=== PATIENT | female | born 1985 | race African-American/Black ===

== ENCOUNTER 2016-06-11 15:20 | Inpatient (IN) | payer MEDICARE, OTHER ==
[~2016-06-11] VITALS: Ht 160 cm; Wt 72.6 kg
[2016-06-11 15:28] VITALS: BP 204/97
[2016-06-11] MEDS ORDERED: Morphine Sulfate 4mg/ml Inj IVP ONE (15:45)
--- NOTE | 2016-06-11 15:45 | Emergency Room Report ---
History of Present Illness General Chief Complaint: Chest Pain Source: Patient, Medical Record, EMS Present Illness HPI She presents from dialysis clinic. This patient has a history of end-stage renal disease, DVT/PE. She states that she has ongoing chest and abdominal pain that has been ongoing all day. She normally receives all of her care at [facility]. Allergies: Coded Allergies: No Known Allergies (Unverified , 06/11/16) Patient History Past Medical History: see triage record, HTN, asthma, renal disease, dialysis Social History: Denies: alcohol use, drug use, smoking Last Menstrual Period: 05/22/16 Now: No Reviewed Nursing Documentation: PMH: Agreed, PSxH: Agreed Nursing Documentation-PMH Past Medical History: No History, Except For Hx Cardiac Problems: Yes - PE/ DVT, right atrial thrombus Hx Hypertension: Yes Hx Asthma: Yes Hx Diabetes: Yes - ESRD, TTHSat on dialysis Review of Systems All Other Systems: negative except mentioned in HPI Physical Exam Vital Signs Date Time Temp Pulse Resp B/P Pulse Ox O2 Delivery O2 Flow Rate FiO2 06/11/16 15:21 97.9 114 16 201/103 97 Room Air Sp02 EP Interpretation: reviewed, normal General Appearance: no apparent distress, alert, GCS 15, non-toxic Head: normocephalic, atraumatic Eyes: bilateral eye PERRL, bilateral eye normal inspection ENT: hearing grossly normal, normal pharynx, no angioedema, normal voice Neck: full range of motion, supple/symm/no masses Respiratory: chest non-tender, lungs clear, normal breath sounds, speaking full sentences Cardiovascular #1: regular rate, rhythm, no edema Gastrointestinal: normal bowel sounds, non tender, soft, non-distended, no guarding, no rebound Rectal: deferred Musculoskeletal: back normal, normal range of motion, non-tender Neurologic: alert, oriented x3, responsive, motor strength/tone normal, sensory intact, speech normal Psychiatric: judgement/insight normal, memory normal, mood/affect normal, no suicidal/homicidal ideation Skin: normal color, no rash, warm/dry, well hydrated Medical Decision Making Diagnostic Impression: Primary Impression: Chest pain Additional Impressions: Elevated troponin End stage renal disease ER Course I was able to contact the patient's primary care physician Dr. Silver. He knows this patient very well and recently admitted her to [facility] for the same presentation as today. She has had ongoing chest and abdominal pain. She underwent upper endoscopy and was found to have a pretty severe esophagitis. She also has a history of ileus and has cyclical vomiting. She is on a regimen for her her esophagitis. She also has a history of coronary artery disease and is planned undergo coronary artery bypass surgery electively. She did undergo laboratory workup to include a CBC, CMP, cardiac enzymes, chest x-ray and EKG. These labs showed an elevated troponin. This could be ischemia. There were no EKG changes. This patient is admitted for further evaluation and treatment. See EMR EKG Diagnostic Results Rate: tachycardiac ST Segments: no acute changes Other Impression S. tachycardia Rhythm Strip Diag. Results EP Interpretation: yes Rate: 110's Rhythm: no PVC's, no ectopy Other Impression S.tachycardia Chest X-Ray Diagnostic Results EP Interpretation: Yes Findings: no consolidation, no effusion, no pneumothorax, no acute cardiopulmonary disease Number of Views: 1 Last Vital Signs Date Time Temp Pulse Resp B/P Pulse Ox O2 Delivery O2 Flow Rate FiO2 06/11/16 15:21 97.9 114 16 201/103 97 Room Air Disposition: ADMITTED INPATIENT Condition: Serious Scripts Amlodipine Besylate (Norvasc) 10 Mg Tablet 10 MG ORAL DAILY for 90 Days, #90 TAB Prov: WENDY OLMSTEAD 06/13/16 VEGA CESAR D.O. Jun 11, 2016 15:44
[2016-06-11] MEDS ORDERED: CALCIUM ACETAT667 M1 PO (16:24)
[2016-06-11] MEDS ORDERED: PANTOPRAZOLE SO40 MG ORAL (16:24)
[2016-06-11] MEDS ORDERED: METOPROLOL TART25 MG ORAL (16:24)
[2016-06-11] MEDS ORDERED: ASPIR 8181 MG ORAL (16:24)
[2016-06-11] MEDS ORDERED: ZANTAC150 MG ORAL (16:24)
[2016-06-11] MEDS ORDERED: AMRIX15 MG ORAL (16:24)
[2016-06-11] MEDS ORDERED: PERCOCET 10-321 EAC1 PO (16:24)
[2016-06-11] MEDS ORDERED: METOCLOPRA10 MG/10 M ORAL (16:24)
[2016-06-11] MEDS ORDERED: HYDRALAZINE HCL50 MG ORAL (16:24)
[2016-06-11] MEDS ORDERED: GLIPIZIDE5 MG ORAL (16:24)
[2016-06-11] MEDS ORDERED: SENNA8.8 MG/5 M PO (16:25)
[2016-06-11] MEDS ORDERED: LABETALOL H5 MG/1 M1 PO (16:25)
[2016-06-11] MEDS ORDERED: COUMADIN4 MG ORAL (16:25)
[2016-06-11] MEDS ORDERED: SENSIPAR30 MG ORAL (16:25)
--- NOTE | 2016-06-11 16:36 | Diagnostic Imaging Report ---
Indication: Chest Pain Comparison: None A single view chest radiograph was obtained. Findings: There is a left permacath which appears to be in good position. Hazy groundglass perihilar opacities are present. Pneumonia is not excluded. Pulmonary vascularity is probably within normal limits. Heart size is normal accounting for the very low lung volumes. Bones are unremarkable. Impression: Possible Pneumonia especially on the left. Please correlate clinically. Permacath in good position
[2016-06-11 17:15] LABS: BASOPHILS % (AUTO) 2.3 % (0.0-2.0); EOSINOPHILS % (AUTO) 0.6 % (0.0-3.0); LYMPHOCYTES % (AUTO) 9.2 % (20.0-45.0); MEAN CORPUSCULAR HEMOGLOBIN 32.8 PG (27.0-31.0); MEAN CORPUSCULAR HGB CONC 32.6 G/DL (32.0-36.0); MEAN CORPUSCULAR VOLUME 101 FL (80-99); MEAN PLATELET VOLUME 6.9 FL (6.5-10.1); MONOCYTES % (AUTO) 4.1 % (1.0-10.0); NEUTROPHILS % (AUTO) 83.7 % (45.0-75.0); PLATELET COUNT 285 K/UL (150-450); RED BLOOD COUNT 3.78 M/UL (4.20-5.40); RED CELL DISTRIBUTION WIDTH 14.4 % (11.6-14.8); WHITE BLOOD COUNT 12.1 K/UL (4.8-10.8)
[2016-06-11 17:20] VITALS: BP 190/91
[2016-06-11 17:26] LABS: CALCIUM 9.9 mg/dL (8.6-10.2); CREATININE 5.3 mg/dL (0.5-0.9); GLOMERULAR FILTRATION RATE 11.4 mL/min (>60); POTASSIUM 3.4 mEQ/L (3.4-4.9); TOTAL PROTEIN 8.5 g/dL (6.6-8.7)
[2016-06-11] MEDS ORDERED: Famotidine 20 MG/ 2ML VIAL IVP ONE (17:30)
[2016-06-11] MEDS ORDERED: Lidocaine 2% Visc 15ml soln ORAL ONE (17:30)
[2016-06-11 17:32] LABS: PROTHROMBIN TIME 9.7 SEC (9.30-11.50)
[2016-06-11 17:36] LABS: CKMB 4.5 ng/mL (< 3.8)
[2016-06-11] MEDS ORDERED: Morphine Sulfate 10mg/ml Inj IM ONE (18:00)
[2016-06-11 18:01] LABS: TROPONIN I 0.35 ng/mL (<=0.30)
[2016-06-11 18:22] VITALS: BP 149/80
[2016-06-11 19:45] VITALS: BP 127/75
[2016-06-11] MEDS ORDERED: Miralax 17gm pkt ORAL PRN (21:30)
[2016-06-11] MEDS ORDERED: HYDROmorphone 1mg/ml Carpuject IVPB PRN (21:30)
[2016-06-11] MEDS ORDERED: HYDROmorphone 2 MG in NS 50 ML IVPB PRN (21:45)
[2016-06-11] MEDS ORDERED: HYDROmorphone 1mg/NS 50ml IVPB 50 ML IVPB PRN (21:45)
[2016-06-11] MEDS: Metoclopramide 10mg/2ml Inj IVP PRN (22:09)
[2016-06-11] MEDS: Metoprolol 50mg tab ORAL SCH (22:50)
[2016-06-12 00:27] LABS: TROPONIN I 0.42 ng/mL (<=0.30)
[2016-06-12 00:28] VITALS: BP 154/87
[2016-06-12] MEDS: Metoclopramide 10mg/2ml Inj IVP PRN ×2 (03:55→10:11)
[2016-06-12 04:09] VITALS: BP 133/76
[2016-06-12] MEDS: NovoLOG Insulin Flexpen SUBQ SCH ×4 (06:24→21:00)
[2016-06-12] MEDS: Calcium Acetate 667mg Tab ORAL SCH ×3 (06:30→17:05)
[2016-06-12] MEDS: GlipiZIDE 10mg tab ORAL SCH (06:30)
[2016-06-12 08:12] VITALS: BP 146/97
[2016-06-12] MEDS: Metoprolol 50mg tab ORAL SCH ×2 (08:37→21:56)
[2016-06-12] MEDS: Aspirin EC 81mg tab ORAL SCH (08:37)
[2016-06-12] MEDS: Sensipar 30mg Tab ORAL SCH (08:37)
[2016-06-12 10:03] LABS: HEMOGLOBIN A1C 5.2 % (< 6.0)
[2016-06-12 10:07] LABS: TROPONIN I 0.35 ng/mL (<=0.30)
[2016-06-12 10:30] LABS: CHOLESTEROL/HDL RATIO 2.5 (3.3-4.4); PHOSPHORUS 2.6 mg/dL (2.5-4.8)
[2016-06-12 10:38] LABS: MAGNESIUM 2.1 mg/dL (1.7-2.5)
[2016-06-12 12:01] VITALS: BP 162/96
--- NOTE | 2016-06-12 15:21 | Cardiology Progress Note ---
Assessment/Plan Assessment/Plan atypical chest pain minor trop abn of ? sig in light of renal insuf ([facility] cad s/p pci rca needs pci of lad and cx esrd on hd dm diabetic gastroparesis hs of gastritis ekg is not sig abn trop abn likely related to renal insuf will have pt walk in [facility] tomorrow will d/w dr paredes to have cath pci on lad cx on d/w dr reyna and will d/w iron setter regaridng labs needed by [facility] Objective Last 24 Hour Vital Signs Date Time Temp Pulse Resp B/P Pulse Ox O2 Delivery O2 Flow Rate FiO2 06/12/16 14:55 Nasal Cannula 2.0 06/12/16 12:01 98.1 92 20 162/96 94 Nasal Cannula 2.0 06/12/16 12:00 87 06/12/16 11:40 Room Air 06/12/16 08:37 109 146/97 06/12/16 08:37 109 146/97 06/12/16 08:12 98.1 109 20 146/97 93 Nasal Cannula 2.0 06/12/16 08:00 104 06/12/16 04:09 98.4 92 19 133/76 95 Nasal Cannula 2.0 06/12/16 04:00 100 06/12/16 00:28 97.7 93 18 154/87 95 Nasal Cannula 2.0 06/12/16 00:00 90 06/11/16 22:50 101 176/103 06/11/16 22:41 97.9 06/11/16 21:09 97.9 96 23 127/75 98 Room Air 2.0 06/11/16 19:45 96 23 127/75 98 Room Air 06/11/16 18:46 97.9 06/11/16 18:22 97.9 103 22 149/80 100 Nasal Cannula 2.0 06/11/16 17:33 97.9 06/11/16 17:20 97.9 104 24 190/91 99 Nasal Cannula 2.0 06/11/16 15:28 102 23 Room Air 06/11/16 15:28 97.9 102 23 204/97 99 Room Air 06/11/16 15:21 97.9 114 16 201/103 97 Room Air Intake and Output 06/11/16 06/12/16 19:00 07:00 # Voids 1 Laboratory Tests Test 06/11/16 16:48 06/11/16 23:00 06/12/16 09:00 White Blood Count 12.1 K/UL (4.8-10.8) H Red Blood Count 3.78 M/UL (4.20-5.40) L Hemoglobin 12.4 G/DL (12.0-16.0) Hematocrit 38.0 % (37.0-47.0) Mean Corpuscular Volume 101 FL (80-99) H Mean Corpuscular Hemoglobin 32.8 PG (27.0-31.0) H Mean Corpuscular Hemoglobin Concent 32.6 G/DL (32.0-36.0) Red Cell Distribution Width 14.4 % (11.6-14.8) Platelet Count 285 K/UL (150-450) Mean Platelet Volume 6.9 FL (6.5-10.1) Neutrophils (%) (Auto) 83.7 % (45.0-75.0) H Lymphocytes (%) (Auto) 9.2 % (20.0-45.0) L Monocytes (%) (Auto) 4.1 % (1.0-10.0) Eosinophils (%) (Auto) 0.6 % (0.0-3.0) Basophils (%) (Auto) 2.3 % (0.0-2.0) H Prothrombin Time 9.7 SEC (9.30-11.50) Prothromb Time International Ratio 1.0 (0.9-1.1) Activated Partial Thromboplast Time 57 SEC (23-33) H Sodium Level 140 mEQ/L (135-145) Potassium Level 3.4 mEQ/L (3.4-4.9) Chloride Level 95 mEQ/L (98-107) L Carbon Dioxide Level 25 mEQ/L (20-30) Anion Gap 20 (5-15) H Blood Urea Nitrogen 26 mg/dL (7-23) H Creatinine 5.3 mg/dL (0.5-0.9) H Estimat Glomerular Filtration Rate 11.4 mL/min (>60) Glucose Level 108 mg/dL (74-106) H Calcium Level 9.9 mg/dL (8.6-10.2) Total Bilirubin 0.5 mg/dL (0.0-1.2) Aspartate Amino Transf (AST/SGOT) 50 U/L (5-40) H Alanine Aminotransferase (ALT/SGPT) 42 U/L (3-33) H Alkaline Phosphatase 173 U/L (35-104) H Total Creatine Kinase 86 U/L (26-140) Creatine Kinase MB 4.5 ng/mL (< 3.8) H Creatine Kinase MB Relative Index 5.2 Troponin I 0.35 ng/mL (<=0.30) *H 0.42 ng/mL (<=0.30) *H 0.35 ng/mL (<=0.30) *H Total Protein 8.5 g/dL (6.6-8.7) Albumin 4.3 g/dL (3.5-5.2) Globulin 4.2 g/dL Albumin/Globulin Ratio 1.0 (1.0-2.7) Hemoglobin A1c 5.2 % (< 6.0) Calcium (Send out) Pending Phosphorus Level 2.6 mg/dL (2.5-4.8) Magnesium Level 2.1 mg/dL (1.7-2.5) Iron Level 19 ug/dL (37-145) L Total Iron Binding Capacity 145 ug/dL (250-400) L Percent Iron Saturation 13 % (15-50) L Unsaturated Iron Binding 126 ug/dL (112-346) Triglycerides Level 136 mg/dL (< 150) Cholesterol Level 211 mg/dL (< 200) H LDL Cholesterol 100 mg/dL (60-99) H HDL Cholesterol 84 mg/dL (> 60) H Cholesterol/HDL Ratio 2.5 (3.3-4.4) L Parathyroid Hormone (Intact) Pending CONOR ROSS Jun 12, 2016 15:21
[2016-06-12 16:00] VITALS: BP 138/76
--- NOTE | 2016-06-12 17:42 | Cardiology Report ---
APPROVED REPORT EKG Measurement Heart [id number] Sinus tachycardia Nonspecific T wave abnormality Abnormal ECG
--- NOTE | 2016-06-12 18:46 | History & Physical ---
History and Physical History & Physicial Dictated for Int Med-Dr Silver no. [id number]. NINI JACKSON Jun 12, 2016 18:46
[2016-06-12 20:00] VITALS: BP 133/75
--- NOTE | 2016-06-12 20:28 | History and Physical Report ---
DATE OF ADMISSION: 06/11/2016 CHIEF COMPLAINT: Chest pain. HISTORY OF PRESENT ILLNESS: This is a 30-year-old female with history of end-stage renal disease as a result of diabetic nephropathy. She has been on dialysis every Saturday, , Saturday. She went to her dialysis yesterday and after she was started on it, she started having severe chest pain. She describes it as sharp pain, 10/10 intensity, which lasted until the patient was brought into the emergency room, was given some medications. The patient was admitted for further workup. PAST MEDICAL HISTORY: History of diabetes, as mentioned. The patient has history of DVT and pulmonary embolism. She has also significant coronary artery disease. Recently she had a coronary angioplasty at [facility]. She has also gastroparesis and reflux esophagitis. The patient has history of asthma and hypertension as well. ALLERGIES: No known drug allergies. SOCIAL HISTORY: No history of smoking or alcohol abuse. The patient lives with her sister. REVIEW OF SYSTEMS: Noncontributory. PHYSICAL EXAMINATION: GENERAL: The patient is a 30-year-old female, in no acute distress. She does not have pain at this point. VITAL SIGNS: Blood pressure is 162/96, pulse 94, temperature 98.1 degrees, and respiratory rate is 20. HEENT: [place] conjunctivae. Anicteric sclerae. NECK: Supple. LUNGS: Clear to auscultation. HEART: S1 and S2 without murmurs or rubs. ABDOMEN: Soft and nontender. EXTREMITIES: No cyanosis or edema. LABORATORY AND DIAGNOSTIC DATA: CBC shows a WBC of 12.1, hematocrit is 38, hemoglobin 12.4, and platelet is 285,000. The chemistry panel shows a sodium 140, potassium 3.4, chloride 95, CO2 of 25, BUN is 26, creatinine 5.3, and glucose of 108. Calcium is 9.9. AST 50 and ALT 42. Troponin the first one was 0.35, second one was 0.42 and third one 0.35. Lipid panel showed a LDL of 100, triglycerides of 136, and iron saturation is 13%. ASSESSMENT: This is a 30-year-old female, who was admitted with what appears to be atypical chest pain. She has had reflux esophagitis, the pain may be as a result of that. She has slightly elevated troponin, but I do not think that this is from cardiac ischemia. She has also some iron-deficiency. Her LDL is not at target of below 100. PLAN: The patient will be seen by Dr. Rohit Hammonds in Cardiology consultation. She was started on 40 mg Lipitor, is not clear if she was taking any statins at home before. She is being dialyzed at this point. Her medication will be adjusted. She will be on proton pump inhibitors. Rick Sepulveda M.D. DR: EVA JOB#: [id number] CC: MARCO
[2016-06-12] MEDS ORDERED: HYDROmorphone 2 MG in D5W 50 ML IVPB PRN (22:30)
--- NOTE | 2016-06-12 23:18 | Consultation ---
DATE OF CONSULTATION: 06/12/2016 CARDIOLOGY CONSULTATION: REFERRING PHYSICIAN: Rick Sepulveda M.D. REASON FOR REFERRAL: Chest pain. HISTORY OF PRESENT ILLNESS: This is a 30-year-old female, who is known to me with history of coronary disease. The patient had recent cardiac catheterization and percutaneous coronary intervention performed at [facility] under the direction of Dr. Newton for significant coronary disease that was found on subsequent ischemic evaluation being positive in my office. In fact, rotablation stent x3 on the right coronary artery and has also had left anterior descending artery that need to be intervened sometime in the near future. Nevertheless, the patient was discharged after having bouts of abdominal pain felt to be related to peptic ulcer disease and gastritis and was readmitted to [facility] sometime later, but again discharged after the workup was felt to be related to esophagitis and noted to be present at this time of endoscopy. Her aspirin and Plavix were not discontinued at that time. Yesterday, she went in for dialysis session out of ordinary for her because she had some shortness of breath that she thought was present because of her drinking more liquid than she usually does and during dialysis, she had this bouts of sharp chest pain in the center of chest radiating to the back that she experienced lasted sometimes and she came to the emergency room. Dialysis was discontinued. At [facility], she got one bout of morphine that did not help and got another dose of morphine and eventually pain went away. She thinks the duration of the pain was at least two hours maybe longer and she was admitted. She has no PND last night. She has no orthopnea, dizziness, or lightheadedness on standing. No heart pounding or palpitations. She had never experienced the chest pain before with her dialysis on prior occasions. PAST MEDICAL HISTORY: Positive for history of coronary disease as mentioned with a triple-vessel disease with LAD circumflex and right coronary artery being abnormal, but subsequent intervention of the right coronary artery, end-stage renal disease, on hemodialysis, hypertension, diabetes with gastroparesis, history of lower extremity deep venous thrombosis and pulmonary embolism x2, the last one was in January 2002. She was [facility] that was followed by as well. She has a history of lower extremity AV fistula. She has had a vascular surgeon on prior occasions. SOCIAL HISTORY: No smoking and uses marijuana one time a week. No other drugs. Denies any alcohol. She is to a significant other. No kids. 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 FAMILY HISTORY: Positive for diabetes and hypertension in both parents. REVIEW OF SYSTEMS: Gastrointestinal: She denies any nausea, vomiting, diarrhea, or constipation. No bloody stools or black tarry stools. She makes very little urine. Pulmonary: Denies any coughing or wheezing. Constitutional: She denies. Neurologic: She denies. Musculoskeletal: She denies. PHYSICAL EXAMINATION: GENERAL: Shows to be young female, in no apparent distress. She is on a dialysis machine at the present time. VITAL SIGNS: Her blood pressure is anywhere between 127/75 to a maximum of 201/103 when she first presented to the emergency room. Her temperature 98.1 degrees and heart rate of 109. NECK: Supple. No jugular venous distention. LUNGS: Clear to auscultation and percussion. CARDIAC: S1 is normal. S2 is normal. Regular rate and rhythm. No heaves or thrills noted. ABDOMEN: Soft and nontender. Positive bowel sounds. EXTREMITIES: There is no clubbing, cyanosis, or edema. NEUROLOGIC: She is awake, alert, and responsive, in no apparent respiratory distress. LABORATORY VALUES: White count 12.1, hemoglobin 12.4, and platelet count 385,000. Troponin 0.35, 0.4 to 0.35. Iron was 19 and 13% saturation. Total cholesterol 211 with a LDL of 100, HDL 84, and triglycerides are only 136. PTH is pending at this time. Sodium was 140, potassium 3.4, chloride 95, bicarbonate 25, BUN 26, creatinine 5.3, and glucose 108. The liver function tests are minimally abnormal. Her albumin was 4.3. Cardiac enzymes have been on review of the [employer] also indicated that had been abnormal on [employer] as well on prior occasions dating back approximately four months ago and certainly that were elevated previously that as well. Her EKG shows sinus tachycardia, rate of [address] no significant ST or T wave of abnormalities. Her chest x-ray performed here shows possible pneumonia especially left base clinically. PermCath in good position. Rohit Daneshrad, M.D. DR: Andry JOB#: [id number] CC:
[2016-06-13 00:12] VITALS: BP 105/64
[2016-06-13 04:09] VITALS: BP 133/70
--- NOTE | 2016-06-13 05:57 | History and Physical Report ---
DATE OF ADMISSION: 06/11/2016 Dictating for . CHIEF COMPLAINT: The patient is a 30-year-old female, who presents with a chief complaint of chest pain. HISTORY OF PRESENT ILLNESS: The patient has a history of end-stage renal disease. The patient is on hemodialysis every Saturday, , and Saturday. The patient was sent to [facility] emergency room from the dialysis unit. The patient began to experience chest pain. The patient has a history of deep venous thrombosis and pulmonary embolism in the past. The patient is admitted for chest pain to rule out acute coronary syndrome versus acute pulmonary embolism. PAST MEDICAL HISTORY: Significant for: 1. Hypertension. 2. End-stage renal disease, on hemodialysis every Saturday, , and Saturday. 3. Asthma. PAST SURGICAL HISTORY: Significant for AV graft placement for dialysis. CURRENT MEDICATIONS: 1. Aspirin 81 mg one tablet p.o. daily. 2. Calcium acetate 667 mg p.o. daily. 3. Sensipar 90 mg p.o. daily. 4. Amrix 5 mg one tablet p.o. daily. 5. Glipizide 5 mg two tablets p.o. daily. 6. Hydralazine 50 mg one tablet p.o. daily. 7. Labetalol 100 mg one tablet p.o. daily. 8. Metoprolol 25 mg one tablet p.o. daily. 9. Oxycodone 10/325 one tablet p.o. q.4 hours p.r.n. 10. Protonix 40 mg one tablet p.o. daily. 11. Zantac 150 mg one tablet p.o. daily. 12. Coumadin 4 mg one tablet p.o. daily. ALLERGIES: No known drug allergies. SOCIAL HISTORY: The patient is single and is disabled. The patient denies tobacco or alcohol use. REVIEW OF SYSTEMS: Constitutional: The patient denies weight loss or weight gain. The patient denies fevers or chills. HEENT: The patient denies ear or throat pain. The patient denies headache. Cardiovascular: The patient denies palpitations. The patient complains of chest pain as above. Abdomen: The patient denies nausea, vomiting, diarrhea, or constipation. Chest: The patient denies wheeze or shortness of breath. Genitourinary: The patient denies dysuria or increased frequency of urination. Neuromuscular: The patient denies seizures or generalized weakness. PHYSICAL EXAMINATION: VITAL SIGNS: Temperature 98.1 degrees, respirations 20, pulse 92, and blood pressure 162/96. GENERAL: The patient is well-developed, well-nourished, slightly obese, female, in no apparent distress. HEENT: Eyes, pupils are equal and responsive to light and accommodation. Extraocular movements are intact. NECK: Supple without lymphadenopathy. CHEST: Lungs are clear to auscultation bilaterally without wheezes or rales. CARDIOVASCULAR: Regular rhythm and rate. S1 and S2 are normal without murmurs, rubs, or gallops. ABDOMEN: Soft, nontender, and nondistended. Positive bowel sounds. No evidence of hepatosplenomegaly. Currently, no rebound or guarding noted. EXTREMITIES: Negative for clubbing, cyanosis, or edema. RECTAL/GENITAL: Refused. NEUROLOGIC: Cranial nerves II through XII are grossly intact without focal deficits. Motor strength is 5/5 bilaterally. Deep tendon reflexes are 2+ plantar. LABORATORY STUDIES: WBC 12.1, hemoglobin 12.4, hematocrit 38.0, and platelets 285,000. Sodium 140, potassium 3.4, chloride 95, CO2 25, BUN 26, creatinine elevated at 5.3, and glucose 108. Troponin elevated at 0.35. ASSESSMENT: This is a 30-year-old female. 1. Chest pain. 2. Elevated troponin. 3. End-stage renal disease. 4. Hypertension. 5. Asthma. TREATMENT: 1. Chest pain/elevated troponin. A Cardiology consultation is pending with Dr. Rohit Hammonds. Serial troponin levels will be run. We will follow recommendations of Cardiology. Chest pain is concerning for coronary artery disease versus pulmonary embolism as the patient has a previous pulmonary embolism. 2. End-stage renal disease, on hemodialysis. A Nephrology consultation is obtained with Dr. Sepulveda. Continue dialysis every Saturday, , and Saturday per Dr. Sepulveda. 3. Hypertension. Continue Norvasc 10 mg one tablet p.o. daily. 4. Asthma, stable. Loco Decker M.D. DR: TATIANNA JOB#: [id number] CC:
[2016-06-13] MEDS: Calcium Acetate 667mg Tab ORAL SCH ×2 (06:21→11:57)
[2016-06-13] MEDS: Metoclopramide 10mg/2ml Inj IVP PRN (06:26)
[2016-06-13] MEDS: GlipiZIDE 10mg tab ORAL SCH (06:30)
[2016-06-13] MEDS: NovoLOG Insulin Flexpen SUBQ SCH ×2 (06:30→12:03)
[2016-06-13 07:41] LABS: BASOPHILS % (AUTO) 0.7 % (0.0-2.0); EOSINOPHILS % (AUTO) 0.9 % (0.0-3.0); LYMPHOCYTES % (AUTO) 11.8 % (20.0-45.0); MEAN CORPUSCULAR HEMOGLOBIN 32.7 PG (27.0-31.0); MEAN CORPUSCULAR HGB CONC 30.9 G/DL (32.0-36.0); MEAN CORPUSCULAR VOLUME 106 FL (80-99); MEAN PLATELET VOLUME 6.7 FL (6.5-10.1); MONOCYTES % (AUTO) 7.1 % (1.0-10.0); NEUTROPHILS % (AUTO) 79.5 % (45.0-75.0); PLATELET COUNT 199 K/UL (150-450); RED BLOOD COUNT 3.08 M/UL (4.20-5.40); RED CELL DISTRIBUTION WIDTH 14.2 % (11.6-14.8)
[2016-06-13 07:47] LABS: ALBUMIN/GLOBULIN RATIO 0.9 (1.0-2.7); CALCIUM 8.9 mg/dL (8.6-10.2); CREATININE 5.8 mg/dL (0.5-0.9); GLOMERULAR FILTRATION RATE 10.3 mL/min (>60); POTASSIUM 3.8 mEQ/L (3.4-4.9); TOTAL PROTEIN 7.5 g/dL (6.6-8.7)
[2016-06-13 08:00] VITALS: BP 132/79
[2016-06-13 08:55] LABS: TROPONIN I 0.31 ng/mL (<=0.30)
[2016-06-13] MEDS: Sensipar 30mg Tab ORAL SCH (09:25)
[2016-06-13] MEDS: Aspirin EC 81mg tab ORAL SCH (09:26)
[2016-06-13] MEDS: Metoprolol 50mg tab ORAL SCH (09:26)
[2016-06-13] MEDS ORDERED: NORVASC10 MG ORAL (11:24)
--- NOTE | 2016-06-13 11:30 | Consultation ---
Consult Note Assessment/Plan Dc dictated # [id number] WENDY OLMSTEAD Jun 13, 2016 11:29
[2016-06-13 12:13] VITALS: BP 156/84
--- NOTE | 2016-06-13 13:46 | Internal Med Progress Note ---
Subjective Date of Service: Jun 13, 2016 Physician Name Loco Jackson Attending Physician Rick Sepulveda Current Medications Medications (Trade) Dose Ordered Sig/Danielle Route PRN Reason Start Time Stop Time Status Last Admin Dose Admin Amlodipine Besylate (Norvasc) 10 mg DAILY ORAL 06/12/16 09:00 07/12/16 08:59 06/13/16 09:26 Aspirin (Ecotrin) 81 mg DAILY ORAL 06/12/16 09:00 07/12/16 08:59 06/13/16 09:26 Atorvastatin Calcium (Lipitor) 40 mg BEDTIME ORAL 06/12/16 21:00 07/12/16 20:59 06/12/16 21:56 Calcium Acetate (Phoslo) 667 mg TIAC ORAL 06/12/16 06:30 07/12/16 06:29 06/13/16 11:57 Cinacalcet (Sensipar) 90 mg DAILY ORAL 06/12/16 09:00 07/12/16 08:59 06/13/16 09:25 Clopidogrel Bisulfate 75 mg 75 mg DAILY ORAL 06/11/16 09:00 07/11/16 08:59 06/13/16 09:27 Dextrose STAT PRN IV Hypoglycemia 06/11/16 21:30 07/11/16 21:29 06/13/16 05:47 Glipizide (Glucotrol) 10 mg ACBREAKFAST ORAL 06/12/16 06:30 07/12/16 06:29 06/12/16 06:30 Hydromorphone HCl (Dilaudid Premix 1mg/50ml) 50 ml @ 200 mls/hr Q3H PRN IVPB Moderate Pain (Pain Scale 4-6) 06/11/16 21:45 07/11/16 21:44 06/13/16 00:19 Hydromorphone HCl/ Dextrose (Dilaudid/D5W 50ml) 51 ml @ 200 mls/hr Q3H PRN IVPB Severe Pain (Pain Scale 7-10) 06/12/16 22:30 06/18/16 22:29 Insulin Aspart (NovoLOG) BEFORE MEALS AND HS SUBQ 06/12/16 06:30 07/12/16 06:29 06/13/16 12:03 Metoclopramide HCl (Reglan) 10 mg Q6H PRN IVP Nausea & Vomiting 06/11/16 21:30 07/11/16 21:29 06/13/16 06:26 Metoprolol Tartrate (Lopressor) 50 mg Q12HR ORAL 06/11/16 22:00 07/11/16 21:59 06/13/16 09:26 Pantoprazole (Protonix) 40 mg DAILY ORAL 06/12/16 09:00 07/12/16 08:59 06/13/16 09:26 Polyethylene Glycol (Miralax) 17 gm DAILYPRN PRN ORAL Constipation 06/11/16 21:30 07/11/16 21:29 Allergies: Coded Allergies: No Known Allergies (Unverified , 06/11/16) ROS Limited/Unobtainable: No Constitutional: Reports: no symptoms HEENT: Reports: no symptoms Cardiovascular: Reports: chest pain Respiratory: Reports: no symptoms Gastrointestinal/Abdominal: Reports: no symptoms Genitourinary: Reports: no symptoms Neurologic/Psychiatric: Reports: no symptoms Subjective 30 YO F admitted with chest pain. Cover for [facility] Med-Dr Silver. Objective Last Vital Signs Date Time Temp Pulse Resp B/P Pulse Ox O2 Delivery O2 Flow Rate FiO2 06/13/16 12:13 98.2 83 18 156/84 95 06/13/16 08:00 Room Air 06/13/16 07:51 2.0 28 General Appearance: WD/WN, no apparent distress, alert EENT: PERRL/EOMI, normal ENT inspection Neck: non-tender, normal alignment, supple Cardiovascular: normal peripheral pulses, normal rate, regular rhythm, no gallop/murmur, no JVD Respiratory/Chest: chest wall non-tender, lungs clear, normal breath sounds, no respiratory distress, no accessory muscle use Abdomen: normal bowel sounds, non tender, soft, no organomegaly, no mass Extremities: normal range of motion, non-tender Neurologic: television agent II-XII grossly normal Skin: normal pigmentation, warm/dry Laboratory Tests Test 06/13/16 05:50 06/13/16 06:50 Sodium Level 137 mEQ/L (135-145) Potassium Level 3.8 mEQ/L (3.4-4.9) Chloride Level 97 mEQ/L (98-107) L Carbon Dioxide Level 23 mEQ/L (20-30) Anion Gap 17 (5-15) H Blood Urea Nitrogen 28 mg/dL (7-23) H Creatinine 5.8 mg/dL (0.5-0.9) H Estimat Glomerular Filtration Rate 10.3 mL/min (>60) Glucose Level 142 mg/dL (74-106) H Calcium Level 8.9 mg/dL (8.6-10.2) Total Bilirubin 0.7 mg/dL (0.0-1.2) Aspartate Amino Transf (AST/SGOT) 79 U/L (5-40) H Alanine Aminotransferase (ALT/SGPT) 70 U/L (3-33) H Alkaline Phosphatase 209 U/L (35-104) H Troponin I 0.31 ng/mL (<=0.30) *H Total Protein 7.5 g/dL (6.6-8.7) Albumin 3.6 g/dL (3.5-5.2) Globulin 3.9 g/dL Albumin/Globulin Ratio 0.9 (1.0-2.7) L White Blood Count 15.0 K/UL (4.8-10.8) H Red Blood Count 3.08 M/UL (4.20-5.40) L Hemoglobin 10.1 G/DL (12.0-16.0) L Hematocrit 32.7 % (37.0-47.0) L Mean Corpuscular Volume 106 FL (80-99) H Mean Corpuscular Hemoglobin 32.7 PG (27.0-31.0) H Mean Corpuscular Hemoglobin Concent 30.9 G/DL (32.0-36.0) L Red Cell Distribution Width 14.2 % (11.6-14.8) Platelet Count 199 K/UL (150-450) Mean Platelet Volume 6.7 FL (6.5-10.1) Neutrophils (%) (Auto) 79.5 % (45.0-75.0) H Lymphocytes (%) (Auto) 11.8 % (20.0-45.0) L Monocytes (%) (Auto) 7.1 % (1.0-10.0) Eosinophils (%) (Auto) 0.9 % (0.0-3.0) Basophils (%) (Auto) 0.7 % (0.0-2.0) Microbiology Date/Time Source Procedure Growth Status 06/11/16 19:49 Nasal Nares MRSA Culture - Final NO METHICILLIN RESISTANT STAPH AUREUS... Complete 06/11/16 19:49 Rectum VRE Culture - Final NO VANCOMYCIN RESISTANT ENTEROCOCCUS ... Complete Intake and Output 06/12/16 06/13/16 18:59 06:59 Intake Total 240 ml 50 ml Output Total 1600 ml Balance -1360 ml 50 ml Intake Oral 240 ml IV Total 50 ml Output Hemodialysis UF 1600 ml Assessment/Plan Problem List: (1) Coronary artery disease Assessment & Plan: See cardiology note. Patient scheduled for Cardiac cath PCI at [facility] on Saturday06/15/16. Follow up with Dr Newton (2) Elevated troponin (3) End stage renal disease Assessment & Plan: See nephrology note. Hemodialysis on Sat06/12/16 (4) Hypertension Assessment & Plan: Stable on norvasc. (5) Asthma (6) Gastroparesis (7) Esophagitis (8) Chest pain Assessment & Plan: atypical chest pain. See cardiology note. Status: progressing LOCO JACKSON Jun 13, 2016 13:46
[2016-06-13] MEDS ORDERED: Tubing IV Secondary IV ONE (14:19)
[2016-06-13] MEDS ORDERED: NS 275ml ONE (14:19)
[2016-06-13 14:23] LABS: CALCIUM 9.4 mg/dL (8.7-10.2); PTH INTACT 56 pg/mL (15-65)
--- NOTE | 2016-06-14 06:38 | Discharge Summary ---
DATE OF ADMISSION: 06/11/2016 DATE OF DISCHARGE: 06/13/2016 CHIEF COMPLAINT: Chest pain. HISTORY OF PRESENT ILLNESS: This is a 30-year-old female, who was admitted with severe chest pain. The patient has a history of diabetes mellitus and coronary artery disease, end-stage renal disease, on hemodialysis. So, she has multiple risk factors for cardiac events. Nevertheless, this pain was atypical. HOSPITAL COURSE: The patient was admitted under telemetry bed, which she was given pain medications. She has history of gastroparesis and reflux esophagitis that she was treated for those conditions with IV Reglan p.r.n. and also proton pump inhibitors. The pain has subsided. She was seen by Dr. Rohit Hammonds in Cardiology consultation. He recommended the patient to follow up with Interventional Cardiology at [facility] because she had other coronary arteries, which needed to be opened. The patient was discharged in stable condition. DISCHARGE DIAGNOSES: 1. Atypical chest pain, the possibility of reflux esophagitis. 2. End-stage renal disease, on hemodialysis. 3. Hypertension. 4. Diabetes mellitus. 5. Gastroparesis. 6. History of previous deep venous thrombosis and pulmonary embolism. It was decided to stop the patient's Coumadin and since it has been a while. Rick Sepulveda M.D. DR: Padmini JOB#: [id number] CC:
== END 2016-06-13 14:20 | disposition home or self-care (01) | DRG 391 ==
LOC: EDBD 15:20 → EMR 16:06 → 2E 18:59 → EDBEDREQ 19:55 → 2E 20:55
PROC: 5A1D00Z (ICD-10-PCS; principal; 2016-06-12)
DX: K21.0 Gastro-esophageal reflux disease with esophagitis (principal); N18.6 End stage renal disease; I12.0 Hypertensive chronic kidney disease with stage 5 chronic kidney disease or end stage renal disease; E11.22 Type 2 diabetes mellitus with diabetic chronic kidney disease; Z99.2 Dependence on renal dialysis; I25.10 Atherosclerotic heart disease of native coronary artery without angina pectoris; J45.909 Unspecified asthma, uncomplicated; E11.43 Type 2 diabetes mellitus with diabetic autonomic (poly)neuropathy; K31.84 Gastroparesis; Z86.711 Personal history of pulmonary embolism; Z86.718 Personal history of other venous thrombosis and embolism; Z79.82 Long term (current) use of aspirin
CPT/HCPCS: 36415; 71010; 80053; 80061; 82550; 82553; 82962; 83036; 83540; 83550; 83735; 83970; 84100; 84484; 85025; 85610; 85730; 87081; 93005; 94760; J1815; J2765

== ENCOUNTER 2018-01-14 17:56 | Inpatient (IN) | payer MEDICARE, OTHER ==
[~2018-01-14] VITALS: Ht 149.9 cm; Wt 57.2 kg
[~2018-01-14 17:56] MED LIST: AMRIX15 MG ORAL; ASPIR 8181 MG ORAL; CALCIUM ACETAT667 M1 PO; COUMADIN4 MG ORAL; GLIPIZIDE5 MG ORAL; HYDRALAZINE HCL50 MG ORAL; LABETALOL H5 MG/1 M1 PO; METOCLOPRA10 MG/10 M ORAL; METOPROLOL TART25 MG ORAL; NORVASC10 MG ORAL; PANTOPRAZOLE SO40 MG ORAL; PERCOCET 10-321 EAC1 PO; SENNA8.8 MG/5 M PO; SENSIPAR30 MG ORAL; ZANTAC150 MG ORAL
[2018-01-14 18:07] VITALS: BP 186/77
[2018-01-14] MEDS ORDERED: Morphine Sulfate 4mg/ml Inj (IV USE ONLY) IVP ONE ×3 (18:15→21:30)
[2018-01-14 18:27] LABS: BASOPHILS % (AUTO) 1.1 % (0.0-2.0); HEMATOCRIT 39.6 % (37.0-47.0); HEMOGLOBIN 13.1 G/DL (12.0-16.0); LYMPHOCYTES % (AUTO) 12.1 % (20.0-45.0); MEAN CORPUSCULAR VOLUME 98 FL (80-99); MONOCYTES % (AUTO) 3.6 % (1.0-10.0); NEUTROPHILS % (AUTO) 83.2 % (45.0-75.0); PLATELET COUNT 236 K/UL (150-450); RED BLOOD COUNT 4.02 M/UL (4.20-5.40); RED CELL DISTRIBUTION WIDTH 12.2 % (11.6-14.8); WHITE BLOOD COUNT 7.2 K/UL (4.8-10.8)
[2018-01-14 18:40] LABS: ANION GAP 13 mmol/L (5-15); BLOOD UREA NITROGEN 28 mg/dL (7-18); CALCIUM 9.9 MG/DL (8.5-10.1); CARBON DIOXIDE 26 MMOL/L (21-32); CHLORIDE 98 MMOL/L (98-107); CREATININE 8.5 MG/DL (0.55-1.30); POTASSIUM 4.4 MMOL/L (3.5-5.1); SODIUM 136 MMOL/L (136-145)
[2018-01-14 18:45] LABS: ALANINE AMINOTRANSFERASE 15 U/L (12-78); ALBUMIN 4.3 G/DL (3.4-5.0); ALKALINE PHOSPHATASE 180 U/L (46-116); ASPARTATE AMINO TRANSFERASE 14 U/L (15-37); BILIRUBIN,TOTAL 0.6 MG/DL (0.2-1.0)
--- NOTE | 2018-01-14 18:45 | Emergency Room Report ---
History of Present Illness General Chief Complaint: Abdominal Pain Source: Patient Present Illness HPI 32-year-old female presents ED for evaluation. Patient complains abdominal pain. Pain is epigastric, sharp, 10 out of 10, nonradiating. Notes multiple episodes of nausea and vomiting. Patient completed dialysis today. States she has history of gastroparesis. Denies chest pain or shortness of breath. States she's been recently admitted to [facility] for similar episodes of pain. No other aggravating relieving factors. Denies any other associated symptoms Allergies: Coded Allergies: No Known Allergies (Unverified , 06/11/16) Patient History Past Medical History: HTN, asthma, renal disease, dialysis Past Surgical History: none Pertinent Family History: none Social History: Denies: smoking, alcohol use, drug use Now: No Immunizations: UTD Reviewed Nursing Documentation: PMH: Agreed; PSxH: Agreed Nursing Documentation-PMH Past Medical History: No History, Except For Hx Cardiac Problems: Yes - PE/ DVT, right atrial thrombus Hx Hypertension: Yes Hx Asthma: Yes Hx Diabetes: Yes - ESRD, TTHSat on dialysis Hx Cancer: No Hx Gastrointestinal Problems: No Hx Neurological Problems: No Review of Systems All Other Systems: negative except mentioned in HPI Physical Exam Vital Signs Date Time Temp Pulse Resp B/P (MAP) Pulse Ox O2 Delivery O2 Flow Rate FiO2 01/14/18 18:00 98.0 97 217/105 95 Room Air 98.1 01/14/18 18:07 20 Sp02 EP Interpretation: reviewed, normal General Appearance: no apparent distress, alert, GCS 15, non-toxic, mild distress Head: normocephalic, atraumatic Eyes: bilateral eye normal inspection, bilateral eye PERRL ENT: hearing grossly normal, normal pharynx, no angioedema, normal voice Neck: full range of motion, supple/symm/no masses Respiratory: chest non-tender, lungs clear, normal breath sounds, speaking full sentences Cardiovascular #1: regular rate, rhythm, no edema Cardiovascular #2: 2+ carotid (R), 2+ carotid (L), 2+ radial (R), 2+ radial (L) , 2+ dorsalis pedis (R), 2+ dorsalis pedis (L) Gastrointestinal: normal bowel sounds, soft, non-distended, no guarding, no rebound, tenderness - epigastric Rectal: deferred Genitourinary: normal inspection, no CVA tenderness Musculoskeletal: back normal, gait/station normal, normal range of motion, non- tender Neurologic: alert, oriented x3, responsive, motor strength/tone normal, sensory intact, speech normal Psychiatric: judgement/insight normal, memory normal, mood/affect normal, no suicidal/homicidal ideation Reflexes: 3+ bicep (R), 3+ bicep (L), 3+ tricep (R), 3+ tricep (L), 3+ knee (R) , 3+ knee (L) Skin: normal color, no rash, warm/dry, well hydrated Lymphatic: no adenopathy Medical Decision Making Diagnostic Impression: Primary Impression: Gastroparesis Additional Impressions: Intractable vomiting Qualified Codes: G43.A1 - Cyclical vomiting, intractable ESRD on dialysis ER Course Hospital Course 32-year-old F presents to ED with epigastric pain with N/V. differential diagnosis: gastritis, SBO, cholecystits Clinical course Patient placed on stretcher. On site monitor. After initial history and physical I ordered labs, IV fluids, Zofran, pepcid and morphien Patient has difficult IV access; I placed peripheral EJ line Labs - no leukocytosis, BUN/Cr elevated, LFTs normal, K ok despite multiple rounds of medication patient continues to have pain and vomiting. History of gastroparesis with recent admissions. Dr Sepulveda asked that patient be admitted to Dr Kyle I feel this is a highly complex case requiring extensive working including EKG/ Rhythm strip, Xray/CT/US, Blood/urine lab work, repeat exams while in ED, and administration of strong opiates/narcotics for pain control, admission to hospital or close patient follow up. Diagnosis - gastroparesis, intractable vomiting, ERSD on dialysis admitted to floor in serious condition Labs Test 01/14/18 18:12 White Blood Count 7.2 K/UL (4.8-10.8) Red Blood Count 4.02 M/UL (4.20-5.40) Hemoglobin 13.1 G/DL (12.0-16.0) Hematocrit 39.6 % (37.0-47.0) Mean Corpuscular Volume 98 FL (80-99) Mean Corpuscular Hemoglobin 32.7 PG (27.0-31.0) Mean Corpuscular Hemoglobin Concent 33.2 G/DL (32.0-36.0) Red Cell Distribution Width 12.2 % (11.6-14.8) Platelet Count 236 K/UL (150-450) Mean Platelet Volume 6.7 FL (6.5-10.1) Neutrophils (%) (Auto) 83.2 % (45.0-75.0) Lymphocytes (%) (Auto) 12.1 % (20.0-45.0) Monocytes (%) (Auto) 3.6 % (1.0-10.0) Eosinophils (%) (Auto) 0.0 % (0.0-3.0) Basophils (%) (Auto) 1.1 % (0.0-2.0) Sodium Level 136 MMOL/L (136-145) Potassium Level 4.4 MMOL/L (3.5-5.1) Chloride Level 98 MMOL/L (98-107) Carbon Dioxide Level 26 MMOL/L (21-32) Anion Gap 13 mmol/L (5-15) Blood Urea Nitrogen 28 mg/dL (7-18) Creatinine 8.5 MG/DL (0.55-1.30) Estimat Glomerular Filtration Rate 6.5 mL/min (>60) Glucose Level 167 MG/DL (74-106) Calcium Level 9.9 MG/DL (8.5-10.1) Total Bilirubin 0.6 MG/DL (0.2-1.0) Aspartate Amino Transf (AST/SGOT) 14 U/L (15-37) Alanine Aminotransferase (ALT/SGPT) 15 U/L (12-78) Alkaline Phosphatase 180 U/L (46-116) Troponin I 0.043 ng/mL (0.000-0.056) Total Protein 8.6 G/DL (6.4-8.2) Albumin 4.3 G/DL (3.4-5.0) Globulin 4.3 g/dL Albumin/Globulin Ratio 1.0 (1.0-2.7) Lipase 52 U/L (73-393) Human Chorionic Gonadotropin, Quant < 1 mIU/mL (1-6) Last Vital Signs Date Time Temp Pulse Resp B/P (MAP) Pulse Ox O2 Delivery O2 Flow Rate FiO2 01/14/18 18:24 98.1 01/14/18 18:07 87 20 186/77 100 Room Air Status: improved Disposition: ADMITTED INPATIENT Condition: Serious Scripts Metoclopramide Hcl* (REGLAN*) 10 Mg Tablet 10 MG ORAL THREE TIMES A DAY, #30 TAB Prov: Elfego Walters MD 01/14/18 Hydrocodone Bit/Acetaminophen 5-325* (NORCO 5-325*) 1 Each Tablet 1 TAB ORAL Q6H PRN for For Pain, #10 TAB 0 Refills Prov: Elfego Walters MD 01/14/18 Elfego Walters MD Jan 14, 2018 18:45
[2018-01-14] MEDS ORDERED: Metoclopramide 10mg/2ml Inj IVP ONE ×2 (19:15→21:30)
[2018-01-14 19:40] VITALS: BP 177/72
[2018-01-14] MEDS ORDERED: REGLAN10 MG ORAL (19:52)
[2018-01-14] MEDS ORDERED: NORCO 5-325 TA1 EACH ORAL (19:52)
[2018-01-14 20:00] VITALS: BP 177/72
[2018-01-14] MEDS ORDERED: Zolpidem 5mg tab ORAL PRN (21:45)
[2018-01-14] MEDS ORDERED: Mylanta II UD 30ml ORAL PRN (21:45)
[2018-01-14] MEDS ORDERED: Miralax 17gm pkt ORAL PRN (21:45)
[2018-01-14] MEDS ORDERED: Albuterol/Ipratropium 3ml neb HHN PRN (21:45)
[2018-01-14 22:15] VITALS: BP 183/83
[2018-01-14] MEDS: Morphine Sulfate 2mg/ml Inj(IV/IM USE ONLY) IVP PRN (22:44)
[2018-01-15] VITALS: BP 144/71
[2018-01-15 04:00] VITALS: BP 122/66
[2018-01-15] MEDS: Morphine Sulfate 2mg/ml Inj(IV/IM USE ONLY) IVP PRN ×3 (04:03→21:40)
[2018-01-15] MEDS: NovoLOG Insulin Flexpen SUBQ SCH ×4 (06:30→21:40)
[2018-01-15 06:42] LABS: BASOPHILS % (AUTO) 1.5 % (0.0-2.0); EOSINOPHILS % (AUTO) 0.3 % (0.0-3.0); HEMATOCRIT 35.5 % (37.0-47.0); HEMOGLOBIN 11.4 G/DL (12.0-16.0); LYMPHOCYTES % (AUTO) 20.8 % (20.0-45.0); MEAN CORPUSCULAR VOLUME 100 FL (80-99); MONOCYTES % (AUTO) 12.1 % (1.0-10.0); NEUTROPHILS % (AUTO) 65.2 % (45.0-75.0); PLATELET COUNT 190 K/UL (150-450); RED BLOOD COUNT 3.57 M/UL (4.20-5.40); RED CELL DISTRIBUTION WIDTH 12.5 % (11.6-14.8); WHITE BLOOD COUNT 6.9 K/UL (4.8-10.8)
[2018-01-15 07:20] LABS: ALANINE AMINOTRANSFERASE 10 U/L (12-78); ALBUMIN 3.1 G/DL (3.4-5.0); ALBUMIN/GLOBULIN RATIO 0.8 (1.0-2.7); ALKALINE PHOSPHATASE 140 U/L (46-116); ANION GAP 9 mmol/L (5-15); ASPARTATE AMINO TRANSFERASE 12 U/L (15-37); BILIRUBIN,TOTAL 0.4 MG/DL (0.2-1.0); BLOOD UREA NITROGEN 32 mg/dL (7-18); CALCIUM 8.6 MG/DL (8.5-10.1); CARBON DIOXIDE 29 MMOL/L (21-32); CHLORIDE 103 MMOL/L (98-107); CHOLESTEROL 155 MG/DL (< 200); CREATININE 8.8 MG/DL (0.55-1.30); HDL CHOLESTEROL 60 MG/DL (40-60); POTASSIUM 5.4 MMOL/L (3.5-5.1); SODIUM 141 MMOL/L (136-145); TRIGLYCERIDES 77 MG/DL (30-150)
[2018-01-15 08:00] VITALS: BP 133/69
[2018-01-15] MEDS: Heparin 5000 units/ml inj SUBQ SCH ×2 (09:00→21:37)
[2018-01-15] MEDS: Sensipar 30mg Tab ORAL SCH (09:01)
[2018-01-15] MEDS: Aspirin EC 81mg tab ORAL SCH (09:01)
[2018-01-15] MEDS: Metoprolol 25mg tab ORAL SCH (09:01)
[2018-01-15 12:00] VITALS: BP 129/73
--- NOTE | 2018-01-15 13:05 | History & Physical ---
History and Physical History & Physicial Dictated for Int Med-Dr Kyle no. [id number]. Loco Decker MD Jan 15, 2018 13:05
[2018-01-15] MEDS: DiphenhydrAMINE 50mg/ml Inj IVP PRN ×2 (13:40→18:48)
[2018-01-15] MEDS: Metoclopramide 10mg/2ml Inj IVP PRN (13:40)
--- NOTE | 2018-01-15 14:21 | History & Physical ---
History and Physical History & Physicial Renal consult dictated # [id number] Rick Sepulveda MD Jan 15, 2018 14:21
--- NOTE | 2018-01-15 15:11 | GI Initial Consult Note ---
History of Present Illness General Date patient seen: Jan 15, 2018 Time patient seen: 15:05 Reason for Hospitalization: Abdominal Pain Referring physician: MARIA ESTHER JACKSON Reason for Consultation: EMESIS Present Illness HPI 32-year-old female presents ED for evaluation. Patient complains abdominal pain. Pain is epigastric, sharp, 10 out of 10, nonradiating. Notes multiple episodes of nausea and vomiting. Patient completed dialysis today. States she has history of gastroparesis. Denies chest pain or shortness of breath. States she's been recently admitted to [facility] for similar episodes of pain. No other aggravating relieving factors. Denies any other associated symptoms GI consulted for severe N/V. Pt seen, awake A&Ox4 NAD with no active s/sx of N/ V/D. Had recent administration of Reglan. Per patient, has history of diabetes and gastroparesis. HgA1C @ 5.7. Patient cannot recall any prior history of any gastric delay emptying studying. Denies any ETOH or tobacco use. Patient is a chronic marijuana user, 5x weekly for 5 years. Presents with macrocytic/hyperchromic anemia and hyperkalemia. No known history of endoscopy / colonoscopy. Home Meds Active Scripts Metoclopramide Hcl* (REGLAN*) 10 Mg Tablet, 10 MG ORAL THREE TIMES A DAY, #30 TAB Prov:Elfego Walters MD 01/14/18 Hydrocodone Bit/Acetaminophen 5-325* (NORCO 5-325*) 1 Each Tablet, 1 TAB ORAL Q6H PRN for For Pain, #10 TAB 0 Refills Prov:Elfego Walters MD 01/14/18 Amlodipine Besylate (Norvasc) 10 Mg Tablet, 10 MG ORAL DAILY for 90 Days, #90 TAB Prov:Rick Sepulveda MD 06/13/16 Reported Medications Cinacalcet* (SENSIPAR*) 30 Mg Tablet, 90 MG ORAL DAILY, TAB 06/11/16 Sennosides (SENNA) 8.8 Mg/5 Ml Syrup, 17.2 MG PO DAILY, ML 06/11/16 Oxycodone HCl/Acetaminophen (Percocet 10-325 mg Tablet) 1 Each Tablet, 1 EACH PO , TAB 06/11/16 Pantoprazole* (PANTOPRAZOLE*) 40 Mg Tablet., 40 MG ORAL DAILY, TAB 06/11/16 Metoprolol Tartrate* (METOPROLOL TARTRATE*) 25 Mg Tablet, 25 MG ORAL DAILY, TAB 06/11/16 Metoclopramide Hcl* (METOCLOPRAMIDE HCL*) 10 Mg/10 Ml Solution, 10 MG ORAL DAILY , ML 06/11/16 Aspirin* (ASPIR 81*) 81 Mg Tablet.dr, 81 MG ORAL DAILY, TAB 06/11/16 Calcium Acetate (CALCIUM ACETATE) 667 Mg Capsule, 667 MG PO DAILY, CAP 06/11/16 Glipizide* (GLIPIZIDE*) 5 Mg Tablet, 10 MG ORAL DAILY, TAB 06/11/16 Med list reviewed/reconciled: Yes Allergies: Coded Allergies: No Known Allergies (Unverified , 06/11/16) Patient History History Provided By: Patient, Medical Record PMH Narrative Past Medical History: HTN, asthma, renal disease, dialysis Past Surgical History: none Pertinent Family History: none Social History: Denies: smoking, alcohol use, drug use Now: No Immunizations: UTD Reviewed Nursing Documentation: PMH: Agreed; PSxH: Agreed Nursing Documentation-PMH Past Medical History: No History, Except For Hx Cardiac Problems: Yes - PE/ DVT, right atrial thrombus Hx Hypertension: Yes Hx Asthma: Yes Hx Diabetes: Yes - ESRD, TTHSat on dialysis Hx Cancer: No Hx Gastrointestinal Problems: No Hx Neurological Problems: No Social History: Reports: drug use Review of Systems All Other Systems: negative except mentioned in HPI Physical Exam Vital Signs Date Time Temp Pulse Resp B/P (MAP) Pulse Ox O2 Delivery O2 Flow Rate FiO2 01/14/18 18:00 98.0 97 217/105 95 Room Air 98.1 01/14/18 18:07 20 Sp02 EP Interpretation: reviewed, normal Labs Laboratory Tests Test 01/14/18 18:12 01/15/18 05:45 White Blood Count 7.2 K/UL (4.8-10.8) 6.9 K/UL (4.8-10.8) Red Blood Count 4.02 M/UL (4.20-5.40) L 3.57 M/UL (4.20-5.40) L Hemoglobin 13.1 G/DL (12.0-16.0) 11.4 G/DL (12.0-16.0) L Hematocrit 39.6 % (37.0-47.0) 35.5 % (37.0-47.0) L Mean Corpuscular Volume 98 FL (80-99) 100 FL (80-99) H Mean Corpuscular Hemoglobin 32.7 PG (27.0-31.0) H 32.0 PG (27.0-31.0) H Mean Corpuscular Hemoglobin Concent 33.2 G/DL (32.0-36.0) 32.2 G/DL (32.0-36.0) Red Cell Distribution Width 12.2 % (11.6-14.8) 12.5 % (11.6-14.8) Platelet Count 236 K/UL (150-450) 190 K/UL (150-450) Mean Platelet Volume 6.7 FL (6.5-10.1) 7.6 FL (6.5-10.1) Neutrophils (%) (Auto) 83.2 % (45.0-75.0) H 65.2 % (45.0-75.0) Lymphocytes (%) (Auto) 12.1 % (20.0-45.0) L 20.8 % (20.0-45.0) Monocytes (%) (Auto) 3.6 % (1.0-10.0) 12.1 % (1.0-10.0) H Eosinophils (%) (Auto) 0.0 % (0.0-3.0) 0.3 % (0.0-3.0) Basophils (%) (Auto) 1.1 % (0.0-2.0) 1.5 % (0.0-2.0) Sodium Level 136 MMOL/L (136-145) 141 MMOL/L (136-145) Potassium Level 4.4 MMOL/L (3.5-5.1) 5.4 MMOL/L (3.5-5.1) H Chloride Level 98 MMOL/L (98-107) 103 MMOL/L (98-107) Carbon Dioxide Level 26 MMOL/L (21-32) 29 MMOL/L (21-32) Anion Gap 13 mmol/L (5-15) 9 mmol/L (5-15) Blood Urea Nitrogen 28 mg/dL (7-18) H 32 mg/dL (7-18) H Creatinine 8.5 MG/DL (0.55-1.30) H 8.8 MG/DL (0.55-1.30) H Estimat Glomerular Filtration Rate 6.5 mL/min (>60) 6.3 mL/min (>60) Glucose Level 167 MG/DL (74-106) H 99 MG/DL (74-106) Calcium Level 9.9 MG/DL (8.5-10.1) 8.6 MG/DL (8.5-10.1) Total Bilirubin 0.6 MG/DL (0.2-1.0) 0.4 MG/DL (0.2-1.0) Aspartate Amino Transf (AST/SGOT) 14 U/L (15-37) L 12 U/L (15-37) L Alanine Aminotransferase (ALT/SGPT) 15 U/L (12-78) 10 U/L (12-78) L Alkaline Phosphatase 180 U/L (46-116) H 140 U/L (46-116) H Troponin I 0.043 ng/mL (0.000-0.056) Total Protein 8.6 G/DL (6.4-8.2) H 6.9 G/DL (6.4-8.2) Albumin 4.3 G/DL (3.4-5.0) 3.1 G/DL (3.4-5.0) L Globulin 4.3 g/dL 3.8 g/dL Albumin/Globulin Ratio 1.0 (1.0-2.7) 0.8 (1.0-2.7) L Lipase 52 U/L (73-393) L Human Chorionic Gonadotropin, Quant < 1 mIU/mL (1-6) L Hemoglobin A1c 5.7 % (4.3-6.0) Triglycerides Level 77 MG/DL (30-150) Cholesterol Level 155 MG/DL (< 200) LDL Cholesterol 83 mg/dL (<100) HDL Cholesterol 60 MG/DL (40-60) Cholesterol/HDL Ratio 2.6 (3.3-4.4) L Thyroid Stimulating Hormone (TSH) 1.573 uiU/mL (0.358-3.740) General Appearance: well appearing, no apparent distress, alert Head: normocephalic EENT: PERRL/EOMI, normal ENT inspection Neck: supple Respiratory: normal breath sounds, no respiratory distress Cardiovascular: normal rate Gastrointestinal: normal inspection, non tender, soft, normal bowel sounds, non -distended Rectal: deferred Genitourinary: no CVA tenderness Musculoskeletal: normal inspection, back normal Neurologic: normal inspection, alert, oriented x3, responsive Psychiatric: normal inspection, judgement/insight normal, memory normal Skin: normal inspection, normal color, no rash, warm/dry, palpation normal, well hydrated Lymphatic: normal inspection, no adenopathy Current Medications Current Medications Medications (Trade) Dose Ordered Sig/Danielle Route PRN Reason Start Time Stop Time Status Last Admin Dose Admin Al Hydroxide/Mg Hydroxide (Mylanta II) 30 ml Q6H PRN ORAL dyspepsia 01/14/18 21:45 02/13/18 21:44 Albuterol/ Ipratropium (Albuterol/ Ipratropium) 3 ml Q6HRT PRN HHN dyspnea 01/14/18 21:45 01/19/18 21:44 Amlodipine Besylate (Norvasc) 10 mg DAILY ORAL 01/15/18 09:00 02/14/18 08:59 01/15/18 09:01 Aspirin (Ecotrin) 81 mg DAILY ORAL 01/15/18 09:00 02/14/18 08:59 01/15/18 09:01 Cinacalcet (Sensipar) 90 mg DAILY ORAL 01/15/18 09:00 02/14/18 08:59 01/15/18 09:01 Clonidine HCl (Catapres Tab) 0.1 mg Q4H PRN ORAL For High Blood Pressure 01/14/18 21:45 02/13/18 21:44 01/14/18 22:44 Dextrose (Dextrose 50%) STAT PRN IV Hypoglycemia 01/14/18 21:45 02/13/18 21:44 Dextrose (Dextrose 50%) STAT PRN IV Hypoglycemia 01/14/18 21:45 02/13/18 21:44 Diphenhydramine HCl (Benadryl) 25 mg Q4H PRN IVP Itching 01/15/18 13:00 02/14/18 12:59 01/15/18 13:40 Heparin Sodium (Porcine) (Heparin 5000 units/ml) 5,000 units EVERY 12 HOURS SUBQ 01/15/18 09:00 02/14/18 08:59 Heparin Sodium (Porcine) (Heparin Sod 1000 units/ml 10ml) 500 unit ONCE IV 01/16/18 14:30 01/16/18 23:59 Insulin Aspart (NovoLOG) BEFORE MEALS AND HS SUBQ 01/15/18 06:30 02/14/18 06:29 Metoclopramide HCl (Reglan) 10 mg Q6H PRN IVP Nausea & Vomiting 01/15/18 13:00 02/14/18 12:59 01/15/18 13:40 Metoprolol Tartrate (Lopressor) 25 mg DAILY ORAL 01/15/18 09:00 02/14/18 08:59 01/15/18 09:01 Morphine Sulfate (Morphine Sulfate) 1 mg EVERY 4 HOURS PRN IVP For Pain 01/14/18 21:45 01/21/18 21:44 01/15/18 09:00 Ondansetron HCl (Zofran) 4 mg Q6H PRN IVP Nausea & Vomiting 01/14/18 21:45 02/13/18 21:44 01/15/18 06:26 Pantoprazole (Protonix) 40 mg DAILY ORAL 01/15/18 09:00 02/14/18 08:59 01/15/18 09:01 Polyethylene Glycol (Miralax) 17 gm HSPRN PRN ORAL Constipation 01/14/18 21:45 02/13/18 21:44 Sodium Chloride 1,000 ml @ 500 mls/hr Q2H PRN IVLG sbp<90 during hd 01/16/18 14:21 02/15/18 14:20 Zolpidem Tartrate (Ambien) 5 mg HSPRN PRN ORAL Insomnia 01/14/18 21:45 01/21/18 21:44 GI: Plan Problems: (1) Electrolyte imbalance (2) Cyclic vomiting syndrome (3) Gastroparesis (4) Intractable vomiting (5) End stage renal disease Plan symptomatic treatment at this time reglan prn ok to adv diet as tolerated anemia work up OB stool r/o GI bleed monitor H&H, prn transfusions bowel regime ppi electrolyte correction fu labs Discussed with Dr. Richards. Thank you for this patient referral, we will follow. The patient was seen and examined at bedside and all new and available data was reviewed in the patients chart. I agree with the above findings, impression and plan. (Patient seen earlier today. Signature stamp does not reflect patient encounter time.). - MD Silvia LongoLa Paz Regional HospitalYomi LANCASTER Jan 15, 2018 15:11
[2018-01-15 16:00] VITALS: BP 127/68
--- NOTE | 2018-01-15 17:04 | Consultation ---
History of Present Illness General Chief Complaint: Abdominal Pain Referring physician: MARIA ESTHER JACKSON Reason for Consultation: EMESIS Present Illness Allergies: Coded Allergies: No Known Allergies (Unverified , 06/11/16) Medication History Scheduled Amlodipine Besylate (Norvasc), 10 MG ORAL DAILY Aspirin* (Aspir 81*), 81 MG ORAL DAILY, (Reported) Calcium Acetate (Calcium Acetate), 667 MG PO DAILY, (Reported) Cinacalcet* (Sensipar*), 90 MG ORAL DAILY, (Reported) Glipizide* (Glipizide*), 10 MG ORAL DAILY, (Reported) Metoclopramide Hcl* (Metoclopramide Hcl*), 10 MG ORAL DAILY, (Reported) Metoclopramide Hcl* (Reglan*), 10 MG ORAL THREE TIMES A DAY Metoprolol Tartrate* (Metoprolol Tartrate*), 25 MG ORAL DAILY, (Reported) Pantoprazole* (Pantoprazole*), 40 MG ORAL DAILY, (Reported) Sennosides (Senna), 17.2 MG PO DAILY, (Reported) Scheduled PRN Hydrocodone Bit/Acetaminophen 5-325* ([place] 5-325*), 1 TAB ORAL Q6H PRN for For Pain Miscellaneous Medications Oxycodone HCl/Acetaminophen (Percocet 10-325 mg Tablet), 1 EACH PO, (Reported) Patient History Healthcare decision maker N Resuscitation status Full Code Advanced Directive on File Physical Exam Last 24 Hour Vital Signs Date Time Temp Pulse Resp B/P (MAP) Pulse Ox O2 Delivery O2 Flow Rate FiO2 01/15/18 12:00 97.8 82 20 129/73 (91) 99 97.8 01/15/18 10:46 84 18 Room Air 01/15/18 09:30 97.8 01/15/18 09:01 77 133/69 01/15/18 09:01 77 133/69 01/15/18 09:00 98.3 01/15/18 09:00 Room Air 01/15/18 08:00 98.3 77 20 133/69 (90) 98 98.3 01/15/18 04:00 98.6 95 18 122/66 (84) 95 98.6 01/15/18 00:00 98.4 81 19 144/71 (95) 99 98.4 01/14/18 23:56 Room Air 01/14/18 22:44 183/83 01/14/18 22:29 98.1 97 16 189/72 97 Room Air 01/14/18 22:15 98.3 95 21 183/83 (116) 98 98.3 01/14/18 21:43 98.0 01/14/18 20:00 98.0 83 17 177/72 100 Room Air 01/14/18 20:00 98.0 89 20 177/72 100 Room Air 98.0 01/14/18 19:40 89 20 177/72 100 Room Air 01/14/18 19:16 98.1 01/14/18 18:24 98.1 01/14/18 18:07 98.1 87 20 186/77 100 Room Air 98.1 01/14/18 18:00 98.0 97 217/105 95 Room Air 98.1 Intake and Output 01/14/18 01/15/18 18:59 06:59 Intake Total 540 ml Output Total 100 ml Balance 440 ml Intake Oral 240 ml IV Total 300 ml Output Urine Total 0 ml Emesis 100 ml Laboratory Tests Test 01/14/18 18:12 01/15/18 05:45 White Blood Count 7.2 K/UL (4.8-10.8) 6.9 K/UL (4.8-10.8) Red Blood Count 4.02 M/UL (4.20-5.40) L 3.57 M/UL (4.20-5.40) L Hemoglobin 13.1 G/DL (12.0-16.0) 11.4 G/DL (12.0-16.0) L Hematocrit 39.6 % (37.0-47.0) 35.5 % (37.0-47.0) L Mean Corpuscular Volume 98 FL (80-99) 100 FL (80-99) H Mean Corpuscular Hemoglobin 32.7 PG (27.0-31.0) H 32.0 PG (27.0-31.0) H Mean Corpuscular Hemoglobin Concent 33.2 G/DL (32.0-36.0) 32.2 G/DL (32.0-36.0) Red Cell Distribution Width 12.2 % (11.6-14.8) 12.5 % (11.6-14.8) Platelet Count 236 K/UL (150-450) 190 K/UL (150-450) Mean Platelet Volume 6.7 FL (6.5-10.1) 7.6 FL (6.5-10.1) Neutrophils (%) (Auto) 83.2 % (45.0-75.0) H 65.2 % (45.0-75.0) Lymphocytes (%) (Auto) 12.1 % (20.0-45.0) L 20.8 % (20.0-45.0) Monocytes (%) (Auto) 3.6 % (1.0-10.0) 12.1 % (1.0-10.0) H Eosinophils (%) (Auto) 0.0 % (0.0-3.0) 0.3 % (0.0-3.0) Basophils (%) (Auto) 1.1 % (0.0-2.0) 1.5 % (0.0-2.0) Sodium Level 136 MMOL/L (136-145) 141 MMOL/L (136-145) Potassium Level 4.4 MMOL/L (3.5-5.1) 5.4 MMOL/L (3.5-5.1) H Chloride Level 98 MMOL/L (98-107) 103 MMOL/L (98-107) Carbon Dioxide Level 26 MMOL/L (21-32) 29 MMOL/L (21-32) Anion Gap 13 mmol/L (5-15) 9 mmol/L (5-15) Blood Urea Nitrogen 28 mg/dL (7-18) H 32 mg/dL (7-18) H Creatinine 8.5 MG/DL (0.55-1.30) H 8.8 MG/DL (0.55-1.30) H Estimat Glomerular Filtration Rate 6.5 mL/min (>60) 6.3 mL/min (>60) Glucose Level 167 MG/DL (74-106) H 99 MG/DL (74-106) Calcium Level 9.9 MG/DL (8.5-10.1) 8.6 MG/DL (8.5-10.1) Total Bilirubin 0.6 MG/DL (0.2-1.0) 0.4 MG/DL (0.2-1.0) Aspartate Amino Transf (AST/SGOT) 14 U/L (15-37) L 12 U/L (15-37) L Alanine Aminotransferase (ALT/SGPT) 15 U/L (12-78) 10 U/L (12-78) L Alkaline Phosphatase 180 U/L (46-116) H 140 U/L (46-116) H Troponin I 0.043 ng/mL (0.000-0.056) Total Protein 8.6 G/DL (6.4-8.2) H 6.9 G/DL (6.4-8.2) Albumin 4.3 G/DL (3.4-5.0) 3.1 G/DL (3.4-5.0) L Globulin 4.3 g/dL 3.8 g/dL Albumin/Globulin Ratio 1.0 (1.0-2.7) 0.8 (1.0-2.7) L Lipase 52 U/L (73-393) L Human Chorionic Gonadotropin, Quant < 1 mIU/mL (1-6) L Hemoglobin A1c 5.7 % (4.3-6.0) Triglycerides Level 77 MG/DL (30-150) Cholesterol Level 155 MG/DL (< 200) LDL Cholesterol 83 mg/dL (<100) HDL Cholesterol 60 MG/DL (40-60) Cholesterol/HDL Ratio 2.6 (3.3-4.4) L Thyroid Stimulating Hormone (TSH) 1.573 uiU/mL (0.358-3.740) Microbiology Date/Time Source Procedure Growth Status 01/14/18 21:52 Rectum Received Height (Feet): 4 Height (Inches): 11.00 Weight (Pounds): 126 Medications Current Medications Medications (Trade) Dose Ordered Sig/Danielle Route PRN Reason Start Time Stop Time Status Last Admin Dose Admin Al Hydroxide/Mg Hydroxide (Mylanta II) 30 ml Q6H PRN ORAL dyspepsia 01/14/18 21:45 02/13/18 21:44 Albuterol/ Ipratropium (Albuterol/ Ipratropium) 3 ml Q6HRT PRN HHN dyspnea 01/14/18 21:45 01/19/18 21:44 Amlodipine Besylate (Norvasc) 10 mg DAILY ORAL 01/15/18 09:00 02/14/18 08:59 01/15/18 09:01 Aspirin (Ecotrin) 81 mg DAILY ORAL 01/15/18 09:00 02/14/18 08:59 01/15/18 09:01 Cinacalcet (Sensipar) 90 mg DAILY ORAL 01/15/18 09:00 02/14/18 08:59 01/15/18 09:01 Clonidine HCl (Catapres Tab) 0.1 mg Q4H PRN ORAL For High Blood Pressure 01/14/18 21:45 02/13/18 21:44 01/14/18 22:44 Dextrose (Dextrose 50%) STAT PRN IV Hypoglycemia 01/14/18 21:45 02/13/18 21:44 Dextrose (Dextrose 50%) STAT PRN IV Hypoglycemia 01/14/18 21:45 02/13/18 21:44 Diphenhydramine HCl (Benadryl) 25 mg Q4H PRN IVP Itching 01/15/18 13:00 02/14/18 12:59 01/15/18 13:40 Heparin Sodium (Porcine) (Heparin 5000 units/ml) 5,000 units EVERY 12 HOURS SUBQ 01/15/18 09:00 02/14/18 08:59 Heparin Sodium (Porcine) (Heparin Sod 1000 units/ml 10ml) 500 unit ONCE IV 01/16/18 14:30 01/16/18 23:59 Insulin Aspart (NovoLOG) BEFORE MEALS AND HS SUBQ 01/15/18 06:30 02/14/18 06:29 Metoclopramide HCl (Reglan) 10 mg Q6H PRN IVP Nausea & Vomiting 01/15/18 13:00 02/14/18 12:59 01/15/18 13:40 Metoprolol Tartrate (Lopressor) 25 mg DAILY ORAL 01/15/18 09:00 02/14/18 08:59 01/15/18 09:01 Morphine Sulfate (Morphine Sulfate) 1 mg EVERY 4 HOURS PRN IVP For Pain 01/14/18 21:45 01/21/18 21:44 01/15/18 09:00 Ondansetron HCl (Zofran) 4 mg Q6H PRN IVP Nausea & Vomiting 01/14/18 21:45 02/13/18 21:44 01/15/18 06:26 Pantoprazole (Protonix) 40 mg DAILY ORAL 01/15/18 09:00 02/14/18 08:59 01/15/18 09:01 Polyethylene Glycol (Miralax) 17 gm HSPRN PRN ORAL Constipation 01/14/18 21:45 02/13/18 21:44 Sodium Chloride 1,000 ml @ 500 mls/hr Q2H PRN IVLG sbp<90 during hd 01/16/18 14:21 02/15/18 14:20 Zolpidem Tartrate (Ambien) 5 mg HSPRN PRN ORAL Insomnia 01/14/18 21:45 01/21/18 21:44 Assessment/Plan Problem List: (1) Cyclic vomiting syndrome ICD Codes: G43.A0 - Cyclical vomiting, not intractable SNOMED: 43481223 (2) Electrolyte imbalance ICD Codes: E87.8 - Other disorders of electrolyte and fluid balance, not elsewhere classified SNOMED: 401687218 (3) End stage renal disease ICD Codes: N18.6 - End stage renal disease SNOMED: 22988516 (4) Gastroparesis ICD Codes: K31.84 - Gastroparesis SNOMED: 008797456 (5) Intractable vomiting ICD Codes: R11.10 - Vomiting, unspecified SNOMED: 593420543 Qualifiers: Qualified Codes: G43.A1 - Cyclical vomiting, intractable (6) Asthma ICD Codes: J45.909 - Unspecified asthma, uncomplicated SNOMED: 079245093 (7) Hypertension ICD Codes: I10 - Essential (primary) hypertension SNOMED: 03490356 (8) Coronary artery disease ICD Codes: I25.10 - Atherosclerotic heart disease of [place] coronary artery without angina pectoris SNOMED: 30724552 Jigna Moreno MD Jan 15, 2018 17:04
--- NOTE | 2018-01-15 17:15 | History and Physical Report ---
DATE OF ADMISSION: 01/14/2018 CHIEF COMPLAINT: The patient is a 32-year-old female, who presents with a chief complaint of abdominal pain. HISTORY OF PRESENT ILLNESS: Began yesterday, 01/14/2018. The patient began to experience abdominal pain. The patient has a history of gastroparesis. The patient states the pain is epigastric. The patient states the pain is 10/10 in intensity. The patient has had episodes of nausea and vomiting. The patient is unable to tolerate liquids or solids. The patient presented to [facility] emergency room. The patient is admitted with nausea and vomiting to rule out acute pancreatitis versus gastroparesis versus small bowel obstruction. PAST MEDICAL HISTORY: Significant for, 1. Hypertension. 2. End-stage renal disease, on hemodialysis every Saturday, , and Saturday by Dr. Rick Sepulveda. 3. Asthma. PAST SURGICAL HISTORY: Significant for AV graft placement for dialysis. CURRENT MEDICATIONS: 1. Amlodipine 10 mg one tab p.o. daily. 2. Aspirin 81 mg p.o. daily. 3. Calcium acetate 667 mg p.o. daily. 4. Cinacalcet 30 mg 3 tablets p.o. daily. 5. Glipizide 5 mg 2 tablets p.o. daily. 6. [place] 5/325 mg one tablet p.o. q.4 h. p.r.n. 7. Metoclopramide 10 mg p.o. 3 times daily. 8. Metoprolol 25 mg p.o. daily. 9. Percocet 10/325 mg one tablet p.o. daily. 10. Protonix 40 mg p.o. daily. 11. Senna 17.2 mg p.o. daily. ALLERGIES: No known drug allergies. SOCIAL HISTORY: The patient is single and is disabled. The patient denies tobacco or alcohol use. REVIEW OF SYSTEMS: CONSTITUTIONAL: The patient denies weight loss or weight gain. The patient denies fevers or chills. HEENT: The patient denies ear or throat pain. The patient denies headache. CARDIOVASCULAR: The patient denies palpitations or chest pain. CHEST: The patient denies wheeze or shortness of breath. ABDOMINAL: The patient complains of epigastric pain as above. The patient complains of nausea and vomiting. The patient denies diarrhea or constipation. GENITOURINARY: The patient denies dysuria or increased frequency of urination. NEUROMUSCULAR: The patient denies seizures or generalized weakness. PHYSICAL EXAMINATION: VITAL SIGNS: Temperature 98.3, respirations 20, pulse 77, and blood pressure 133/69. GENERAL: The patient is a well-developed and well-nourished female, who is somnolent and in moderate epigastric pain distress. HEENT: Eyes, pupils are equal and responsive to light and accommodation. Extraocular movements are intact. NECK: Supple without lymphadenopathy. CHEST: Lungs are clear to auscultation bilaterally without wheezes or rales. CARDIOVASCULAR: Regular rhythm and rate. S1, S2 are normal without murmurs, rubs, or gallops. ABDOMEN: Soft, nontender, and nondistended. Positive bowel sounds. No evidence of hepatosplenomegaly. Currently, no rebound or guarding noted. EXTREMITIES: Negative for clubbing, cyanosis, or edema. RECTAL/GENITAL: Refused. NEUROLOGIC: Cranial nerves II through XII are grossly intact without focal deficits. Motor strength is 5/5 bilaterally. Deep tendon reflexes are 2+ plantar. LABORATORY STUDIES: WBC 7.3, hemoglobin 13.1, hematocrit 39.6, and platelets 236,000. Sodium 136, potassium 4.4, chloride 98, CO2 26, BUN 28, creatinine 8.5, and glucose 167. Troponin 0.043. ASSESSMENT: This is a 32-year-old female. 1. Epigastric pain. 2. Nausea with vomiting. 3. End-stage renal disease. 4. Hypertension. 5. Asthma. TREATMENT: 1. Epigastric pain/nausea and vomiting. A Gastroenterology consultation is obtained with Dr. Richards. The patient has been started empirically on Reglan, as this is what the patient use at home. The patient refused Zofran. An abdominal ultrasound is pending. We will follow recommendations of Gastroenterology. 2. End-stage renal disease. A Nephrology consultation has been obtained with Dr. Rick Sepulveda. We will follow recommendations of Nephrology. 3. Hypertension. Continue metoprolol as above. 4. Asthma. 5. Diabetes type 2. A NovoLog sliding scale has been instituted. Loco Decker M.D. DR: TATIANNA JOB#: [id number] CC:
--- NOTE | 2018-01-15 18:45 | Consultation ---
DATE OF CONSULTATION: 01/15/2018 NEPHROLOGY CONSULTATION CONSULTING PHYSICIAN: Rick Sepulveda M.D. REFERRING PHYSICIAN: Dick Kyle M.D. REASON FOR CONSULTATION: End-stage renal disease, requiring hemodialysis. HISTORY OF PRESENT ILLNESS: This is a 32-year-old female, who has end-stage renal disease on hemodialysis currently every Saturday, , and Saturday. Last dialysis was yesterday before she came to the emergency room. She was admitted for abdominal pain. She does have history of gastroparesis from her diabetes. PAST MEDICAL HISTORY: She has history of coronary artery disease, history of diabetes as mentioned, hypertension, diabetic gastroparesis. MEDICATIONS: Reviewed in [facility]. SOCIAL HISTORY: The patient lives in her car with a female partner. ALLERGIES: No known drug allergies. REVIEW OF SYSTEMS: Noncontributory. PHYSICAL EXAMINATION: GENERAL: The patient is a 32-year-old female, in no acute distress. VITAL SIGNS: Blood pressure is 129/73, pulse is 82, respiratory rate is 20, and temperature is 97.8. HEENT: [place] conjunctivae. Anicteric sclerae. NECK: Supple. LUNGS: Clear to auscultation. HEART: S1, S2 without murmurs or rubs. ABDOMEN: Soft, nontender. EXTREMITIES: No cyanosis or edema. LABORATORY FINDINGS: CBC shows WBC of 6900, hematocrit is 35.5, hemoglobin is 11.4, platelets 198,000. Chemistry panel shows serum sodium 140, potassium 5.4, chloride 103, carbon dioxide 29, BUN is 32, creatinine is 8.8, blood sugar is 99, calcium is 8.6. ASSESSMENT: This is a 32-year-old female, who is admitted with abdominal pain. She has history of end-stage renal disease, on hemodialysis every Saturday, , and Saturday. She does not appear to be fluid-overloaded at this point. She has marked hyperkalemia and her blood pressure is controlled. PLAN: The patient will be dialyzed tomorrow. Laboratories will be followed. Adjustment will be made in the patient's medications. Thank you very much for this consultation. Rick Sepulveda M.D. DR: Clare JOB#: [id number] CC:
[2018-01-15 20:00] VITALS: BP 119/71
[2018-01-16] VITALS (8 sets, daily range): BP systolic 110–192; BP diastolic 59–95
[2018-01-16] MEDS: Morphine Sulfate 2mg/ml Inj(IV/IM USE ONLY) IVP PRN ×2 (02:30→09:32)
[2018-01-16] MEDS: Metoclopramide 10mg/2ml Inj IVP PRN ×2 (02:30→11:25)
[2018-01-16] MEDS: DiphenhydrAMINE 50mg/ml Inj IVP PRN (02:30)
[2018-01-16] MEDS: NovoLOG Insulin Flexpen SUBQ SCH ×4 (06:30→21:00)
[2018-01-16 07:59] LABS: BASOPHILS % (AUTO) 1.7 % (0.0-2.0); EOSINOPHILS % (AUTO) 0.9 % (0.0-3.0); HEMATOCRIT 41.3 % (37.0-47.0); HEMOGLOBIN 12.9 G/DL (12.0-16.0); LYMPHOCYTES % (AUTO) 26.5 % (20.0-45.0); MEAN CORPUSCULAR VOLUME 101 FL (80-99); MONOCYTES % (AUTO) 7.1 % (1.0-10.0); NEUTROPHILS % (AUTO) 63.8 % (45.0-75.0); PLATELET COUNT 190 K/UL (150-450); RED BLOOD COUNT 4.08 M/UL (4.20-5.40); RED CELL DISTRIBUTION WIDTH 12.7 % (11.6-14.8); WHITE BLOOD COUNT 7.2 K/UL (4.8-10.8)
[2018-01-16 08:31] LABS: % IRON SATURATION 39 % (15-50); IRON 59 ug/dL (50-175); TOTAL IRON BINDING CAPACITY 153 ug/dL (250-450)
[2018-01-16] MEDS: Aspirin EC 81mg tab ORAL SCH (08:39)
[2018-01-16 08:40] LABS: ANION GAP 12 mmol/L (5-15); BLOOD UREA NITROGEN 41 mg/dL (7-18); CALCIUM 7.9 MG/DL (8.5-10.1); CARBON DIOXIDE 26 MMOL/L (21-32); CHLORIDE 100 MMOL/L (98-107); CREATININE 10.8 MG/DL (0.55-1.30); FERRITIN 1190 NG/ML (8-388); POTASSIUM 5.3 MMOL/L (3.5-5.1); SODIUM 138 MMOL/L (136-145)
[2018-01-16] MEDS: Sensipar 30mg Tab ORAL SCH (08:40)
[2018-01-16] MEDS: Heparin 5000 units/ml inj SUBQ SCH ×2 (09:00→20:48)
[2018-01-16] MEDS: Metoprolol 25mg tab ORAL SCH ×2 (09:00→17:34)
--- NOTE | 2018-01-16 10:33 | GI Progress Note ---
Assessment/Plan Problems: (1) Cyclic vomiting syndrome ICD Codes: G43.A0 - Cyclical vomiting, not intractable SNOMED: 53242696 (2) Electrolyte imbalance ICD Codes: E87.8 - Other disorders of electrolyte and fluid balance, not elsewhere classified SNOMED: 341543314 (3) End stage renal disease ICD Codes: N18.6 - End stage renal disease SNOMED: 75144238 (4) Gastroparesis ICD Codes: K31.84 - Gastroparesis SNOMED: 615371643 (5) Intractable vomiting ICD Codes: R11.10 - Vomiting, unspecified SNOMED: 090969856 Qualifiers: Qualified Codes: G43.A1 - Cyclical vomiting, intractable Status: stable Status Narrative Discussed with Dr. Richards. Assessment/Plan folate deficiency symptomatic treatment at this time reglan prn ADA diet folate OB stool r/o GI bleed monitor H&H, prn transfusions bowel regime ppi electrolyte correction fu labs The patient was seen and examined at bedside and all new and available data was reviewed in the patients chart. I agree with the above findings, impression and plan. (Patient seen earlier today. Signature stamp does not reflect patient encounter time.). - Silver Richards MD Subjective Subjective no N/V abdominal pain is better hesitant to eat Objective Last 24 Hour Vital Signs Date Time Temp Pulse Resp B/P (MAP) Pulse Ox O2 Delivery O2 Flow Rate FiO2 01/16/18 09:32 98.5 01/16/18 09:00 Room Air 01/16/18 08:00 98.5 74 20 139/73 (95) 98 98.5 01/16/18 04:00 98.1 67 17 110/59 (76) 98 98.1 01/16/18 00:09 98.6 70 18 136/69 (91) 95 98.6 01/15/18 21:00 Room Air 01/15/18 20:00 98.5 74 17 119/71 (87) 100 98.5 01/15/18 16:00 98.0 86 20 127/68 (87) 97 98.0 01/15/18 12:00 97.8 82 20 129/73 (91) 99 97.8 01/15/18 10:46 84 18 Room Air Intake and Output 01/15/18 01/16/18 19:00 07:00 Intake Total 720 ml 320 ml Output Total 300 ml Balance 420 ml 320 ml Intake Oral 420 ml 320 ml IV Total 300 ml Emesis 300 ml # Voids 1 Laboratory Tests Test 01/16/18 07:15 White Blood Count 7.2 K/UL (4.8-10.8) Red Blood Count 4.08 M/UL (4.20-5.40) L Hemoglobin 12.9 G/DL (12.0-16.0) Hematocrit 41.3 % (37.0-47.0) Mean Corpuscular Volume 101 FL (80-99) H Mean Corpuscular Hemoglobin 31.6 PG (27.0-31.0) H Mean Corpuscular Hemoglobin Concent 31.2 G/DL (32.0-36.0) L Red Cell Distribution Width 12.7 % (11.6-14.8) Platelet Count 190 K/UL (150-450) Mean Platelet Volume 7.9 FL (6.5-10.1) Neutrophils (%) (Auto) 63.8 % (45.0-75.0) Lymphocytes (%) (Auto) 26.5 % (20.0-45.0) Monocytes (%) (Auto) 7.1 % (1.0-10.0) Eosinophils (%) (Auto) 0.9 % (0.0-3.0) Basophils (%) (Auto) 1.7 % (0.0-2.0) Reticulocyte Count 0.4 % (0.0-2.0) Prothrombin Time 10.9 SEC (9.30-11.50) Prothromb Time International Ratio 1.0 (0.9-1.1) Activated Partial Thromboplast Time 27 SEC (23-33) Sodium Level 138 MMOL/L (136-145) Potassium Level 5.3 MMOL/L (3.5-5.1) H Chloride Level 100 MMOL/L (98-107) Carbon Dioxide Level 26 MMOL/L (21-32) Anion Gap 12 mmol/L (5-15) Blood Urea Nitrogen 41 mg/dL (7-18) H Creatinine 10.8 MG/DL (0.55-1.30) H Estimat Glomerular Filtration Rate 5.0 mL/min (>60) Glucose Level 89 MG/DL (74-106) Calcium Level 7.9 MG/DL (8.5-10.1) L Iron Level 59 ug/dL (50-175) Total Iron Binding Capacity 153 ug/dL (250-450) L Percent Iron Saturation 39 % (15-50) Unsaturated Iron Binding 94 ug/dL (112-346) L Ferritin 1190 NG/ML (8-388) H Vitamin B12 Level 488 PG/ML (193-986) Folate 5.7 NG/ML (8.6-58.9) L Thyroid Stimulating Hormone (TSH) 1.127 uiU/mL (0.358-3.740) Free Thyroxine 1.40 NG/DL (0.76-1.46) Height (Feet): 4 Height (Inches): 11.00 Weight (Pounds): 126 General Appearance: WD/WN, no apparent distress, alert Cardiovascular: normal rate Respiratory/Chest: normal breath sounds, no respiratory distress Abdominal Exam: normal bowel sounds, non tender, soft Extremities: normal range of motion, non-tender Bartolome Vega NP Jan 16, 2018 10:33
--- NOTE | 2018-01-16 11:56 | Nephrology Progress Note ---
Assessment/Plan Problem List: (1) ESRD on dialysis (2) Hypertension (3) Gastroparesis Plan HD today on Reglan Add Nephrovite Subjective Subjective still with abd pain Objective Objective Last 24 Hour Vital Signs Date Time Temp Pulse Resp B/P (MAP) Pulse Ox O2 Delivery O2 Flow Rate FiO2 01/16/18 10:02 98.5 01/16/18 09:32 98.5 01/16/18 09:00 Room Air 01/16/18 08:00 98.5 74 20 139/73 (95) 98 98.5 01/16/18 04:00 98.1 67 17 110/59 (76) 98 98.1 01/16/18 00:09 98.6 70 18 136/69 (91) 95 98.6 01/15/18 21:00 Room Air 01/15/18 20:00 98.5 74 17 119/71 (87) 100 98.5 01/15/18 16:00 98.0 86 20 127/68 (87) 97 98.0 01/15/18 12:00 97.8 82 20 129/73 (91) 99 97.8 Intake and Output 01/15/18 01/16/18 19:00 07:00 Intake Total 720 ml 320 ml Output Total 300 ml Balance 420 ml 320 ml Intake Oral 420 ml 320 ml IV Total 300 ml Emesis 300 ml # Voids 1 Laboratory Tests 01/16/18 07:15: White Blood Count 7.2, Red Blood Count 4.08L, Hemoglobin 12.9, Hematocrit 41.3, Mean Corpuscular Volume 101H, Mean Corpuscular Hemoglobin 31.6H, Mean Corpuscular Hemoglobin Concent 31.2L, Red Cell Distribution Width 12.7, Platelet Count 190, Mean Platelet Volume 7.9, Neutrophils (%) (Auto) 63.8, Lymphocytes (%) (Auto) 26.5, Monocytes (%) (Auto) 7.1, Eosinophils (%) (Auto) 0.9, Basophils (%) (Auto) 1.7, Reticulocyte Count 0.4, Prothrombin Time 10.9, Prothromb Time International Ratio 1.0, Activated Partial Thromboplast Time 27, Sodium Level 138, Potassium Level 5.3H, Chloride Level 100, Carbon Dioxide Level 26, Anion Gap 12, Blood Urea Nitrogen 41H, Creatinine 10.8H, Estimat Glomerular Filtration Rate 5.0, Glucose Level 89, Calcium Level 7.9L, Iron Level 59, Total Iron Binding Capacity 153L, Percent Iron Saturation 39, Unsaturated Iron Binding 94L, Ferritin 1190H, Vitamin B12 Level 488, Folate 5.7L , Thyroid Stimulating Hormone (TSH) 1.127, Free Thyroxine 1.40 Height (Feet): 4 Height (Inches): 11.00 Weight (Pounds): 126 Cardiovascular: normal rate Respiratory/Chest: lungs clear Abdomen: soft Rick Sepulveda MD Jan 16, 2018 11:56
[2018-01-16] MEDS ORDERED: Nephrovite tab (Rena-Vite) ORAL SCH (12:30)
[2018-01-16] MEDS ORDERED: Heparin Sod 1000 units/ml 10ml IV SCH (14:30)
--- NOTE | 2018-01-16 14:34 | Pulmonology Progress Note ---
Assessment/Plan Problems: (1) Cyclic vomiting syndrome (2) Electrolyte imbalance (3) End stage renal disease (4) Gastroparesis (5) Intractable vomiting (6) Asthma (7) Hypertension (8) Coronary artery disease Assessment/Plan eating better getting HD monitor BP symptomatic treatment f/u by GI Subjective ROS Limited/Unobtainable: No Constitutional: Reports: no symptoms HEENT: Repors: no symptoms Respiratory: Reports: no symptoms Allergies: Coded Allergies: No Known Allergies (Unverified , 06/11/16) Objective Last 24 Hour Vital Signs Date Time Temp Pulse Resp B/P (MAP) Pulse Ox O2 Delivery O2 Flow Rate FiO2 01/16/18 12:00 97.7 79 20 158/83 (108) 100 97.7 01/16/18 10:02 98.5 01/16/18 09:32 98.5 01/16/18 09:00 Room Air 01/16/18 08:00 98.5 74 20 139/73 (95) 98 98.5 01/16/18 04:00 98.1 67 17 110/59 (76) 98 98.1 01/16/18 00:09 98.6 70 18 136/69 (91) 95 98.6 01/15/18 21:00 Room Air 01/15/18 20:00 98.5 74 17 119/71 (87) 100 98.5 01/15/18 16:00 98.0 86 20 127/68 (87) 97 98.0 Intake and Output 01/15/18 01/16/18 19:00 07:00 Intake Total 720 ml 320 ml Output Total 300 ml Balance 420 ml 320 ml Intake Oral 420 ml 320 ml IV Total 300 ml Emesis 300 ml # Voids 1 General Appearance: WD/WN HEENT: normocephalic, mucous membranes moist Respiratory/Chest: chest wall non-tender, lungs clear Cardiovascular: normal peripheral pulses, normal rate Abdomen: normal bowel sounds, no mass Extremities: no clubbing Skin: no rash Microbiology Date/Time Source Procedure Growth Status 01/14/18 21:52 Nasal Nares MRSA Culture - Preliminary Resulted 01/14/18 21:52 Rectum Received Laboratory Tests 01/16/18 07:15: White Blood Count 7.2, Red Blood Count 4.08L, Hemoglobin 12.9, Hematocrit 41.3, Mean Corpuscular Volume 101H, Mean Corpuscular Hemoglobin 31.6H, Mean Corpuscular Hemoglobin Concent 31.2L, Red Cell Distribution Width 12.7, Platelet Count 190, Mean Platelet Volume 7.9, Neutrophils (%) (Auto) 63.8, Lymphocytes (%) (Auto) 26.5, Monocytes (%) (Auto) 7.1, Eosinophils (%) (Auto) 0.9, Basophils (%) (Auto) 1.7, Reticulocyte Count 0.4, Prothrombin Time 10.9, Prothromb Time International Ratio 1.0, Activated Partial Thromboplast Time 27, Sodium Level 138, Potassium Level 5.3H, Chloride Level 100, Carbon Dioxide Level 26, Anion Gap 12, Blood Urea Nitrogen 41H, Creatinine 10.8H, Estimat Glomerular Filtration Rate 5.0, Glucose Level 89, Calcium Level 7.9L, Iron Level 59, Total Iron Binding Capacity 153L, Percent Iron Saturation 39, Unsaturated Iron Binding 94L, Ferritin 1190H, Vitamin B12 Level 488, Folate 5.7L , Thyroid Stimulating Hormone (TSH) 1.127, Free Thyroxine 1.40 Current Medications Medications (Trade) Dose Ordered Sig/Danielle Route PRN Reason Start Time Stop Time Status Last Admin Dose Admin Al Hydroxide/Mg Hydroxide (Mylanta II) 30 ml Q6H PRN ORAL dyspepsia 01/14/18 21:45 02/13/18 21:44 Albuterol/ Ipratropium (Albuterol/ Ipratropium) 3 ml Q6HRT PRN HHN dyspnea 01/14/18 21:45 01/19/18 21:44 Amlodipine Besylate (Norvasc) 10 mg DAILY ORAL 01/15/18 09:00 02/14/18 08:59 01/15/18 09:01 Aspirin (Ecotrin) 81 mg DAILY ORAL 01/15/18 09:00 02/14/18 08:59 01/16/18 08:39 Cinacalcet (Sensipar) 90 mg DAILY ORAL 01/15/18 09:00 02/14/18 08:59 01/16/18 08:40 Clonidine HCl (Catapres Tab) 0.1 mg Q4H PRN ORAL For High Blood Pressure 01/14/18 21:45 02/13/18 21:44 01/14/18 22:44 Dextrose (Dextrose 50%) STAT PRN IV Hypoglycemia 01/14/18 21:45 02/13/18 21:44 Dextrose (Dextrose 50%) STAT PRN IV Hypoglycemia 01/14/18 21:45 02/13/18 21:44 Diphenhydramine HCl (Benadryl) 25 mg Q4H PRN IVP Itching 01/15/18 13:00 02/14/18 12:59 01/16/18 02:30 Folic Acid (Folate) 1 mg DAILY ORAL 01/16/18 10:00 02/15/18 09:59 01/16/18 11:25 Heparin Sodium (Porcine) (Heparin 5000 units/ml) 5,000 units EVERY 12 HOURS SUBQ 01/15/18 09:00 02/14/18 08:59 01/15/18 21:37 Heparin Sodium (Porcine) (Heparin Sod 1000 units/ml 10ml) 500 unit ONCE IV 01/16/18 14:30 01/16/18 23:59 Insulin Aspart (NovoLOG) BEFORE MEALS AND HS SUBQ 01/15/18 06:30 02/14/18 06:29 Metoclopramide HCl (Reglan) 10 mg Q6H PRN IVP Nausea & Vomiting 01/15/18 13:00 02/14/18 12:59 01/16/18 11:25 Metoprolol Tartrate (Lopressor) 25 mg DAILY ORAL 01/15/18 09:00 02/14/18 08:59 01/15/18 09:01 Morphine Sulfate (Morphine Sulfate) 1 mg EVERY 4 HOURS PRN IVP For Pain 01/14/18 21:45 01/21/18 21:44 01/16/18 09:32 Ondansetron HCl (Zofran) 4 mg Q6H PRN IVP Nausea & Vomiting 01/14/18 21:45 02/13/18 21:44 01/15/18 06:26 Pantoprazole (Protonix) 40 mg DAILY ORAL 01/15/18 09:00 02/14/18 08:59 01/16/18 08:39 Polyethylene Glycol (Miralax) 17 gm HSPRN PRN ORAL Constipation 01/14/18 21:45 02/13/18 21:44 Sodium Chloride 1,000 ml @ 500 mls/hr Q2H PRN IVLG sbp<90 during hd 01/16/18 14:21 02/15/18 14:20 Vitamin B Complex/ Vit C/Folic Acid (Nephrovite) 1 tab DAILY ORAL 01/16/18 12:30 02/15/18 12:29 01/16/18 12:50 Zolpidem Tartrate (Ambien) 5 mg HSPRN PRN ORAL Insomnia 01/14/18 21:45 01/21/18 21:44 Jigna Moreno MD Jan 16, 2018 14:34
[2018-01-16] MEDS ORDERED: Morphine Sulfate 2mg/ml Inj(IV/IM USE ONLY) IVP PRN (17:15)
[2018-01-16] MEDS ORDERED: Morphine Sulfate 4mg/ml Inj (IV USE ONLY) IVP PRN (17:15)
--- NOTE | 2018-01-16 17:25 | Internal Med Progress Note ---
Subjective Date of Service: Jan 16, 2018 Physician Name Loco Decker Attending Physician Dick Kyle MD Current Medications Medications (Trade) Dose Ordered Sig/Danielle Route PRN Reason Start Time Stop Time Status Last Admin Dose Admin Al Hydroxide/Mg Hydroxide (Mylanta II) 30 ml Q6H PRN ORAL dyspepsia 01/14/18 21:45 02/13/18 21:44 Albuterol/ Ipratropium (Albuterol/ Ipratropium) 3 ml Q6HRT PRN HHN dyspnea 01/14/18 21:45 01/19/18 21:44 Amlodipine Besylate (Norvasc) 10 mg DAILY ORAL 01/15/18 09:00 02/14/18 08:59 01/15/18 09:01 Aspirin (Ecotrin) 81 mg DAILY ORAL 01/15/18 09:00 02/14/18 08:59 01/16/18 08:39 Cinacalcet (Sensipar) 90 mg DAILY ORAL 01/15/18 09:00 02/14/18 08:59 01/16/18 08:40 Clonidine HCl (Catapres Tab) 0.1 mg Q4H PRN ORAL For High Blood Pressure 01/14/18 21:45 02/13/18 21:44 01/14/18 22:44 Dextrose (Dextrose 50%) STAT PRN IV Hypoglycemia 01/14/18 21:45 02/13/18 21:44 Dextrose (Dextrose 50%) STAT PRN IV Hypoglycemia 01/14/18 21:45 02/13/18 21:44 Diphenhydramine HCl (Benadryl) 25 mg Q4H PRN IVP Itching 01/15/18 13:00 02/14/18 12:59 01/16/18 02:30 Folic Acid (Folate) 1 mg DAILY ORAL 01/16/18 10:00 02/15/18 09:59 01/16/18 11:25 Heparin Sodium (Porcine) (Heparin 5000 units/ml) 5,000 units EVERY 12 HOURS SUBQ 01/15/18 09:00 02/14/18 08:59 01/15/18 21:37 Heparin Sodium (Porcine) (Heparin Sod 1000 units/ml 10ml) 500 unit ONCE IV 01/16/18 14:30 01/16/18 23:59 Insulin Aspart (NovoLOG) BEFORE MEALS AND HS SUBQ 01/15/18 06:30 02/14/18 06:29 Metoclopramide HCl (Reglan) 10 mg Q6H PRN IVP Nausea & Vomiting 01/15/18 13:00 02/14/18 12:59 01/16/18 11:25 Metoprolol Tartrate (Lopressor) 25 mg DAILY ORAL 01/15/18 09:00 02/14/18 08:59 01/15/18 09:01 Morphine Sulfate (Morphine Sulfate) 1 mg EVERY 4 HOURS PRN IVP For Pain 01/14/18 21:45 01/21/18 21:44 01/16/18 09:32 Ondansetron HCl (Zofran) 4 mg Q6H PRN IVP Nausea & Vomiting 01/14/18 21:45 02/13/18 21:44 01/15/18 06:26 Pantoprazole (Protonix) 40 mg DAILY ORAL 01/15/18 09:00 02/14/18 08:59 01/16/18 08:39 Polyethylene Glycol (Miralax) 17 gm HSPRN PRN ORAL Constipation 01/14/18 21:45 02/13/18 21:44 Sodium Chloride 1,000 ml @ 500 mls/hr Q2H PRN IVLG sbp<90 during hd 01/16/18 14:21 02/15/18 14:20 Vitamin B Complex/ Vit C/Folic Acid (Nephrovite) 1 tab DAILY ORAL 01/16/18 12:30 02/15/18 12:29 01/16/18 12:50 Zolpidem Tartrate (Ambien) 5 mg HSPRN PRN ORAL Insomnia 01/14/18 21:45 01/21/18 21:44 Allergies: Coded Allergies: No Known Allergies (Unverified , 06/11/16) ROS Limited/Unobtainable: No Constitutional: Reports: no symptoms HEENT: Reports: no symptoms Cardiovascular: Reports: no symptoms Respiratory: Reports: no symptoms Gastrointestinal/Abdominal: Reports: nausea, vomiting Genitourinary: Reports: no symptoms Neurologic/Psychiatric: Reports: no symptoms Subjective 32 YO F with end stage renal disease on hemodialysis,admitted with nausea and vomiting. Now cyclic vomiting syndrome. Cover for Int Cristian-Dr Kyle Objective Last Vital Signs Date Time Temp Pulse Resp B/P (MAP) Pulse Ox O2 Delivery O2 Flow Rate FiO2 01/16/18 12:00 97.7 79 20 158/83 (108) 100 97.7 01/16/18 09:00 Room Air General Appearance: WD/WN, alert, mild distress EENT: PERRL/EOMI, normal ENT inspection Neck: non-tender, normal alignment, supple, normal inspection Cardiovascular: normal peripheral pulses, normal rate, regular rhythm, no gallop/murmur, no JVD Respiratory/Chest: chest wall non-tender, lungs clear, normal breath sounds, no respiratory distress, no accessory muscle use Abdomen: normal bowel sounds, soft, no organomegaly, no mass, decreased bowel sounds, guarding, tender Extremities: normal range of motion, non-tender Neurologic: sand wheeler II-XII grossly normal, no motor/sensory deficits Skin: normal pigmentation, warm/dry Laboratory Tests Test 01/16/18 07:15 White Blood Count 7.2 K/UL (4.8-10.8) Red Blood Count 4.08 M/UL (4.20-5.40) L Hemoglobin 12.9 G/DL (12.0-16.0) Hematocrit 41.3 % (37.0-47.0) Mean Corpuscular Volume 101 FL (80-99) H Mean Corpuscular Hemoglobin 31.6 PG (27.0-31.0) H Mean Corpuscular Hemoglobin Concent 31.2 G/DL (32.0-36.0) L Red Cell Distribution Width 12.7 % (11.6-14.8) Platelet Count 190 K/UL (150-450) Mean Platelet Volume 7.9 FL (6.5-10.1) Neutrophils (%) (Auto) 63.8 % (45.0-75.0) Lymphocytes (%) (Auto) 26.5 % (20.0-45.0) Monocytes (%) (Auto) 7.1 % (1.0-10.0) Eosinophils (%) (Auto) 0.9 % (0.0-3.0) Basophils (%) (Auto) 1.7 % (0.0-2.0) Reticulocyte Count 0.4 % (0.0-2.0) Prothrombin Time 10.9 SEC (9.30-11.50) Prothromb Time International Ratio 1.0 (0.9-1.1) Activated Partial Thromboplast Time 27 SEC (23-33) Sodium Level 138 MMOL/L (136-145) Potassium Level 5.3 MMOL/L (3.5-5.1) H Chloride Level 100 MMOL/L (98-107) Carbon Dioxide Level 26 MMOL/L (21-32) Anion Gap 12 mmol/L (5-15) Blood Urea Nitrogen 41 mg/dL (7-18) H Creatinine 10.8 MG/DL (0.55-1.30) H Estimat Glomerular Filtration Rate 5.0 mL/min (>60) Glucose Level 89 MG/DL (74-106) Calcium Level 7.9 MG/DL (8.5-10.1) L Iron Level 59 ug/dL (50-175) Total Iron Binding Capacity 153 ug/dL (250-450) L Percent Iron Saturation 39 % (15-50) Unsaturated Iron Binding 94 ug/dL (112-346) L Ferritin 1190 NG/ML (8-388) H Vitamin B12 Level 488 PG/ML (193-986) Folate 5.7 NG/ML (8.6-58.9) L Thyroid Stimulating Hormone (TSH) 1.127 uiU/mL (0.358-3.740) Free Thyroxine 1.40 NG/DL (0.76-1.46) Microbiology Date/Time Source Procedure Growth Status 01/14/18 21:52 Nasal Nares MRSA Culture - Preliminary Resulted 01/14/18 21:52 Rectum Received Intake and Output 01/15/18 01/16/18 19:00 07:00 Intake Total 720 ml 320 ml Output Total 300 ml Balance 420 ml 320 ml Intake Oral 420 ml 320 ml IV Total 300 ml Emesis 300 ml # Voids 1 Assessment/Plan Problem List: (1) Diabetes mellitus (2) Nausea & vomiting (3) Epigastric abdominal pain Assessment & Plan: 01/10; Increase morphine. (4) Cyclic vomiting syndrome Assessment & Plan: See GI note. Continue reglan (5) ESRD on dialysis Assessment & Plan: Hemodialysis today. See nephrology note. (6) Gastroparesis (7) Hypertension Assessment & Plan: Continue norvasc and lopressor (8) Asthma Status: not improved Loco Decker MD Jan 16, 2018 17:25
[2018-01-16] MEDS ORDERED: Mylanta II UD 30ml ORAL PRN (23:45)
[2018-01-16] MEDS ORDERED: Zolpidem 5mg tab ORAL PRN (23:46)
[2018-01-16] MEDS ORDERED: Miralax 17gm pkt ORAL PRN (23:46)
[2018-01-17] VITALS: BP 118/64
[2018-01-17] MEDS ORDERED: Albuterol/Ipratropium 3ml neb HHN PRN (01:00)
[2018-01-17] MEDS ORDERED: Morphine Sulfate 4mg/ml Inj (IV USE ONLY) IVP PRN (01:15)
[2018-01-17] MEDS: Morphine Sulfate 2mg/ml Inj(IV/IM USE ONLY) IVP PRN ×4 (03:09→20:37)
[2018-01-17] MEDS: DiphenhydrAMINE 50mg/ml Inj IVP PRN ×3 (03:09→20:37)
[2018-01-17 04:00] VITALS: BP 107/68
[2018-01-17] MEDS: NovoLOG Insulin Flexpen SUBQ SCH ×4 (06:30→20:42)
[2018-01-17 07:11] LABS: BASOPHILS % (AUTO) 1.8 % (0.0-2.0); EOSINOPHILS % (AUTO) 0.7 % (0.0-3.0); HEMATOCRIT 38.8 % (37.0-47.0); HEMOGLOBIN 12.3 G/DL (12.0-16.0); LYMPHOCYTES % (AUTO) 24.7 % (20.0-45.0); MEAN CORPUSCULAR VOLUME 99 FL (80-99); MONOCYTES % (AUTO) 8.7 % (1.0-10.0); NEUTROPHILS % (AUTO) 64.1 % (45.0-75.0); PLATELET COUNT 197 K/UL (150-450); RED CELL DISTRIBUTION WIDTH 12.5 % (11.6-14.8); WHITE BLOOD COUNT 6.9 K/UL (4.8-10.8)
[2018-01-17 07:57] LABS: ANION GAP 12 mmol/L (5-15); BLOOD UREA NITROGEN 46 mg/dL (7-18); CALCIUM 8.1 MG/DL (8.5-10.1); CARBON DIOXIDE 25 MMOL/L (21-32); CHLORIDE 99 MMOL/L (98-107); CREATININE 11.8 MG/DL (0.55-1.30); PHOSPHORUS 5.6 MG/DL (2.5-4.9); POTASSIUM 5.6 MMOL/L (3.5-5.1); SODIUM 136 MMOL/L (136-145)
[2018-01-17 08:00] VITALS: BP 109/59
[2018-01-17] MEDS: Heparin 5000 units/ml inj SUBQ SCH ×2 (09:00→20:29)
--- NOTE | 2018-01-17 10:34 | General Progress Note ---
Assessment/Plan Problem List: (1) Diabetes mellitus ICD Codes: E11.9 - Type 2 diabetes mellitus without complications SNOMED: 84777687 (2) Hypertension ICD Codes: I10 - Essential (primary) hypertension SNOMED: 98622124 (3) Cyclic vomiting syndrome ICD Codes: G43.A0 - Cyclical vomiting, not intractable SNOMED: 56804245 (4) ESRD on dialysis ICD Codes: N18.6 - End stage renal disease; Z99.2 - Dependence on renal dialysis SNOMED: 605532849 (5) Gastroparesis ICD Codes: K31.84 - Gastroparesis SNOMED: 956705170 (6) Nausea & vomiting ICD Codes: R11.2 - Nausea with vomiting, unspecified SNOMED: 44933792 Assessment/Plan folate deficiency symptomatic treatment at this time reglan prn ADA diet folate OB stool r/o GI bleed monitor H&H, prn transfusions bowel regime ppi electrolyte correction fu labs Subjective ROS Limited/Unobtainable: Yes Allergies: Coded Allergies: No Known Allergies (Unverified , 06/11/16) Subjective c/o headache Objective Last 24 Hour Vital Signs Date Time Temp Pulse Resp B/P (MAP) Pulse Ox O2 Delivery O2 Flow Rate FiO2 01/17/18 08:35 98.1 01/17/18 08:00 98.1 70 18 109/59 (76) 95 98.1 01/17/18 08:00 71 01/17/18 06:50 75 18 Room Air 21 01/17/18 04:00 98.0 71 20 107/68 (81) 95 98.0 01/17/18 04:00 69 01/17/18 00:00 75 01/17/18 00:00 98.7 76 20 118/64 (82) 95 98.7 01/16/18 21:00 Room Air 01/16/18 20:00 98.7 78 19 156/85 (108) 97 98.7 01/16/18 19:30 80 18 Room Air 21 01/16/18 19:04 98.5 01/16/18 18:36 Room Air 01/16/18 18:35 98.5 99 20 192/95 (127) 98.5 01/16/18 18:34 98.5 01/16/18 18:09 214/116 01/16/18 17:35 106 217/121 01/16/18 17:34 106 217/121 01/16/18 16:00 98.5 79 20 147/79 (101) 98 98.5 01/16/18 14:30 Room Air 01/16/18 14:30 98.5 78 20 147/79 (101) 98.5 01/16/18 12:00 97.7 79 20 158/83 (108) 100 97.7 Intake and Output 01/16/18 01/17/18 19:00 07:00 Intake Total 340 ml Output Total 2000 ml Balance -1660 ml Intake Oral 340 ml Hemodialysis UF 2000 ml # Voids 1 2 # Bowel Movements 1 Laboratory Tests 01/16/18 18:00: Stool Occult Blood [Pending] 01/17/18 06:30: White Blood Count 6.9, Red Blood Count 3.90L, Hemoglobin 12.3, Hematocrit 38.8, Mean Corpuscular Volume 99, Mean Corpuscular Hemoglobin 31.5H, Mean Corpuscular Hemoglobin Concent 31.7L, Red Cell Distribution Width 12.5, Platelet Count 197, Mean Platelet Volume 7.7, Neutrophils (%) (Auto) 64.1, Lymphocytes (%) (Auto) 24.7, Monocytes (%) (Auto) 8.7, Eosinophils (%) (Auto) 0.7, Basophils (%) (Auto ) 1.8, Sodium Level 136, Potassium Level 5.6H, Chloride Level 99, Carbon Dioxide Level 25, Anion Gap 12, Blood Urea Nitrogen 46H, Creatinine 11.8H, Estimat Glomerular Filtration Rate 4.5, Glucose Level 75, Calcium Level 8.1L, Phosphorus Level 5.6H, Magnesium Level 2.2, Gamma Glutamyl Transpeptidase 121H Height (Feet): 4 Height (Inches): 11.00 Weight (Pounds): 126 General Appearance: alert EENT: normal ENT inspection Neck: supple Cardiovascular: normal rate Respiratory/Chest: decreased breath sounds Abdomen: normal bowel sounds, non tender, soft Extremities: non-tender Silver Richards MD Jan 17, 2018 10:34
[2018-01-17 12:00] VITALS: BP 130/69
[2018-01-17] MEDS: Metoprolol 25mg tab ORAL SCH (13:00)
[2018-01-17] MEDS: Aspirin EC 81mg tab ORAL SCH (13:01)
[2018-01-17] MEDS: Nephrovite tab (Rena-Vite) ORAL SCH (13:01)
[2018-01-17] MEDS: Sensipar 30mg Tab ORAL SCH (13:01)
--- NOTE | 2018-01-17 13:54 | Nephrology Progress Note ---
Assessment/Plan Problem List: (1) ESRD on dialysis (2) Hypertension Assessment: ok (3) Gastroparesis (4) CAD (coronary artery disease) Plan HD tomorrow follow labs Subjective Subjective BP was high because of pain yesterday Objective Objective Last 24 Hour Vital Signs Date Time Temp Pulse Resp B/P (MAP) Pulse Ox O2 Delivery O2 Flow Rate FiO2 01/17/18 13:01 70 130/69 01/17/18 13:00 70 130/69 01/17/18 12:00 70 01/17/18 12:00 98.2 73 16 130/69 (89) 95 98.2 01/17/18 09:05 98.2 01/17/18 09:00 Room Air 01/17/18 08:35 98.1 01/17/18 08:00 98.1 70 18 109/59 (76) 95 98.1 01/17/18 08:00 71 01/17/18 06:50 75 18 Room Air 21 01/17/18 04:00 98.0 71 20 107/68 (81) 95 98.0 01/17/18 04:00 69 01/17/18 00:00 75 01/17/18 00:00 98.7 76 20 118/64 (82) 95 98.7 01/16/18 21:00 Room Air 01/16/18 20:00 98.7 78 19 156/85 (108) 97 98.7 01/16/18 19:30 80 18 Room Air 21 01/16/18 19:04 98.5 01/16/18 18:36 Room Air 01/16/18 18:35 98.5 99 20 192/95 (127) 98.5 01/16/18 18:34 98.5 18 18:09 214/116 01/16/18 17:35 106 217/121 01/16/18 17:34 106 217/121 01/16/18 16:00 98.5 79 20 147/79 (101) 98 98.5 01/16/18 14:30 Room Air 01/16/18 14:30 98.5 78 20 147/79 (101) 98.5 Intake and Output 01/16/18 01/17/18 19:00 07:00 Intake Total 340 ml Output Total 2000 ml Balance -1660 ml Intake Oral 340 ml Hemodialysis UF 2000 ml # Voids 1 2 # Bowel Movements 1 Laboratory Tests 01/16/18 18:00: Stool Occult Blood Negative 01/17/18 06:30: White Blood Count 6.9, Red Blood Count 3.90L, Hemoglobin 12.3, Hematocrit 38.8, Mean Corpuscular Volume 99, Mean Corpuscular Hemoglobin 31.5H, Mean Corpuscular Hemoglobin Concent 31.7L, Red Cell Distribution Width 12.5, Platelet Count 197, Mean Platelet Volume 7.7, Neutrophils (%) (Auto) 64.1, Lymphocytes (%) (Auto) 24.7, Monocytes (%) (Auto) 8.7, Eosinophils (%) (Auto) 0.7, Basophils (%) (Auto ) 1.8, Sodium Level 136, Potassium Level 5.6H, Chloride Level 99, Carbon Dioxide Level 25, Anion Gap 12, Blood Urea Nitrogen 46H, Creatinine 11.8H, Estimat Glomerular Filtration Rate 4.5, Glucose Level 75, Calcium Level 8.1L, Phosphorus Level 5.6H, Magnesium Level 2.2, Gamma Glutamyl Transpeptidase 121H Height (Feet): 4 Height (Inches): 11.00 Weight (Pounds): 126 Cardiovascular: normal rate Respiratory/Chest: lungs clear Rick Sepulveda MD Jan 17, 2018 13:54
--- NOTE | 2018-01-17 14:05 | Pulmonology Progress Note ---
Assessment/Plan Problems: (1) Cyclic vomiting syndrome (2) Electrolyte imbalance (3) End stage renal disease (4) Gastroparesis (5) Intractable vomiting (6) Asthma (7) Hypertension (8) Coronary artery disease Assessment/Plan no new complains eating better getting HD monitor BP symptomatic treatment f/u by GI Subjective ROS Limited/Unobtainable: No Constitutional: Reports: no symptoms HEENT: Repors: no symptoms Respiratory: Reports: no symptoms Cardiovascular: Reports: no symptoms Allergies: Coded Allergies: No Known Allergies (Unverified , 06/11/16) Objective Last 24 Hour Vital Signs Date Time Temp Pulse Resp B/P (MAP) Pulse Ox O2 Delivery O2 Flow Rate FiO2 01/17/18 13:58 98.2 01/17/18 13:01 70 130/69 01/17/18 13:00 70 130/69 01/17/18 12:00 70 01/17/18 12:00 98.2 73 16 130/69 (89) 95 98.2 01/17/18 09:05 98.2 01/17/18 09:00 Room Air 01/17/18 08:35 98.1 01/17/18 08:00 98.1 70 18 109/59 (76) 95 98.1 01/17/18 08:00 71 01/17/18 06:50 75 18 Room Air 21 01/17/18 04:00 98.0 71 20 107/68 (81) 95 98.0 01/17/18 04:00 69 01/17/18 00:00 75 01/17/18 00:00 98.7 76 20 118/64 (82) 95 98.7 01/16/18 21:00 Room Air 01/16/18 20:00 98.7 78 19 156/85 (108) 97 98.7 01/16/18 19:30 80 18 Room Air 21 01/16/18 19:04 98.5 01/16/18 18:36 Room Air 01/16/18 18:35 98.5 99 20 192/95 (127) 98.5 01/16/18 18:34 98.5 01/16/18 18:09 214/116 01/16/18 17:35 106 217/121 01/16/18 17:34 106 217/121 01/16/18 16:00 98.5 79 20 147/79 (101) 98 98.5 01/16/18 14:30 Room Air 01/16/18 14:30 98.5 78 20 147/79 (101) 98.5 Intake and Output 01/16/18 01/17/18 19:00 07:00 Intake Total 340 ml Output Total 2000 ml Balance -1660 ml Intake Oral 340 ml Hemodialysis UF 2000 ml # Voids 1 2 # Bowel Movements 1 General Appearance: WD/WN HEENT: normocephalic, atraumatic Respiratory/Chest: chest wall non-tender, lungs clear Breasts: no masses Cardiovascular: normal peripheral pulses Abdomen: normal bowel sounds, non distended Skin: no rash Microbiology Date/Time Source Procedure Growth Status 01/14/18 21:52 Nasal Nares MRSA Culture - Final NO METHICILLIN RESISTANT STAPH AUREUS... Complete 01/14/18 21:52 Rectum - Final NO CARBAPENEM-RESISTANT ENTEROBACTERI... Complete 01/14/18 21:52 Rectum VRE Culture - Final NO VANCOMYCIN RESISTANT ENTEROCOCCUS ... Complete Laboratory Tests 01/16/18 18:00: Stool Occult Blood Negative 01/17/18 06:30: White Blood Count 6.9, Red Blood Count 3.90L, Hemoglobin 12.3, Hematocrit 38.8, Mean Corpuscular Volume 99, Mean Corpuscular Hemoglobin 31.5H, Mean Corpuscular Hemoglobin Concent 31.7L, Red Cell Distribution Width 12.5, Platelet Count 197, Mean Platelet Volume 7.7, Neutrophils (%) (Auto) 64.1, Lymphocytes (%) (Auto) 24.7, Monocytes (%) (Auto) 8.7, Eosinophils (%) (Auto) 0.7, Basophils (%) (Auto ) 1.8, Sodium Level 136, Potassium Level 5.6H, Chloride Level 99, Carbon Dioxide Level 25, Anion Gap 12, Blood Urea Nitrogen 46H, Creatinine 11.8H, Estimat Glomerular Filtration Rate 4.5, Glucose Level 75, Calcium Level 8.1L, Phosphorus Level 5.6H, Magnesium Level 2.2, Gamma Glutamyl Transpeptidase 121H Current Medications Medications (Trade) Dose Ordered Sig/Danielle Route PRN Reason Start Time Stop Time Status Last Admin Dose Admin Al Hydroxide/Mg Hydroxide (Mylanta II) 30 ml Q6H PRN ORAL dyspepsia 01/16/18 23:45 02/15/18 23:44 Albuterol/ Ipratropium (Albuterol/ Ipratropium) 3 ml Q6HRT PRN HHN dyspnea 01/17/18 01:00 01/19/18 21:44 Amlodipine Besylate (Norvasc) 10 mg DAILY ORAL 01/17/18 09:00 02/14/18 08:59 01/17/18 13:01 Aspirin (Ecotrin) 81 mg DAILY ORAL 01/17/18 09:00 02/14/18 08:59 01/17/18 13:01 Cinacalcet (Sensipar) 90 mg DAILY ORAL 01/17/18 09:00 02/14/18 08:59 01/17/18 13:01 Clonidine HCl (Catapres Tab) 0.1 mg Q4H PRN ORAL For High Blood Pressure 01/16/18 23:45 02/15/18 23:44 Dextrose (Dextrose 50%) STAT PRN IV Hypoglycemia 01/16/18 23:45 02/15/18 23:44 Dextrose (Dextrose 50%) STAT PRN IV Hypoglycemia 01/16/18 23:45 02/15/18 23:44 Diphenhydramine HCl (Benadryl) 25 mg Q4H PRN IVP Itching 01/17/18 01:00 02/14/18 12:59 01/17/18 13:57 Folic Acid (Folate) 1 mg DAILY ORAL 01/17/18 09:00 02/15/18 09:59 01/17/18 13:01 Heparin Sodium (Porcine) (Heparin 5000 units/ml) 5,000 units EVERY 12 HOURS SUBQ 01/17/18 09:00 02/14/18 08:59 Heparin Sodium (Porcine) (Heparin Sod 1000 units/ml 10ml) 500 unit ONCE ONCE IV 01/18/18 14:00 01/18/18 14:01 Insulin Aspart (NovoLOG) BEFORE MEALS AND HS SUBQ 01/17/18 06:30 02/14/18 06:29 Metoclopramide HCl (Reglan) 10 mg Q6H PRN IVP Nausea & Vomiting 01/17/18 01:00 02/14/18 12:59 Metoprolol Tartrate (Lopressor) 25 mg DAILY ORAL 01/17/18 09:00 02/14/18 08:59 01/17/18 13:00 Morphine Sulfate (Morphine Sulfate) 2 mg Q4H PRN IVP Moderate Pain (Pain Scale 4-6) 01/16/18 23:46 01/23/18 23:45 01/17/18 13:58 Morphine Sulfate (Morphine Sulfate) 4 mg Q4H PRN IVP Severe Pain (Pain Scale 7-10) 01/17/18 01:15 01/23/18 17:14 Ondansetron HCl (Zofran) 4 mg Q6H PRN IVP Nausea & Vomiting 01/17/18 03:45 02/13/18 21:44 Pantoprazole (Protonix) 40 mg DAILY ORAL 01/17/18 09:00 02/14/18 08:59 01/17/18 13:01 Polyethylene Glycol (Miralax) 17 gm HSPRN PRN ORAL Constipation 01/16/18 23:46 02/15/18 23:45 Sodium Chloride 1,000 ml @ 500 mls/hr Q2H PRN IVLG sbp<90 during hd 01/16/18 22:45 02/15/18 14:20 Vitamin B Complex/ Vit C/Folic Acid (Nephrovite) 1 tab DAILY ORAL 01/17/18 09:00 02/15/18 12:29 01/17/18 13:01 Zolpidem Tartrate (Ambien) 5 mg HSPRN PRN ORAL Insomnia 01/16/18 23:46 01/23/18 23:45 Jigna Moreno MD Jan 17, 2018 14:05
--- NOTE | 2018-01-17 15:20 | Diagnostic Imaging Report ---
Indication: Abdominal pain Technique: Heredia-scale and duplex images of the upper abdomen were obtained Comparison: none Findings: Gallbladder demonstrates equivocal small calculi. No gallbladder wall thickening or pericholecystic fluid. Sonographic Meade's sign is negative. Common bile duct measures 3 mm in diameter. No intrahepatic biliary ductal dilatation. Liver demonstrates normal echogenicity. A 2.9 cm cyst is seen in the periphery of the right hepatic lobe. Portal vein and hepatic veins are patent. Pancreas is unremarkable. The spleen contains numerous calcifications. It is normal in size Left kidney measures 7.1 cm in length. Right kidney measures 7.8 cm length. Both kidneys demonstrate increased echogenicity. There is no hydronephrosis. A 7 mm calcification is seen in the right lower pole renal sinus . Non-aneurysmal abdominal aorta . Impression: Questionable cholelithiasis. Negative for dilated ducts Echogenic atrophic bilateral kidneys, consistent with medical renal disease. Negative for hydronephrosis. Nonobstructive right lower pole renal calcification Incidental finding right lobe liver cyst Splenic calcifications, probably on the basis of old granulomatous disease. Correlate with clinical history
[2018-01-17 16:00] VITALS: BP 123/65
--- NOTE | 2018-01-17 19:35 | Internal Med Progress Note ---
Subjective Date of Service: Jan 17, 2018 Physician Name Loco Decker Attending Physician Dick Kyle MD Current Medications Medications (Trade) Dose Ordered Sig/Danielle Route PRN Reason Start Time Stop Time Status Last Admin Dose Admin Al Hydroxide/Mg Hydroxide (Mylanta II) 30 ml Q6H PRN ORAL dyspepsia 01/16/18 23:45 02/15/18 23:44 Albuterol/ Ipratropium (Albuterol/ Ipratropium) 3 ml Q6HRT PRN HHN dyspnea 01/17/18 01:00 01/19/18 21:44 Amlodipine Besylate (Norvasc) 10 mg DAILY ORAL 01/17/18 09:00 02/14/18 08:59 01/17/18 13:01 Aspirin (Ecotrin) 81 mg DAILY ORAL 01/17/18 09:00 02/14/18 08:59 01/17/18 13:01 Cinacalcet (Sensipar) 90 mg DAILY ORAL 01/17/18 09:00 02/14/18 08:59 01/17/18 13:01 Clonidine HCl (Catapres Tab) 0.1 mg Q4H PRN ORAL For High Blood Pressure 01/16/18 23:45 02/15/18 23:44 Dextrose (Dextrose 50%) STAT PRN IV Hypoglycemia 01/16/18 23:45 02/15/18 23:44 Dextrose (Dextrose 50%) STAT PRN IV Hypoglycemia 01/16/18 23:45 02/15/18 23:44 Diphenhydramine HCl (Benadryl) 25 mg Q4H PRN IVP Itching 01/17/18 01:00 02/14/18 12:59 01/17/18 13:57 Folic Acid (Folate) 1 mg DAILY ORAL 01/17/18 09:00 02/15/18 09:59 01/17/18 13:01 Heparin Sodium (Porcine) (Heparin 5000 units/ml) 5,000 units EVERY 12 HOURS SUBQ 01/17/18 09:00 02/14/18 08:59 Heparin Sodium (Porcine) (Heparin Sod 1000 units/ml 10ml) 500 unit ONCE ONCE IV 01/18/18 14:00 01/18/18 14:01 Insulin Aspart (NovoLOG) BEFORE MEALS AND HS SUBQ 01/17/18 06:30 02/14/18 06:29 Metoclopramide HCl (Reglan) 10 mg Q6H PRN IVP Nausea & Vomiting 01/17/18 01:00 02/14/18 12:59 Metoprolol Tartrate (Lopressor) 25 mg DAILY ORAL 01/17/18 09:00 02/14/18 08:59 01/17/18 13:00 Morphine Sulfate (Morphine Sulfate) 2 mg Q4H PRN IVP Moderate Pain (Pain Scale 4-6) 01/16/18 23:46 01/23/18 23:45 01/17/18 13:58 Morphine Sulfate (Morphine Sulfate) 4 mg Q4H PRN IVP Severe Pain (Pain Scale 7-10) 01/17/18 01:15 01/23/18 17:14 Ondansetron HCl (Zofran) 4 mg Q6H PRN IVP Nausea & Vomiting 01/17/18 03:45 02/13/18 21:44 Pantoprazole (Protonix) 40 mg DAILY ORAL 01/17/18 09:00 02/14/18 08:59 01/17/18 13:01 Polyethylene Glycol (Miralax) 17 gm HSPRN PRN ORAL Constipation 01/16/18 23:46 02/15/18 23:45 Sodium Chloride 1,000 ml @ 500 mls/hr Q2H PRN IVLG sbp<90 during hd 01/16/18 22:45 02/15/18 14:20 Vitamin B Complex/ Vit C/Folic Acid (Nephrovite) 1 tab DAILY ORAL 01/17/18 09:00 02/15/18 12:29 01/17/18 13:01 Zolpidem Tartrate (Ambien) 5 mg HSPRN PRN ORAL Insomnia 01/16/18 23:46 01/23/18 23:45 Allergies: Coded Allergies: No Known Allergies (Unverified , 06/11/16) ROS Limited/Unobtainable: No Constitutional: Reports: no symptoms HEENT: Reports: no symptoms Cardiovascular: Reports: no symptoms Respiratory: Reports: no symptoms Gastrointestinal/Abdominal: Reports: nausea, vomiting Genitourinary: Reports: no symptoms Neurologic/Psychiatric: Reports: no symptoms Subjective 32 YO F with end stage renal disease on hemodialysis,admitted with nausea and vomiting. Now cyclic vomiting syndrome. Cover for Int Med-Dr Kyle Objective Last Vital Signs Date Time Temp Pulse Resp B/P (MAP) Pulse Ox O2 Delivery O2 Flow Rate FiO2 01/17/18 16:00 98.8 73 18 123/65 (84) 98 98.8 01/17/18 09:00 Room Air 01/17/18 06:50 21 Laboratory Tests Test 01/17/18 06:30 White Blood Count 6.9 K/UL (4.8-10.8) Red Blood Count 3.90 M/UL (4.20-5.40) L Hemoglobin 12.3 G/DL (12.0-16.0) Hematocrit 38.8 % (37.0-47.0) Mean Corpuscular Volume 99 FL (80-99) Mean Corpuscular Hemoglobin 31.5 PG (27.0-31.0) H Mean Corpuscular Hemoglobin Concent 31.7 G/DL (32.0-36.0) L Red Cell Distribution Width 12.5 % (11.6-14.8) Platelet Count 197 K/UL (150-450) Mean Platelet Volume 7.7 FL (6.5-10.1) Neutrophils (%) (Auto) 64.1 % (45.0-75.0) Lymphocytes (%) (Auto) 24.7 % (20.0-45.0) Monocytes (%) (Auto) 8.7 % (1.0-10.0) Eosinophils (%) (Auto) 0.7 % (0.0-3.0) Basophils (%) (Auto) 1.8 % (0.0-2.0) Sodium Level 136 MMOL/L (136-145) Potassium Level 5.6 MMOL/L (3.5-5.1) H Chloride Level 99 MMOL/L (98-107) Carbon Dioxide Level 25 MMOL/L (21-32) Anion Gap 12 mmol/L (5-15) Blood Urea Nitrogen 46 mg/dL (7-18) H Creatinine 11.8 MG/DL (0.55-1.30) H Estimat Glomerular Filtration Rate 4.5 mL/min (>60) Glucose Level 75 MG/DL (74-106) Calcium Level 8.1 MG/DL (8.5-10.1) L Phosphorus Level 5.6 MG/DL (2.5-4.9) H Magnesium Level 2.2 MG/DL (1.8-2.4) Gamma Glutamyl Transpeptidase 121 U/L (5-85) H Microbiology Date/Time Source Procedure Growth Status 01/14/18 21:52 Nasal Nares MRSA Culture - Final NO METHICILLIN RESISTANT STAPH AUREUS... Complete 01/14/18 21:52 Rectum - Final NO CARBAPENEM-RESISTANT ENTEROBACTERI... Complete 01/14/18 21:52 Rectum VRE Culture - Final NO VANCOMYCIN RESISTANT ENTEROCOCCUS ... Complete Intake and Output 01/16/18 01/17/18 19:00 07:00 Intake Total 340 ml Output Total 2000 ml Balance -1660 ml Intake Oral 340 ml Hemodialysis UF 2000 ml # Voids 1 2 # Bowel Movements 1 Objective General Appearance: WD/WN, alert, mild distress EENT: PERRL/EOMI, normal ENT inspection Neck: non-tender, normal alignment, supple, normal inspection Cardiovascular: normal peripheral pulses, normal rate, regular rhythm, no gallop/murmur, no JVD Respiratory/Chest: chest wall non-tender, lungs clear, normal breath sounds, no respiratory distress, no accessory muscle use Abdomen: normal bowel sounds, soft, no organomegaly, no mass, decreased bowel sounds, guarding, tender Extremities: normal range of motion, non-tender 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 (4) Cyclic vomiting syndrome Assessment & Plan: See GI note. Continue reglan (5) ESRD on dialysis Assessment & Plan: Next Hemodialysis 01/18/18. See nephrology note. (6) Gastroparesis (7) Hypertension Assessment & Plan: Continue norvasc and lopressor (8) Asthma Status: progressing Loco Decker MD Jan 17, 2018 19:35
[2018-01-17 20:00] VITALS: BP 154/80
[2018-01-17] MEDS: Metoclopramide 10mg/2ml Inj IVP PRN (20:37)
[2018-01-18] VITALS (9 sets, daily range): BP systolic 117–153; BP diastolic 63–89
[2018-01-18] MEDS: Morphine Sulfate 2mg/ml Inj(IV/IM USE ONLY) IVP PRN (01:12)
[2018-01-18] MEDS: DiphenhydrAMINE 50mg/ml Inj IVP PRN ×3 (04:55→20:15)
[2018-01-18] MEDS: NovoLOG Insulin Flexpen SUBQ SCH ×4 (06:30→20:22)
--- NOTE | 2018-01-18 07:41 | Pulmonology Progress Note ---
Assessment/Plan Assessment/Plan ASSESSMENT cyclic vomiting syndrome end-stage renal disease, probably gastroparesis diabetes mellitus hypertension asthma folate deficiency coronary artery disease electrolyte imbalance mild anemia constipation PLAN of CARE Med Surg floor HD as per nephro monitor renal parameters and e/lytes correct e/lytes prn , on Sensipar HD today avoid nephrotoxic O2 titrate to keep pulse oximetry above 92% , pulmonary toilet prn GI follows symptomatic treatment a/emetic prn , on Reglan consider gastric emptying study as outpt ADA diet, BS management with SSI, HgA1c at goal BP management with BB and CCB Continue ASA DVT prophylaxis anemia workup with anemia of chronic disease and folate deficiency folate replacement monitor H&H with goal to keep hemoglobin above 7 , remain very stable check stool OB bowel regimen PPI can be transferred to [facility] floor if nephro ok case discussed and evaluated by supervising physician Subjective Allergies: Coded Allergies: No Known Allergies (Unverified , 06/11/16) Subjective had breakfast this am, earlier one episode of vomiting HD pending for today Objective Last 24 Hour Vital Signs Date Time Temp Pulse Resp B/P (MAP) Pulse Ox O2 Delivery O2 Flow Rate FiO2 01/18/18 04:00 83 01/18/18 04:00 97.7 75 18 133/71 (91) 95 97.7 01/18/18 00:08 65 01/18/18 00:00 97.6 65 20 122/63 (82) 94 97.6 01/17/18 21:00 Room Air 01/17/18 20:34 77 18 Room Air 21 01/17/18 20:00 98.2 76 20 154/80 (104) 99 98.2 01/17/18 20:00 100 01/17/18 16:00 98.8 73 18 123/65 (84) 98 98.8 01/17/18 16:00 72 01/17/18 14:28 98.2 01/17/18 13:58 98.2 01/17/18 13:01 70 130/69 01/17/18 13:00 70 130/69 01/17/18 12:00 70 01/17/18 12:00 98.2 73 16 130/69 (89) 95 98.2 01/17/18 09:00 Room Air 01/17/18 08:35 98.1 01/17/18 08:00 98.1 70 18 109/59 (76) 95 98.1 01/17/18 08:00 71 Intake and Output 01/17/18 01/18/18 19:00 07:00 Intake Total 120 ml 120 ml Balance 120 ml 120 ml Intake Oral 120 ml 120 ml General Appearance: no acute distress HEENT: normocephalic, atraumatic, anicteric, mucous membranes moist Respiratory/Chest: lungs clear, normal breath sounds, no respiratory distress, no accessory muscle use Cardiovascular: normal peripheral pulses, normal rate - SR on tele Abdomen: normal bowel sounds, soft, non tender, non distended Genitourinary: normal external genitalia Extremities: no edema Neurologic/Psychiatric: no motor/sensory deficits, alert, oriented x 3, responsive Musculoskeletal: normal muscle bulk Current Medications Medications (Trade) Dose Ordered Sig/Danielle Route PRN Reason Start Time Stop Time Status Last Admin Dose Admin Al Hydroxide/Mg Hydroxide (Mylanta II) 30 ml Q6H PRN ORAL dyspepsia 01/16/18 23:45 02/15/18 23:44 Albuterol/ Ipratropium (Albuterol/ Ipratropium) 3 ml Q6HRT PRN HHN dyspnea 01/17/18 01:00 01/19/18 21:44 Amlodipine Besylate (Norvasc) 10 mg DAILY ORAL 01/17/18 09:00 02/14/18 08:59 01/17/18 13:01 Aspirin (Ecotrin) 81 mg DAILY ORAL 01/17/18 09:00 02/14/18 08:59 01/17/18 13:01 Cinacalcet (Sensipar) 90 mg DAILY ORAL 01/17/18 09:00 02/14/18 08:59 01/17/18 13:01 Clonidine HCl (Catapres Tab) 0.1 mg Q4H PRN ORAL For High Blood Pressure 01/16/18 23:45 02/15/18 23:44 Dextrose (Dextrose 50%) STAT PRN IV Hypoglycemia 01/16/18 23:45 02/15/18 23:44 Dextrose (Dextrose 50%) STAT PRN IV Hypoglycemia 01/16/18 23:45 02/15/18 23:44 Diphenhydramine HCl (Benadryl) 25 mg Q4H PRN IVP Itching 01/17/18 01:00 02/14/18 12:59 01/18/18 04:55 Folic Acid (Folate) 1 mg DAILY ORAL 01/17/18 09:00 02/15/18 09:59 01/17/18 13:01 Heparin Sodium (Porcine) (Heparin 5000 units/ml) 5,000 units EVERY 12 HOURS SUBQ 01/17/18 09:00 02/14/18 08:59 Heparin Sodium (Porcine) (Heparin Sod 1000 units/ml 10ml) 500 unit ONCE ONCE IV 01/18/18 14:00 01/18/18 14:01 Insulin Aspart (NovoLOG) BEFORE MEALS AND HS SUBQ 01/17/18 06:30 02/14/18 06:29 Metoclopramide HCl (Reglan) 10 mg Q6H PRN IVP Nausea & Vomiting 01/17/18 01:00 02/14/18 12:59 01/17/18 20:37 Metoprolol Tartrate (Lopressor) 25 mg DAILY ORAL 01/17/18 09:00 02/14/18 08:59 01/17/18 13:00 Morphine Sulfate (Morphine Sulfate) 2 mg Q4H PRN IVP Moderate Pain (Pain Scale 4-6) 01/16/18 23:46 01/23/18 23:45 01/18/18 01:12 Morphine Sulfate (Morphine Sulfate) 4 mg Q4H PRN IVP Severe Pain (Pain Scale 7-10) 01/17/18 01:15 01/23/18 17:14 Ondansetron HCl (Zofran) 4 mg Q6H PRN IVP Nausea & Vomiting 01/17/18 03:45 02/13/18 21:44 01/18/18 01:11 Pantoprazole (Protonix) 40 mg DAILY ORAL 01/17/18 09:00 02/14/18 08:59 01/17/18 13:01 Polyethylene Glycol (Miralax) 17 gm HSPRN PRN ORAL Constipation 01/16/18 23:46 02/15/18 23:45 Sodium Chloride 1,000 ml @ 500 mls/hr Q2H PRN IVLG sbp<90 during hd 01/16/18 22:45 02/15/18 14:20 Vitamin B Complex/ Vit C/Folic Acid (Nephrovite) 1 tab DAILY ORAL 01/17/18 09:00 02/15/18 12:29 01/17/18 13:01 Zolpidem Tartrate (Ambien) 5 mg HSPRN PRN ORAL Insomnia 01/16/18 23:46 01/23/18 23:45 Connie Birmingham NP Jan 18, 2018 07:41
[2018-01-18] MEDS: Nephrovite tab (Rena-Vite) ORAL SCH (08:19)
[2018-01-18] MEDS: Aspirin EC 81mg tab ORAL SCH (08:20)
[2018-01-18] MEDS: Sensipar 30mg Tab ORAL SCH (08:20)
[2018-01-18] MEDS: Metoprolol 25mg tab ORAL SCH (08:22)
[2018-01-18] MEDS: Heparin 5000 units/ml inj SUBQ SCH ×2 (08:30→20:15)
--- NOTE | 2018-01-18 12:14 | General Progress Note ---
Assessment/Plan Problem List: (1) Diabetes mellitus ICD Codes: E11.9 - Type 2 diabetes mellitus without complications SNOMED: 19585579 (2) Hypertension ICD Codes: I10 - Essential (primary) hypertension SNOMED: 03604269 (3) Cyclic vomiting syndrome ICD Codes: G43.A0 - Cyclical vomiting, not intractable SNOMED: 35177493 (4) ESRD on dialysis ICD Codes: N18.6 - End stage renal disease; Z99.2 - Dependence on renal dialysis SNOMED: 390976317 (5) Gastroparesis ICD Codes: K31.84 - Gastroparesis SNOMED: 991154219 (6) Nausea & vomiting ICD Codes: R11.2 - Nausea with vomiting, unspecified SNOMED: 21683920 Assessment/Plan folate deficiency symptomatic treatment at this time reglan prn ADA diet folate OB stool r/o GI bleed monitor H&H, prn transfusions bowel regime ppi electrolyte correction fu labs Subjective ROS Limited/Unobtainable: Yes Allergies: Coded Allergies: No Known Allergies (Unverified , 06/11/16) Objective Last 24 Hour Vital Signs Date Time Temp Pulse Resp B/P (MAP) Pulse Ox O2 Delivery O2 Flow Rate FiO2 01/18/18 11:33 98.4 78 18 153/81 (105) 99 98.4 01/18/18 09:00 Room Air 01/18/18 08:22 73 141/70 01/18/18 08:21 73 141/70 01/18/18 08:15 83 18 Room Air 21 01/18/18 08:00 98.0 73 18 141/70 (93) 98 98.0 01/18/18 08:00 71 01/18/18 04:00 83 01/18/18 04:00 97.7 75 18 133/71 (91) 95 97.7 01/18/18 00:08 65 01/18/18 00:00 97.6 65 20 122/63 (82) 94 97.6 01/17/18 21:00 Room Air 01/17/18 20:34 77 18 Room Air 21 01/17/18 20:00 98.2 76 20 154/80 (104) 99 98.2 01/17/18 20:00 100 01/17/18 16:00 98.8 73 18 123/65 (84) 98 98.8 01/17/18 16:00 72 01/17/18 14:28 98.2 01/17/18 13:58 98.2 01/17/18 13:01 70 130/69 01/17/18 13:00 70 130/69 Intake and Output 01/17/18 01/18/18 19:00 07:00 Intake Total 120 ml 120 ml Balance 120 ml 120 ml Intake Oral 120 ml 120 ml Height (Feet): 4 Height (Inches): 11.00 Weight (Pounds): 126 General Appearance: alert EENT: normal ENT inspection Neck: supple Cardiovascular: normal rate Respiratory/Chest: decreased breath sounds Abdomen: normal bowel sounds, non tender, soft Extremities: non-tender Silver Richards MD Jan 18, 2018 12:14
[2018-01-18] MEDS: Metoclopramide 10mg/2ml Inj IVP PRN (12:44)
[2018-01-18] MEDS ORDERED: Albuterol/Ipratropium 3ml neb HHN PRN ×2 (13:00→19:00)
--- NOTE | 2018-01-18 13:43 | Nephrology Progress Note ---
Assessment/Plan Problem List: (1) ESRD on dialysis (2) Hypertension Assessment: ok (3) Gastroparesis (4) CAD (coronary artery disease) Plan HD today start Nepro Discussed with RN Subjective Subjective poor appetite Objective Objective Last 24 Hour Vital Signs Date Time Temp Pulse Resp B/P (MAP) Pulse Ox O2 Delivery O2 Flow Rate FiO2 01/18/18 12:00 68 01/18/18 11:33 98.4 78 18 153/81 (105) 99 98.4 01/18/18 09:00 Room Air 01/18/18 08:22 73 141/70 01/18/18 08:21 73 141/70 01/18/18 08:15 83 18 Room Air 21 01/18/18 08:00 98.0 73 18 141/70 (93) 98 98.0 01/18/18 08:00 71 01/18/18 04:00 83 01/18/18 04:00 97.7 75 18 133/71 (91) 95 97.7 01/18/18 00:08 65 01/18/18 00:00 97.6 65 20 122/63 (82) 94 97.6 01/17/18 21:00 Room Air 01/17/18 20:34 77 18 Room Air 21 01/17/18 20:00 98.2 76 20 154/80 (104) 99 98.2 01/17/18 20:00 100 01/17/18 16:00 98.8 73 18 123/65 (84) 98 98.8 01/17/18 16:00 72 01/17/18 14:28 98.2 01/17/18 13:58 98.2 Intake and Output 01/17/18 01/18/18 19:00 07:00 Intake Total 120 ml 120 ml Balance 120 ml 120 ml Intake Oral 120 ml 120 ml Height (Feet): 4 Height (Inches): 11.00 Weight (Pounds): 126 Cardiovascular: normal rate Respiratory/Chest: lungs clear Rick Sepulveda MD Jan 18, 2018 13:43
[2018-01-18] MEDS ORDERED: Heparin Sod 1000 units/ml 10ml IV ONE (14:00)
[2018-01-18] MEDS ORDERED: Mylanta II UD 30ml ORAL PRN (17:45)
[2018-01-18] MEDS: Morphine Sulfate 4mg/ml Inj (IV USE ONLY) IVP PRN (17:51)
[2018-01-18] MEDS ORDERED: Morphine Sulfate 2mg/ml Inj(IV/IM USE ONLY) IVP PRN (18:00)
[2018-01-18] MEDS ORDERED: Zolpidem 5mg tab ORAL PRN (18:00)
[2018-01-18] MEDS ORDERED: Miralax 17gm pkt ORAL PRN (18:00)
--- NOTE | 2018-01-18 18:55 | Internal Med Progress Note ---
Subjective Date of Service: Jan 18, 2018 Physician Name Decker,Loco Attending Physician Dick Kyle MD Current Medications Medications (Trade) Dose Ordered Sig/Danielle Route PRN Reason Start Time Stop Time Status Last Admin Dose Admin Al Hydroxide/Mg Hydroxide (Mylanta II) 30 ml Q6H PRN ORAL dyspepsia 01/18/18 17:45 02/15/18 23:44 Albuterol/ Ipratropium (Albuterol/ Ipratropium) 3 ml Q6H PRN HHN dyspnea 01/18/18 19:00 01/23/18 18:59 Amlodipine Besylate (Norvasc) 10 mg DAILY ORAL 01/19/18 09:00 02/14/18 08:59 Aspirin (Ecotrin) 81 mg DAILY ORAL 01/19/18 09:00 02/14/18 08:59 Cinacalcet (Sensipar) 90 mg DAILY ORAL 01/19/18 09:00 02/14/18 08:59 Clonidine HCl (Catapres Tab) 0.1 mg Q4H PRN ORAL For High Blood Pressure 01/18/18 18:00 02/15/18 17:59 Dextrose (Dextrose 50%) STAT PRN IV Hypoglycemia 01/18/18 18:00 02/15/18 17:59 Dextrose (Dextrose 50%) STAT PRN IV Hypoglycemia 01/18/18 18:00 02/15/18 17:59 Diphenhydramine HCl (Benadryl) 25 mg Q4H PRN IVP Itching 01/18/18 18:00 02/14/18 17:59 Folic Acid (Folate) 1 mg DAILY ORAL 01/19/18 09:00 02/15/18 09:59 Heparin Sodium (Porcine) (Heparin 5000 units/ml) 5,000 units EVERY 12 HOURS SUBQ 01/18/18 21:00 02/14/18 08:59 Insulin Aspart (NovoLOG) BEFORE MEALS AND HS SUBQ 01/18/18 21:00 02/14/18 06:29 Metoclopramide HCl (Reglan) 10 mg Q6H PRN IVP Nausea & Vomiting 01/18/18 19:00 02/14/18 12:59 Metoprolol Tartrate (Lopressor) 25 mg DAILY ORAL 01/19/18 09:00 02/14/18 08:59 Morphine Sulfate (Morphine Sulfate) 2 mg Q4H PRN IVP Moderate Pain (Pain Scale 4-6) 01/18/18 18:00 01/23/18 17:59 Morphine Sulfate (Morphine Sulfate) 4 mg Q4H PRN IVP Severe Pain (Pain Scale 7-10) 01/18/18 18:00 01/23/18 17:59 01/18/18 17:51 Ondansetron HCl (Zofran) 4 mg Q6H PRN IVP Nausea & Vomiting 01/18/18 18:00 02/13/18 17:59 Pantoprazole (Protonix) 40 mg DAILY ORAL 01/19/18 09:00 02/14/18 08:59 Polyethylene Glycol (Miralax) 17 gm HSPRN PRN ORAL Constipation 01/18/18 18:00 02/17/18 17:59 Sodium Chloride 1,000 ml @ 500 mls/hr Q2H PRN IVLG sbp<90 during hd 01/18/18 17:30 02/15/18 14:20 Vitamin B Complex/ Vit C/Folic Acid (Nephrovite) 1 tab DAILY ORAL 01/19/18 09:00 02/15/18 12:29 Zolpidem Tartrate (Ambien) 5 mg HSPRN PRN ORAL Insomnia 01/18/18 18:00 01/25/18 17:59 Allergies: Coded Allergies: No Known Allergies (Unverified , 06/11/16) ROS Limited/Unobtainable: No Constitutional: Reports: no symptoms HEENT: Reports: no symptoms Cardiovascular: Reports: no symptoms Respiratory: Reports: no symptoms Gastrointestinal/Abdominal: Reports: nausea, vomiting Genitourinary: Reports: no symptoms Neurologic/Psychiatric: Reports: no symptoms Subjective 32 YO F with end stage renal disease on hemodialysis,admitted with nausea and vomiting. Now cyclic vomiting syndrome. Cover for Int [facility]-Dr Kyle Objective Last Vital Signs Date Time Temp Pulse Resp B/P (MAP) Pulse Ox O2 Delivery O2 Flow Rate FiO2 01/18/18 17:51 97.9 01/18/18 16:00 68 01/18/18 15:29 18 117/66 (83) 100 01/18/18 14:00 Room Air 01/18/18 08:15 21 Intake and Output 01/17/18 01/18/18 19:00 07:00 Intake Total 120 ml 120 ml Balance 120 ml 120 ml Intake Oral 120 ml 120 ml Objective General Appearance: WD/WN, alert, mild distress EENT: PERRL/EOMI, normal ENT inspection Neck: non-tender, normal alignment, supple, normal inspection Cardiovascular: normal peripheral pulses, normal rate, regular rhythm, no gallop/murmur, no JVD Respiratory/Chest: chest wall non-tender, lungs clear, normal breath sounds, no respiratory distress, no accessory muscle use Abdomen: normal bowel sounds, soft, no organomegaly, no mass, decreased bowel sounds, guarding, tender Extremities: normal range of motion, non-tender 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 (4) Cyclic vomiting syndrome Assessment & Plan: See GI note. Continue reglan (5) ESRD on dialysis Assessment & Plan: Hemodialysis today 01/18/18. See nephrology note. (6) Gastroparesis (7) Hypertension Assessment & Plan: Continue norvasc and lopressor (8) Asthma Status: not improved Loco Decker MD Jan 18, 2018 18:55
[2018-01-18 20:48] LABS: BASOPHILS % (AUTO) 1.4 % (0.0-2.0); EOSINOPHILS % (AUTO) 0.8 % (0.0-3.0); HEMATOCRIT 33.8 % (37.0-47.0); HEMOGLOBIN 11.3 G/DL (12.0-16.0); LYMPHOCYTES % (AUTO) 20.1 % (20.0-45.0); MEAN CORPUSCULAR VOLUME 98 FL (80-99); NEUTROPHILS % (AUTO) 67.7 % (45.0-75.0); PLATELET COUNT 207 K/UL (150-450); RED BLOOD COUNT 3.46 M/UL (4.20-5.40); WHITE BLOOD COUNT 6.7 K/UL (4.8-10.8)
[2018-01-18 20:53] LABS: ANION GAP 16 mmol/L (5-15); BLOOD UREA NITROGEN 57 mg/dL (7-18); CALCIUM 6.9 MG/DL (8.5-10.1); CARBON DIOXIDE 22 MMOL/L (21-32); CHLORIDE 96 MMOL/L (98-107); POTASSIUM 5.9 MMOL/L (3.5-5.1); SODIUM 134 MMOL/L (136-145)
[2018-01-19] VITALS: BP 143/75
[2018-01-19] MEDS: Metoclopramide 10mg/2ml Inj IVP PRN ×3 (01:30→20:11)
[2018-01-19] MEDS: DiphenhydrAMINE 50mg/ml Inj IVP PRN ×3 (01:30→20:10)
[2018-01-19] MEDS: Morphine Sulfate 4mg/ml Inj (IV USE ONLY) IVP PRN (01:31)
[2018-01-19 04:00] VITALS: BP 149/79
[2018-01-19] MEDS: NovoLOG Insulin Flexpen SUBQ SCH ×4 (06:15→20:10)
--- NOTE | 2018-01-19 07:40 | General Progress Note ---
Assessment/Plan Problem List: (1) Diabetes mellitus ICD Codes: E11.9 - Type 2 diabetes mellitus without complications SNOMED: 54076369 (2) Hypertension ICD Codes: I10 - Essential (primary) hypertension SNOMED: 03861426 (3) Cyclic vomiting syndrome ICD Codes: G43.A0 - Cyclical vomiting, not intractable SNOMED: 42453910 (4) ESRD on dialysis ICD Codes: N18.6 - End stage renal disease; Z99.2 - Dependence on renal dialysis SNOMED: 115459772 (5) Gastroparesis ICD Codes: K31.84 - Gastroparesis SNOMED: 688806237 (6) Nausea & vomiting ICD Codes: R11.2 - Nausea with vomiting, unspecified SNOMED: 57933998 Assessment/Plan folate deficiency symptomatic treatment at this time reglan prn ADA diet folate OB stool r/o GI bleed monitor H&H, prn transfusions bowel regime ppi electrolyte correction fu labs cont reglan last BM 2 days ago>>> add dulcolax sup X1 Subjective ROS Limited/Unobtainable: Yes Allergies: Coded Allergies: No Known Allergies (Unverified , 06/11/16) Subjective nausea but no vomiting Objective Last 24 Hour Vital Signs Date Time Temp Pulse Resp B/P (MAP) Pulse Ox O2 Delivery O2 Flow Rate FiO2 01/19/18 04:00 98.1 80 18 149/79 (102) 93 98.1 01/19/18 02:09 98.2 01/19/18 01:31 98.2 01/19/18 00:00 98.2 75 18 143/75 (97) 94 98.2 01/18/18 23:51 Room Air 01/18/18 23:50 Room Air 21 01/18/18 23:30 98.0 66 20 150/82 (104) 98.0 01/18/18 21:00 Room Air 01/18/18 20:58 98.2 72 20 144/80 (101) 98.2 01/18/18 19:30 Room Air 01/18/18 19:00 98.2 72 20 144/80 (101) 98.2 01/18/18 17:51 97.9 01/18/18 16:00 68 01/18/18 15:29 97.9 68 18 117/66 (83) 100 97.9 01/18/18 14:00 97.7 75 20 141/89 (106) 97.7 01/18/18 14:00 Room Air 01/18/18 12:00 68 01/18/18 11:33 98.4 78 18 153/81 (105) 99 98.4 01/18/18 09:00 Room Air 01/18/18 08:22 73 141/70 01/18/18 08:21 73 141/70 01/18/18 08:15 83 18 Room Air 21 01/18/18 08:00 98.0 73 18 141/70 (93) 98 98.0 01/18/18 08:00 71 Intake and Output 01/18/18 01/19/18 19:00 07:00 Intake Total 240 ml 240 ml Output Total 1500 ml Balance 240 ml -1260 ml Intake Oral 240 ml 240 ml Output Urine Total 0 ml Stool Total 0 ml Hemodialysis UF 1500 ml Laboratory Tests 01/18/18 20:20: White Blood Count 6.7, Red Blood Count 3.46L, Hemoglobin 11.3L, Hematocrit 33.8L , Mean Corpuscular Volume 98, Mean Corpuscular Hemoglobin 32.6H, Mean Corpuscular Hemoglobin Concent 33.3, Red Cell Distribution Width 12.0, Platelet Count 207, Mean Platelet Volume 7.0, Neutrophils (%) (Auto) 67.7, Lymphocytes (% ) (Auto) 20.1, Monocytes (%) (Auto) 10.0, Eosinophils (%) (Auto) 0.8, Basophils (%) (Auto) 1.4, Sodium Level 134L, Potassium Level 5.9H, Chloride Level 96L, Carbon Dioxide Level 22, Anion Gap 16H, Blood Urea Nitrogen 57H, Creatinine 14.0H, Estimat Glomerular Filtration Rate 3.6, Glucose Level 107H, Calcium Level 6.9L Height (Feet): 4 Height (Inches): 11.00 Weight (Pounds): 126 General Appearance: alert EENT: normal ENT inspection Neck: supple Cardiovascular: normal rate Respiratory/Chest: decreased breath sounds Abdomen: normal bowel sounds, non tender, soft Extremities: non-tender Silver Richards MD Jan 19, 2018 07:40
[2018-01-19 08:00] VITALS: BP 149/79
--- NOTE | 2018-01-19 08:24 | Pulmonology Progress Note ---
Assessment/Plan Assessment/Plan ASSESSMENT cyclic vomiting syndrome end-stage renal disease, probably gastroparesis diabetes mellitus hypertension asthma folate deficiency coronary artery disease electrolyte imbalance mild anemia constipation PLAN of CARE Med Surg floor HD as per nephro monitor renal parameters and e/lytes correct e/lytes prn , on Sensipar HD 01/18 done avoid nephrotoxic O2 titrate to keep pulse oximetry above 92% , pulmonary toilet prn GI follows symptomatic treatment a/emetic prn , on Reglan abd US with questionable cholelithiasis. Negative for dilated ducts. Echogenic atrophic bilateral kidneys, consistent with medical renal disease. Negative for hydronephrosis. Nonobstructive right lower pole renal calcification consider gastric emptying study as outpt ADA diet, BS management with SSI, HgA1c at goal BP management with BB and CCB Continue ASA DVT prophylaxis anemia workup with anemia of chronic disease and folate deficiency folate replacement monitor H&H with goal to keep hemoglobin above 7 , remain very stable check stool OB bowel regimen PPI stable for dc home case discussed and evaluated by supervising physician Subjective Allergies: Coded Allergies: No Known Allergies (Unverified , 06/11/16) Subjective had breakfast this am, tolerated well, no n/v/ s/p HD 01/18 Objective Last 24 Hour Vital Signs Date Time Temp Pulse Resp B/P (MAP) Pulse Ox O2 Delivery O2 Flow Rate FiO2 01/19/18 04:00 98.1 80 18 149/79 (102) 93 98.1 01/19/18 02:09 98.2 01/19/18 01:31 98.2 01/19/18 00:00 98.2 75 18 143/75 (97) 94 98.2 01/18/18 23:51 Room Air 01/18/18 23:50 Room Air 21 01/18/18 23:30 98.0 66 20 150/82 (104) 98.0 01/18/18 21:00 Room Air 01/18/18 20:58 98.2 72 20 144/80 (101) 98.2 01/18/18 19:30 Room Air 01/18/18 19:00 98.2 72 20 144/80 (101) 98.2 01/18/18 17:51 97.9 01/18/18 16:00 68 01/18/18 15:29 97.9 68 18 117/66 (83) 100 97.9 01/18/18 14:00 97.7 75 20 141/89 (106) 97.7 01/18/18 14:00 Room Air 01/18/18 12:00 68 01/18/18 11:33 98.4 78 18 153/81 (105) 99 98.4 01/18/18 09:00 Room Air Intake and Output 01/18/18 01/19/18 19:00 07:00 Intake Total 240 ml 240 ml Output Total 1500 ml Balance 240 ml -1260 ml Intake Oral 240 ml 240 ml Output Urine Total 0 ml Stool Total 0 ml Hemodialysis UF 1500 ml Objective General Appearance: no acute distress HEENT: normocephalic, atraumatic, anicteric, mucous membranes moist Respiratory/Chest: lungs clear, normal breath sounds, no respiratory distress, no accessory muscle use Cardiovascular: normal peripheral pulses, normal rate Abdomen: normal bowel sounds, soft, non tender, non distended Genitourinary: normal external genitalia Extremities: no edema Neurologic/Psychiatric: no motor/sensory deficits, alert, oriented x 3, responsive Musculoskeletal: normal muscle bulk Laboratory Tests 01/18/18 20:20: White Blood Count 6.7, Red Blood Count 3.46L, Hemoglobin 11.3L, Hematocrit 33.8L , Mean Corpuscular Volume 98, Mean Corpuscular Hemoglobin 32.6H, Mean Corpuscular Hemoglobin Concent 33.3, Red Cell Distribution Width 12.0, Platelet Count 207, Mean Platelet Volume 7.0, Neutrophils (%) (Auto) 67.7, Lymphocytes (% ) (Auto) 20.1, Monocytes (%) (Auto) 10.0, Eosinophils (%) (Auto) 0.8, Basophils (%) (Auto) 1.4, Sodium Level 134L, Potassium Level 5.9H, Chloride Level 96L, Carbon Dioxide Level 22, Anion Gap 16H, Blood Urea Nitrogen 57H, Creatinine 14.0H, Estimat Glomerular Filtration Rate 3.6, Glucose Level 107H, Calcium Level 6.9L Current Medications Medications (Trade) Dose Ordered Sig/Danielle Route PRN Reason Start Time Stop Time Status Last Admin Dose Admin Al Hydroxide/Mg Hydroxide (Mylanta II) 30 ml Q6H PRN ORAL dyspepsia 01/18/18 17:45 02/15/18 23:44 Albuterol/ Ipratropium (Albuterol/ Ipratropium) 3 ml Q6H PRN HHN dyspnea 01/18/18 19:00 01/23/18 18:59 Amlodipine Besylate (Norvasc) 10 mg DAILY ORAL 01/19/18 09:00 02/14/18 08:59 Aspirin (Ecotrin) 81 mg DAILY ORAL 01/19/18 09:00 02/14/18 08:59 Bisacodyl (Dulcolax) 10 mg ONCE RECTAL 01/19/18 08:00 01/19/18 09:00 Cinacalcet (Sensipar) 90 mg DAILY ORAL 01/19/18 09:00 02/14/18 08:59 Clonidine HCl (Catapres Tab) 0.1 mg Q4H PRN ORAL For High Blood Pressure 01/18/18 18:00 02/15/18 17:59 Dextrose (Dextrose 50%) STAT PRN IV Hypoglycemia 01/18/18 18:00 02/15/18 17:59 Dextrose (Dextrose 50%) STAT PRN IV Hypoglycemia 01/18/18 18:00 02/15/18 17:59 Diphenhydramine HCl (Benadryl) 25 mg Q4H PRN IVP Itching 01/18/18 18:00 02/14/18 17:59 01/19/18 01:30 Folic Acid (Folate) 1 mg DAILY ORAL 01/19/18 09:00 02/15/18 09:59 Heparin Sodium (Porcine) (Heparin 5000 units/ml) 5,000 units EVERY 12 HOURS SUBQ 01/18/18 21:00 02/14/18 08:59 01/18/18 20:15 Insulin Aspart (NovoLOG) BEFORE MEALS AND HS SUBQ 01/18/18 21:00 02/14/18 06:29 Metoclopramide HCl (Reglan) 10 mg Q6H PRN IVP Nausea & Vomiting 01/18/18 19:00 02/14/18 12:59 01/19/18 01:30 Metoprolol Tartrate (Lopressor) 25 mg DAILY ORAL 01/19/18 09:00 02/14/18 08:59 Morphine Sulfate (Morphine Sulfate) 2 mg Q4H PRN IVP Moderate Pain (Pain Scale 4-6) 01/18/18 18:00 01/23/18 17:59 Morphine Sulfate (Morphine Sulfate) 4 mg Q4H PRN IVP Severe Pain (Pain Scale 7-10) 01/18/18 18:00 01/23/18 17:59 01/19/18 01:31 Ondansetron HCl (Zofran) 4 mg Q6H PRN IVP Nausea & Vomiting 01/18/18 18:00 02/13/18 17:59 01/18/18 20:15 Pantoprazole (Protonix) 40 mg DAILY ORAL 01/19/18 09:00 02/14/18 08:59 Polyethylene Glycol (Miralax) 17 gm HSPRN PRN ORAL Constipation 01/18/18 18:00 02/17/18 17:59 Sodium Chloride 1,000 ml @ 500 mls/hr Q2H PRN IVLG sbp<90 during hd 01/18/18 17:30 02/15/18 14:20 Vitamin B Complex/ Vit C/Folic Acid (Nephrovite) 1 tab DAILY ORAL 01/19/18 09:00 02/15/18 12:29 Zolpidem Tartrate (Ambien) 5 mg HSPRN PRN ORAL Insomnia 01/18/18 18:00 01/25/18 17:59 Connie Birmingham NP Jan 19, 2018 08:24
[2018-01-19] MEDS: Nephrovite tab (Rena-Vite) ORAL SCH (08:46)
[2018-01-19] MEDS: Aspirin EC 81mg tab ORAL SCH (08:46)
[2018-01-19] MEDS: Sensipar 30mg Tab ORAL SCH (08:48)
[2018-01-19] MEDS: Metoprolol 25mg tab ORAL SCH (08:49)
[2018-01-19] MEDS: Heparin 5000 units/ml inj SUBQ SCH ×2 (08:50→20:16)
--- NOTE | 2018-01-19 10:53 | Nephrology Progress Note ---
Assessment/Plan Problem List: (1) ESRD on dialysis (2) Hypertension Assessment: ok (3) Gastroparesis (4) CAD (coronary artery disease) Plan HD Saturday follow labs Subjective Subjective C/O nausea Objective Objective Last 24 Hour Vital Signs Date Time Temp Pulse Resp B/P (MAP) Pulse Ox O2 Delivery O2 Flow Rate FiO2 01/19/18 10:05 98.1 01/19/18 09:35 98.1 01/19/18 08:49 73 139/75 01/19/18 08:48 73 139/75 01/19/18 04:00 98.1 80 18 149/79 (102) 93 98.1 01/19/18 02:09 98.2 01/19/18 01:31 98.2 01/19/18 00:00 98.2 75 18 143/75 (97) 94 98.2 01/18/18 23:51 Room Air 01/18/18 23:50 Room Air 21 01/18/18 23:30 98.0 66 20 150/82 (104) 98.0 01/18/18 21:00 Room Air 01/18/18 20:58 98.2 72 20 144/80 (101) 98.2 01/18/18 19:30 Room Air 01/18/18 19:00 98.2 72 20 144/80 (101) 98.2 01/18/18 17:51 97.9 01/18/18 16:00 68 01/18/18 15:29 97.9 68 18 117/66 (83) 100 97.9 01/18/18 14:00 97.7 75 20 141/89 (106) 97.7 01/18/18 14:00 Room Air 01/18/18 12:00 68 01/18/18 11:33 98.4 78 18 153/81 (105) 99 98.4 Intake and Output 01/18/18 01/19/18 19:00 07:00 Intake Total 240 ml 240 ml Output Total 1500 ml Balance 240 ml -1260 ml Intake Oral 240 ml 240 ml Output Urine Total 0 ml Stool Total 0 ml Hemodialysis UF 1500 ml Laboratory Tests 01/18/18 20:20: White Blood Count 6.7, Red Blood Count 3.46L, Hemoglobin 11.3L, Hematocrit 33.8L , Mean Corpuscular Volume 98, Mean Corpuscular Hemoglobin 32.6H, Mean Corpuscular Hemoglobin Concent 33.3, Red Cell Distribution Width 12.0, Platelet Count 207, Mean Platelet Volume 7.0, Neutrophils (%) (Auto) 67.7, Lymphocytes (% ) (Auto) 20.1, Monocytes (%) (Auto) 10.0, Eosinophils (%) (Auto) 0.8, Basophils (%) (Auto) 1.4, Sodium Level 134L, Potassium Level 5.9H, Chloride Level 96L, Carbon Dioxide Level 22, Anion Gap 16H, Blood Urea Nitrogen 57H, Creatinine 14.0H, Estimat Glomerular Filtration Rate 3.6, Glucose Level 107H, Calcium Level 6.9L Height (Feet): 4 Height (Inches): 11.00 Weight (Pounds): 126 Cardiovascular: normal rate Respiratory/Chest: lungs clear Extremities: other - no edema Rick Sepulveda MD Jan 19, 2018 10:53
[2018-01-19 12:00] VITALS: BP 155/78
--- NOTE | 2018-01-19 15:06 | Internal Med Progress Note ---
Subjective Date of Service: Jan 19, 2018 Physician Name DeckerLoco oconnor Attending Physician Dick Kyle MD Current Medications Medications (Trade) Dose Ordered Sig/Danielle Route PRN Reason Start Time Stop Time Status Last Admin Dose Admin Al Hydroxide/Mg Hydroxide (Mylanta II) 30 ml Q6H PRN ORAL dyspepsia 01/18/18 17:45 02/15/18 23:44 Albuterol/ Ipratropium (Albuterol/ Ipratropium) 3 ml Q6H PRN HHN dyspnea 01/18/18 19:00 01/23/18 18:59 Amlodipine Besylate (Norvasc) 10 mg DAILY ORAL 01/19/18 09:00 02/14/18 08:59 01/19/18 08:48 Aspirin (Ecotrin) 81 mg DAILY ORAL 01/19/18 09:00 02/14/18 08:59 01/19/18 08:46 Cinacalcet (Sensipar) 90 mg DAILY ORAL 01/19/18 09:00 02/14/18 08:59 01/19/18 08:48 Clonidine HCl (Catapres Tab) 0.1 mg Q4H PRN ORAL For High Blood Pressure 01/18/18 18:00 02/15/18 17:59 Dextrose (Dextrose 50%) STAT PRN IV Hypoglycemia 01/18/18 18:00 02/15/18 17:59 Dextrose (Dextrose 50%) STAT PRN IV Hypoglycemia 01/18/18 18:00 02/15/18 17:59 Diphenhydramine HCl (Benadryl) 25 mg Q4H PRN IVP Itching 01/18/18 18:00 02/14/18 17:59 01/19/18 13:55 Folic Acid (Folate) 1 mg DAILY ORAL 01/19/18 09:00 02/15/18 09:59 01/19/18 08:54 Heparin Sodium (Porcine) (Heparin 5000 units/ml) 5,000 units EVERY 12 HOURS SUBQ 01/18/18 21:00 02/14/18 08:59 01/19/18 08:50 Insulin Aspart (NovoLOG) BEFORE MEALS AND HS SUBQ 01/18/18 21:00 02/14/18 06:29 01/19/18 12:00 Metoclopramide HCl (Reglan) 10 mg Q6H PRN IVP Nausea & Vomiting 01/18/18 19:00 02/14/18 12:59 01/19/18 12:02 Metoprolol Tartrate (Lopressor) 25 mg DAILY ORAL 01/19/18 09:00 02/14/18 08:59 01/19/18 08:49 Morphine Sulfate (Morphine Sulfate) 2 mg Q4H PRN IVP Moderate Pain (Pain Scale 4-6) 01/18/18 18:00 01/23/18 17:59 01/19/18 09:35 Morphine Sulfate (Morphine Sulfate) 4 mg Q4H PRN IVP Severe Pain (Pain Scale 7-10) 01/18/18 18:00 01/23/18 17:59 01/19/18 01:31 Ondansetron HCl (Zofran) 4 mg Q6H PRN IVP Nausea & Vomiting 01/18/18 18:00 02/13/18 17:59 01/18/18 20:15 Pantoprazole (Protonix) 40 mg DAILY ORAL 01/19/18 09:00 02/14/18 08:59 01/19/18 08:49 Polyethylene Glycol (Miralax) 17 gm HSPRN PRN ORAL Constipation 01/18/18 18:00 02/17/18 17:59 01/19/18 13:15 Sodium Chloride 1,000 ml @ 500 mls/hr Q2H PRN IVLG sbp<90 during hd 01/18/18 17:30 02/15/18 14:20 Vitamin B Complex/ Vit C/Folic Acid (Nephrovite) 1 tab DAILY ORAL 01/19/18 09:00 02/15/18 12:29 01/19/18 08:46 Zolpidem Tartrate (Ambien) 5 mg HSPRN PRN ORAL Insomnia 01/18/18 18:00 01/25/18 17:59 Allergies: Coded Allergies: No Known Allergies (Unverified , 06/11/16) ROS Limited/Unobtainable: No Constitutional: Reports: no symptoms HEENT: Reports: no symptoms Cardiovascular: Reports: no symptoms Respiratory: Reports: no symptoms Gastrointestinal/Abdominal: Reports: constipated Genitourinary: Reports: no symptoms Neurologic/Psychiatric: Reports: no symptoms Subjective 32 YO F with end stage renal disease on hemodialysis,admitted with nausea and vomiting. Now cyclic vomiting syndrome. Cover for Int Cristian-Dr Kyle Objective Last Vital Signs Date Time Temp Pulse Resp B/P (MAP) Pulse Ox O2 Delivery O2 Flow Rate FiO2 01/19/18 12:00 98.1 82 20 155/78 (103) 98 98.1 01/19/18 09:00 Room Air 01/18/18 23:50 21 Laboratory Tests Test 01/18/18 20:20 White Blood Count 6.7 K/UL (4.8-10.8) Red Blood Count 3.46 M/UL (4.20-5.40) L Hemoglobin 11.3 G/DL (12.0-16.0) L Hematocrit 33.8 % (37.0-47.0) L Mean Corpuscular Volume 98 FL (80-99) Mean Corpuscular Hemoglobin 32.6 PG (27.0-31.0) H Mean Corpuscular Hemoglobin Concent 33.3 G/DL (32.0-36.0) Red Cell Distribution Width 12.0 % (11.6-14.8) Platelet Count 207 K/UL (150-450) Mean Platelet Volume 7.0 FL (6.5-10.1) Neutrophils (%) (Auto) 67.7 % (45.0-75.0) Lymphocytes (%) (Auto) 20.1 % (20.0-45.0) Monocytes (%) (Auto) 10.0 % (1.0-10.0) Eosinophils (%) (Auto) 0.8 % (0.0-3.0) Basophils (%) (Auto) 1.4 % (0.0-2.0) Sodium Level 134 MMOL/L (136-145) L Potassium Level 5.9 MMOL/L (3.5-5.1) H Chloride Level 96 MMOL/L (98-107) L Carbon Dioxide Level 22 MMOL/L (21-32) Anion Gap 16 mmol/L (5-15) H Blood Urea Nitrogen 57 mg/dL (7-18) H Creatinine 14.0 MG/DL (0.55-1.30) H Estimat Glomerular Filtration Rate 3.6 mL/min (>60) Glucose Level 107 MG/DL (74-106) H Calcium Level 6.9 MG/DL (8.5-10.1) L Intake and Output 01/18/18 01/19/18 19:00 07:00 Intake Total 240 ml 240 ml Output Total 1500 ml Balance 240 ml -1260 ml Intake Oral 240 ml 240 ml Output Urine Total 0 ml Stool Total 0 ml Hemodialysis UF 1500 ml Objective General Appearance: WD/WN, alert, mild distress EENT: PERRL/EOMI, normal ENT inspection Neck: non-tender, normal alignment, supple, normal inspection Cardiovascular: normal peripheral pulses, normal rate, regular rhythm, no gallop/murmur, no JVD Respiratory/Chest: chest wall non-tender, lungs clear, normal breath sounds, no respiratory distress, no accessory muscle use Abdomen: normal bowel sounds, soft, no organomegaly, no mass, decreased bowel sounds, guarding, tender Extremities: normal range of motion, non-tender 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 (4) Cyclic vomiting syndrome Assessment & Plan: See GI note. Continue reglan (5) ESRD on dialysis Assessment & Plan: Next Hemodialysis 01/21/18. See nephrology note. (6) Gastroparesis (7) Hypertension Assessment & Plan: Continue norvasc and lopressor (8) Asthma (9) Constipation Assessment & Plan: Miralax daily Status: progressing Assessment/Plan Discharge planning Loco Decker MD Jan 19, 2018 15:06
[2018-01-19 16:00] VITALS: BP 138/76
[2018-01-19 20:00] VITALS: BP 155/86
[2018-01-19] MEDS: Miralax 17gm pkt ORAL SCH (20:10)
[2018-01-20] VITALS (7 sets, daily range): BP systolic 129–160; BP diastolic 66–95
[2018-01-20] MEDS: DiphenhydrAMINE 50mg/ml Inj IVP PRN ×2 (03:37→13:42)
[2018-01-20] MEDS: Metoclopramide 10mg/2ml Inj IVP PRN ×2 (03:37→12:38)
[2018-01-20] MEDS: NovoLOG Insulin Flexpen SUBQ SCH ×4 (06:06→21:00)
[2018-01-20 07:43] LABS: BASOPHILS % (AUTO) 1.7 % (0.0-2.0); EOSINOPHILS % (AUTO) 1.2 % (0.0-3.0); HEMOGLOBIN 11.7 G/DL (12.0-16.0); MEAN CORPUSCULAR VOLUME 98 FL (80-99); MONOCYTES % (AUTO) 10.4 % (1.0-10.0); NEUTROPHILS % (AUTO) 67.8 % (45.0-75.0); PLATELET COUNT 191 K/UL (150-450); RED BLOOD COUNT 3.56 M/UL (4.20-5.40); RED CELL DISTRIBUTION WIDTH 12.4 % (11.6-14.8); WHITE BLOOD COUNT 5.6 K/UL (4.8-10.8)
[2018-01-20 08:01] LABS: ANION GAP 17 mmol/L (5-15); BLOOD UREA NITROGEN 70 mg/dL (7-18); CALCIUM 7.3 MG/DL (8.5-10.1); CARBON DIOXIDE 22 MMOL/L (21-32); CHLORIDE 97 MMOL/L (98-107); CREATININE 16.1 MG/DL (0.55-1.30); SODIUM 136 MMOL/L (136-145)
[2018-01-20 08:02] LABS: POTASSIUM 6.6 MMOL/L (3.5-5.1)
[2018-01-20] MEDS: Heparin 5000 units/ml inj SUBQ SCH ×2 (09:00→21:00)
--- NOTE | 2018-01-20 10:57 | GI Progress Note ---
Assessment/Plan Problems: (1) Cyclic vomiting syndrome ICD Codes: G43.A0 - Cyclical vomiting, not intractable SNOMED: 74341466 (2) Electrolyte imbalance ICD Codes: E87.8 - Other disorders of electrolyte and fluid balance, not elsewhere classified SNOMED: 832125468 (3) End stage renal disease ICD Codes: N18.6 - End stage renal disease SNOMED: 29511403 (4) Gastroparesis ICD Codes: K31.84 - Gastroparesis SNOMED: 879299889 (5) Intractable vomiting ICD Codes: R11.10 - Vomiting, unspecified SNOMED: 163670323 Qualifiers: Qualified Codes: G43.A1 - Cyclical vomiting, intractable Status: stable Status Narrative Discussed with Dr. Richards. Assessment/Plan folate deficiency OB stool negative okay for DC per GI standpoint symptomatic treatment at this time reglan prn ADA diet folate OB stool r/o GI bleed monitor H&H, prn transfusions bowel regime ppi electrolyte correction fu labs The patient was seen and examined at bedside and all new and available data was reviewed in the patients chart. I agree with the above findings, impression and plan. (Patient seen earlier today. Signature stamp does not reflect patient encounter time.). - Silver Richards MD Subjective Subjective no N/V tolerating food Objective Last 24 Hour Vital Signs Date Time Temp Pulse Resp B/P (MAP) Pulse Ox O2 Delivery O2 Flow Rate FiO2 01/20/18 08:46 97 Room Air 21 01/20/18 08:00 97.7 82 20 131/66 (87) 98 97.7 01/20/18 04:00 98.1 70 18 129/72 (91) 95 98.1 01/19/18 21:00 Room Air 01/19/18 20:05 98 Room Air 01/19/18 20:00 98.9 76 18 155/86 (109) 97 98.9 01/19/18 16:00 98.1 72 20 138/76 (96) 94 98.1 01/19/18 12:00 98.1 82 20 155/78 (103) 98 98.1 Intake and Output 01/19/18 01/20/18 18:59 06:59 Intake Total 360 ml 120 ml Balance 360 ml 120 ml Intake Oral 360 ml 120 ml # Voids 1 1 # Bowel Movements 1 Laboratory Tests Test 01/20/18 06:10 White Blood Count 5.6 K/UL (4.8-10.8) Red Blood Count 3.56 M/UL (4.20-5.40) L Hemoglobin 11.7 G/DL (12.0-16.0) L Hematocrit 35.0 % (37.0-47.0) L Mean Corpuscular Volume 98 FL (80-99) Mean Corpuscular Hemoglobin 33.0 PG (27.0-31.0) H Mean Corpuscular Hemoglobin Concent 33.5 G/DL (32.0-36.0) Red Cell Distribution Width 12.4 % (11.6-14.8) Platelet Count 191 K/UL (150-450) Mean Platelet Volume 7.6 FL (6.5-10.1) Neutrophils (%) (Auto) 67.8 % (45.0-75.0) Lymphocytes (%) (Auto) 19.0 % (20.0-45.0) L Monocytes (%) (Auto) 10.4 % (1.0-10.0) H Eosinophils (%) (Auto) 1.2 % (0.0-3.0) Basophils (%) (Auto) 1.7 % (0.0-2.0) Sodium Level 136 MMOL/L (136-145) Potassium Level 6.6 MMOL/L (3.5-5.1) *H Chloride Level 97 MMOL/L (98-107) L Carbon Dioxide Level 22 MMOL/L (21-32) Anion Gap 17 mmol/L (5-15) H Blood Urea Nitrogen 70 mg/dL (7-18) H Creatinine 16.1 MG/DL (0.55-1.30) H Estimat Glomerular Filtration Rate 3.2 mL/min (>60) Glucose Level 77 MG/DL (74-106) Calcium Level 7.3 MG/DL (8.5-10.1) L Height (Feet): 4 Height (Inches): 11.00 Weight (Pounds): 126 General Appearance: WD/WN, no apparent distress, alert Cardiovascular: normal rate Respiratory/Chest: normal breath sounds, no respiratory distress Abdominal Exam: normal bowel sounds, non tender, soft Extremities: normal range of motion, non-tender Bartolome Vega IT AUDIT MANAGER Jan 20, 2018 10:57
[2018-01-20] MEDS: Sodium Polystyrene Sulfonate 15gm Powder ORAL SCH ×2 (11:30→12:43)
--- NOTE | 2018-01-20 12:10 | Pulmonology Progress Note ---
Assessment/Plan Problems: (1) Cyclic vomiting syndrome (2) Electrolyte imbalance (3) End stage renal disease (4) Gastroparesis (5) Intractable vomiting (6) Asthma (7) Hypertension (8) Coronary artery disease Assessment/Plan no new complains eating better getting HD monitor BP symptomatic treatment f/u by GI Subjective ROS Limited/Unobtainable: No Constitutional: Reports: no symptoms HEENT: Repors: no symptoms Respiratory: Reports: no symptoms Cardiovascular: Reports: no symptoms Allergies: Coded Allergies: No Known Allergies (Unverified , 06/11/16) Objective Last 24 Hour Vital Signs Date Time Temp Pulse Resp B/P (MAP) Pulse Ox O2 Delivery O2 Flow Rate FiO2 01/20/18 08:46 97 Room Air 21 01/20/18 08:00 97.7 82 20 131/66 (87) 98 97.7 01/20/18 04:00 98.1 70 18 129/72 (91) 95 98.1 01/19/18 21:00 Room Air 01/19/18 20:05 98 Room Air 01/19/18 20:00 98.9 76 18 155/86 (109) 97 98.9 01/19/18 16:00 98.1 72 20 138/76 (96) 94 98.1 Intake and Output 01/19/18 01/20/18 19:00 07:00 Intake Total 360 ml 120 ml Balance 360 ml 120 ml Intake Oral 360 ml 120 ml # Voids 1 1 # Bowel Movements 1 General Appearance: WD/WN HEENT: normocephalic, atraumatic Respiratory/Chest: chest wall non-tender, lungs clear Breasts: no masses Cardiovascular: normal peripheral pulses, normal rate Abdomen: normal bowel sounds, soft, non tender Genitourinary: normal external genitalia Extremities: no cyanosis Neurologic/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: 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 II-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 grossly normal Laboratory Tests 01/20/18 06:10: White Blood Count 5.6, Red Blood Count 3.56L, Hemoglobin 11.7L, Hematocrit 35.0L , Mean Corpuscular Volume 98, Mean Corpuscular Hemoglobin 33.0H, Mean Corpuscular Hemoglobin Concent 33.5, Red Cell Distribution Width 12.4, Platelet Count 191, Mean Platelet Volume 7.6, Neutrophils (%) (Auto) 67.8, Lymphocytes (% ) (Auto) 19.0L, Monocytes (%) (Auto) 10.4H, Eosinophils (%) (Auto) 1.2, Basophils (%) (Auto) 1.7, Sodium Level 136, Potassium Level 6.6*H, Chloride Level 97L, Carbon Dioxide Level 22, Anion Gap 17H, Blood Urea Nitrogen 70H, Creatinine 16.1H, Estimat Glomerular Filtration Rate 3.2, Glucose Level 77, Calcium Level 7.3L Current Medications Medications (Trade) Dose Ordered Sig/Danielle Route PRN Reason Start Time Stop Time Status Last Admin Dose Admin Al Hydroxide/Mg Hydroxide (Mylanta II) 30 ml Q6H PRN ORAL dyspepsia 01/18/18 17:45 02/15/18 23:44 Albuterol/ Ipratropium (Albuterol/ Ipratropium) 3 ml Q6H PRN HHN dyspnea 01/18/18 19:00 01/23/18 18:59 Amlodipine Besylate (Norvasc) 10 mg DAILY ORAL 01/19/18 09:00 02/14/18 08:59 01/19/18 08:48 Aspirin (Ecotrin) 81 mg DAILY ORAL 01/19/18 09:00 02/14/18 08:59 01/19/18 08:46 Bisacodyl (Dulcolax) 10 mg BIDPRN PRN RECTAL Constipation 01/19/18 15:16 02/18/18 15:14 01/19/18 16:45 Cinacalcet (Sensipar) 90 mg DAILY ORAL 01/19/18 09:00 02/14/18 08:59 01/19/18 08:48 Clonidine HCl (Catapres Tab) 0.1 mg Q4H PRN ORAL For High Blood Pressure 01/18/18 18:00 02/15/18 17:59 Dextrose (Dextrose 50%) STAT PRN IV Hypoglycemia 01/18/18 18:00 02/15/18 17:59 Dextrose (Dextrose 50%) STAT PRN IV Hypoglycemia 01/18/18 18:00 02/15/18 17:59 Diphenhydramine HCl (Benadryl) 25 mg Q4H PRN IVP Itching 01/18/18 18:00 02/14/18 17:59 01/20/18 03:37 Folic Acid (Folate) 1 mg DAILY ORAL 01/19/18 09:00 02/15/18 09:59 01/19/18 08:54 Heparin Sodium (Porcine) (Heparin 5000 units/ml) 5,000 units EVERY 12 HOURS SUBQ 01/18/18 21:00 02/14/18 08:59 01/19/18 20:16 Insulin Aspart (NovoLOG) BEFORE MEALS AND HS SUBQ 01/18/18 21:00 02/14/18 06:29 01/19/18 12:00 Metoclopramide HCl (Reglan) 10 mg Q6H PRN IVP Nausea & Vomiting 01/18/18 19:00 02/14/18 12:59 01/20/18 03:37 Metoprolol Tartrate (Lopressor) 25 mg DAILY ORAL 01/19/18 09:00 02/14/18 08:59 01/19/18 08:49 Morphine Sulfate (Morphine Sulfate) 2 mg Q4H PRN IVP Moderate Pain (Pain Scale 4-6) 01/18/18 18:00 01/23/18 17:59 01/19/18 09:35 Morphine Sulfate (Morphine Sulfate) 4 mg Q4H PRN IVP Severe Pain (Pain Scale 7-10) 01/18/18 18:00 01/23/18 17:59 01/19/18 01:31 Ondansetron HCl (Zofran) 4 mg Q6H PRN IVP Nausea & Vomiting 01/18/18 18:00 02/13/18 17:59 01/18/18 20:15 Pantoprazole (Protonix) 40 mg DAILY ORAL 01/19/18 09:00 02/14/18 08:59 01/19/18 08:49 Polyethylene Glycol (Miralax) 17 gm QHS ORAL 01/19/18 21:00 02/17/18 17:59 Sodium Polystyrene Sulfonate (Kayexalate) 30 gm ONCE ORAL 01/20/18 11:30 01/20/18 12:30 Sodium Chloride 1,000 ml @ 500 mls/hr Q2H PRN IVLG sbp<90 during hd 01/18/18 17:30 02/15/18 14:20 Vitamin B Complex/ Vit C/Folic Acid (Nephrovite) 1 tab DAILY ORAL 01/19/18 09:00 02/15/18 12:29 01/19/18 08:46 Zolpidem Tartrate (Ambien) 5 mg HSPRN PRN ORAL Insomnia 01/18/18 18:00 01/25/18 17:59 Jigna Moreno MD Jan 20, 2018 12:09
[2018-01-20] MEDS: Morphine Sulfate 4mg/ml Inj (IV USE ONLY) IVP PRN ×2 (12:38→17:13)
[2018-01-20] MEDS: Nephrovite tab (Rena-Vite) ORAL SCH (12:39)
[2018-01-20] MEDS: Aspirin EC 81mg tab ORAL SCH (12:39)
[2018-01-20] MEDS: Metoprolol 25mg tab ORAL SCH (12:39)
[2018-01-20] MEDS: Sensipar 30mg Tab ORAL SCH (12:42)
--- NOTE | 2018-01-20 12:44 | Nephrology Progress Note ---
Assessment/Plan Problem List: (1) ESRD on dialysis (2) Hypertension Assessment: ok (3) Gastroparesis (4) CAD (coronary artery disease) Plan HD Today Kayexalate 30 gm follow labs Subjective Subjective In NAD Objective Objective Last 24 Hour Vital Signs Date Time Temp Pulse Resp B/P (MAP) Pulse Ox O2 Delivery O2 Flow Rate FiO2 01/20/18 12:00 98.1 80 20 159/74 (102) 99 98.1 01/20/18 08:46 97 Room Air 21 01/20/18 08:00 97.7 82 20 131/66 (87) 98 97.7 01/20/18 04:00 98.1 70 18 129/72 (91) 95 98.1 01/19/18 21:00 Room Air 01/19/18 20:05 98 Room Air 01/19/18 20:00 98.9 76 18 155/86 (109) 97 98.9 01/19/18 16:00 98.1 72 20 138/76 (96) 94 98.1 Intake and Output 01/19/18 01/20/18 19:00 07:00 Intake Total 360 ml 120 ml Balance 360 ml 120 ml Intake Oral 360 ml 120 ml # Voids 1 1 # Bowel Movements 1 Laboratory Tests 01/20/18 06:10: White Blood Count 5.6, Red Blood Count 3.56L, Hemoglobin 11.7L, Hematocrit 35.0L , Mean Corpuscular Volume 98, Mean Corpuscular Hemoglobin 33.0H, Mean Corpuscular Hemoglobin Concent 33.5, Red Cell Distribution Width 12.4, Platelet Count 191, Mean Platelet Volume 7.6, Neutrophils (%) (Auto) 67.8, Lymphocytes (% ) (Auto) 19.0L, Monocytes (%) (Auto) 10.4H, Eosinophils (%) (Auto) 1.2, Basophils (%) (Auto) 1.7, Sodium Level 136, Potassium Level 6.6*H, Chloride Level 97L, Carbon Dioxide Level 22, Anion Gap 17H, Blood Urea Nitrogen 70H, Creatinine 16.1H, Estimat Glomerular Filtration Rate 3.2, Glucose Level 77, Calcium Level 7.3L Height (Feet): 4 Height (Inches): 11.00 Weight (Pounds): 126 Cardiovascular: normal rate Respiratory/Chest: lungs clear Rahban,Rick MD Jan 20, 2018 12:44
--- NOTE | 2018-01-20 19:33 | Internal Med Progress Note ---
Subjective Date of Service: Jan 20, 2018 Physician Name Decker,Loco Attending Physician Dick Kyle MD Current Medications Medications (Trade) Dose Ordered Sig/Danielle Route PRN Reason Start Time Stop Time Status Last Admin Dose Admin Al Hydroxide/Mg Hydroxide (Mylanta II) 30 ml Q6H PRN ORAL dyspepsia 01/18/18 17:45 02/15/18 23:44 Albuterol/ Ipratropium (Albuterol/ Ipratropium) 3 ml Q6H PRN HHN dyspnea 01/18/18 19:00 01/23/18 18:59 Amlodipine Besylate (Norvasc) 10 mg DAILY ORAL 01/19/18 09:00 02/14/18 08:59 01/20/18 12:40 Aspirin (Ecotrin) 81 mg DAILY ORAL 01/19/18 09:00 02/14/18 08:59 01/20/18 12:39 Bisacodyl (Dulcolax) 10 mg BIDPRN PRN RECTAL Constipation 01/19/18 15:16 02/18/18 15:14 01/19/18 16:45 Cinacalcet (Sensipar) 90 mg DAILY ORAL 01/19/18 09:00 02/14/18 08:59 01/20/18 12:42 Clonidine HCl (Catapres Tab) 0.1 mg Q4H PRN ORAL For High Blood Pressure 01/18/18 18:00 02/15/18 17:59 Dextrose (Dextrose 50%) STAT PRN IV Hypoglycemia 01/18/18 18:00 02/15/18 17:59 Dextrose (Dextrose 50%) STAT PRN IV Hypoglycemia 01/18/18 18:00 02/15/18 17:59 Diphenhydramine HCl (Benadryl) 25 mg Q4H PRN IVP Itching 01/18/18 18:00 02/14/18 17:59 01/20/18 13:42 Folic Acid (Folate) 1 mg DAILY ORAL 01/19/18 09:00 02/15/18 09:59 01/20/18 12:45 Heparin Sodium (Porcine) (Heparin 5000 units/ml) 5,000 units EVERY 12 HOURS SUBQ 01/18/18 21:00 02/14/18 08:59 01/19/18 20:16 Insulin Aspart (NovoLOG) BEFORE MEALS AND HS SUBQ 01/18/18 21:00 02/14/18 06:29 01/20/18 12:57 Metoclopramide HCl (Reglan) 10 mg Q6H PRN IVP Nausea & Vomiting 01/18/18 19:00 02/14/18 12:59 01/20/18 12:38 Metoprolol Tartrate (Lopressor) 25 mg DAILY ORAL 01/19/18 09:00 02/14/18 08:59 01/20/18 12:39 Morphine Sulfate (Morphine Sulfate) 2 mg Q4H PRN IVP Moderate Pain (Pain Scale 4-6) 01/18/18 18:00 01/23/18 17:59 01/19/18 09:35 Morphine Sulfate (Morphine Sulfate) 4 mg Q4H PRN IVP Severe Pain (Pain Scale 7-10) 01/18/18 18:00 01/23/18 17:59 01/20/18 17:13 Ondansetron HCl (Zofran) 4 mg Q6H PRN IVP Nausea & Vomiting 01/18/18 18:00 02/13/18 17:59 01/20/18 18:26 Pantoprazole (Protonix) 40 mg DAILY ORAL 01/19/18 09:00 02/14/18 08:59 01/20/18 12:39 Polyethylene Glycol (Miralax) 17 gm QHS ORAL 01/19/18 21:00 02/17/18 17:59 Sodium Chloride 1,000 ml @ 500 mls/hr Q2H PRN IVLG sbp<90 during hd 01/18/18 17:30 02/15/18 14:20 Vitamin B Complex/ Vit C/Folic Acid (Nephrovite) 1 tab DAILY ORAL 01/19/18 09:00 02/15/18 12:29 01/20/18 12:39 Zolpidem Tartrate (Ambien) 5 mg HSPRN PRN ORAL Insomnia 01/18/18 18:00 01/25/18 17:59 Allergies: Coded Allergies: No Known Allergies (Unverified , 06/11/16) ROS Limited/Unobtainable: No Constitutional: Reports: no symptoms HEENT: Reports: no symptoms Cardiovascular: Reports: no symptoms Respiratory: Reports: no symptoms Gastrointestinal/Abdominal: Reports: no symptoms Genitourinary: Reports: no symptoms Neurologic/Psychiatric: Reports: no symptoms Subjective 32 YO F with end stage renal disease on hemodialysis,admitted with nausea and vomiting. Now cyclic vomiting syndrome. Cover for Int Med-Dr Kyle. Worsening hyperkalemia Objective Last Vital Signs Date Time Temp Pulse Resp B/P (MAP) Pulse Ox O2 Delivery O2 Flow Rate FiO2 01/20/18 16:45 97.6 84 20 160/70 (100) 97.6 01/20/18 16:45 Room Air 01/20/18 16:08 100 01/20/18 08:46 21 Laboratory Tests Test 01/20/18 06:10 White Blood Count 5.6 K/UL (4.8-10.8) Red Blood Count 3.56 M/UL (4.20-5.40) L Hemoglobin 11.7 G/DL (12.0-16.0) L Hematocrit 35.0 % (37.0-47.0) L Mean Corpuscular Volume 98 FL (80-99) Mean Corpuscular Hemoglobin 33.0 PG (27.0-31.0) H Mean Corpuscular Hemoglobin Concent 33.5 G/DL (32.0-36.0) Red Cell Distribution Width 12.4 % (11.6-14.8) Platelet Count 191 K/UL (150-450) Mean Platelet Volume 7.6 FL (6.5-10.1) Neutrophils (%) (Auto) 67.8 % (45.0-75.0) Lymphocytes (%) (Auto) 19.0 % (20.0-45.0) L Monocytes (%) (Auto) 10.4 % (1.0-10.0) H Eosinophils (%) (Auto) 1.2 % (0.0-3.0) Basophils (%) (Auto) 1.7 % (0.0-2.0) Sodium Level 136 MMOL/L (136-145) Potassium Level 6.6 MMOL/L (3.5-5.1) *H Chloride Level 97 MMOL/L (98-107) L Carbon Dioxide Level 22 MMOL/L (21-32) Anion Gap 17 mmol/L (5-15) H Blood Urea Nitrogen 70 mg/dL (7-18) H Creatinine 16.1 MG/DL (0.55-1.30) H Estimat Glomerular Filtration Rate 3.2 mL/min (>60) Glucose Level 77 MG/DL (74-106) Calcium Level 7.3 MG/DL (8.5-10.1) L Intake and Output 01/19/18 01/20/18 19:00 07:00 Intake Total 360 ml 120 ml Balance 360 ml 120 ml Intake Oral 360 ml 120 ml # Voids 1 1 # Bowel Movements 1 Objective General Appearance: WD/WN, alert, mild distress EENT: PERRL/EOMI, normal ENT inspection Neck: non-tender, normal alignment, supple, normal inspection Cardiovascular: normal peripheral pulses, normal rate, regular rhythm, no gallop/murmur, no JVD Respiratory/Chest: chest wall non-tender, lungs clear, normal breath sounds, no respiratory distress, no accessory muscle use Abdomen: normal bowel sounds, soft, no organomegaly, no mass, decreased bowel sounds, guarding, tender Extremities: normal range of motion, non-tender 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 (4) Cyclic vomiting syndrome Assessment & Plan: See GI note. Continue reglan (5) ESRD on dialysis Assessment & Plan: Next Hemodialysis Tu01/21/18. See nephrology note. (6) Gastroparesis (7) Hypertension Assessment & Plan: Continue norvasc and lopressor (8) Asthma (9) Constipation Assessment & Plan: Miralax daily (10) Hyperkalemia Status: progressing Assessment/Plan Discharge planning Loco Decker MD Jan 20, 2018 19:33
[2018-01-20] MEDS: Miralax 17gm pkt ORAL SCH (21:00)
--- NOTE | 2018-01-22 12:11 | Discharge Summary ---
Discharge Summary Discharge Summary _ DATE OF ADMISSION: 01/14/2018 DATE OF DISCHARGE: 01/20/2018 REASON FOR ADMISSION: 32 years old female with past medical history significant for end-stage renal disease, on hemodialysis, asthma, hypertension, diabetes, cyclic vomiting syndrome, presented to emergency room for evaluation due to abdominal pain. Pain was located in epigastric region, sharp, 10 out of 10 on a scale 1-10, nonradiating. Patient reported multiple episodes of nausea and vomiting. No hematemesis, no melena. Patient completed dialysis earlier before presentation to ED. Patient reported history of gastroparesis. No chest pain or shortness of breath. Patient reported prior hospitalization for similar episodes . Upon evaluation vital signs were stable. Laboratory workup revealed no leukocytosis stable hemoglobin and hematocrit. BUN 28 creatinine 8.5 , consistent with known history of end-stage renal disease ; electrolytes initially stable. LFT within normal limits. Patient admitted with diagnoses of gastroparesis, intractable vomiting, end- stage renal disease on hemodialysis. CONSULTANTS: pulmonary Dr. Moreno GI specialist Dr. Richards lepidopterist Dr. Oleary HOSPITAL COURSE: Patient admitted to medical surgical floor. Swedish Masseuse closely followed. Hemodialysis provided as per lepidopterist ordered with close monitoring of renal parameters and electrolytes. Electrolytes corrected as needed. Sensipar was continued. Nephrotoxins were avoided. GI closely followed. Symptomatic treatment initiated. Antiemetics provided as needed with Reglan. Abdominal ultrasound revealed questionable cholelithiasis and was negative for dilated ducts. Ultrasound also revealed echogenic atrophic bilateral kidneys consistent with medical renal disease. No hydronephrosis. Nonobstructive right lower pole renal calcification noted. Patient initially kept nothing by mouth and then started on liquid diet and advance to regular diet as tolerated. Supplemental oxygen provided as needed to keep pulse oximetry above 92%. Pulmonary toilet provided as needed. Pouncing Machine Operator closely followed. Respiratory status stable , no evidence of asthma exacerbation. Blood sugar was managed with sliding scale of insulin . Hemoglobin A1c at goal. Blood pressure was managed with beta jayme and calcium channel jayme. Antiplatelet therapy with aspirin was continued. DVT prophylaxis provided. Anemia workup was consistent with anemia of chronic disease and folate deficiency. Patient started on folic acid replacement. Hemoglobin and hematocrit were closely monitored with goal to keep hemoglobin above 7. Hemoglobin and hematocrit remained very stable. Stool for occult blood was negative. Bowel regimen instituted. Patient was on GI prophylaxis with PPI. Patient clinically improved: .able to tolerate regular diet; nausea and vomiting resolved; pain resolved. Patient was stable for discharge home . Consider gastric emptying study as outpatient to confirm diagnosis of gastroparesis. FINAL DIAGNOSES: Cyclic vomiting syndrome End stage renal disease, on hemodialysis Probably gastroparesis Diabetes mellitus Hypertension Asthma Folate deficiency Coronary artery disease Electrolytes imbalance Constipation Mild anemia DISCHARGE MEDICATIONS: See Medication Reconciliation list. DISCHARGE INSTRUCTIONS: Patient was discharged home Follow up with primary care provider in one week. Follow-up with outpatient hemodialysis as scheduled. I have been assigned to dictate discharge summary for this account. I was not involved in the patient's management. Connie Birmingham NP Jan 22, 2018 12:11
== END 2018-01-20 21:20 | disposition home or self-care (01) | DRG 73 ==
LOC: EMR 18:36 → 3E 21:00 → EDBEDREQ 21:13 → 2E 01-16 21:52 → 4W 01-18 17:15
PROC: 5A1D70Z Performance of Urinary Filtration, Intermittent, Less than 6 Hours Per Day (ICD-10-PCS; principal; 2018-01-15)
DX: E11.43 Type 2 diabetes mellitus with diabetic autonomic (poly)neuropathy (principal); N18.6 End stage renal disease; I12.0 Hypertensive chronic kidney disease with stage 5 chronic kidney disease or end stage renal disease; K31.84 Gastroparesis; G43.A0 Cyclical vomiting, in migraine, not intractable; Z86.718 Personal history of other venous thrombosis and embolism; Z86.711 Personal history of pulmonary embolism; J45.909 Unspecified asthma, uncomplicated; I25.10 Atherosclerotic heart disease of native coronary artery without angina pectoris; E87.5 Hyperkalemia; Z99.2 Dependence on renal dialysis; D63.8 Anemia in other chronic diseases classified elsewhere
CPT/HCPCS: 36415; 76700; 80048; 80053; 80061; 82270; 82607; 82728; 82746; 82962; 82977; 83036; 83540; 83550; 83690; 83735; 84100; 84439; 84443; 84484; 84702; 85025; 85044; 85610; 85730; 87081; 94664; 94760; J1815; J2405; J2765

== ENCOUNTER 2018-01-23 22:36 | Emergency (ER) | payer MEDICARE, OTHER ==
[~2018-01-23] VITALS: Ht 142.2 cm; Wt 59.0 kg
[~2018-01-23 22:36] MED LIST changes: +NORCO 5-325 TA1 EACH ORAL; +REGLAN10 MG ORAL
[2018-01-23 23:03] VITALS: BP 185/86
[2018-01-23] MEDS ORDERED: Promethazine HCl 25 MG in NS 55 ML IVPB ONE (23:15)
[2018-01-23] MEDS ORDERED: Morphine Sulfate 4mg/ml Inj (IV USE ONLY) IVP ONE (23:15)
[2018-01-23 23:37] LABS: BASOPHILS % (AUTO) 0.9 % (0.0-2.0); EOSINOPHILS % (AUTO) 0.9 % (0.0-3.0); HEMATOCRIT 38.1 % (37.0-47.0); HEMOGLOBIN 12.2 G/DL (12.0-16.0); LYMPHOCYTES % (AUTO) 24.5 % (20.0-45.0); MEAN CORPUSCULAR VOLUME 97 FL (80-99); MONOCYTES % (AUTO) 11.5 % (1.0-10.0); NEUTROPHILS % (AUTO) 62.2 % (45.0-75.0); PLATELET COUNT 242 K/UL (150-450); RED BLOOD COUNT 3.92 M/UL (4.20-5.40); RED CELL DISTRIBUTION WIDTH 12.3 % (11.6-14.8); WHITE BLOOD COUNT 7.2 K/UL (4.8-10.8)
[2018-01-23 23:41] LABS: ANION GAP 13 mmol/L (5-15); BLOOD UREA NITROGEN 57 mg/dL (7-18); CALCIUM 7.4 MG/DL (8.5-10.1); CARBON DIOXIDE 31 MMOL/L (21-32); CHLORIDE 96 MMOL/L (98-107); CREATININE 15.7 MG/DL (0.55-1.30); POTASSIUM 5.2 MMOL/L (3.5-5.1); SODIUM 140 MMOL/L (136-145)
[2018-01-24] MEDS ORDERED: Pantoprazole Inj IVP ONE (00:15)
[2018-01-24] MEDS ORDERED: PROMETHAZINE HC25 M1 ORAL (00:23)
[2018-01-24] MEDS ORDERED: OMEPRAZOLE40 M1 ORAL (00:23)
--- NOTE | 2018-01-24 00:24 | Emergency Room Report ---
History of Present Illness General Chief Complaint: Abdominal Pain Source: Patient Present Illness HPI This is a 32-year-old female with a history of renal failure on hemodialysis. She also has a history of cyclic vomiting syndrome, center to gastroparesis. She has prolonged stay here in the last admission was just discharged couple days ago. She says she never got better. Still felt nauseous. Worse with food. Her Reglan and Zofran helped some but only for an hour or 2. Denies any fever or chills. Vomiting is nonbloody nonbilious. She had endoscopy recently is show severe esophagitis. No diarrhea. Pain is 8 out of 10. Diffuse in nature. Allergies: Coded Allergies: No Known Allergies (Unverified , 06/11/16) Patient History Past Medical History: see triage record, old chart reviewed, DM, HTN, renal disease, dialysis Past Surgical History: other Pertinent Family History: none Social History: Denies: smoking Last Menstrual Period: jan 10 Now: No Immunizations: other Reviewed Nursing Documentation: PMH: Agreed; PSxH: Agreed Nursing Documentation-PMH Hx Cardiac Problems: Yes Hx Hypertension: Yes Hx Asthma: Yes Hx Diabetes: Yes Hx Cancer: No Hx Gastrointestinal Problems: Yes - gastroparesis Hx Dialysis: Yes - Tue, Jennifer, Sat Hx Neurological Problems: No Review of Systems Eye: Denies: eye pain, blurred vision ENT: Denies: ear pain, nose congestion, throat swelling Respiratory: Denies: cough, shortness of breath Cardiovascular: Denies: chest pain, palpitations Gastrointestinal: Reports: abdominal pain, nausea, vomiting; Denies: diarrhea Musculoskeletal: Denies: back pain, joint pain Skin: Denies: rash Neurological: Denies: headache, numbness Endocrine: Denies: increased thirst, increased urine Hematologic/Lymphatic: Denies: easy bruising All Other Systems: negative except mentioned in HPI Physical Exam Vital Signs Date Time Temp Pulse Resp B/P (MAP) Pulse Ox O2 Delivery O2 Flow Rate FiO2 01/23/18 22:49 98.3 87 18 185/86 98 Room Air 98.2 vitals with high blood pressure Sp02 EP Interpretation: reviewed, normal General Appearance: well appearing, no apparent distress, alert Head: normocephalic, atraumatic Eyes: bilateral eye PERRL, bilateral eye EOMI ENT: hearing grossly normal, normal pharynx Neck: full range of motion, supple, no meningismus Respiratory: chest non-tender, lungs clear, normal breath sounds Cardiovascular #1: regular rate, rhythm, no murmur Gastrointestinal: normal bowel sounds, non tender, no mass, no organomegaly, no bruit, non-distended Musculoskeletal: back normal, gait/station normal, normal range of motion Psychiatric: mood/affect normal Skin: warm/dry Medical Decision Making Diagnostic Impression: Primary Impression: Cyclic vomiting syndrome Qualified Codes: G43.A0 - Cyclical vomiting, not intractable Additional Impressions: End stage renal disease Gastroparesis ER Course Patient presents with abdominal pain with cyclic vomiting syndrome with vomiting. Better after Phenergan. Tolerating by mouth. She is not taking anything for esophagitis. We'll put her on a proton pump inhibitor. No evidence of acute abdomen. No obstruction. She is tolerating by mouth, we'll discharge home. Last Vital Signs Date Time Temp Pulse Resp B/P (MAP) Pulse Ox O2 Delivery O2 Flow Rate FiO2 01/23/18 23:40 98.3 01/23/18 23:03 78 18 185/86 98 Room Air Status: improved Disposition: HOME, SELF-CARE Condition: Stable Scripts Omeprazole (OMEPRAZOLE) 40 Mg Capsule. 40 MG ORAL DAILY, #30 CAP Prov: RASHID JOHNSON M.D. 01/24/18 Promethazine Hcl* (PHENERGAN*) 25 Mg Tablet 25 MG ORAL Q6H, #30 TAB Prov: RASHID JOHNSON M.D. 01/24/18 Referrals: NOT CHOSEN IPA/,REFERRING (PCP) Additional Instructions: Follow-up with your in 2-3 days. Go to dialysis as scheduled later today. Return of worse. RASHID JOHNSON M.D. Jan 24, 2018 00:24
[2018-01-24 00:38] VITALS: BP 178/82
== END 2018-01-24 00:44 | disposition home or self-care (01) ==
LOC: EMR 23:54
DX: E11.43 Type 2 diabetes mellitus with diabetic autonomic (poly)neuropathy (principal); K31.84 Gastroparesis; E11.22 Type 2 diabetes mellitus with diabetic chronic kidney disease; I12.0 Hypertensive chronic kidney disease with stage 5 chronic kidney disease or end stage renal disease; N18.6 End stage renal disease; Z99.2 Dependence on renal dialysis
CPT/HCPCS: 36415; 80048; 85025; 85610; 85730; 86850; 86900; 86901; 96365; 96375; 99284; C9113; J2270; J2550

== ENCOUNTER 2018-02-06 17:17 | Inpatient (IN) | payer MEDICARE, OTHER ==
[~2018-02-06] VITALS: Ht 167.6 cm; Wt 54.0 kg
[~2018-02-06 17:17] MED LIST changes: +OMEPRAZOLE40 M1 ORAL; +PROMETHAZINE HC25 M1 ORAL
--- NOTE | 2018-02-06 17:56 | Emergency Room Report ---
History of Present Illness General Chief Complaint: Abdominal Pain Source: Patient Present Illness HPI Ms. Talavera is 32 yo female with history of esophagitis, coronary disease, hypertension, asthma, diabetes, coronary disease, constipation, gastroparesis, cyclic vomiting syndrome and ESRD on hemodialysis Saturday. She presents with from Dr. Gonzalez's office for evaluation of severe abdominal pain and intractable nausea and vomiting. The symptoms have been present for 4 weeks. She has had two previous hospitalizations in addition to recent hospitalization her at [facility] and [facility]. Patient has diffuse abdominal pain, bilateral lower quadrants and epigastric region. She has constipation and diarrhea with laxative use. She has vomiting in spite Reglan Zofran . Pain is 10/10. Crampy severe. History obtained from EMR. I reviewed previous discharge summary and gastroenterology consultation. Allergies: Coded Allergies: No Known Allergies (Unverified , 06/11/16) Patient History Past Medical History: see triage record, old chart reviewed Social History: Denies: smoking, alcohol use, drug use Social History Narrative lives with Last Menstrual Period: 02/01/2018 Reviewed Nursing Documentation: PMH: Agreed; PSxH: Agreed Nursing Documentation-PMH Past Medical History: No History, Except For Hx Cardiac Problems: Yes - 8 Stents Hx Hypertension: Yes Hx Pacemaker: No Hx Asthma: Yes Hx COPD: No Hx Diabetes: Yes Hx Cancer: No Hx Gastrointestinal Problems: Yes - gastroparesis Hx Dialysis: Yes - Sat, Sat and SAT History Of Psychiatric Problem: No Hx Neurological Problems: No Hx Cerebrovascular Accident: No Hx Seizures: No Review of Systems Constitutional: Denies: fever, malaise Gastrointestinal: Reports: abdominal pain, diarrhea, nausea, vomiting Musculoskeletal: Reports: back pain All Other Systems: negative except mentioned in HPI Physical Exam Vital Signs Date Time Temp Pulse Resp B/P (MAP) Pulse Ox O2 Delivery O2 Flow Rate FiO2 02/06/18 17:30 98.0 100 16 218/97 94 Room Air 98.1 Sp02 EP Interpretation: reviewed, normal General Appearance: alert, GCS 15, other - patient is tearful but Head: normocephalic, atraumatic Eyes: bilateral eye normal inspection ENT: hearing grossly normal, normal pharynx, no angioedema, normal voice Neck: full range of motion, supple/symm/no masses Respiratory: chest non-tender, lungs clear, normal breath sounds, speaking full sentences Cardiovascular #1: regular rate, rhythm, no edema, no gallop, no rub Gastrointestinal: non tender, soft, non-distended, no rebound, rebound Musculoskeletal: gait/station normal, normal range of motion, non-tender, other - right thigh AV access with bandage +bruit Neurologic: alert, oriented x3, responsive, motor strength/tone normal, sensory intact, speech normal Psychiatric: judgement/insight normal, memory normal, other - tearful, obviously upset Skin: normal color, no rash, warm/dry, well hydrated Lymphatic: no adenopathy Medical Decision Making Diagnostic Impression: Primary Impression: Gastroparesis Additional Impressions: Cyclic vomiting syndrome End stage renal disease Abdominal pain ER Course Ms. Talavera presents with pain, n/v for 4 weeks with recent hospitalization here in January two weeks ago. Hx of gastroparesis and cyclic vomiting syndrome. I do not suspect peritonitis or obstruction. With multiple medications, ileus is a consideration. Coco Shepard will admit for further treatment. I am concerned for persistent vomiting and hypertension. I do not feel that patient will be able to tolerate her medications. She did required IV labetalol for severely elevated blood pressure. Labs Test 02/06/18 19:30 White Blood Count 9.9 K/UL (4.8-10.8) Red Blood Count 3.74 M/UL (4.20-5.40) Hemoglobin 12.1 G/DL (12.0-16.0) Hematocrit 36.0 % (37.0-47.0) Mean Corpuscular Volume 96 FL (80-99) Mean Corpuscular Hemoglobin 32.3 PG (27.0-31.0) Mean Corpuscular Hemoglobin Concent 33.6 G/DL (32.0-36.0) Red Cell Distribution Width 11.8 % (11.6-14.8) Platelet Count 223 K/UL (150-450) Mean Platelet Volume 7.3 FL (6.5-10.1) Neutrophils (%) (Auto) 77.6 % (45.0-75.0) Lymphocytes (%) (Auto) 13.5 % (20.0-45.0) Monocytes (%) (Auto) 7.5 % (1.0-10.0) Eosinophils (%) (Auto) 0.0 % (0.0-3.0) Basophils (%) (Auto) 1.4 % (0.0-2.0) Sodium Level 144 MMOL/L (136-145) Potassium Level 3.5 MMOL/L (3.5-5.1) Chloride Level 100 MMOL/L (98-107) Carbon Dioxide Level 38 MMOL/L (21-32) Anion Gap 6 mmol/L (5-15) Blood Urea Nitrogen 9 mg/dL (7-18) Creatinine 6.1 MG/DL (0.55-1.30) Estimat Glomerular Filtration Rate 9.6 mL/min (>60) Glucose Level 118 MG/DL (74-106) Calcium Level 9.0 MG/DL (8.5-10.1) Total Bilirubin 0.4 MG/DL (0.2-1.0) Aspartate Amino Transf (AST/SGOT) 11 U/L (15-37) Alanine Aminotransferase (ALT/SGPT) 11 U/L (12-78) Alkaline Phosphatase 154 U/L (46-116) Total Protein 7.6 G/DL (6.4-8.2) Albumin 3.5 G/DL (3.4-5.0) Globulin 4.1 g/dL Albumin/Globulin Ratio 0.9 (1.0-2.7) Lipase 32 U/L (73-393) Last Vital Signs Date Time Temp Pulse Resp B/P (MAP) Pulse Ox O2 Delivery O2 Flow Rate FiO2 02/06/18 17:30 98.0 100 16 218/97 94 Room Air 98.1 Status: unchanged Disposition: ADMITTED INPATIENT Condition: Stable Sadia Collazo MD Feb 06, 2018 17:56
[2018-02-06] MEDS ORDERED: LORazepam Inj 2mg/ml 1ml IV SCH (19:15)
[2018-02-06] MEDS ORDERED: DiphenhydrAMINE 50mg/ml Inj IVP SCH (19:15)
[2018-02-06 19:44] LABS: BASOPHILS % (AUTO) 1.4 % (0.0-2.0); HEMOGLOBIN 12.1 G/DL (12.0-16.0); LYMPHOCYTES % (AUTO) 13.5 % (20.0-45.0); MEAN CORPUSCULAR VOLUME 96 FL (80-99); MONOCYTES % (AUTO) 7.5 % (1.0-10.0); NEUTROPHILS % (AUTO) 77.6 % (45.0-75.0); PLATELET COUNT 223 K/UL (150-450); RED BLOOD COUNT 3.74 M/UL (4.20-5.40); RED CELL DISTRIBUTION WIDTH 11.8 % (11.6-14.8); WHITE BLOOD COUNT 9.9 K/UL (4.8-10.8)
[2018-02-06 19:55] VITALS: BP 197/82
[2018-02-06 20:07] LABS: ANION GAP 6 mmol/L (5-15); BLOOD UREA NITROGEN 9 mg/dL (7-18); CARBON DIOXIDE 38 MMOL/L (21-32); CHLORIDE 100 MMOL/L (98-107); CREATININE 6.1 MG/DL (0.55-1.30); POTASSIUM 3.5 MMOL/L (3.5-5.1); SODIUM 144 MMOL/L (136-145)
[2018-02-06 20:13] LABS: ALANINE AMINOTRANSFERASE 11 U/L (12-78); ALBUMIN 3.5 G/DL (3.4-5.0); ALBUMIN/GLOBULIN RATIO 0.9 (1.0-2.7); ALKALINE PHOSPHATASE 154 U/L (46-116); ASPARTATE AMINO TRANSFERASE 11 U/L (15-37); BILIRUBIN,TOTAL 0.4 MG/DL (0.2-1.0)
[2018-02-06] MEDS ORDERED: Labetalol 5mg/ml 20ml vial IV ONE (20:45)
[2018-02-06 21:17] VITALS: BP 103/58
[2018-02-06 22:00] VITALS: BP 116/74
[2018-02-06] MEDS ORDERED: Morphine Sulfate 2mg/ml Inj IVP PRN (22:45)
[2018-02-06] MEDS: Heparin 5000 units/ml inj SUBQ SCH (23:00)
[2018-02-07] VITALS (7 sets, daily range): BP systolic 133–161; BP diastolic 65–88
[2018-02-07] MEDS ORDERED: HydrALAZINE 50mg tab ORAL SCH
[2018-02-07] MEDS: Morphine Sulfate 4mg/ml Inj (IV USE ONLY) IVP PRN ×3 (00:15→12:52)
[2018-02-07] MEDS: NovoLOG Insulin Flexpen SUBQ SCH ×4 (06:30→20:45)
[2018-02-07] MEDS: Calcium Acetate 667mg Tab ORAL SCH (08:40)
[2018-02-07] MEDS: Aspirin EC 81mg tab ORAL SCH (08:40)
[2018-02-07] MEDS: Metoprolol 25mg tab ORAL SCH (08:41)
[2018-02-07] MEDS: GlipiZIDE 5mg tab ORAL SCH (08:41)
[2018-02-07] MEDS: Sensipar 30mg Tab ORAL SCH (08:41)
[2018-02-07] MEDS: Heparin 5000 units/ml inj SUBQ SCH ×2 (08:43→20:45)
[2018-02-07 10:34] LABS: BASOPHILS % (AUTO) 1.2 % (0.0-2.0); EOSINOPHILS % (AUTO) 1.2 % (0.0-3.0); HEMATOCRIT 38.8 % (37.0-47.0); HEMOGLOBIN 12.2 G/DL (12.0-16.0); LYMPHOCYTES % (AUTO) 27.5 % (20.0-45.0); MEAN CORPUSCULAR VOLUME 98 FL (80-99); MONOCYTES % (AUTO) 10.3 % (1.0-10.0); NEUTROPHILS % (AUTO) 59.8 % (45.0-75.0); PLATELET COUNT 219 K/UL (150-450); RED BLOOD COUNT 3.95 M/UL (4.20-5.40); RED CELL DISTRIBUTION WIDTH 12.2 % (11.6-14.8); WHITE BLOOD COUNT 8.2 K/UL (4.8-10.8)
[2018-02-07 10:53] LABS: ANION GAP 9 mmol/L (5-15); BLOOD UREA NITROGEN 13 mg/dL (7-18); CARBON DIOXIDE 33 MMOL/L (21-32); CHLORIDE 99 MMOL/L (98-107); CREATININE 6.9 MG/DL (0.55-1.30); POTASSIUM 3.8 MMOL/L (3.5-5.1); SODIUM 141 MMOL/L (136-145)
--- NOTE | 2018-02-07 14:02 | Consultation ---
History of Present Illness General Date patient seen: Feb 07, 2018 Chief Complaint: Abdominal Pain Present Illness HPI 32 yo female with history of esophagitis, coronary disease, hypertension, asthma , diabetes, coronary disease, constipation, gastroparesis, cyclic vomiting syndrome and ESRD on hemodialysis, the pt has hx of depression and mj dependence and anxiety/ the pt stated that she does not sleep and she was depressed. the pt was guarded and irritable Allergies: Coded Allergies: No Known Allergies (Unverified , 06/11/16) Medication History Scheduled Amlodipine Besylate (Norvasc), 10 MG ORAL DAILY Aspirin* (Aspir 81*), 81 MG ORAL DAILY, (Reported) Calcium Acetate (Calcium Acetate), 667 MG PO DAILY, (Reported) Cinacalcet* (Sensipar*), 90 MG ORAL DAILY, (Reported) Glipizide* (Glipizide*), 10 MG ORAL DAILY, (Reported) Metoclopramide Hcl* (Reglan*), 10 MG ORAL THREE TIMES A DAY Metoprolol Tartrate* (Metoprolol Tartrate*), 25 MG ORAL DAILY, (Reported) Omeprazole (Omeprazole), 40 MG ORAL DAILY Pantoprazole* (Pantoprazole*), 40 MG ORAL DAILY, (Reported) Promethazine Hcl* (Phenergan*), 25 MG ORAL Q6H Sennosides (Senna), 17.2 MG PO DAILY, (Reported) Miscellaneous Medications Oxycodone HCl/Acetaminophen (Percocet 10-325 mg Tablet), 1 EACH PO, (Reported) Patient History Limited by: medical condition History Provided By: Patient, Medical Record, PMD Healthcare decision maker N Resuscitation status Advanced Directive on File Past Medical/Surgical History Past Medical/Surgical History: (1) Elevated troponin (2) Esophagitis (3) Electrolyte imbalance (4) Coronary artery disease (5) Hypertension (6) Asthma (7) Diabetes mellitus (8) Epigastric abdominal pain (9) Nausea & vomiting (10) CAD (coronary artery disease) (11) Constipation (12) Hyperkalemia (13) End stage renal disease (14) Gastroparesis (15) Cyclic vomiting syndrome (16) Abdominal pain Review of Systems Psychiatric: Reports: prior hx, anxiety, depressed feelings, emotional problems Physical Exam General Appearance: no apparent distress, alert Neurologic: oriented x 3, responsive, depressed affect Last 24 Hour Vital Signs Date Time Temp Pulse Resp B/P (MAP) Pulse Ox O2 Delivery O2 Flow Rate FiO2 02/07/18 12:52 98.4 02/07/18 12:00 98.4 87 18 150/81 (104) 99 98.4 02/07/18 09:00 Room Air 02/07/18 08:41 86 154/84 02/07/18 08:41 98.4 02/07/18 08:11 98.4 02/07/18 08:00 97.7 86 20 154/84 (107) 93 97.7 02/07/18 04:00 98.4 86 19 133/65 (87) 95 98.4 02/07/18 00:00 98.1 88 20 138/82 (100) 94 98.1 02/06/18 22:04 Room Air 02/06/18 22:00 97.8 91 22 116/74 (88) 94 97.8 02/06/18 21:57 98.0 93 24 103/58 96 Room Air 98.1 02/06/18 21:17 93 24 103/58 96 Room Air 02/06/18 20:42 102 197/82 02/06/18 19:55 102 24 197/82 95 Room Air 02/06/18 17:30 98.0 100 16 218/97 94 Room Air 98.1 Intake and Output 02/06/18 02/07/18 19:00 07:00 Intake Total 0 ml 120 ml Balance 0 ml 120 ml Intake Oral 0 ml 120 ml # Voids 1 # Bowel Movements 2 Laboratory Tests Test 02/06/18 19:30 02/07/18 09:55 White Blood Count 9.9 K/UL (4.8-10.8) 8.2 K/UL (4.8-10.8) Red Blood Count 3.74 M/UL (4.20-5.40) L 3.95 M/UL (4.20-5.40) L Hemoglobin 12.1 G/DL (12.0-16.0) 12.2 G/DL (12.0-16.0) Hematocrit 36.0 % (37.0-47.0) L 38.8 % (37.0-47.0) Mean Corpuscular Volume 96 FL (80-99) 98 FL (80-99) Mean Corpuscular Hemoglobin 32.3 PG (27.0-31.0) H 30.9 PG (27.0-31.0) Mean Corpuscular Hemoglobin Concent 33.6 G/DL (32.0-36.0) 31.5 G/DL (32.0-36.0) L Red Cell Distribution Width 11.8 % (11.6-14.8) 12.2 % (11.6-14.8) Platelet Count 223 K/UL (150-450) 219 K/UL (150-450) Mean Platelet Volume 7.3 FL (6.5-10.1) 7.6 FL (6.5-10.1) Neutrophils (%) (Auto) 77.6 % (45.0-75.0) H 59.8 % (45.0-75.0) Lymphocytes (%) (Auto) 13.5 % (20.0-45.0) L 27.5 % (20.0-45.0) Monocytes (%) (Auto) 7.5 % (1.0-10.0) 10.3 % (1.0-10.0) H Eosinophils (%) (Auto) 0.0 % (0.0-3.0) 1.2 % (0.0-3.0) Basophils (%) (Auto) 1.4 % (0.0-2.0) 1.2 % (0.0-2.0) Sodium Level 144 MMOL/L (136-145) 141 MMOL/L (136-145) Potassium Level 3.5 MMOL/L (3.5-5.1) 3.8 MMOL/L (3.5-5.1) Chloride Level 100 MMOL/L (98-107) 99 MMOL/L (98-107) Carbon Dioxide Level 38 MMOL/L (21-32) H 33 MMOL/L (21-32) H Anion Gap 6 mmol/L (5-15) 9 mmol/L (5-15) Blood Urea Nitrogen 9 mg/dL (7-18) 13 mg/dL (7-18) Creatinine 6.1 MG/DL (0.55-1.30) H 6.9 MG/DL (0.55-1.30) H Estimat Glomerular Filtration Rate 9.6 mL/min (>60) 8.4 mL/min (>60) Glucose Level 118 MG/DL (74-106) H 105 MG/DL (74-106) Calcium Level 9.0 MG/DL (8.5-10.1) 9.0 MG/DL (8.5-10.1) Total Bilirubin 0.4 MG/DL (0.2-1.0) Aspartate Amino Transf (AST/SGOT) 11 U/L (15-37) L Alanine Aminotransferase (ALT/SGPT) 11 U/L (12-78) L Alkaline Phosphatase 154 U/L (46-116) H Total Protein 7.6 G/DL (6.4-8.2) Albumin 3.5 G/DL (3.4-5.0) Globulin 4.1 g/dL Albumin/Globulin Ratio 0.9 (1.0-2.7) L Lipase 32 U/L (73-393) L Magnesium Level 2.4 MG/DL (1.8-2.4) Microbiology Date/Time Source Procedure Growth Status 02/06/18 21:21 Rectum Received Height (Feet): 4 Height (Inches): 8.00 Weight (Pounds): 120 Medications Current Medications Medications (Trade) Dose Ordered Sig/Danielle Route PRN Reason Start Time Stop Time Status Last Admin Dose Admin Aspirin (Ecotrin) 81 mg DAILY ORAL 02/07/18 09:00 03/09/18 08:59 02/07/18 08:40 Calcium Acetate (Phoslo) 667 mg DAILY ORAL 02/07/18 09:00 03/09/18 08:59 02/07/18 08:40 Cinacalcet (Sensipar) 90 mg DAILY ORAL 02/07/18 09:00 03/09/18 08:59 02/07/18 08:41 Dextrose (Dextrose 50%) 25 ml STAT PRN IV Hypoglycemia 02/06/18 23:00 03/08/18 22:59 Dextrose (Dextrose 50%) 50 ml STAT PRN IV Hypoglycemia 02/06/18 23:00 03/08/18 22:59 Glipizide (Glucotrol) 10 mg DAILY ORAL 02/07/18 09:00 03/09/18 08:59 02/07/18 08:41 Heparin Sodium (Porcine) (Heparin 5000 units/ml) 5,000 units EVERY 12 HOURS SUBQ 02/06/18 23:00 03/08/18 22:59 02/07/18 08:43 Hydralazine HCl (Apresoline) 50 mg Q6HR PRN ORAL For High Blood Pressure 02/07/18 00:00 03/09/18 00:00 Insulin Aspart (NovoLOG) BEFORE MEALS AND HS SUBQ 02/07/18 06:30 03/09/18 06:29 Metoclopramide HCl (Reglan) 5 mg Q6H PRN ORAL Nausea & Vomiting 02/06/18 22:45 03/08/18 22:44 02/07/18 09:59 Metoprolol Tartrate (Lopressor) 25 mg DAILY ORAL 02/07/18 09:00 03/09/18 08:59 02/07/18 08:41 Morphine Sulfate (Morphine Sulfate) 2 mg Q4H PRN IVP Moderate Pain (Pain Scale 4-6) 02/06/18 22:45 02/13/18 22:44 02/07/18 08:11 Morphine Sulfate (Morphine Sulfate) 4 mg Q4H PRN IVP Severe Pain (Pain Scale 7-10) 02/06/18 22:45 02/13/18 22:44 02/07/18 12:52 Ondansetron HCl (Zofran) 4 mg EVERY 4 HOURS PRN IVP Nausea & Vomiting 02/06/18 22:45 03/08/18 22:44 02/07/18 08:11 Pantoprazole (Protonix) 40 mg DAILY ORAL 02/07/18 09:00 03/09/18 08:59 02/07/18 08:41 Assessment/Plan Status: stable Assessment/Plan mdd Anxiety d/o insomnia Remeron 15mg po qhs provided emily/Brandne Vasquez MD Feb 07, 2018 14:02
--- NOTE | 2018-02-07 14:09 | History & Physical ---
History and Physical History & Physicial HP dictated # [id number] Rick Sepulveda MD Feb 07, 2018 14:09
--- NOTE | 2018-02-07 16:11 | General Progress Note ---
Assessment/Plan Assessment/Plan GI CONSULT Dictated Will try BDZ in place of morphine Thank you Abodul Dior Subjective Allergies: Coded Allergies: No Known Allergies (Unverified , 06/11/16) Objective Last 24 Hour Vital Signs Date Time Temp Pulse Resp B/P (MAP) Pulse Ox O2 Delivery O2 Flow Rate FiO2 02/07/18 13:22 98.4 02/07/18 12:52 98.4 02/07/18 12:00 98.4 87 18 150/81 (104) 99 98.4 02/07/18 09:00 Room Air 02/07/18 08:41 86 154/84 02/07/18 08:41 98.4 02/07/18 08:11 98.4 02/07/18 08:00 97.7 86 20 154/84 (107) 93 97.7 02/07/18 04:00 98.4 86 19 133/65 (87) 95 98.4 02/07/18 00:00 98.1 88 20 138/82 (100) 94 98.1 02/06/18 22:04 Room Air 02/06/18 22:00 97.8 91 22 116/74 (88) 94 97.8 02/06/18 21:57 98.0 93 24 103/58 96 Room Air 98.1 02/06/18 21:17 93 24 103/58 96 Room Air 02/06/18 20:42 102 197/82 02/06/18 19:55 102 24 197/82 95 Room Air 02/06/18 17:30 98.0 100 16 218/97 94 Room Air 98.1 Intake and Output 02/06/18 02/07/18 19:00 07:00 Intake Total 0 ml 120 ml Balance 0 ml 120 ml Intake Oral 0 ml 120 ml # Voids 1 # Bowel Movements 2 Laboratory Tests 02/06/18 19:30: White Blood Count 9.9, Red Blood Count 3.74L, Hemoglobin 12.1, Hematocrit 36.0L , Mean Corpuscular Volume 96, Mean Corpuscular Hemoglobin 32.3H, Mean Corpuscular Hemoglobin Concent 33.6, Red Cell Distribution Width 11.8, Platelet Count 223, Mean Platelet Volume 7.3, Neutrophils (%) (Auto) 77.6H, Lymphocytes ( %) (Auto) 13.5L, Monocytes (%) (Auto) 7.5, Eosinophils (%) (Auto) 0.0, Basophils (%) (Auto) 1.4, Sodium Level 144, Potassium Level 3.5, Chloride Level 100, Carbon Dioxide Level 38H, Anion Gap 6, Blood Urea Nitrogen 9, Creatinine 6.1H, Estimat Glomerular Filtration Rate 9.6, Glucose Level 118H, Calcium Level 9.0, Total Bilirubin 0.4, Aspartate Amino Transf (AST/SGOT) 11L, Alanine Aminotransferase (ALT/SGPT) 11L, Alkaline Phosphatase 154H, Total Protein 7.6, Albumin 3.5, Globulin 4.1, Albumin/Globulin Ratio 0.9L, Lipase 32L 02/07/18 09:55: White Blood Count 8.2, Red Blood Count 3.95L, Hemoglobin 12.2, Hematocrit 38.8, Mean Corpuscular Volume 98, Mean Corpuscular Hemoglobin 30.9, Mean Corpuscular Hemoglobin Concent 31.5L, Red Cell Distribution Width 12.2, Platelet Count 219, Mean Platelet Volume 7.6, Neutrophils (%) (Auto) 59.8, Lymphocytes (%) (Auto) 27.5, Monocytes (%) (Auto) 10.3H, Eosinophils (%) (Auto) 1.2, Basophils (%) ( Auto) 1.2, Sodium Level 141, Potassium Level 3.8, Chloride Level 99, Carbon Dioxide Level 33H, Anion Gap 9, Blood Urea Nitrogen 13, Creatinine 6.9H, Estimat Glomerular Filtration Rate 8.4, Glucose Level 105, Calcium Level 9.0, Magnesium Level 2.4 Height (Feet): 4 Height (Inches): 8.00 Weight (Pounds): 120 Mary Dior MD Feb 07, 2018 16:11
[2018-02-07] MEDS ORDERED: LORazepam Inj 2mg/ml 1ml IV PRN ×4 (16:30→16:45)
--- NOTE | 2018-02-07 17:21 | Internal Med Progress Note ---
Subjective Physician Name SarojDick Attending Physician Rick Sepulveda MD Current Medications Medications (Trade) Dose Ordered Sig/Danielle Route PRN Reason Start Time Stop Time Status Last Admin Dose Admin Aspirin (Ecotrin) 81 mg DAILY ORAL 02/07/18 09:00 03/09/18 08:59 02/07/18 08:40 Calcium Acetate (Phoslo) 667 mg DAILY ORAL 02/07/18 09:00 03/09/18 08:59 02/07/18 08:40 Cinacalcet (Sensipar) 90 mg DAILY ORAL 02/07/18 09:00 03/09/18 08:59 02/07/18 08:41 Dextrose (Dextrose 50%) 25 ml STAT PRN IV Hypoglycemia 02/06/18 23:00 03/08/18 22:59 Dextrose (Dextrose 50%) 50 ml STAT PRN IV Hypoglycemia 02/06/18 23:00 03/08/18 22:59 Glipizide (Glucotrol) 10 mg DAILY ORAL 02/07/18 09:00 03/09/18 08:59 02/07/18 08:41 Heparin Sodium (Porcine) (Heparin 5000 units/ml) 5,000 units EVERY 12 HOURS SUBQ 02/06/18 23:00 03/08/18 22:59 02/07/18 08:43 Heparin Sodium (Porcine) (Heparin Sod 1000 units/ml 10ml) 500 unit ONCE ONCE IV 02/08/18 14:15 02/08/18 14:16 Hydralazine HCl (Apresoline) 50 mg Q6HR PRN ORAL For High Blood Pressure 02/07/18 00:00 03/09/18 00:00 Insulin Aspart (NovoLOG) BEFORE MEALS AND HS SUBQ 02/07/18 06:30 03/09/18 06:29 Lorazepam (Ativan 2mg/ml 1ml) 1 mg Q4H PRN IV For Pain 02/07/18 16:30 02/14/18 16:29 Lorazepam (Ativan 2mg/ml 1ml) 1 mg Q4H PRN IV Nausea & Vomiting 02/07/18 16:45 02/14/18 16:29 Metoclopramide HCl (Reglan) 5 mg Q6H PRN ORAL Nausea & Vomiting 02/07/18 16:30 03/09/18 16:29 Metoprolol Tartrate (Lopressor) 25 mg DAILY ORAL 02/07/18 09:00 03/09/18 08:59 02/07/18 08:41 Mirtazapine (Remeron) 15 mg BEDTIME ORAL 02/07/18 21:00 03/09/18 20:59 Ondansetron HCl (Zofran) 4 mg Q4H PRN IVP Nausea & Vomiting 02/07/18 16:30 03/09/18 16:29 Pantoprazole (Protonix) 40 mg DAILY ORAL 02/07/18 09:00 03/09/18 08:59 02/07/18 08:41 Sodium Chloride 1,000 ml @ 500 mls/hr Q2H PRN IVLG sbp<90 during hd 02/08/18 14:02 03/10/18 14:01 Allergies: Coded Allergies: No Known Allergies (Unverified , 06/11/16) Subjective awake, alert, responsive, C/O less epigastric abdominal pain , less N/V, No chest pain Objective Last Vital Signs Date Time Temp Pulse Resp B/P (MAP) Pulse Ox O2 Delivery O2 Flow Rate FiO2 02/07/18 13:22 98.4 02/07/18 12:00 87 18 150/81 (104) 99 02/07/18 09:00 Room Air Laboratory Tests Test 02/06/18 19:30 02/07/18 09:55 White Blood Count 9.9 K/UL (4.8-10.8) 8.2 K/UL (4.8-10.8) Red Blood Count 3.74 M/UL (4.20-5.40) L 3.95 M/UL (4.20-5.40) L Hemoglobin 12.1 G/DL (12.0-16.0) 12.2 G/DL (12.0-16.0) Hematocrit 36.0 % (37.0-47.0) L 38.8 % (37.0-47.0) Mean Corpuscular Volume 96 FL (80-99) 98 FL (80-99) Mean Corpuscular Hemoglobin 32.3 PG (27.0-31.0) H 30.9 PG (27.0-31.0) Mean Corpuscular Hemoglobin Concent 33.6 G/DL (32.0-36.0) 31.5 G/DL (32.0-36.0) L Red Cell Distribution Width 11.8 % (11.6-14.8) 12.2 % (11.6-14.8) Platelet Count 223 K/UL (150-450) 219 K/UL (150-450) Mean Platelet Volume 7.3 FL (6.5-10.1) 7.6 FL (6.5-10.1) Neutrophils (%) (Auto) 77.6 % (45.0-75.0) H 59.8 % (45.0-75.0) Lymphocytes (%) (Auto) 13.5 % (20.0-45.0) L 27.5 % (20.0-45.0) Monocytes (%) (Auto) 7.5 % (1.0-10.0) 10.3 % (1.0-10.0) H Eosinophils (%) (Auto) 0.0 % (0.0-3.0) 1.2 % (0.0-3.0) Basophils (%) (Auto) 1.4 % (0.0-2.0) 1.2 % (0.0-2.0) Sodium Level 144 MMOL/L (136-145) 141 MMOL/L (136-145) Potassium Level 3.5 MMOL/L (3.5-5.1) 3.8 MMOL/L (3.5-5.1) Chloride Level 100 MMOL/L (98-107) 99 MMOL/L (98-107) Carbon Dioxide Level 38 MMOL/L (21-32) H 33 MMOL/L (21-32) H Anion Gap 6 mmol/L (5-15) 9 mmol/L (5-15) Blood Urea Nitrogen 9 mg/dL (7-18) 13 mg/dL (7-18) Creatinine 6.1 MG/DL (0.55-1.30) H 6.9 MG/DL (0.55-1.30) H Estimat Glomerular Filtration Rate 9.6 mL/min (>60) 8.4 mL/min (>60) Glucose Level 118 MG/DL (74-106) H 105 MG/DL (74-106) Calcium Level 9.0 MG/DL (8.5-10.1) 9.0 MG/DL (8.5-10.1) Total Bilirubin 0.4 MG/DL (0.2-1.0) Aspartate Amino Transf (AST/SGOT) 11 U/L (15-37) L Alanine Aminotransferase (ALT/SGPT) 11 U/L (12-78) L Alkaline Phosphatase 154 U/L (46-116) H Total Protein 7.6 G/DL (6.4-8.2) Albumin 3.5 G/DL (3.4-5.0) Globulin 4.1 g/dL Albumin/Globulin Ratio 0.9 (1.0-2.7) L Lipase 32 U/L (73-393) L Magnesium Level 2.4 MG/DL (1.8-2.4) Microbiology Date/Time Source Procedure Growth Status 02/06/18 21:21 Rectum Received Intake and Output 02/06/18 02/07/18 19:00 07:00 Intake Total 0 ml 120 ml Balance 0 ml 120 ml Intake Oral 0 ml 120 ml # Voids 1 # Bowel Movements 2 Objective General: No acute distress, awake and alert HEENT: NCAT, sclera anicteric, PERRL, EOMI. Neck: Supple, no significant jugular venous distention, Lungs: Good inspiratory effort,, clear to auscultation bilaterally, no Wheeze or Rales. Heart: Regular rate and rhythm, normal S1/S2, no murmurs Abdomen: soft, Epigastric tenderness, nondistended. Normoactive bowel sounds. / Rectal: Refused and deferred. Extremities: No Cyanosis , clubbing or edema. Neuro: A&O x 3, Able to move all extremities, RLE AV fistula. Skin: warm, no rashes or lesions Psych: Normal mood and affect Assessment/Plan Assessment/Plan Epigastric pain Esophagitis, coronary disease hypertension Asthma, diabetes coronary arterial disease constipation gastroparesis with cyclic vomiting syndrome ESRD on hemodialysis, Uncontrolled DM HTN, Depression Plan: F/U with Dr. Dior recommendations Monitor Labs advance diet to Full liquid Full code Hemodialysis ambulation Dick Kyle MD Feb 07, 2018 17:21
[2018-02-07] MEDS: DiphenhydrAMINE 50mg/ml Inj IVP PRN (19:28)
--- NOTE | 2018-02-07 20:15 | History and Physical Report ---
DATE OF ADMISSION: 02/07/2018 NEPHROLOGY CONSULTATION ADMITTING PHYSICIAN: Rick Sepulveda M.D. REFERRING PHYSICIAN: Dick Kyle M.D. REASON FOR ADMISSION: End-stage renal disease, requiring hemodialysis. HISTORY OF PRESENT ILLNESS: This is a 32-year-old female with history of end-stage renal disease, on hemodialysis every Saturday, , and Saturday. She called my office because of abdominal pain. I prompted her to call the primary physician. Eventually, she came to the emergency room for abdominal pain. She has been in the hospital for vomiting and abdominal pain. She does have history of gastroparesis. Recent hospitalizations were in [facility] and [facility]. At the time of my interview, she was crying in pain and she stated that pain is 10/10 and it comes and goes. PAST MEDICAL HISTORY: Includes history of diabetes mellitus, hypertension, coronary artery disease, cyclic vomiting syndrome, gastroparesis. She is status post angioplasty. MEDICATIONS: Reviewed in the EMR. SOCIAL HISTORY: No history of smoking or alcohol abuse. The patient is homeless and used to live in her car. REVIEW OF SYSTEMS: As above. PHYSICAL EXAMINATION: GENERAL: The patient is a 32-year-old female, in no acute distress. VITAL SIGNS: Blood pressure is 150/81, pulse 87, respiratory rate 18, and temperature 98.4 degrees. HEENT: [place] conjunctivae. Anicteric sclerae. NECK: Supple. LUNGS: Clear to auscultation. HEART: S1, S2 without murmurs or rubs. ABDOMEN: Soft, nontender. EXTREMITIES: No cyanosis or edema. SKIN: The patient has right groin graft for dialysis. LABORATORY FINDINGS: The CBC shows WBC of 8200, hematocrit is 33.8, hemoglobin is 12.2, platelets 219,000. Chemistry panel shows serum sodium 141, potassium 3.8, chloride 99, CO2 33, BUN is 13, creatinine 6.9, calcium is 9. Magnesium is 2.4. ASSESSMENT: This is a 32-year-old female who is admitted with severe abdominal pain and vomiting. She has history of end-stage renal disease. She is usually getting dialysis every Saturday, , and Saturday. Her hypertension is not completely controlled. Some of it maybe as a result of pain and some maybe not tolerating the medications. PLAN: The patient will be dialyzed tomorrow. The patient will be followed by Dr. Ovi JADE. Pain medication was prescribed. Adjustment will be made in the patient's regimen. Rick Sepulveda M.D. DR: Clare JOB#: [id number] CC: MARCO
[2018-02-07] MEDS: HydrALAZINE 50mg tab ORAL PRN (20:51)
--- NOTE | 2018-02-07 21:45 | Consultation ---
DATE OF CONSULTATION: 02/07/2018 GASTROLOGY CONSULTATION CONSULTING PHYSICIAN: Mary Dior M.D. CHIEF COMPLAINT: I was asked to see this patient by Dr. Rick Sepulveda for evaluation of gastrointestinal issues. HISTORY OF PRESENT ILLNESS: The patient is a pleasant unfortunate for 32-year-old woman with long list of medical problems including coronary artery disease and an established diagnoses of gastroparesis and gastroesophageal reflux, who was admitted for recurrent abdominal pain and vomiting. The patient has had multiple admissions to the hospital and has had extensive workup with [facility] showing a combination of gastroparesis, gastroesophageal reflux disease, Sylvia esophagitis and gastritis. These typically have resulted in abdominal pain, nausea and vomiting. She typically gets better, which as an inpatient. Problem is also she has known coronary artery disease and in fact has had percutaneous interventions to her coronary arteries with stents. She is on aspirin and Plavix for prevention of further coronary events. The patient is back to the hospital and was admitted for recurrent bouts of nausea and vomiting. She is on proton pump inhibitor as well as on a daily basis of Reglan and as needed basis. PAST MEDICAL HISTORY: History of coronary artery disease, myocardial infarction, status post stent placement, renal failure, long-term dialysis, deep vein thrombosis, pulmonary embolism, recurrent chest pain, recurrent abdominal pain, recurrent nausea and vomiting, gastroesophageal reflux, hypertension and also Sylvia esophagitis. MEDICATIONS: See chart for details. FAMILY HISTORY: Noncontributory. SOCIAL HISTORY: The patient is to the same sex partner. She does not smoke cigarettes, but she has had marijuana use in the past. She does not drink. REVIEW OF SYSTEMS: Otherwise negative. PHYSICAL EXAMINATION: GENERAL: The patient is a pleasant woman, seen in her room. HEENT: Normocephalic and atraumatic. Sclerae anicteric. Oropharynx clear. NECK: Supple. CHEST: Clear to auscultation. CARDIOVASCULAR: Regular rate. ABDOMEN: Soft. Good bowel sounds. There is some mild epigastric tenderness. EXTREMITIES: Revealed no edema. LABORATORY AND DIAGNOSTIC DATA: Laboratory data were noted. ASSESSMENT: This patient presents with recurrent bouts of epigastric abdominal pain, nausea and vomiting and is being readmitted. I believe the narcotics given for pain can make her gastroparesis and vomiting worse and she has been tried on benzodiazepines at the outside hospital with some degree of success. I will increase the dose to 1 mg today and see that can both suppressive pain as well as her nausea and vomiting. I would hold the narcotics for now to reduce the narcotic effect of the stomach. Diet can be given as tolerated and Prilosec should be continued. Zofran can be given for backup and Reglan should be minimized to reduce long-term side effects. Should all failed, then the re-evaluation with endoscopy can be considered. RECOMMENDATIONS: Per above discussion and per orders written in the chart. Thank you for asking me to participate in the care of this patient. Mary Dior M.D. DR: DUANE JOB#: [id number] CC: MARCO
[2018-02-07] MEDS: LORazepam Inj 2mg/ml 1ml IV PRN (22:05)
[2018-02-08] VITALS (9 sets, daily range): BP systolic 125–195; BP diastolic 66–93
[2018-02-08] MEDS: DiphenhydrAMINE 50mg/ml Inj IVP PRN ×3 (01:32→20:50)
[2018-02-08] MEDS: LORazepam Inj 2mg/ml 1ml IV PRN ×4 (04:27→22:03)
[2018-02-08] MEDS: NovoLOG Insulin Flexpen SUBQ SCH ×4 (05:48→20:57)
[2018-02-08] MEDS: Calcium Acetate 667mg Tab ORAL SCH (08:50)
[2018-02-08] MEDS: Aspirin EC 81mg tab ORAL SCH (08:51)
[2018-02-08] MEDS: Sensipar 30mg Tab ORAL SCH (08:51)
[2018-02-08] MEDS: Metoprolol 25mg tab ORAL SCH (08:51)
[2018-02-08] MEDS: GlipiZIDE 5mg tab ORAL SCH (08:52)
[2018-02-08] MEDS: Heparin 5000 units/ml inj SUBQ SCH ×2 (09:01→20:54)
--- NOTE | 2018-02-08 11:55 | Nephrology Progress Note ---
Assessment/Plan Assessment/Plan A/P 1) ESRD- HS TTS - HD arranged for today 2) SHPT- sensipar and phoslo 3) HTN- stable at goal 4) N/V- per GI mgmt Subjective Date patient seen: Feb 08, 2018 Time patient seen: 11:53 ROS Limited/Unobtainable: No Gastrointestinal/Abdominal: Reports: nausea, vomiting Allergies: Coded Allergies: No Known Allergies (Unverified , 06/11/16) All Systems: reviewed and negative except above Subjective Patient feels weak and tired with N/V Objective Last 24 Hour Vital Signs Date Time Temp Pulse Resp B/P (MAP) Pulse Ox O2 Delivery O2 Flow Rate FiO2 02/08/18 09:35 Room Air 02/08/18 09:24 Room Air 02/08/18 08:51 82 139/78 02/08/18 08:07 98.2 82 18 139/78 (98) 100 98.2 02/08/18 04:00 97.2 77 16 140/75 (96) 96 97.2 02/08/18 00:00 96.8 75 16 125/70 (88) 97 96.8 02/07/18 21:25 139/68 (91) 02/07/18 21:00 Room Air 02/07/18 20:51 161/69 02/07/18 20:00 96.9 95 18 161/69 (99) 98 96.9 02/07/18 16:00 97.6 88 20 159/88 (111) 94 97.6 02/07/18 13:22 98.4 02/07/18 12:52 98.4 02/07/18 12:00 98.4 87 18 150/81 (104) 99 98.4 Intake and Output 02/07/18 02/08/18 19:00 07:00 Intake Total 300 ml Balance 300 ml Intake Oral 300 ml # Voids 2 1 Height (Feet): 4 Height (Inches): 8.00 Weight (Pounds): 120 General Appearance: WD/WN, no apparent distress EENT: normal ENT inspection Neck: normal alignment, supple Cardiovascular: normal rate, regular rhythm Respiratory/Chest: lungs clear, normal breath sounds Abdomen: normal bowel sounds, non tender, soft Edema: 1+ Pedal (L), 1+ Pedal (R) Mustapha Rodriguez MD Feb 08, 2018 11:55
[2018-02-08] MEDS ORDERED: Heparin Sod 1000 units/ml 10ml IV ONE (14:15)
--- NOTE | 2018-02-08 15:10 | Consultation ---
Consult Note Consult Note Cardiology for Dr Hammonds Full consult dictated # [id number] Rosy Griffin MD Feb 08, 2018 15:10
--- NOTE | 2018-02-08 18:10 | Internal Med Progress Note ---
Subjective Physician Name Loco Decker Attending Physician Rick Sepulveda MD Current Medications Medications (Trade) Dose Ordered Sig/Danielle Route PRN Reason Start Time Stop Time Status Last Admin Dose Admin Aspirin (Ecotrin) 81 mg DAILY ORAL 02/07/18 09:00 03/09/18 08:59 02/08/18 08:51 Calcium Acetate (Phoslo) 667 mg DAILY ORAL 02/07/18 09:00 03/09/18 08:59 02/08/18 08:50 Cinacalcet (Sensipar) 90 mg DAILY ORAL 02/07/18 09:00 03/09/18 08:59 02/08/18 08:51 Dextrose (Dextrose 50%) 25 ml STAT PRN IV Hypoglycemia 02/06/18 23:00 03/08/18 22:59 Dextrose (Dextrose 50%) 50 ml STAT PRN IV Hypoglycemia 02/06/18 23:00 03/08/18 22:59 Diphenhydramine HCl (Benadryl) 25 mg Q6H PRN IVP Itching 02/07/18 17:30 03/09/18 17:29 02/08/18 14:05 Glipizide (Glucotrol) 10 mg DAILY ORAL 02/07/18 09:00 03/09/18 08:59 02/07/18 08:41 Heparin Sodium (Porcine) (Heparin 5000 units/ml) 5,000 units EVERY 12 HOURS SUBQ 02/06/18 23:00 03/08/18 22:59 02/08/18 09:01 Hydralazine HCl (Apresoline) 50 mg Q6HR PRN ORAL For High Blood Pressure 02/07/18 00:00 03/09/18 00:00 02/07/18 20:51 Insulin Aspart (NovoLOG) BEFORE MEALS AND HS SUBQ 02/07/18 06:30 03/09/18 06:29 Lorazepam (Ativan 2mg/ml 1ml) 1 mg Q4H PRN IV For Pain 02/07/18 16:30 02/14/18 16:29 02/08/18 17:36 Lorazepam (Ativan 2mg/ml 1ml) 1 mg Q4H PRN IV Nausea & Vomiting 02/07/18 16:45 02/14/18 16:29 Metoclopramide HCl (Reglan) 5 mg Q6H PRN ORAL Nausea & Vomiting 02/07/18 16:30 03/09/18 16:29 Metoprolol Tartrate (Lopressor) 25 mg DAILY ORAL 02/07/18 09:00 03/09/18 08:59 02/08/18 08:51 Mirtazapine (Remeron) 15 mg BEDTIME ORAL 02/07/18 21:00 03/09/18 20:59 02/07/18 20:41 Ondansetron HCl (Zofran) 4 mg Q4H PRN IVP Nausea & Vomiting 02/07/18 16:30 03/09/18 16:29 02/08/18 17:41 Pantoprazole (Protonix) 40 mg DAILY ORAL 02/07/18 09:00 03/09/18 08:59 02/08/18 08:51 Sodium Chloride 1,000 ml @ 500 mls/hr Q2H PRN IVLG sbp<90 during hd 02/08/18 14:02 03/10/18 14:01 Allergies: Coded Allergies: No Known Allergies (Unverified , 06/11/16) ROS Limited/Unobtainable: No Constitutional: Reports: no symptoms HEENT: Reports: no symptoms Cardiovascular: Reports: no symptoms Respiratory: Reports: no symptoms Gastrointestinal/Abdominal: Reports: abdominal pain Genitourinary: Reports: no symptoms Neurologic/Psychiatric: Reports: no symptoms Subjective 32 YO F admitted with epigastric pain. Cover for Int Cristian-Dr Kyle. Objective Last Vital Signs Date Time Temp Pulse Resp B/P (MAP) Pulse Ox O2 Delivery O2 Flow Rate FiO2 02/08/18 16:00 98.1 78 18 148/74 (98) 97 98.1 02/08/18 09:35 Room Air General Appearance: WD/WN, no apparent distress, alert EENT: PERRL/EOMI, normal ENT inspection, TMs normal Neck: non-tender, normal alignment, supple, normal inspection Cardiovascular: normal peripheral pulses, normal rate, regular rhythm, no gallop/murmur, no JVD Respiratory/Chest: chest wall non-tender, lungs clear, normal breath sounds, no respiratory distress, no accessory muscle use Abdomen: normal bowel sounds, non tender, no mass, tender Extremities: normal range of motion, non-tender 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, no motor/sensory deficits Microbiology Date/Time Source Procedure Growth Status 02/06/18 21:21 Rectum Received Intake and Output 02/07/18 02/08/18 19:00 07:00 Intake Total 300 ml Balance 300 ml Intake Oral 300 ml # Voids 2 1 Assessment/Plan Problem List: (1) ESRD (end stage renal disease) on dialysis Assessment & Plan: Hemodialysis today 02/08/18 (2) Esophagitis Assessment & Plan: See GI note (3) Epigastric abdominal pain (4) CAD (coronary artery disease) (5) Hypertension Assessment & Plan: Continue lopressor (6) Asthma (7) Diabetes mellitus Assessment & Plan: Continue glipizide and novolog Status: not improved Loco Decker MD Feb 08, 2018 18:10
--- NOTE | 2018-02-08 18:37 | General Progress Note ---
Assessment/Plan Assessment/Plan Assessment - Gastroparesis - GERD - ESRD/HD - recurrent N/V, worsened with narcotics - abd pain Recommendations - PPI - BDZ trial, for pain and for vomiting - po as tolerated - elevated HOB - PPI - Avoid narcotics Subjective Allergies: Coded Allergies: No Known Allergies (Unverified , 06/11/16) Subjective Better today no vomiting pain is less Objective Last 24 Hour Vital Signs Date Time Temp Pulse Resp B/P (MAP) Pulse Ox O2 Delivery O2 Flow Rate FiO2 02/08/18 18:15 82 129/67 (87) 02/08/18 18:06 97.8 87 20 195/93 (127) 97.8 02/08/18 18:00 Room Air 02/08/18 16:00 98.1 78 18 148/74 (98) 97 98.1 02/08/18 14:00 97.2 86 20 126/66 (86) 97.2 02/08/18 14:00 Room Air 02/08/18 12:00 97.2 79 16 141/71 (94) 100 97.2 02/08/18 09:35 Room Air 02/08/18 09:24 Room Air 02/08/18 08:51 82 139/78 02/08/18 08:07 98.2 82 18 139/78 (98) 100 98.2 02/08/18 04:00 97.2 77 16 140/75 (96) 96 97.2 02/08/18 00:00 96.8 75 16 125/70 (88) 97 96.8 02/07/18 21:25 139/68 (91) 02/07/18 21:00 Room Air 02/07/18 20:51 161/69 02/07/18 20:00 96.9 95 18 161/69 (99) 98 96.9 Intake and Output 02/07/18 02/08/18 19:00 07:00 Intake Total 300 ml Balance 300 ml Intake Oral 300 ml # Voids 2 1 Height (Feet): 4 Height (Inches): 8.00 Weight (Pounds): 120 Objective WDWN NCAT supple CTA RRR abd soft ND NT no edema non focal Mary Dior MD Feb 08, 2018 18:37
--- NOTE | 2018-02-08 19:45 | Consultation ---
DATE OF CONSULTATION: 02/08/2018 CARDIOLOGY CONSULTATION CONSULTING PHYSICIAN: Rosy Griffin M.D. This consult is being done as coverage for Dr. Hammonds. REASON FOR CONSULT: Coronary artery disease and hypertension. HISTORY OF PRESENT ILLNESS: The patient is a 32-year-old, woman with a history of hypertension, asthma and diabetes coronary artery disease with previous stent placement and end-stage renal disease on hemodialysis. She is admitted with abdominal pain and recurrent nausea and vomiting, symptoms have been present over about the past month. In the emergency room, her blood pressure was 218/97 and pulse 100. She is admitted for further treatment, as she is unable to tolerate oral medications evaluation and treatment for hypertension with intravenous medications may be needed. PAST MEDICAL HISTORY: As noted above. MEDICATIONS: Medications prior to admission, aspirin, PhosLo, Sensipar, Benadryl, Glucotrol, Apresoline, Ativan, Reglan, Lopressor, Remeron, Zofran and Protonix. Medications at home Norvasc 10 mg daily, aspirin 81 mg daily, calcium acetate 667 mg daily, Sensipar 30 mg daily, glipizide 5 mg daily, Reglan 10 mg 3 times daily, metoprolol 25 mg daily, omeprazole 40 mg daily, Percocet 10/325 p.r.n., pantoprazole 40 mg daily, Phenergan 25 mg q.6 h., and senna 17.2 mg daily. ALLERGIES: No known drug allergies. SOCIAL HISTORY: The patient has no history of tobacco alcohol or drug use. PHYSICAL EXAMINATION: GENERAL: Alert, chronically ill appearing woman complaining of abdominal discomfort. She is undergoing dialysis currently. VITAL SIGNS: Blood pressure is 141/71, pulse 79 and regular, respirations 16, and afebrile. HEENT: Normocephalic and atraumatic. Sclerae anicteric. Oral mucosa are moist. NECK: Supple. There is no jugular venous distention. LUNGS: Clear to auscultation anteriorly. HEART: Regular rate and rhythm. S1 and S2 with no murmurs or S3. ABDOMEN: Mild diffuse tenderness. Normoactive bowel sounds. No palpable mass. EXTREMITIES: Left femoral hemodialysis catheter. A 2+ distal lower extremity pulses bilaterally. No edema. LABORATORY AND DIAGNOSTIC DATA: Hemoglobin 12.2, hematocrit 38, white blood count 8200, and platelets 219,000. Sodium 141, potassium 3.8, chloride 99, bicarbonate 33, BUN , and creatinine 6.9. EKG is pending. Abdominal is pending. ASSESSMENT AND RECOMMENDATIONS: The patient is an unfortunate 32-year-old woman with multiple chronic medical problems as outlined above, who was admitted with intractable nausea and vomiting. She had previously been diagnosed with gastroparesis and is being followed by Gastroenterology. With regard to her cardiac status, current issues include uncontrolled hypertension, she may require treatment with intravenous medications if unable to tolerate oral antihypertensives. For now, I would recommend continuing metoprolol and hydralazine at the current doses. Continue aspirin given the history of stents. We will review her previous records from [facility] to determine if further continuing metoprolol and hydralazine, continue aspirin, and would consider starting statin if no contraindication. We will review records from [facility] from her recent coronary stent procedures. We will review current EKG. Further recommendations will be made based on her clinical course and results of above testing. Rosy Griffni M.D. DR: RAMESH JOB#: [id number] CC:
[2018-02-08] MEDS: HydrALAZINE 50mg tab ORAL PRN (23:52)
[2018-02-09] VITALS (7 sets, daily range): BP systolic 114–207; BP diastolic 60–107
[2018-02-09] MEDS: LORazepam Inj 2mg/ml 1ml IV PRN ×3 (02:12→11:48)
[2018-02-09] MEDS: HydrALAZINE 50mg tab ORAL PRN (06:15)
[2018-02-09] MEDS: NovoLOG Insulin Flexpen SUBQ SCH ×4 (06:19→20:59)
[2018-02-09 07:07] LABS: BASOPHILS % (AUTO) 1.2 % (0.0-2.0); EOSINOPHILS % (AUTO) 0.2 % (0.0-3.0); HEMATOCRIT 40.9 % (37.0-47.0); LYMPHOCYTES % (AUTO) 15.4 % (20.0-45.0); MEAN CORPUSCULAR VOLUME 97 FL (80-99); NEUTROPHILS % (AUTO) 77.3 % (45.0-75.0); PLATELET COUNT 256 K/UL (150-450); RED BLOOD COUNT 4.22 M/UL (4.20-5.40); RED CELL DISTRIBUTION WIDTH 11.7 % (11.6-14.8); WHITE BLOOD COUNT 8.3 K/UL (4.8-10.8)
[2018-02-09 07:44] LABS: ANION GAP 10 mmol/L (5-15); BLOOD UREA NITROGEN 10 mg/dL (7-18); CALCIUM 8.3 MG/DL (8.5-10.1); CARBON DIOXIDE 28 MMOL/L (21-32); CHLORIDE 97 MMOL/L (98-107); CREATININE 5.6 MG/DL (0.55-1.30); POTASSIUM 4.2 MMOL/L (3.5-5.1); SODIUM 135 MMOL/L (136-145)
--- NOTE | 2018-02-09 08:16 | Nephrology Progress Note ---
Assessment/Plan Assessment/Plan A/P 1) ESRD- HS TTS - had HD yesterday 2) SHPT- sensipar and phoslo 3) HTN- stable 4) N/V- per GI mgmt Subjective Date patient seen: Feb 09, 2018 Time patient seen: 08:14 ROS Limited/Unobtainable: No Gastrointestinal/Abdominal: Reports: nausea, poor appetite Allergies: Coded Allergies: No Known Allergies (Unverified , 06/11/16) Subjective Patient feels weak. N/V improving. Eating bkfst Objective Last 24 Hour Vital Signs Date Time Temp Pulse Resp B/P (MAP) Pulse Ox O2 Delivery O2 Flow Rate FiO2 02/09/18 06:55 101 17 145/77 (99) 97 02/09/18 06:15 202/107 02/09/18 04:00 98.4 103 20 207/107 (140) 94 98.4 02/09/18 00:00 98.3 95 18 203/102 (135) 94 98.3 02/08/18 23:52 202/100 02/08/18 21:00 Room Air 02/08/18 20:00 98.5 80 17 149/74 (99) 96 98.5 02/08/18 18:15 82 129/67 (87) 02/08/18 18:06 97.8 87 20 195/93 (127) 97.8 02/08/18 18:00 Room Air 02/08/18 16:00 98.1 78 18 148/74 (98) 97 98.1 02/08/18 14:00 97.2 86 20 126/66 (86) 97.2 02/08/18 14:00 Room Air 02/08/18 12:00 97.2 79 16 141/71 (94) 100 97.2 02/08/18 09:35 Room Air 02/08/18 09:24 Room Air 02/08/18 08:51 82 139/78 Intake and Output 02/08/18 02/09/18 19:00 07:00 Intake Total 240 ml 480 ml Output Total 500 ml Balance -260 ml 480 ml Intake Oral 240 ml 480 ml Output Hemodialysis UF 500 ml Laboratory Tests 02/09/18 05:15: White Blood Count 8.3, Red Blood Count 4.22, Hemoglobin 13.0, Hematocrit 40.9, Mean Corpuscular Volume 97, Mean Corpuscular Hemoglobin 30.9, Mean Corpuscular Hemoglobin Concent 31.9L, Red Cell Distribution Width 11.7, Platelet Count 256, Mean Platelet Volume 7.4, Neutrophils (%) (Auto) 77.3H, Lymphocytes (%) (Auto) 15.4L, Monocytes (%) (Auto) 6.0, Eosinophils (%) (Auto) 0.2, Basophils (%) (Auto ) 1.2, Sodium Level 135L, Potassium Level 4.2, Chloride Level 97L, Carbon Dioxide Level 28, Anion Gap 10, Blood Urea Nitrogen 10, Creatinine 5.6H, Estimat Glomerular Filtration Rate 10.7, Glucose Level 131H, Calcium Level 8.3L Height (Feet): 4 Height (Inches): 8.00 Weight (Pounds): 120 General Appearance: WD/WN, no apparent distress EENT: normal ENT inspection, TMs normal Neck: normal alignment, supple Cardiovascular: normal rate, regular rhythm Respiratory/Chest: lungs clear, normal breath sounds Abdomen: non tender, soft Edema: no edema noted Arm (L), no edema noted Arm (R), no edema noted Leg (L), no edema noted Leg (R), no edema noted Pedal (L), no edema noted Pedal (R), no edema noted Generalized Mustapha Rodriguez MD Feb 09, 2018 08:16
[2018-02-09] MEDS: Calcium Acetate 667mg Tab ORAL SCH (09:56)
[2018-02-09] MEDS: Sensipar 30mg Tab ORAL SCH (09:56)
[2018-02-09] MEDS: Metoprolol 25mg tab ORAL SCH (09:57)
[2018-02-09] MEDS: GlipiZIDE 5mg tab ORAL SCH (09:57)
[2018-02-09] MEDS: Aspirin EC 81mg tab ORAL SCH (09:57)
[2018-02-09] MEDS: Heparin 5000 units/ml inj SUBQ SCH ×2 (09:58→20:59)
--- NOTE | 2018-02-09 11:34 | Nephrology Progress Note ---
Assessment/Plan Problem List: (1) ESRD (end stage renal disease) on dialysis (2) Diabetes mellitus (3) CAD (coronary artery disease) (4) Gastroparesis (5) Cyclic vomiting syndrome (6) Hypertension Plan HD on Saturday will discuss with GI Discussed with RN Subjective Subjective had abd pain earlier ok now Objective Objective Last 24 Hour Vital Signs Date Time Temp Pulse Resp B/P (MAP) Pulse Ox O2 Delivery O2 Flow Rate FiO2 02/09/18 09:57 98 114/69 02/09/18 08:00 97.5 98 20 114/69 (84) 97 97.5 02/09/18 06:55 101 17 145/77 (99) 97 02/09/18 06:15 202/107 02/09/18 04:00 98.4 103 20 207/107 (140) 94 98.4 02/09/18 00:00 98.3 95 18 203/102 (135) 94 98.3 02/08/18 23:52 202/100 02/08/18 21:00 Room Air 02/08/18 20:00 98.5 80 17 149/74 (99) 96 98.5 02/08/18 18:15 82 129/67 (87) 02/08/18 18:06 97.8 87 20 195/93 (127) 97.8 02/08/18 18:00 Room Air 02/08/18 16:00 98.1 78 18 148/74 (98) 97 98.1 02/08/18 14:00 97.2 86 20 126/66 (86) 97.2 02/08/18 14:00 Room Air 02/08/18 12:00 97.2 79 16 141/71 (94) 100 97.2 Intake and Output 02/08/18 02/09/18 19:00 07:00 Intake Total 240 ml 480 ml Output Total 500 ml Balance -260 ml 480 ml Intake Oral 240 ml 480 ml Output Hemodialysis UF 500 ml Laboratory Tests 02/09/18 05:15: White Blood Count 8.3, Red Blood Count 4.22, Hemoglobin 13.0, Hematocrit 40.9, Mean Corpuscular Volume 97, Mean Corpuscular Hemoglobin 30.9, Mean Corpuscular Hemoglobin Concent 31.9L, Red Cell Distribution Width 11.7, Platelet Count 256, Mean Platelet Volume 7.4, Neutrophils (%) (Auto) 77.3H, Lymphocytes (%) (Auto) 15.4L, Monocytes (%) (Auto) 6.0, Eosinophils (%) (Auto) 0.2, Basophils (%) (Auto ) 1.2, Sodium Level 135L, Potassium Level 4.2, Chloride Level 97L, Carbon Dioxide Level 28, Anion Gap 10, Blood Urea Nitrogen 10, Creatinine 5.6H, Estimat Glomerular Filtration Rate 10.7, Glucose Level 131H, Calcium Level 8.3L Height (Feet): 4 Height (Inches): 8.00 Weight (Pounds): 120 Cardiovascular: normal rate Respiratory/Chest: lungs clear Abdomen: soft Rick Sepulveda MD Feb 09, 2018 11:34
--- NOTE | 2018-02-09 13:24 | General Progress Note ---
Assessment/Plan Assessment/Plan Assessment - Gastroparesis - GERD - ESRD/HD - recurrent N/V, worsened with narcotics - abd pain Recommendations - PPI - Wean down PRN Ativan to 1/2 dose - po as tolerated - elevated HOB - PPI - Avoid narcotics Subjective Allergies: Coded Allergies: No Known Allergies (Unverified , 06/11/16) Subjective Better today no vomiting Objective Last 24 Hour Vital Signs Date Time Temp Pulse Resp B/P (MAP) Pulse Ox O2 Delivery O2 Flow Rate FiO2 02/09/18 12:00 98.5 90 20 129/71 (90) 100 98.5 02/09/18 09:57 98 114/69 02/09/18 08:00 97.5 98 20 114/69 (84) 97 97.5 02/09/18 06:55 101 17 145/77 (99) 97 02/09/18 06:15 202/107 02/09/18 04:00 98.4 103 20 207/107 (140) 94 98.4 02/09/18 00:00 98.3 95 18 203/102 (135) 94 98.3 02/08/18 23:52 202/100 02/08/18 21:00 Room Air 02/08/18 20:00 98.5 80 17 149/74 (99) 96 98.5 02/08/18 18:15 82 129/67 (87) 02/08/18 18:06 97.8 87 20 195/93 (127) 97.8 02/08/18 18:00 Room Air 02/08/18 16:00 98.1 78 18 148/74 (98) 97 98.1 02/08/18 14:00 97.2 86 20 126/66 (86) 97.2 02/08/18 14:00 Room Air Intake and Output 02/08/18 02/09/18 19:00 07:00 Intake Total 240 ml 480 ml Output Total 500 ml Balance -260 ml 480 ml Intake Oral 240 ml 480 ml Output Hemodialysis UF 500 ml Laboratory Tests 02/09/18 05:15: White Blood Count 8.3, Red Blood Count 4.22, Hemoglobin 13.0, Hematocrit 40.9, Mean Corpuscular Volume 97, Mean Corpuscular Hemoglobin 30.9, Mean Corpuscular Hemoglobin Concent 31.9L, Red Cell Distribution Width 11.7, Platelet Count 256, Mean Platelet Volume 7.4, Neutrophils (%) (Auto) 77.3H, Lymphocytes (%) (Auto) 15.4L, Monocytes (%) (Auto) 6.0, Eosinophils (%) (Auto) 0.2, Basophils (%) (Auto ) 1.2, Sodium Level 135L, Potassium Level 4.2, Chloride Level 97L, Carbon Dioxide Level 28, Anion Gap 10, Blood Urea Nitrogen 10, Creatinine 5.6H, Estimat Glomerular Filtration Rate 10.7, Glucose Level 131H, Calcium Level 8.3L Height (Feet): 4 Height (Inches): 8.00 Weight (Pounds): 120 Objective WDWN NCAT supple CTA RRR abd soft ND NT no edema non focal Mary Dior MD Feb 09, 2018 13:24
[2018-02-09] MEDS: DiphenhydrAMINE 50mg/ml Inj IVP PRN (13:54)
--- NOTE | 2018-02-09 15:04 | Cardiology Progress Note ---
Assessment/Plan Problem List: (1) End stage renal disease (2) Gastroparesis (3) Cyclic vomiting syndrome (4) Coronary artery disease (5) Diabetes mellitus Status: stable, progressing Status Narrative Pt w/ hx of CAD, w/ multivessel PCI ( LM, LAD, LCX, RCA) in in setting of nonST elevation SC. She has no current anginal symptoms She is adm w/ n/v and abd pain. Recent adm to [facility] last month w/ similar sx - felt due to gastroparesis. Assessment/Plan Will restart plavix, and continue aspirin. restart statin ( atorvastatin 40 mg/d) HD per Dr. Sepulveda - pt was dialyzed on 02/08. GI evaluation pending. Subjective ROS Limited/Unobtainable: No Subjective Cardiology for Dr. Hammonds Pt c/o nausea and abd discomfort Objective Last 24 Hour Vital Signs Date Time Temp Pulse Resp B/P (MAP) Pulse Ox O2 Delivery O2 Flow Rate FiO2 02/09/18 12:00 98.5 90 20 129/71 (90) 100 98.5 02/09/18 09:57 98 114/69 02/09/18 09:00 Room Air 02/09/18 08:00 97.5 98 20 114/69 (84) 97 97.5 02/09/18 06:55 101 17 145/77 (99) 97 02/09/18 06:15 202/107 02/09/18 04:00 98.4 103 20 207/107 (140) 94 98.4 02/09/18 00:00 98.3 95 18 203/102 (135) 94 98.3 02/08/18 23:52 202/100 02/08/18 21:00 Room Air 02/08/18 20:00 98.5 80 17 149/74 (99) 96 98.5 02/08/18 18:15 82 129/67 (87) 02/08/18 18:06 97.8 87 20 195/93 (127) 97.8 02/08/18 18:00 Room Air 02/08/18 16:00 98.1 78 18 148/74 (98) 97 98.1 General Appearance: WD/WN, alert, other - chronically ill-appearing EENT: PERRL/EOMI Neck: supple, no JVD, other - L IJ catheter Rhythm: NSR Cardiovascular: normal rate, regular rhythm, no gallop/murmur Respiratory/Chest: lungs clear Abdomen: normal bowel sounds, non tender, soft Extremities: no swelling, pitting - L femoral HD catheter, other Intake and Output 02/08/18 02/09/18 19:00 07:00 Intake Total 240 ml 480 ml Output Total 500 ml Balance -260 ml 480 ml Intake Oral 240 ml 480 ml Output Hemodialysis UF 500 ml Laboratory Tests Test 02/09/18 05:15 White Blood Count 8.3 K/UL (4.8-10.8) Red Blood Count 4.22 M/UL (4.20-5.40) Hemoglobin 13.0 G/DL (12.0-16.0) Hematocrit 40.9 % (37.0-47.0) Mean Corpuscular Volume 97 FL (80-99) Mean Corpuscular Hemoglobin 30.9 PG (27.0-31.0) Mean Corpuscular Hemoglobin Concent 31.9 G/DL (32.0-36.0) L Red Cell Distribution Width 11.7 % (11.6-14.8) Platelet Count 256 K/UL (150-450) Mean Platelet Volume 7.4 FL (6.5-10.1) Neutrophils (%) (Auto) 77.3 % (45.0-75.0) H Lymphocytes (%) (Auto) 15.4 % (20.0-45.0) L Monocytes (%) (Auto) 6.0 % (1.0-10.0) Eosinophils (%) (Auto) 0.2 % (0.0-3.0) Basophils (%) (Auto) 1.2 % (0.0-2.0) Sodium Level 135 MMOL/L (136-145) L Potassium Level 4.2 MMOL/L (3.5-5.1) Chloride Level 97 MMOL/L (98-107) L Carbon Dioxide Level 28 MMOL/L (21-32) Anion Gap 10 mmol/L (5-15) Blood Urea Nitrogen 10 mg/dL (7-18) Creatinine 5.6 MG/DL (0.55-1.30) H Estimat Glomerular Filtration Rate 10.7 mL/min (>60) Glucose Level 131 MG/DL (74-106) H Calcium Level 8.3 MG/DL (8.5-10.1) L Microbiology Date/Time Source Procedure Growth Status 02/06/18 21:21 Nasal Nares MRSA Culture - Final NO METHICILLIN RESISTANT STAPH AUREUS... Complete 02/06/18 21:21 Rectum - Final NO CARBAPENEM-RESISTANT ENTEROBACTERI... Complete 02/06/18 21:21 Rectum VRE Culture - Final NO VANCOMYCIN RESISTANT ENTEROCOCCUS ... Complete Rosy Griffin MD Feb 09, 2018 15:04
--- NOTE | 2018-02-09 15:28 | Internal Med Progress Note ---
Subjective Date of Service: Feb 09, 2018 Physician Name Loco Decker Attending Physician Rick Sepulveda MD Current Medications Medications (Trade) Dose Ordered Sig/Danielle Route PRN Reason Start Time Stop Time Status Last Admin Dose Admin Aspirin (Ecotrin) 81 mg DAILY ORAL 02/07/18 09:00 03/09/18 08:59 02/09/18 09:57 Atorvastatin Calcium (Lipitor) 40 mg BEDTIME ORAL 02/09/18 21:00 03/11/18 20:59 Calcium Acetate (Phoslo) 667 mg DAILY ORAL 02/07/18 09:00 03/09/18 08:59 02/09/18 09:56 Cinacalcet (Sensipar) 90 mg DAILY ORAL 02/07/18 09:00 03/09/18 08:59 02/09/18 09:56 Clopidogrel Bisulfate (Plavix) 75 mg DAILY ORAL 02/10/18 09:00 03/12/18 08:59 Dextrose (Dextrose 50%) 25 ml STAT PRN IV Hypoglycemia 02/06/18 23:00 03/08/18 22:59 Dextrose (Dextrose 50%) 50 ml STAT PRN IV Hypoglycemia 02/06/18 23:00 03/08/18 22:59 Diphenhydramine HCl (Benadryl) 25 mg Q6H PRN IVP Itching 02/07/18 17:30 03/09/18 17:29 02/09/18 13:54 Glipizide (Glucotrol) 10 mg DAILY ORAL 02/07/18 09:00 03/09/18 08:59 02/09/18 09:57 Heparin Sodium (Porcine) (Heparin 5000 units/ml) 5,000 units EVERY 12 HOURS SUBQ 02/06/18 23:00 03/08/18 22:59 02/09/18 09:58 Hydralazine HCl (Apresoline) 50 mg Q6HR PRN ORAL For High Blood Pressure 02/07/18 00:00 03/09/18 00:00 02/09/18 06:15 Insulin Aspart (NovoLOG) BEFORE MEALS AND HS SUBQ 02/07/18 06:30 03/09/18 06:29 02/09/18 06:19 Lorazepam (Ativan 2mg/ml 1ml) 0.5 mg Q4H PRN IV For Pain 02/09/18 16:30 02/16/18 16:29 Lorazepam (Ativan 2mg/ml 1ml) 1 mg Q4H PRN IV Nausea & Vomiting 02/07/18 16:45 02/14/18 16:29 Metoclopramide HCl (Reglan) 5 mg Q6H PRN ORAL Nausea & Vomiting 02/07/18 16:30 03/09/18 16:29 Metoprolol Tartrate (Lopressor) 25 mg DAILY ORAL 02/07/18 09:00 03/09/18 08:59 02/09/18 09:57 Mirtazapine (Remeron) 15 mg BEDTIME ORAL 02/07/18 21:00 03/09/18 20:59 02/08/18 20:50 Ondansetron HCl (Zofran) 4 mg Q4H PRN IVP Nausea & Vomiting 02/07/18 16:30 03/09/18 16:29 02/08/18 17:41 Pantoprazole (Protonix) 40 mg DAILY ORAL 02/07/18 09:00 03/09/18 08:59 02/09/18 09:56 Sodium Chloride 1,000 ml @ 500 mls/hr Q2H PRN IVLG sbp<90 during hd 02/08/18 14:02 03/10/18 14:01 Allergies: Coded Allergies: No Known Allergies (Unverified , 06/11/16) ROS Limited/Unobtainable: No Constitutional: Reports: no symptoms HEENT: Reports: no symptoms Cardiovascular: Reports: no symptoms Respiratory: Reports: no symptoms Gastrointestinal/Abdominal: Reports: abdominal pain Genitourinary: Reports: no symptoms Neurologic/Psychiatric: Reports: no symptoms Subjective 32 YO F admitted with epigastric pain. Cover for Luis Kyle. Objective Last Vital Signs Date Time Temp Pulse Resp B/P (MAP) Pulse Ox O2 Delivery O2 Flow Rate FiO2 02/09/18 12:00 98.5 90 20 129/71 (90) 100 98.5 02/09/18 09:00 Room Air Laboratory Tests Test 02/09/18 05:15 White Blood Count 8.3 K/UL (4.8-10.8) Red Blood Count 4.22 M/UL (4.20-5.40) Hemoglobin 13.0 G/DL (12.0-16.0) Hematocrit 40.9 % (37.0-47.0) Mean Corpuscular Volume 97 FL (80-99) Mean Corpuscular Hemoglobin 30.9 PG (27.0-31.0) Mean Corpuscular Hemoglobin Concent 31.9 G/DL (32.0-36.0) L Red Cell Distribution Width 11.7 % (11.6-14.8) Platelet Count 256 K/UL (150-450) Mean Platelet Volume 7.4 FL (6.5-10.1) Neutrophils (%) (Auto) 77.3 % (45.0-75.0) H Lymphocytes (%) (Auto) 15.4 % (20.0-45.0) L Monocytes (%) (Auto) 6.0 % (1.0-10.0) Eosinophils (%) (Auto) 0.2 % (0.0-3.0) Basophils (%) (Auto) 1.2 % (0.0-2.0) Sodium Level 135 MMOL/L (136-145) L Potassium Level 4.2 MMOL/L (3.5-5.1) Chloride Level 97 MMOL/L (98-107) L Carbon Dioxide Level 28 MMOL/L (21-32) Anion Gap 10 mmol/L (5-15) Blood Urea Nitrogen 10 mg/dL (7-18) Creatinine 5.6 MG/DL (0.55-1.30) H Estimat Glomerular Filtration Rate 10.7 mL/min (>60) Glucose Level 131 MG/DL (74-106) H Calcium Level 8.3 MG/DL (8.5-10.1) L Microbiology Date/Time Source Procedure Growth Status 02/06/18 21:21 Nasal Nares MRSA Culture - Final NO METHICILLIN RESISTANT STAPH AUREUS... Complete 02/06/18 21:21 Rectum - Final NO CARBAPENEM-RESISTANT ENTEROBACTERI... Complete 02/06/18 21:21 Rectum VRE Culture - Final NO VANCOMYCIN RESISTANT ENTEROCOCCUS ... Complete Intake and Output 02/08/18 02/09/18 19:00 07:00 Intake Total 240 ml 480 ml Output Total 500 ml Balance -260 ml 480 ml Intake Oral 240 ml 480 ml Output Hemodialysis UF 500 ml Objective General Appearance: WD/WN, no apparent distress, alert EENT: PERRL/EOMI, normal ENT inspection, TMs normal Neck: non-tender, normal alignment, supple, normal inspection Cardiovascular: normal peripheral pulses, normal rate, regular rhythm, no gallop/murmur, no JVD Respiratory/Chest: chest wall non-tender, lungs clear, normal breath sounds, no respiratory distress, no accessory muscle use Abdomen: normal bowel sounds, non tender, no mass, tender Extremities: normal range of motion, non-tender 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
[2018-02-09] MEDS ORDERED: LORazepam Inj 2mg/ml 1ml IV PRN (16:30)
[2018-02-09] MEDS: Atorvastatin 20mg tab ORAL SCH (20:58)
[2018-02-10] MEDS: DiphenhydrAMINE 50mg/ml Inj IVP PRN ×2 (03:01→09:47)
[2018-02-10] MEDS: NovoLOG Insulin Flexpen SUBQ SCH ×4 (06:30→21:00)
[2018-02-10 08:37] VITALS: BP 170/111
[2018-02-10] MEDS: Aspirin EC 81mg tab ORAL SCH (09:00)
[2018-02-10] MEDS: Calcium Acetate 667mg Tab ORAL SCH (09:00)
[2018-02-10] MEDS: Sensipar 30mg Tab ORAL SCH (09:00)
[2018-02-10] MEDS: Metoprolol 25mg tab ORAL SCH (09:46)
[2018-02-10] MEDS: Heparin 5000 units/ml inj SUBQ SCH ×2 (09:51→20:51)
[2018-02-10] MEDS ORDERED: Heparin Sod 1000 units/ml 10ml IV PRN (11:00)
[2018-02-10 11:05] LABS: BASOPHILS % (AUTO) 1.4 % (0.0-2.0); EOSINOPHILS % (AUTO) 0.8 % (0.0-3.0); HEMATOCRIT 44.5 % (37.0-47.0); HEMOGLOBIN 14.5 G/DL (12.0-16.0); LYMPHOCYTES % (AUTO) 13.4 % (20.0-45.0); MEAN CORPUSCULAR VOLUME 97 FL (80-99); MONOCYTES % (AUTO) 8.2 % (1.0-10.0); NEUTROPHILS % (AUTO) 76.2 % (45.0-75.0); PLATELET COUNT 315 K/UL (150-450); RED CELL DISTRIBUTION WIDTH 12.6 % (11.6-14.8); WHITE BLOOD COUNT 10.1 K/UL (4.8-10.8)
[2018-02-10 11:10] LABS: ANION GAP 9 mmol/L (5-15); BLOOD UREA NITROGEN 19 mg/dL (7-18); CALCIUM 7.9 MG/DL (8.5-10.1); CARBON DIOXIDE 29 MMOL/L (21-32); CHLORIDE 93 MMOL/L (98-107); CREATININE 7.4 MG/DL (0.55-1.30); POTASSIUM 4.2 MMOL/L (3.5-5.1); SODIUM 131 MMOL/L (136-145)
--- NOTE | 2018-02-10 11:18 | Nephrology Progress Note ---
Assessment/Plan Problem List: (1) ESRD (end stage renal disease) on dialysis (2) Diabetes mellitus (3) CAD (coronary artery disease) (4) Gastroparesis (5) Cyclic vomiting syndrome (6) Hypertension (7) Constipation Assessment: no BM for 4 days Plan HD on Saturday Discussed with dr Dior Discussed with RN start Tramadol PRN Laxatives and enemas Subjective Subjective C/O abd pain crying Objective Objective Last 24 Hour Vital Signs Date Time Temp Pulse Resp B/P (MAP) Pulse Ox O2 Delivery O2 Flow Rate FiO2 02/10/18 09:46 92 170/111 02/10/18 08:37 98.8 92 20 170/111 (130) 99 98.8 02/09/18 21:00 Room Air 02/09/18 20:00 98.3 78 18 116/60 (78) 93 98.3 02/09/18 16:00 99.0 81 20 130/74 (92) 96 99.0 02/09/18 12:00 98.5 90 20 129/71 (90) 100 98.5 Intake and Output 02/09/18 02/10/18 19:00 07:00 Intake Total 480 ml 480 ml Output Total 0 ml Balance 480 ml 480 ml Intake Oral 480 ml 480 ml Output Urine Total 0 ml Laboratory Tests 02/10/18 10:20: White Blood Count 10.1, Red Blood Count 4.60, Hemoglobin 14.5, Hematocrit 44.5, Mean Corpuscular Volume 97, Mean Corpuscular Hemoglobin 31.6H, Mean Corpuscular Hemoglobin Concent 32.6, Red Cell Distribution Width 12.6, Platelet Count 315, Mean Platelet Volume 7.6, Neutrophils (%) (Auto) 76.2H, Lymphocytes (%) (Auto) 13.4L, Monocytes (%) (Auto) 8.2, Eosinophils (%) (Auto) 0.8, Basophils (%) (Auto ) 1.4, Sodium Level 131L, Potassium Level 4.2, Chloride Level 93L, Carbon Dioxide Level 29, Anion Gap 9, Blood Urea Nitrogen 19H, Creatinine 7.4H, Estimat Glomerular Filtration Rate 7.6, Glucose Level 64L, Calcium Level 7.9L Height (Feet): 4 Height (Inches): 8.00 Weight (Pounds): 120 Respiratory/Chest: lungs clear Abdomen: tender Extremities: other - no edema Rick Sepulveda MD Feb 10, 2018 11:18
[2018-02-10] MEDS ORDERED: Fleet's Mineral Oil Enema RECTAL ONE (11:30)
[2018-02-10 12:00] VITALS: BP 175/100
[2018-02-10] MEDS: traMADol 50mg tab ORAL PRN (12:18)
[2018-02-10] MEDS: LORazepam 1mg tab ORAL PRN ×2 (15:00→22:56)
--- NOTE | 2018-02-10 15:51 | General Progress Note ---
Assessment/Plan Status: stable Assessment/Plan mdd Anxiety d/o insomnia Remeron 15mg po qhs provided ro/st nurse to contact GI recommend to dc iv ativan and benadryl Subjective Date patient seen: Feb 10, 2018 Gastrointestinal/Abdominal: Reports: abdominal pain Neurologic/Psychiatric: Reports: anxiety, depressed, emotional problems Allergies: Coded Allergies: No Known Allergies (Unverified , 06/11/16) Subjective the pt is tearful and c/o severe abdominal pain Objective Last 24 Hour Vital Signs Date Time Temp Pulse Resp B/P (MAP) Pulse Ox O2 Delivery O2 Flow Rate FiO2 02/10/18 12:48 98.8 02/10/18 12:18 98.8 02/10/18 12:00 98.8 98 20 175/100 (125) 100 98.8 02/10/18 09:46 92 170/111 02/10/18 09:00 Room Air 02/10/18 08:37 98.8 92 20 170/111 (130) 99 98.8 02/09/18 21:00 Room Air 02/09/18 20:00 98.3 78 18 116/60 (78) 93 98.3 02/09/18 16:00 99.0 81 20 130/74 (92) 96 99.0 Intake and Output 02/09/18 02/10/18 19:00 07:00 Intake Total 480 ml 480 ml Output Total 0 ml Balance 480 ml 480 ml Intake Oral 480 ml 480 ml Output Urine Total 0 ml Laboratory Tests 02/10/18 10:20: White Blood Count 10.1, Red Blood Count 4.60, Hemoglobin 14.5, Hematocrit 44.5, Mean Corpuscular Volume 97, Mean Corpuscular Hemoglobin 31.6H, Mean Corpuscular Hemoglobin Concent 32.6, Red Cell Distribution Width 12.6, Platelet Count 315, Mean Platelet Volume 7.6, Neutrophils (%) (Auto) 76.2H, Lymphocytes (%) (Auto) 13.4L, Monocytes (%) (Auto) 8.2, Eosinophils (%) (Auto) 0.8, Basophils (%) (Auto ) 1.4, Sodium Level 131L, Potassium Level 4.2, Chloride Level 93L, Carbon Dioxide Level 29, Anion Gap 9, Blood Urea Nitrogen 19H, Creatinine 7.4H, Estimat Glomerular Filtration Rate 7.6, Glucose Level 64L, Calcium Level 7.9L Height (Feet): 4 Height (Inches): 8.00 Weight (Pounds): 120 General Appearance: alert, severe distress Branden Amos MD Feb 10, 2018 15:51
[2018-02-10 16:00] VITALS: BP 148/80
[2018-02-10] MEDS: HYDROmorphone 1mg/ml Carpuject IVP PRN ×2 (16:20→22:00)
--- NOTE | 2018-02-10 18:14 | Internal Med Progress Note ---
Subjective Date of Service: Feb 10, 2018 Physician Name Loco Decker Attending Physician Rick Sepulveda MD Current Medications Medications (Trade) Dose Ordered Sig/Danielle Route PRN Reason Start Time Stop Time Status Last Admin Dose Admin Aspirin (Ecotrin) 81 mg DAILY ORAL 02/07/18 09:00 03/09/18 08:59 02/09/18 09:57 Atorvastatin Calcium (Lipitor) 40 mg BEDTIME ORAL 02/09/18 21:00 03/11/18 20:59 02/09/18 20:58 Calcium Acetate (Phoslo) 667 mg DAILY ORAL 02/07/18 09:00 03/09/18 08:59 02/09/18 09:56 Cinacalcet (Sensipar) 90 mg DAILY ORAL 02/07/18 09:00 03/09/18 08:59 02/09/18 09:56 Clopidogrel Bisulfate (Plavix) 75 mg DAILY ORAL 02/10/18 09:00 03/12/18 08:59 Dextrose (Dextrose 50%) 25 ml STAT PRN IV Hypoglycemia 02/06/18 23:00 03/08/18 22:59 Dextrose (Dextrose 50%) 50 ml STAT PRN IV Hypoglycemia 02/06/18 23:00 03/08/18 22:59 Diphenhydramine HCl (Benadryl) 25 mg Q6H PRN ORAL Itching 02/10/18 11:15 03/12/18 11:14 Heparin Sodium (Porcine) (Heparin 5000 units/ml) 5,000 units EVERY 12 HOURS SUBQ 02/06/18 23:00 03/08/18 22:59 02/10/18 09:51 Heparin Sodium (Porcine) (Heparin Sod 1000 units/ml 10ml) 500 unit ONCE PRN IV FOR HD USE ONLY 02/10/18 11:00 02/11/18 23:59 Hydralazine HCl (Apresoline) 50 mg Q6HR PRN ORAL For High Blood Pressure 02/07/18 00:00 03/09/18 00:00 02/09/18 06:15 Hydromorphone HCl (Dilaudid) 0.5 mg Q4H PRN IVP For Pain 02/10/18 15:30 02/17/18 15:29 02/10/18 16:20 Insulin Aspart (NovoLOG) BEFORE MEALS AND HS SUBQ 02/07/18 06:30 03/09/18 06:29 02/09/18 06:19 Lorazepam (Ativan) 0.5 mg Q4H PRN ORAL Anxiety/agitation 02/10/18 11:15 02/17/18 11:14 Lorazepam (Ativan) 1 mg Q4H PRN ORAL Nausea & Vomiting 02/10/18 11:15 02/17/18 11:14 02/10/18 15:00 Metoclopramide HCl (Reglan) 5 mg Q6H PRN ORAL Nausea & Vomiting 02/07/18 16:30 03/09/18 16:29 Metoprolol Tartrate (Lopressor) 25 mg DAILY ORAL 02/07/18 09:00 03/09/18 08:59 02/10/18 09:46 Mirtazapine (Remeron) 15 mg BEDTIME ORAL 02/07/18 21:00 03/09/18 20:59 02/09/18 20:58 Ondansetron HCl (Zofran) 4 mg Q4H PRN IVP Nausea & Vomiting 02/07/18 16:30 03/09/18 16:29 02/08/18 17:41 Pantoprazole (Protonix) 40 mg DAILY ORAL 02/07/18 09:00 03/09/18 08:59 02/09/18 09:56 Polyethylene Glycol (Miralax) 17 gm EVERY 8 HOURS ORAL 02/10/18 22:00 03/12/18 21:59 Sodium Chloride 1,000 ml @ 500 mls/hr Q2H PRN IVLG sbp<90 during hd 02/10/18 11:00 02/11/18 23:59 Tramadol HCl (Ultram) 50 mg Q8H PRN ORAL pain 4-10 02/10/18 11:15 02/17/18 11:14 02/10/18 12:18 Allergies: Coded Allergies: No Known Allergies (Unverified , 06/11/16) ROS Limited/Unobtainable: No Constitutional: Reports: no symptoms HEENT: Reports: no symptoms Cardiovascular: Reports: no symptoms Respiratory: Reports: no symptoms Gastrointestinal/Abdominal: Reports: abdominal pain Genitourinary: Reports: no symptoms Neurologic/Psychiatric: Reports: no symptoms Subjective 32 YO F admitted with epigastric pain. Cover for Int Misa Kyle. Objective Last Vital Signs Date Time Temp Pulse Resp B/P (MAP) Pulse Ox O2 Delivery O2 Flow Rate FiO2 02/10/18 17:32 98.8 02/10/18 16:00 103 20 148/80 (102) 98 02/10/18 09:00 Room Air Laboratory Tests Test 02/10/18 10:20 White Blood Count 10.1 K/UL (4.8-10.8) Red Blood Count 4.60 M/UL (4.20-5.40) Hemoglobin 14.5 G/DL (12.0-16.0) Hematocrit 44.5 % (37.0-47.0) Mean Corpuscular Volume 97 FL (80-99) Mean Corpuscular Hemoglobin 31.6 PG (27.0-31.0) H Mean Corpuscular Hemoglobin Concent 32.6 G/DL (32.0-36.0) Red Cell Distribution Width 12.6 % (11.6-14.8) Platelet Count 315 K/UL (150-450) Mean Platelet Volume 7.6 FL (6.5-10.1) Neutrophils (%) (Auto) 76.2 % (45.0-75.0) H Lymphocytes (%) (Auto) 13.4 % (20.0-45.0) L Monocytes (%) (Auto) 8.2 % (1.0-10.0) Eosinophils (%) (Auto) 0.8 % (0.0-3.0) Basophils (%) (Auto) 1.4 % (0.0-2.0) Sodium Level 131 MMOL/L (136-145) L Potassium Level 4.2 MMOL/L (3.5-5.1) Chloride Level 93 MMOL/L (98-107) L Carbon Dioxide Level 29 MMOL/L (21-32) Anion Gap 9 mmol/L (5-15) Blood Urea Nitrogen 19 mg/dL (7-18) H Creatinine 7.4 MG/DL (0.55-1.30) H Estimat Glomerular Filtration Rate 7.6 mL/min (>60) Glucose Level 64 MG/DL (74-106) L Calcium Level 7.9 MG/DL (8.5-10.1) L Intake and Output 02/09/18 02/10/18 19:00 07:00 Intake Total 480 ml 480 ml Output Total 0 ml Balance 480 ml 480 ml Intake Oral 480 ml 480 ml Output Urine Total 0 ml Objective General Appearance: WD/WN, no apparent distress, alert EENT: PERRL/EOMI, normal ENT inspection, TMs normal Neck: non-tender, normal alignment, supple, normal inspection Cardiovascular: normal peripheral pulses, normal rate, regular rhythm, no gallop/murmur, no JVD Respiratory/Chest: chest wall non-tender, lungs clear, normal breath sounds, no respiratory distress, no accessory muscle use Abdomen: normal bowel sounds, non tender, no mass, tender Extremities: normal range of motion, non-tender Neurologic: pharmacist [facility] II-XII grossly normal, no motor/sensory deficits Assessment/Plan Problem List: (1) ESRD (end stage renal disease) on dialysis Assessment & Plan: Next Hemodialysis 02/11/18-see nephrology note (2) Esophagitis Assessment & Plan: See GI note (3) Epigastric abdominal pain (4) CAD (coronary artery disease) (5) Hypertension Assessment & Plan: Continue lopressor (6) Asthma (7) Diabetes mellitus Assessment & Plan: Continue glipizide and novolog Status: progressing Loco Decker MD Feb 10, 2018 18:14
[2018-02-10 20:29] VITALS: BP 111/69
[2018-02-10] MEDS: Atorvastatin 20mg tab ORAL SCH (20:50)
[2018-02-10] MEDS: Miralax 17gm pkt ORAL SCH (22:00)
--- NOTE | 2018-02-10 23:53 | General Progress Note ---
Assessment/Plan Assessment/Plan Assessment - Gastroparesis - GERD - known extensive coronary and abdominal vascular disease, rasing suspicion for intestinal ischemia - ESRD/HD - recurrent N/V, worsened with narcotics - abd pain Recommendations - PPI - Check CT scan abd and pelvis with CT angiogram of mesenteric vessels - EGD later this week - Vascular surgery opinion - check stool OB - check lactic acid - po as tolerated - elevated HOB - PPI Subjective Allergies: Coded Allergies: No Known Allergies (Unverified , 06/11/16) Subjective was resting comfortably this am at my visit subsequently ate breakfast and noted severe abd pain patient with prior w/u at [facility] last EGD 06/2017, last CT 10/2017, last CT angio (01/2016) patient with extensive vascular calcifications on 2016 CT angio Objective Last 24 Hour Vital Signs Date Time Temp Pulse Resp B/P (MAP) Pulse Ox O2 Delivery O2 Flow Rate FiO2 02/10/18 20:29 98.5 87 20 111/69 (83) 97 98.5 02/10/18 17:32 98.8 02/10/18 16:20 98.8 02/10/18 16:00 99.3 103 20 148/80 (102) 98 99.3 02/10/18 12:48 98.8 02/10/18 12:18 98.8 02/10/18 12:00 98.8 98 20 175/100 (125) 100 98.8 02/10/18 09:46 92 170/111 02/10/18 09:00 Room Air 02/10/18 08:37 98.8 92 20 170/111 (130) 99 98.8 Intake and Output 02/09/18 02/10/18 19:00 07:00 Intake Total 480 ml 480 ml Output Total 0 ml Balance 480 ml 480 ml Intake Oral 480 ml 480 ml Output Urine Total 0 ml Laboratory Tests 02/10/18 10:20: White Blood Count 10.1, Red Blood Count 4.60, Hemoglobin 14.5, Hematocrit 44.5, Mean Corpuscular Volume 97, Mean Corpuscular Hemoglobin 31.6H, Mean Corpuscular Hemoglobin Concent 32.6, Red Cell Distribution Width 12.6, Platelet Count 315, Mean Platelet Volume 7.6, Neutrophils (%) (Auto) 76.2H, Lymphocytes (%) (Auto) 13.4L, Monocytes (%) (Auto) 8.2, Eosinophils (%) (Auto) 0.8, Basophils (%) (Auto ) 1.4, Sodium Level 131L, Potassium Level 4.2, Chloride Level 93L, Carbon Dioxide Level 29, Anion Gap 9, Blood Urea Nitrogen 19H, Creatinine 7.4H, Estimat Glomerular Filtration Rate 7.6, Glucose Level 64L, Calcium Level 7.9L Height (Feet): 4 Height (Inches): 8.00 Weight (Pounds): 120 Objective WDWN NCAT supple CTA RRR abd soft ND NT no edema non focal Mary Dior MD Feb 10, 2018 23:53
[2018-02-11] VITALS (10 sets, daily range): BP systolic 105–150; BP diastolic 58–88
[2018-02-11] MEDS ORDERED: Isovue-300 100ml vial INJ PRN
[2018-02-11] MEDS: HYDROmorphone 1mg/ml Carpuject IVP PRN ×2 (04:17→20:59)
[2018-02-11] MEDS: Miralax 17gm pkt ORAL SCH ×3 (05:53→21:02)
[2018-02-11] MEDS: NovoLOG Insulin Flexpen SUBQ SCH ×5 (06:30→21:00)
[2018-02-11 07:10] LABS: BASOPHILS % (AUTO) 1.3 % (0.0-2.0); EOSINOPHILS % (AUTO) 1.7 % (0.0-3.0); HEMATOCRIT 36.7 % (37.0-47.0); LYMPHOCYTES % (AUTO) 31.9 % (20.0-45.0); MEAN CORPUSCULAR VOLUME 98 FL (80-99); MONOCYTES % (AUTO) 9.8 % (1.0-10.0); NEUTROPHILS % (AUTO) 55.3 % (45.0-75.0); PLATELET COUNT 252 K/UL (150-450); RED BLOOD COUNT 3.76 M/UL (4.20-5.40); RED CELL DISTRIBUTION WIDTH 12.9 % (11.6-14.8); WHITE BLOOD COUNT 8.5 K/UL (4.8-10.8)
[2018-02-11] MEDS: Metoprolol 25mg tab ORAL SCH (07:42)
[2018-02-11] MEDS: Calcium Acetate 667mg Tab ORAL SCH (07:42)
[2018-02-11] MEDS: Aspirin EC 81mg tab ORAL SCH (07:42)
[2018-02-11] MEDS: Sensipar 30mg Tab ORAL SCH (07:43)
[2018-02-11] MEDS: Heparin 5000 units/ml inj SUBQ SCH ×2 (07:44→21:00)
[2018-02-11 07:59] LABS: ALANINE AMINOTRANSFERASE 12 U/L (12-78); ALBUMIN 3.3 G/DL (3.4-5.0); ALKALINE PHOSPHATASE 158 U/L (46-116); ANION GAP 9 mmol/L (5-15); ASPARTATE AMINO TRANSFERASE 13 U/L (15-37); BILIRUBIN,TOTAL 0.6 MG/DL (0.2-1.0); BLOOD UREA NITROGEN 24 mg/dL (7-18); CALCIUM 8.1 MG/DL (8.5-10.1); CARBON DIOXIDE 29 MMOL/L (21-32); CHLORIDE 94 MMOL/L (98-107); CREATININE 8.8 MG/DL (0.55-1.30); POTASSIUM 4.1 MMOL/L (3.5-5.1); SODIUM 132 MMOL/L (136-145)
[2018-02-11] MEDS: Hydromorphone 0.5mg/0.5ml inj SUBQ PRN ×2 (10:37→15:07)
--- NOTE | 2018-02-11 16:30 | Nephrology Progress Note ---
Assessment/Plan Problem List: (1) ESRD (end stage renal disease) on dialysis (2) Diabetes mellitus (3) CAD (coronary artery disease) (4) Gastroparesis (5) Cyclic vomiting syndrome (6) Hypertension (7) Constipation Assessment: no BM for 5 days Plan HD today Discussed with dr Dior Discussed with RN Laxatives and enemas vascular surgery consult Subjective Subjective better today Objective Objective Last 24 Hour Vital Signs Date Time Temp Pulse Resp B/P (MAP) Pulse Ox O2 Delivery O2 Flow Rate FiO2 02/11/18 12:00 98.5 88 20 123/74 (90) 95 98.5 02/11/18 09:00 Room Air 02/11/18 08:00 98.2 82 20 116/63 (80) 95 98.2 02/11/18 04:00 98.0 82 17 105/58 (74) 96 98.0 02/11/18 00:00 98.4 82 17 109/63 (78) 97 98.4 02/10/18 21:00 Room Air 02/10/18 20:29 98.5 87 20 111/69 (83) 97 98.5 02/10/18 17:32 98.8 Intake and Output 02/10/18 02/11/18 19:00 07:00 Intake Total 520 ml Output Total 100 ml Balance -100 ml 520 ml Intake Oral 520 ml Emesis 100 ml # Voids 3 Laboratory Tests 02/11/18 06:15: White Blood Count 8.5, Red Blood Count 3.76L, Hemoglobin 12.0, Hematocrit 36.7L , Mean Corpuscular Volume 98, Mean Corpuscular Hemoglobin 32.0H, Mean Corpuscular Hemoglobin Concent 32.7, Red Cell Distribution Width 12.9, Platelet Count 252, Mean Platelet Volume 7.1, Neutrophils (%) (Auto) 55.3, Lymphocytes (% ) (Auto) 31.9, Monocytes (%) (Auto) 9.8, Eosinophils (%) (Auto) 1.7, Basophils ( %) (Auto) 1.3, Sodium Level 132L, Potassium Level 4.1, Chloride Level 94L, Carbon Dioxide Level 29, Anion Gap 9, Blood Urea Nitrogen 24H, Creatinine 8.8H, Estimat Glomerular Filtration Rate 6.3, Glucose Level 66L, Lactic Acid Level 1.50, Calcium Level 8.1L, Phosphorus Level 3.7, Total Bilirubin 0.6, Aspartate Amino Transf (AST/SGOT) 13L, Alanine Aminotransferase (ALT/SGPT) 12, Alkaline Phosphatase 158H, Total Protein 7.5, Albumin 3.3L, Globulin 4.2 Height (Feet): 4 Height (Inches): 8.00 Weight (Pounds): 120 Cardiovascular: normal rate Respiratory/Chest: lungs clear Abdomen: soft Rick Sepulveda MD Feb 11, 2018 16:30
--- NOTE | 2018-02-11 16:33 | Diagnostic Imaging Report ---
Indication: Abdominal Pain Technique: Continuous helical transaxial imaging of the abdomen and pelvis was obtained from the lung base to the pubic symphysis during rapid intravenous contrast administration. Arterial phase of enhancement obtained. Coronal 2-D reformats were also obtained and maximum intensity projection images in multiple planes. Study obtained in a Siemens sensation [address] Total Dose length Product (DLP): [address] Dose Index Volume (CTDIvol): 0.15, 8.11, 8.11, 12.56 mGy Comparison: None Findings: There is evidence of moderate atherosclerotic vascular disease characterized by mural calcification which is extensive in some locations. There is no aneurysm or evidence of dissection. The abdominal aorta appears normal caliber. The celiac trunk and superior mesenteric artery appear widely patent. There is no obvious stenosis of the mesenteric branches. Both renal arteries are heavily calcified with multisegment moderate to severe stenoses. Both kidneys are moderately atrophic. The iliac arteries show no significant stenosis. The visualized part of the common femoral artery show no significant stenosis. The proximal part of a right common femoral artery appears widely patent. There is an old left sided graft that appears abandoned. There is generalized anasarca present. There are reticular densities at the lung bases likely scarring or atelectasis. Urinary bladder is nondistended. Uterus is noted. No obvious free fluid or free air identified. IMPRESSION: No evidence of mesenteric ischemia. SMA and celiac artery appear widely patent. Severe multisegmental stenosis involving both renal arteries. Both kidneys are atrophic. This may be on a chronic vascular basis. Moderate atherosclerotic vascular disease. Anasarca Basilar atelectasis versus scarring. The CT scanner at [facility] is accredited by the [employer] and the scans are performed using dose optimization techniques as appropriate to a performed exam including Automatic Exposure control.
--- NOTE | 2018-02-11 17:42 | Internal Med Progress Note ---
Subjective Date of Service: Feb 11, 2018 Physician Name Loco Decker Attending Physician Rick Sepulveda MD Current Medications Medications (Trade) Dose Ordered Sig/Danielle Route PRN Reason Start Time Stop Time Status Last Admin Dose Admin Aspirin (Ecotrin) 81 mg DAILY ORAL 02/07/18 09:00 03/09/18 08:59 02/09/18 09:57 Atorvastatin Calcium (Lipitor) 40 mg BEDTIME ORAL 02/09/18 21:00 03/11/18 20:59 02/10/18 20:50 Barium Sulfate (Readi-Cat 2) 450 ml NOW PRN ORAL Radiology Procedure 02/11/18 00:00 02/12/18 23:49 Calcium Acetate (Phoslo) 667 mg DAILY ORAL 02/07/18 09:00 03/09/18 08:59 02/09/18 09:56 Cinacalcet (Sensipar) 90 mg DAILY ORAL 02/07/18 09:00 03/09/18 08:59 02/09/18 09:56 Clopidogrel Bisulfate (Plavix) 75 mg DAILY ORAL 02/10/18 09:00 03/12/18 08:59 Dextrose (Dextrose 50%) 25 ml STAT PRN IV Hypoglycemia 02/06/18 23:00 03/08/18 22:59 Dextrose (Dextrose 50%) 50 ml STAT PRN IV Hypoglycemia 02/06/18 23:00 03/08/18 22:59 Diphenhydramine HCl (Benadryl) 25 mg Q6H PRN ORAL Itching 02/10/18 11:15 03/12/18 11:14 02/11/18 17:07 Heparin Sodium (Porcine) (Heparin 5000 units/ml) 5,000 units EVERY 12 HOURS SUBQ 02/06/18 23:00 03/08/18 22:59 02/10/18 20:51 Heparin Sodium (Porcine) (Heparin Sod 1000 units/ml 10ml) 500 unit ONCE PRN IV FOR HD USE ONLY 02/10/18 11:00 02/11/18 23:59 Hydralazine HCl (Apresoline) 50 mg Q6HR PRN ORAL For High Blood Pressure 02/07/18 00:00 03/09/18 00:00 02/09/18 06:15 Hydromorphone HCl (Dilaudid) 0.5 mg Q4H PRN IVP Severe Pain (Pain Scale 7-10) 02/11/18 19:00 02/18/18 18:59 Insulin Aspart (NovoLOG) BEFORE MEALS AND HS SUBQ 02/07/18 06:30 03/09/18 06:29 02/09/18 06:19 Iopamidol (Isovue-300 100ml) 100 ml NOW PRN INJ Radiology Procedure 02/11/18 00:00 Lorazepam (Ativan) 0.5 mg Q4H PRN ORAL Anxiety/agitation 02/10/18 11:15 02/17/18 11:14 Lorazepam (Ativan) 1 mg Q4H PRN ORAL Nausea & Vomiting 02/10/18 11:15 02/17/18 11:14 02/10/18 22:56 Metoclopramide HCl (Reglan) 5 mg Q6H PRN ORAL Nausea & Vomiting 02/07/18 16:30 03/09/18 16:29 02/10/18 20:49 Metoprolol Tartrate (Lopressor) 25 mg DAILY ORAL 02/07/18 09:00 03/09/18 08:59 02/10/18 09:46 Mirtazapine (Remeron) 15 mg BEDTIME ORAL 02/07/18 21:00 03/09/18 20:59 02/10/18 20:49 Ondansetron HCl (Zofran) 4 mg Q4H PRN IVP Nausea & Vomiting 02/07/18 16:30 03/09/18 16:29 02/08/18 17:41 Pantoprazole (Protonix) 40 mg DAILY ORAL 02/07/18 09:00 03/09/18 08:59 02/09/18 09:56 Polyethylene Glycol (Miralax) 17 gm EVERY 8 HOURS ORAL 02/10/18 22:00 03/12/18 21:59 02/10/18 22:00 Sodium Chloride 1,000 ml @ 500 mls/hr Q2H PRN IVLG sbp<90 during hd 02/10/18 11:00 02/11/18 23:59 Tramadol HCl (Ultram) 50 mg Q8H PRN ORAL pain 4-10 02/10/18 11:15 02/17/18 11:14 02/10/18 12:18 Allergies: Coded Allergies: No Known Allergies (Unverified , 06/11/16) ROS Limited/Unobtainable: No Constitutional: Reports: no symptoms HEENT: Reports: no symptoms Cardiovascular: Reports: no symptoms Respiratory: Reports: no symptoms Gastrointestinal/Abdominal: Reports: no symptoms Genitourinary: Reports: no symptoms Neurologic/Psychiatric: Reports: no symptoms Subjective 32 YO F admitted with epigastric pain. Cover for Int Cristian-Dr Kyle. Objective Last Vital Signs Date Time Temp Pulse Resp B/P (MAP) Pulse Ox O2 Delivery O2 Flow Rate FiO2 02/11/18 16:00 97.4 100 20 133/77 (95) 98 97.4 02/11/18 09:00 Room Air Laboratory Tests Test 02/11/18 06:15 White Blood Count 8.5 K/UL (4.8-10.8) Red Blood Count 3.76 M/UL (4.20-5.40) L Hemoglobin 12.0 G/DL (12.0-16.0) Hematocrit 36.7 % (37.0-47.0) L Mean Corpuscular Volume 98 FL (80-99) Mean Corpuscular Hemoglobin 32.0 PG (27.0-31.0) H Mean Corpuscular Hemoglobin Concent 32.7 G/DL (32.0-36.0) Red Cell Distribution Width 12.9 % (11.6-14.8) Platelet Count 252 K/UL (150-450) Mean Platelet Volume 7.1 FL (6.5-10.1) Neutrophils (%) (Auto) 55.3 % (45.0-75.0) Lymphocytes (%) (Auto) 31.9 % (20.0-45.0) Monocytes (%) (Auto) 9.8 % (1.0-10.0) Eosinophils (%) (Auto) 1.7 % (0.0-3.0) Basophils (%) (Auto) 1.3 % (0.0-2.0) Sodium Level 132 MMOL/L (136-145) L Potassium Level 4.1 MMOL/L (3.5-5.1) Chloride Level 94 MMOL/L (98-107) L Carbon Dioxide Level 29 MMOL/L (21-32) Anion Gap 9 mmol/L (5-15) Blood Urea Nitrogen 24 mg/dL (7-18) H Creatinine 8.8 MG/DL (0.55-1.30) H Estimat Glomerular Filtration Rate 6.3 mL/min (>60) Glucose Level 66 MG/DL (74-106) L Lactic Acid Level 1.50 mmol/L (0.4-2.0) Calcium Level 8.1 MG/DL (8.5-10.1) L Phosphorus Level 3.7 MG/DL (2.5-4.9) Total Bilirubin 0.6 MG/DL (0.2-1.0) Aspartate Amino Transf (AST/SGOT) 13 U/L (15-37) L Alanine Aminotransferase (ALT/SGPT) 12 U/L (12-78) Alkaline Phosphatase 158 U/L (46-116) H Total Protein 7.5 G/DL (6.4-8.2) Albumin 3.3 G/DL (3.4-5.0) L Globulin 4.2 g/dL Intake and Output 02/10/18 02/11/18 19:00 07:00 Intake Total 520 ml Output Total 100 ml Balance -100 ml 520 ml Intake Oral 520 ml Emesis 100 ml # Voids 3 Objective General Appearance: WD/WN, no apparent distress, alert EENT: PERRL/EOMI, normal ENT inspection, TMs normal Neck: non-tender, normal alignment, supple, normal inspection Cardiovascular: normal peripheral pulses, normal rate, regular rhythm, no gallop/murmur, no JVD Respiratory/Chest: chest wall non-tender, lungs clear, normal breath sounds, no respiratory distress, no accessory muscle use Abdomen: normal bowel sounds, non tender, no mass, tender Extremities: normal range of motion, non-tender Neurologic: customer care representative II-XII grossly normal, no motor/sensory deficits Assessment/Plan Problem List: (1) ESRD (end stage renal disease) on dialysis Assessment & Plan: Hemodialysis today 02/11/18-see nephrology note (2) Esophagitis Assessment & Plan: See GI note (3) Epigastric abdominal pain (4) CAD (coronary artery disease) (5) Hypertension Assessment & Plan: Continue lopressor (6) Asthma (7) Diabetes mellitus Assessment & Plan: Continue glipizide and novolog Status: progressing Loco Decker MD Feb 11, 2018 17:42
[2018-02-11] MEDS: DiphenhydrAMINE 50mg/ml Inj IVP PRN (18:28)
--- NOTE | 2018-02-11 19:36 | General Progress Note ---
Assessment/Plan Assessment/Plan Assessment - Gastroparesis - GERD - known extensive vascular disease, raising suspicion for intestinal ischemia - ESRD/HD - recurrent N/V - abd pain Recommendations - PPI - EGD - Vascular surgery opinion, ? any benefit to traditional angiogram - po as tolerated - elevated HOB - PPI - Hold plavix Subjective Allergies: Coded Allergies: No Known Allergies (Unverified , 06/11/16) Subjective more comfortable today CT noted - open celiac and SMA, but other calcified vessels Objective Last 24 Hour Vital Signs Date Time Temp Pulse Resp B/P (MAP) Pulse Ox O2 Delivery O2 Flow Rate FiO2 02/11/18 17:00 Room Air 02/11/18 17:00 99.2 99 20 117/67 (84) 99.2 02/11/18 16:00 97.4 100 20 133/77 (95) 98 97.4 02/11/18 12:00 98.5 88 20 123/74 (90) 95 98.5 02/11/18 09:00 Room Air 02/11/18 08:00 98.2 82 20 116/63 (80) 95 98.2 02/11/18 04:00 98.0 82 17 105/58 (74) 96 98.0 02/11/18 00:00 98.4 82 17 109/63 (78) 97 98.4 02/10/18 21:00 Room Air 02/10/18 20:29 98.5 87 20 111/69 (83) 97 98.5 Intake and Output 02/10/18 02/11/18 19:00 07:00 Intake Total 520 ml Output Total 100 ml Balance -100 ml 520 ml Intake Oral 520 ml Emesis 100 ml # Voids 3 Laboratory Tests 02/11/18 06:15: White Blood Count 8.5, Red Blood Count 3.76L, Hemoglobin 12.0, Hematocrit 36.7L , Mean Corpuscular Volume 98, Mean Corpuscular Hemoglobin 32.0H, Mean Corpuscular Hemoglobin Concent 32.7, Red Cell Distribution Width 12.9, Platelet Count 252, Mean Platelet Volume 7.1, Neutrophils (%) (Auto) 55.3, Lymphocytes (% ) (Auto) 31.9, Monocytes (%) (Auto) 9.8, Eosinophils (%) (Auto) 1.7, Basophils ( %) (Auto) 1.3, Sodium Level 132L, Potassium Level 4.1, Chloride Level 94L, Carbon Dioxide Level 29, Anion Gap 9, Blood Urea Nitrogen 24H, Creatinine 8.8H, Estimat Glomerular Filtration Rate 6.3, Glucose Level 66L, Lactic Acid Level 1.50, Calcium Level 8.1L, Phosphorus Level 3.7, Total Bilirubin 0.6, Aspartate Amino Transf (AST/SGOT) 13L, Alanine Aminotransferase (ALT/SGPT) 12, Alkaline Phosphatase 158H, Total Protein 7.5, Albumin 3.3L, Globulin 4.2 Height (Feet): 4 Height (Inches): 8.00 Weight (Pounds): 120 Objective WDWN NCAT supple CTA RRR abd soft ND NT no edema non focal Mary Dior MD Feb 11, 2018 19:36
--- NOTE | 2018-02-11 19:44 | General Progress Note ---
Assessment/Plan Status: stable, progressing Assessment/Plan mdd Anxiety d/o insomnia Remeron 15mg po qhs provided ro/st nurse to contact GI recommend to dc iv ativan and benadryl Subjective Date patient seen: Feb 11, 2018 Neurologic/Psychiatric: Reports: anxiety, depressed, emotional problems Allergies: Coded Allergies: No Known Allergies (Unverified , 06/11/16) Objective Last 24 Hour Vital Signs Date Time Temp Pulse Resp B/P (MAP) Pulse Ox O2 Delivery O2 Flow Rate FiO2 02/11/18 17:00 Room Air 02/11/18 17:00 99.2 99 20 117/67 (84) 99.2 02/11/18 16:00 97.4 100 20 133/77 (95) 98 97.4 02/11/18 12:00 98.5 88 20 123/74 (90) 95 98.5 02/11/18 09:00 Room Air 02/11/18 08:00 98.2 82 20 116/63 (80) 95 98.2 02/11/18 04:00 98.0 82 17 105/58 (74) 96 98.0 02/11/18 00:00 98.4 82 17 109/63 (78) 97 98.4 02/10/18 21:00 Room Air 02/10/18 20:29 98.5 87 20 111/69 (83) 97 98.5 Intake and Output 02/10/18 02/11/18 19:00 07:00 Intake Total 520 ml Output Total 100 ml Balance -100 ml 520 ml Intake Oral 520 ml Emesis 100 ml # Voids 3 Laboratory Tests 02/11/18 06:15: White Blood Count 8.5, Red Blood Count 3.76L, Hemoglobin 12.0, Hematocrit 36.7L , Mean Corpuscular Volume 98, Mean Corpuscular Hemoglobin 32.0H, Mean Corpuscular Hemoglobin Concent 32.7, Red Cell Distribution Width 12.9, Platelet Count 252, Mean Platelet Volume 7.1, Neutrophils (%) (Auto) 55.3, Lymphocytes (% ) (Auto) 31.9, Monocytes (%) (Auto) 9.8, Eosinophils (%) (Auto) 1.7, Basophils ( %) (Auto) 1.3, Sodium Level 132L, Potassium Level 4.1, Chloride Level 94L, Carbon Dioxide Level 29, Anion Gap 9, Blood Urea Nitrogen 24H, Creatinine 8.8H, Estimat Glomerular Filtration Rate 6.3, Glucose Level 66L, Lactic Acid Level 1.50, Calcium Level 8.1L, Phosphorus Level 3.7, Total Bilirubin 0.6, Aspartate Amino Transf (AST/SGOT) 13L, Alanine Aminotransferase (ALT/SGPT) 12, Alkaline Phosphatase 158H, Total Protein 7.5, Albumin 3.3L, Globulin 4.2 Height (Feet): 4 Height (Inches): 8.00 Weight (Pounds): 120 General Appearance: no apparent distress, alert Neurologic: oriented x 3, responsive, depressed affect Branden Amos MD Feb 11, 2018 19:44
[2018-02-11] MEDS: Atorvastatin 20mg tab ORAL SCH (20:58)
--- NOTE | 2018-02-11 21:31 | Cardiology Report ---
APPROVED REPORT EKG Measurement Heart [id number] Normal sinus rhythm Rightward axis Prolonged QT Abnormal ECG
[2018-02-11] MEDS: LORazepam 1mg tab ORAL PRN (23:32)
[2018-02-12] MEDS: DiphenhydrAMINE 50mg/ml Inj IVP PRN ×4 (00:37→22:47)
[2018-02-12] MEDS: NovoLOG Insulin Flexpen SUBQ SCH ×4 (05:38→20:32)
[2018-02-12] MEDS: Miralax 17gm pkt ORAL SCH ×3 (05:39→21:36)
[2018-02-12 07:43] LABS: BASOPHILS % (AUTO) 1.7 % (0.0-2.0); EOSINOPHILS % (AUTO) 1.7 % (0.0-3.0); HEMATOCRIT 31.2 % (37.0-47.0); HEMOGLOBIN 9.9 G/DL (12.0-16.0); LYMPHOCYTES % (AUTO) 28.9 % (20.0-45.0); MEAN CORPUSCULAR VOLUME 98 FL (80-99); MONOCYTES % (AUTO) 10.8 % (1.0-10.0); NEUTROPHILS % (AUTO) 56.9 % (45.0-75.0); PLATELET COUNT 214 K/UL (150-450); RED BLOOD COUNT 3.19 M/UL (4.20-5.40); RED CELL DISTRIBUTION WIDTH 13.2 % (11.6-14.8); WHITE BLOOD COUNT 5.2 K/UL (4.8-10.8)
[2018-02-12] MEDS: Sensipar 30mg Tab ORAL SCH (07:53)
[2018-02-12] MEDS: Calcium Acetate 667mg Tab ORAL SCH (07:53)
[2018-02-12] MEDS: HYDROmorphone 1mg/ml Carpuject IVP PRN ×4 (07:53→20:24)
[2018-02-12] MEDS: Aspirin EC 81mg tab ORAL SCH (07:54)
[2018-02-12 07:55] LABS: ANION GAP 3 mmol/L (5-15); BLOOD UREA NITROGEN 14 mg/dL (7-18); CALCIUM 7.9 MG/DL (8.5-10.1); CARBON DIOXIDE 35 MMOL/L (21-32); CHLORIDE 102 MMOL/L (98-107); CREATININE 5.3 MG/DL (0.55-1.30); POTASSIUM 4.5 MMOL/L (3.5-5.1); SODIUM 140 MMOL/L (136-145)
[2018-02-12] MEDS: Metoprolol 25mg tab ORAL SCH (07:58)
[2018-02-12 08:00] VITALS: BP 136/74
[2018-02-12] MEDS: Heparin 5000 units/ml inj SUBQ SCH ×2 (08:01→20:31)
--- NOTE | 2018-02-12 11:48 | Internal Med Progress Note ---
Subjective Date of Service: Feb 12, 2018 Physician Name Loco Decker Attending Physician Rick Sepulveda MD Current Medications Medications (Trade) Dose Ordered Sig/Danielle Route PRN Reason Start Time Stop Time Status Last Admin Dose Admin Aspirin (Ecotrin) 81 mg DAILY ORAL 02/07/18 09:00 03/09/18 08:59 02/12/18 07:54 Atorvastatin Calcium (Lipitor) 40 mg BEDTIME ORAL 02/09/18 21:00 03/11/18 20:59 02/11/18 20:58 Barium Sulfate (Readi-Cat 2) 450 ml NOW PRN ORAL Radiology Procedure 02/11/18 00:00 02/12/18 23:49 Calcium Acetate (Phoslo) 667 mg DAILY ORAL 02/07/18 09:00 03/09/18 08:59 02/12/18 07:53 Cinacalcet (Sensipar) 90 mg DAILY ORAL 02/07/18 09:00 03/09/18 08:59 02/12/18 07:53 Dextrose (Dextrose 50%) 25 ml STAT PRN IV Hypoglycemia 02/06/18 23:00 03/08/18 22:59 Dextrose (Dextrose 50%) 50 ml STAT PRN IV Hypoglycemia 02/06/18 23:00 03/08/18 22:59 Diphenhydramine HCl (Benadryl) 25 mg Q6H PRN IVP Itching 02/11/18 18:00 03/13/18 17:59 02/12/18 10:26 Heparin Sodium (Porcine) (Heparin 5000 units/ml) 5,000 units EVERY 12 HOURS SUBQ 02/06/18 23:00 03/08/18 22:59 02/12/18 08:01 Hydralazine HCl (Apresoline) 50 mg Q6HR PRN ORAL For High Blood Pressure 02/07/18 00:00 03/09/18 00:00 02/09/18 06:15 Hydromorphone HCl (Dilaudid) 0.5 mg Q4H PRN IVP Severe Pain (Pain Scale 7-10) 02/11/18 19:00 02/18/18 18:59 02/12/18 11:46 Insulin Aspart (NovoLOG) BEFORE MEALS AND HS SUBQ 02/07/18 06:30 03/09/18 06:29 02/12/18 11:07 Iopamidol (Isovue-300 100ml) 100 ml NOW PRN INJ Radiology Procedure 02/11/18 00:00 Lorazepam (Ativan) 0.5 mg Q4H PRN ORAL Anxiety/agitation 02/10/18 11:15 02/17/18 11:14 Lorazepam (Ativan) 1 mg Q4H PRN ORAL Nausea & Vomiting 02/10/18 11:15 02/17/18 11:14 02/11/18 23:32 Metoclopramide HCl (Reglan) 5 mg Q6H PRN ORAL Nausea & Vomiting 02/07/18 16:30 03/09/18 16:29 02/10/18 20:49 Metoprolol Tartrate (Lopressor) 25 mg DAILY ORAL 02/07/18 09:00 03/09/18 08:59 02/12/18 07:58 Mirtazapine (Remeron) 15 mg BEDTIME ORAL 02/07/18 21:00 03/09/18 20:59 02/11/18 20:58 Ondansetron HCl (Zofran) 4 mg Q4H PRN IVP Nausea & Vomiting 02/07/18 16:30 03/09/18 16:29 02/08/18 17:41 Pantoprazole (Protonix) 40 mg DAILY ORAL 02/07/18 09:00 03/09/18 08:59 02/12/18 07:54 Polyethylene Glycol (Miralax) 17 gm EVERY 8 HOURS ORAL 02/10/18 22:00 03/12/18 21:59 02/12/18 05:39 Tramadol HCl (Ultram) 50 mg Q8H PRN ORAL pain 4-10 02/10/18 11:15 02/17/18 11:14 02/10/18 12:18 Allergies: Coded Allergies: No Known Allergies (Unverified , 06/11/16) ROS Limited/Unobtainable: No Constitutional: Reports: no symptoms HEENT: Reports: no symptoms Cardiovascular: Reports: no symptoms Respiratory: Reports: no symptoms Gastrointestinal/Abdominal: Reports: nausea, vomiting Genitourinary: Reports: no symptoms Neurologic/Psychiatric: Reports: no symptoms Subjective 32 YO F admitted with epigastric pain. Cover for Int Cristian-Dr Kyle. Await endoscopy on 02/13/18 Objective Last Vital Signs Date Time Temp Pulse Resp B/P (MAP) Pulse Ox O2 Delivery O2 Flow Rate FiO2 02/12/18 11:46 98.7 02/12/18 08:00 98 19 136/74 (94) 94 02/12/18 07:44 Room Air Laboratory Tests Test 02/12/18 07:25 White Blood Count 5.2 K/UL (4.8-10.8) Red Blood Count 3.19 M/UL (4.20-5.40) L Hemoglobin 9.9 G/DL (12.0-16.0) L Hematocrit 31.2 % (37.0-47.0) L Mean Corpuscular Volume 98 FL (80-99) Mean Corpuscular Hemoglobin 31.1 PG (27.0-31.0) H Mean Corpuscular Hemoglobin Concent 31.8 G/DL (32.0-36.0) L Red Cell Distribution Width 13.2 % (11.6-14.8) Platelet Count 214 K/UL (150-450) Mean Platelet Volume 5.9 FL (6.5-10.1) L Neutrophils (%) (Auto) 56.9 % (45.0-75.0) Lymphocytes (%) (Auto) 28.9 % (20.0-45.0) Monocytes (%) (Auto) 10.8 % (1.0-10.0) H Eosinophils (%) (Auto) 1.7 % (0.0-3.0) Basophils (%) (Auto) 1.7 % (0.0-2.0) Sodium Level 140 MMOL/L (136-145) Potassium Level 4.5 MMOL/L (3.5-5.1) Chloride Level 102 MMOL/L (98-107) Carbon Dioxide Level 35 MMOL/L (21-32) H Anion Gap 3 mmol/L (5-15) L Blood Urea Nitrogen 14 mg/dL (7-18) Creatinine 5.3 MG/DL (0.55-1.30) H Estimat Glomerular Filtration Rate 11.3 mL/min (>60) Glucose Level 93 MG/DL (74-106) Calcium Level 7.9 MG/DL (8.5-10.1) L Intake and Output 02/11/18 02/12/18 19:00 07:00 Intake Total 600 ml 1080 ml Output Total 1600 ml Balance 600 ml -520 ml Intake Oral 600 ml 1080 ml Output Urine Total 0 ml Emesis 100 ml Hemodialysis UF 1500 ml # Voids 1 # Bowel Movements 1 Objective General Appearance: WD/WN, no apparent distress, alert EENT: PERRL/EOMI, normal ENT inspection, TMs normal Neck: non-tender, normal alignment, supple, normal inspection Cardiovascular: normal peripheral pulses, normal rate, regular rhythm, no gallop/murmur, no JVD Respiratory/Chest: chest wall non-tender, lungs clear, normal breath sounds, no respiratory distress, no accessory muscle use Abdomen: normal bowel sounds, non tender, no mass, tender Extremities: normal range of motion, non-tender Neurologic: engineering mechanic II-XII grossly normal, no motor/sensory deficits Assessment/Plan Problem List: (1) ESRD (end stage renal disease) on dialysis Assessment & Plan: Last Hemodialysis t02/11/18-see nephrology note (2) Esophagitis Assessment & Plan: See GI note (3) Epigastric abdominal pain Assessment & Plan: Await endoscopy on Thrus 02/13/18 (4) CAD (coronary artery disease) (5) Hypertension Assessment & Plan: Continue lopressor (6) Asthma (7) Diabetes mellitus Assessment & Plan: Continue glipizide and novolog Status: not improved Loco Decker MD Feb 12, 2018 11:48
[2018-02-12 11:51] VITALS: BP 157/88
[2018-02-12 16:00] VITALS: BP 169/90
[2018-02-12] MEDS: HydrALAZINE 50mg tab ORAL PRN (16:13)
[2018-02-12 17:00] VITALS: BP 142/75
[2018-02-12] MEDS ORDERED: Heparin Sod 1000 units/ml 10ml IV PRN (18:00)
--- NOTE | 2018-02-12 18:32 | Nephrology Progress Note ---
Assessment/Plan Problem List: (1) ESRD (end stage renal disease) on dialysis (2) Diabetes mellitus (3) CAD (coronary artery disease) (4) Gastroparesis (5) Cyclic vomiting syndrome (6) Hypertension (7) Constipation Plan HD tomorrow Discussed with RN Laxatives and enemas Try Tramadol Subjective Subjective better today no vomiting but with abd pain Objective Objective Last 24 Hour Vital Signs Date Time Temp Pulse Resp B/P (MAP) Pulse Ox O2 Delivery O2 Flow Rate FiO2 02/12/18 17:00 98.6 87 18 142/75 (97) 96 98.6 02/12/18 16:43 99.0 02/12/18 16:13 99.0 02/12/18 16:13 169/90 02/12/18 16:00 99.0 90 20 169/90 (116) 95 99.0 02/12/18 11:51 98.9 89 20 157/88 (111) 94 98.9 02/12/18 11:46 98.7 02/12/18 08:00 98.7 98 19 136/74 (94) 94 98.7 02/12/18 07:58 98 136/74 02/12/18 07:53 99.2 02/12/18 07:44 Room Air 02/11/18 21:23 99.2 111 20 109/66 (80) 98 99.2 02/11/18 21:22 Room Air 02/11/18 21:21 Room Air 02/11/18 21:19 99.2 111 20 109/66 (80) 98 99.2 02/11/18 21:17 99.2 111 20 109/66 (80) 99.2 02/11/18 21:15 Room Air 02/11/18 21:00 Room Air 02/11/18 20:00 98.9 108 20 150/88 (108) 96 98.9 Intake and Output 02/11/18 02/12/18 19:00 07:00 Intake Total 600 ml 1080 ml Output Total 1600 ml Balance 600 ml -520 ml Intake Oral 600 ml 1080 ml Output Urine Total 0 ml Emesis 100 ml Hemodialysis UF 1500 ml # Voids 1 # Bowel Movements 1 Laboratory Tests 02/12/18 07:25: White Blood Count 5.2, Red Blood Count 3.19L, Hemoglobin 9.9L, Hematocrit 31.2L , Mean Corpuscular Volume 98, Mean Corpuscular Hemoglobin 31.1H, Mean Corpuscular Hemoglobin Concent 31.8L, Red Cell Distribution Width 13.2, Platelet Count 214, Mean Platelet Volume 5.9L, Neutrophils (%) (Auto) 56.9, Lymphocytes (%) (Auto) 28.9, Monocytes (%) (Auto) 10.8H, Eosinophils (%) (Auto) 1.7, Basophils (%) (Auto) 1.7, Sodium Level 140, Potassium Level 4.5, Chloride Level 102, Carbon Dioxide Level 35H, Anion Gap 3L, Blood Urea Nitrogen 14, Creatinine 5.3H, Estimat Glomerular Filtration Rate 11.3, Glucose Level 93, Calcium Level 7.9L Height (Feet): 4 Height (Inches): 8.00 Weight (Pounds): 119 Cardiovascular: normal rate Respiratory/Chest: lungs clear Abdomen: soft Rick Sepulveda MD Feb 12, 2018 18:32
--- NOTE | 2018-02-12 19:33 | Cardiology Progress Note ---
Assessment/Plan Assessment/Plan (1) End stage renal disease (2) Gastroparesis (3) Cyclic vomiting syndrome (4) Coronary artery diseasemultivessel PCI ( LM, LAD, LCX, RCA (5) Diabetes mellitus asa plavix gi burris planned will follow cv stable at this moment Subjective Cardiovascular: Denies: chest pain, lightheadedness, palpitations Respiratory: Denies: SOB with excertion Gastrointestinal/Abdominal: Reports: nausea; Denies: abdominal pain Genitourinary: Denies: burning Objective Last 24 Hour Vital Signs Date Time Temp Pulse Resp B/P (MAP) Pulse Ox O2 Delivery O2 Flow Rate FiO2 02/12/18 17:00 98.6 87 18 142/75 (97) 96 98.6 02/12/18 16:43 99.0 02/12/18 16:13 99.0 02/12/18 16:13 169/90 02/12/18 16:00 99.0 90 20 169/90 (116) 95 99.0 02/12/18 11:51 98.9 89 20 157/88 (111) 94 98.9 02/12/18 11:46 98.7 02/12/18 08:00 98.7 98 19 136/74 (94) 94 98.7 02/12/18 07:58 98 136/74 02/12/18 07:53 99.2 02/12/18 07:44 Room Air 02/11/18 21:23 99.2 111 20 109/66 (80) 98 99.2 02/11/18 21:22 Room Air 02/11/18 21:21 Room Air 02/11/18 21:19 99.2 111 20 109/66 (80) 98 99.2 02/11/18 21:17 99.2 111 20 109/66 (80) 99.2 02/11/18 21:15 Room Air 02/11/18 21:00 Room Air 02/11/18 20:00 98.9 108 20 150/88 (108) 96 98.9 General Appearance: no apparent distress, alert Neck: supple Cardiovascular: normal rate, regular rhythm Respiratory/Chest: lungs clear Abdomen: normal bowel sounds, non tender, soft Extremities: no swelling Intake and Output 02/11/18 02/12/18 19:00 07:00 Intake Total 600 ml 1080 ml Output Total 1600 ml Balance 600 ml -520 ml Intake Oral 600 ml 1080 ml Output Urine Total 0 ml Emesis 100 ml Hemodialysis UF 1500 ml # Voids 1 # Bowel Movements 1 Laboratory Tests Test 02/12/18 07:25 White Blood Count 5.2 K/UL (4.8-10.8) Red Blood Count 3.19 M/UL (4.20-5.40) L Hemoglobin 9.9 G/DL (12.0-16.0) L Hematocrit 31.2 % (37.0-47.0) L Mean Corpuscular Volume 98 FL (80-99) Mean Corpuscular Hemoglobin 31.1 PG (27.0-31.0) H Mean Corpuscular Hemoglobin Concent 31.8 G/DL (32.0-36.0) L Red Cell Distribution Width 13.2 % (11.6-14.8) Platelet Count 214 K/UL (150-450) Mean Platelet Volume 5.9 FL (6.5-10.1) L Neutrophils (%) (Auto) 56.9 % (45.0-75.0) Lymphocytes (%) (Auto) 28.9 % (20.0-45.0) Monocytes (%) (Auto) 10.8 % (1.0-10.0) H Eosinophils (%) (Auto) 1.7 % (0.0-3.0) Basophils (%) (Auto) 1.7 % (0.0-2.0) Sodium Level 140 MMOL/L (136-145) Potassium Level 4.5 MMOL/L (3.5-5.1) Chloride Level 102 MMOL/L (98-107) Carbon Dioxide Level 35 MMOL/L (21-32) H Anion Gap 3 mmol/L (5-15) L Blood Urea Nitrogen 14 mg/dL (7-18) Creatinine 5.3 MG/DL (0.55-1.30) H Estimat Glomerular Filtration Rate 11.3 mL/min (>60) Glucose Level 93 MG/DL (74-106) Calcium Level 7.9 MG/DL (8.5-10.1) L Rohit Hammonds MD Feb 12, 2018 19:33
[2018-02-12 20:00] VITALS: BP 138/79
--- NOTE | 2018-02-12 20:01 | General Progress Note ---
Assessment/Plan Status: stable, progressing Assessment/Plan mdd Anxiety d/o insomnia Remeron 15mg po qhs provided ro/st nurse to contact GI recommend to dc iv ativan and benadryl Subjective Date patient seen: Feb 12, 2018 Neurologic/Psychiatric: Reports: anxiety, depressed, emotional problems Allergies: Coded Allergies: No Known Allergies (Unverified , 06/11/16) Objective Last 24 Hour Vital Signs Date Time Temp Pulse Resp B/P (MAP) Pulse Ox O2 Delivery O2 Flow Rate FiO2 02/12/18 17:00 98.6 87 18 142/75 (97) 96 98.6 02/12/18 16:43 99.0 02/12/18 16:13 99.0 02/12/18 16:13 169/90 02/12/18 16:00 99.0 90 20 169/90 (116) 95 99.0 02/12/18 11:51 98.9 89 20 157/88 (111) 94 98.9 02/12/18 11:46 98.7 02/12/18 08:00 98.7 98 19 136/74 (94) 94 98.7 02/12/18 07:58 98 136/74 02/12/18 07:53 99.2 02/12/18 07:44 Room Air 02/11/18 21:23 99.2 111 20 109/66 (80) 98 99.2 02/11/18 21:22 Room Air 02/11/18 21:21 Room Air 02/11/18 21:19 99.2 111 20 109/66 (80) 98 99.2 02/11/18 21:17 99.2 111 20 109/66 (80) 99.2 02/11/18 21:15 Room Air 02/11/18 21:00 Room Air Intake and Output 02/11/18 02/12/18 19:00 07:00 Intake Total 600 ml 1080 ml Output Total 1600 ml Balance 600 ml -520 ml Intake Oral 600 ml 1080 ml Output Urine Total 0 ml Emesis 100 ml Hemodialysis UF 1500 ml # Voids 1 # Bowel Movements 1 Laboratory Tests 02/12/18 07:25: White Blood Count 5.2, Red Blood Count 3.19L, Hemoglobin 9.9L, Hematocrit 31.2L , Mean Corpuscular Volume 98, Mean Corpuscular Hemoglobin 31.1H, Mean Corpuscular Hemoglobin Concent 31.8L, Red Cell Distribution Width 13.2, Platelet Count 214, Mean Platelet Volume 5.9L, Neutrophils (%) (Auto) 56.9, Lymphocytes (%) (Auto) 28.9, Monocytes (%) (Auto) 10.8H, Eosinophils (%) (Auto) 1.7, Basophils (%) (Auto) 1.7, Sodium Level 140, Potassium Level 4.5, Chloride Level 102, Carbon Dioxide Level 35H, Anion Gap 3L, Blood Urea Nitrogen 14, Creatinine 5.3H, Estimat Glomerular Filtration Rate 11.3, Glucose Level 93, Calcium Level 7.9L Height (Feet): 4 Height (Inches): 8.00 Weight (Pounds): 119 General Appearance: no apparent distress, alert Neurologic: oriented x 3, responsive, depressed affect Branden Amos MD Feb 12, 2018 20:00
[2018-02-12] MEDS: Atorvastatin 20mg tab ORAL SCH (20:26)
--- NOTE | 2018-02-12 20:32 | General Progress Note ---
Assessment/Plan Assessment/Plan Assessment - Gastroparesis - GERD - CAD/PVD, but no celiac/SMA narrowing on CT - ESRD/HD - recurrent N/V - abd pain Recommendations - PPI - EGD - Vascular surgery opinion, ? any benefit to traditional angiogram - po as tolerated - elevated HOB - PPI - Hold plavix - wean off of ativan Subjective Allergies: Coded Allergies: No Known Allergies (Unverified , 06/11/16) Subjective more comfortable today for EGD tomorrow Objective Last 24 Hour Vital Signs Date Time Temp Pulse Resp B/P (MAP) Pulse Ox O2 Delivery O2 Flow Rate FiO2 02/12/18 17:00 98.6 87 18 142/75 (97) 96 98.6 02/12/18 16:43 99.0 02/12/18 16:13 99.0 02/12/18 16:13 169/90 02/12/18 16:00 99.0 90 20 169/90 (116) 95 99.0 02/12/18 11:51 98.9 89 20 157/88 (111) 94 98.9 02/12/18 11:46 98.7 02/12/18 08:00 98.7 98 19 136/74 (94) 94 98.7 02/12/18 07:58 98 136/74 02/12/18 07:53 99.2 02/12/18 07:44 Room Air 02/11/18 21:23 99.2 111 20 109/66 (80) 98 99.2 02/11/18 21:22 Room Air 02/11/18 21:21 Room Air 02/11/18 21:19 99.2 111 20 109/66 (80) 98 99.2 02/11/18 21:17 99.2 111 20 109/66 (80) 99.2 02/11/18 21:15 Room Air 02/11/18 21:00 Room Air Intake and Output 02/11/18 02/12/18 19:00 07:00 Intake Total 600 ml 1080 ml Output Total 1600 ml Balance 600 ml -520 ml Intake Oral 600 ml 1080 ml Output Urine Total 0 ml Emesis 100 ml Hemodialysis UF 1500 ml # Voids 1 # Bowel Movements 1 Laboratory Tests 02/12/18 07:25: White Blood Count 5.2, Red Blood Count 3.19L, Hemoglobin 9.9L, Hematocrit 31.2L , Mean Corpuscular Volume 98, Mean Corpuscular Hemoglobin 31.1H, Mean Corpuscular Hemoglobin Concent 31.8L, Red Cell Distribution Width 13.2, Platelet Count 214, Mean Platelet Volume 5.9L, Neutrophils (%) (Auto) 56.9, Lymphocytes (%) (Auto) 28.9, Monocytes (%) (Auto) 10.8H, Eosinophils (%) (Auto) 1.7, Basophils (%) (Auto) 1.7, Sodium Level 140, Potassium Level 4.5, Chloride Level 102, Carbon Dioxide Level 35H, Anion Gap 3L, Blood Urea Nitrogen 14, Creatinine 5.3H, Estimat Glomerular Filtration Rate 11.3, Glucose Level 93, Calcium Level 7.9L Height (Feet): 4 Height (Inches): 8.00 Weight (Pounds): 119 Objective WDWN NCAT supple CTA RRR abd soft ND NT no edema non focal Mary Dior MD Feb 12, 2018 20:32
[2018-02-12] MEDS: LORazepam 1mg tab ORAL PRN (21:39)
[2018-02-13] VITALS (12 sets, daily range): BP systolic 103–183; BP diastolic 53–93
[2018-02-13] MEDS: HYDROmorphone 1mg/ml Carpuject IVP PRN ×3 (00:57→20:20)
[2018-02-13] MEDS: DiphenhydrAMINE 50mg/ml Inj IVP PRN ×2 (04:50→19:00)
[2018-02-13] MEDS: Miralax 17gm pkt ORAL SCH ×3 (05:57→22:00)
[2018-02-13] MEDS: NovoLOG Insulin Flexpen SUBQ SCH ×4 (05:57→20:55)
[2018-02-13] MEDS ORDERED: DiphenhydrAMINE 50mg/ml Inj IVP SCH (06:00)
[2018-02-13] MEDS: Heparin 5000 units/ml inj SUBQ SCH ×2 (07:53→20:56)
--- NOTE | 2018-02-13 08:15 | Anethesia Preoperative Eval ---
Anesthesia Pre-op PMH/ROS General Date of Evaluation: Feb 13, 2018 Time of Evaluation: 09:10 Anesthesiologist: Gail Fontana CRNA ASA Score: ASA 4 Mallampati Score Class I : Soft palate, uvula, fauces, pillars visible Class II: Soft palate, uvula, fauces visible Class III: Soft palate, base of uvula visible Class IV: Only hard plate visible Mallampati Classification: Class II Surgeon: Ovi Diagnosis: abdominal pain Surgical Procedure: Diagnostic EGD Family History: no anesthesia problems Allergies: Coded Allergies: No Known Allergies (Unverified , 06/11/16) Medications: see eMAR Past Medical History Cardiovascular: Reports: HTN, CAD; Denies: ID, valve dz, arrhythmia, other Pulmonary: Denies: asthma, COPD, MACO, other Gastrointestinal/Genitourinary: Reports: GERD, ESRD - HD q Tu, Thur, Sat; Denies: CRI, other Neurologic/Psychiatric: Denies: dementia, CVA, depression/anxiety, TIA, other Endocrine: Reports: DM; Denies: hypothyroidism, steroids, other HEENT: Denies: cataract (L), cataract (R), glaucoma, [place] (L), [place] (R), other Hematology/Immune: Reports: anemia; Denies: DVT, bleeding disorder, other Musculoskeletal/Integumentary: Reports: other - Chronic lower back pain; Denies: OA, RA, DJD, DDD, edema PMH Narrative: see above PSxH Narrative: AV fistula, RIGHT thumb surgery Anesthesia Pre-op Phys. Exam Physician Exam Last Vital Signs Date Time Temp Pulse Resp B/P (MAP) Pulse Ox O2 Delivery O2 Flow Rate FiO2 02/13/18 04:00 98.2 88 18 145/75 (98) 94 98.2 02/12/18 21:00 Room Air Constitutional: NAD Neurologic: CN 2-12 intact Cardiovascular: RRR Respiratory: CTA Gastrointestinal: other - tender abdomen Airway Exam Mallampati Score: Class II MO: full Neck: no limitation ROM: full Teeth: intact Dentures: no upper, no lower Anesthesia Pre-op A/P Labs see chart Accucheck 83 Serum Test waiver signed with anesthesia consent Studies Pre-op Studies: EKG - NSR Risk Assessment & Plan Assessment: as above Plan: MAC Status Change Before Surgery: No Pre-Antibiotics Given Within 1 Hr of Incision: No Gail Fontana CRNA Feb 13, 2018 08:14
[2018-02-13 08:24] LABS: BASOPHILS % (AUTO) 1.2 % (0.0-2.0); HEMATOCRIT 29.1 % (37.0-47.0); HEMOGLOBIN 9.5 G/DL (12.0-16.0); LYMPHOCYTES % (AUTO) 26.5 % (20.0-45.0); MEAN CORPUSCULAR VOLUME 99 FL (80-99); MONOCYTES % (AUTO) 12.9 % (1.0-10.0); NEUTROPHILS % (AUTO) 57.4 % (45.0-75.0); PLATELET COUNT 184 K/UL (150-450); RED BLOOD COUNT 2.95 M/UL (4.20-5.40); RED CELL DISTRIBUTION WIDTH 13.2 % (11.6-14.8); WHITE BLOOD COUNT 5.6 K/UL (4.8-10.8)
[2018-02-13 08:44] LABS: BLOOD UREA NITROGEN 20 mg/dL (7-18); CALCIUM 7.9 MG/DL (8.5-10.1); CHLORIDE 99 MMOL/L (98-107); CREATININE 6.7 MG/DL (0.55-1.30); POTASSIUM 4.7 MMOL/L (3.5-5.1); SODIUM 137 MMOL/L (136-145)
[2018-02-13] MEDS ORDERED: Propofol 200mg/20ml IV ONE (09:00)
[2018-02-13] MEDS ORDERED: NS 500ML IVPB ONE (09:20)
--- NOTE | 2018-02-13 09:28 | Pre-Procedure Note/Attestation ---
Pre-Procedure Note/Attestation Complete Prior to Procedure Planned Procedure: not applicable Procedure Narrative: egd Indications for Procedure Pre-Operative Diagnosis: abd pain Attestation I attest that I discussed the nature of the procedure; its benefits; risks and complications; and alternatives (and the risks and benefits of such alternatives ), prior to the procedure, with the patient (or the patient's legal sales representative door to door). I attest that, if there was a reasonable possibility of needing a blood transfusion, the patient (or the patient's legal sales representative door to door) was given the [facility] standardized written summary, pursuant to the Hector Kelly Blood Safety Act ([place] Health and Safety Code # 1645, as amended). I attest that I re-evaluated the patient just prior to the surgery and that there has been no change in the patient's H&P, except as documented below: Mray Dior MD Feb 13, 2018 09:28
--- NOTE | 2018-02-13 09:40 | General Progress Note ---
Assessment/Plan Assessment/Plan Assessment - Gastroparesis - GERD - CAD/PVD, but no celiac/SMA narrowing on CT - ESRD/HD - recurrent N/V - abd pain Recommendations - PPI - EGD today - Vascular surgery opinion, ? any benefit to traditional angiogram - po as tolerated - elevated HOB - PPI - wean off of ativan - resume plavix after EGD POST EGD Normal Endoscopy Subjective Allergies: Coded Allergies: No Known Allergies (Unverified , 06/11/16) Subjective some abdominal pain overnight no vomiting for EGD today Objective Last 24 Hour Vital Signs Date Time Temp Pulse Resp B/P (MAP) Pulse Ox O2 Delivery O2 Flow Rate FiO2 02/13/18 08:00 98.4 89 20 108/65 (79) 97 98.4 02/13/18 04:00 98.2 88 18 145/75 (98) 94 98.2 02/12/18 21:00 Room Air 02/12/18 20:00 97.6 98 18 138/79 (98) 96 97.6 02/12/18 17:00 98.6 87 18 142/75 (97) 96 98.6 02/12/18 16:43 99.0 02/12/18 16:13 99.0 02/12/18 16:13 169/90 02/12/18 16:00 99.0 90 20 169/90 (116) 95 99.0 02/12/18 11:51 98.9 89 20 157/88 (111) 94 98.9 02/12/18 11:46 98.7 Intake and Output 02/12/18 02/13/18 19:00 07:00 Intake Total 690 ml 120 ml Output Total 250 ml Balance 440 ml 120 ml Intake Oral 690 ml 120 ml Emesis 250 ml # Voids 3 Laboratory Tests 02/13/18 08:05: White Blood Count 5.6, Red Blood Count 2.95L, Hemoglobin 9.5L, Hematocrit 29.1L , Mean Corpuscular Volume 99, Mean Corpuscular Hemoglobin 32.1H, Mean Corpuscular Hemoglobin Concent 32.5, Red Cell Distribution Width 13.2, Platelet Count 184, Mean Platelet Volume 6.9, Neutrophils (%) (Auto) 57.4, Lymphocytes (% ) (Auto) 26.5, Monocytes (%) (Auto) 12.9H, Eosinophils (%) (Auto) 2.0, Basophils (%) (Auto) 1.2, Sodium Level [Pending], Potassium Level [Pending], Chloride Level [Pending], Carbon Dioxide Level [Pending], Blood Urea Nitrogen [ Pending], Creatinine [Pending], Estimat Glomerular Filtration Rate [Pending], Glucose Level [Pending], Calcium Level [Pending] Height (Feet): 5 Height (Inches): 6.00 Weight (Pounds): 119 Objective WDWN NCAT supple CTA RRR abd soft ND NT no edema non focal Mary Dior MD Feb 13, 2018 09:40
[2018-02-13 09:57] LABS: CARBON DIOXIDE 26 MMOL/L (21-32)
[2018-02-13] MEDS ORDERED: Hydromorphone 0.5mg/0.5ml inj IVP PRN (10:00)
--- NOTE | 2018-02-13 10:05 | Immediate Post-Op Evaluation ---
Immediate Post-Op Evalulation Immediate Post-Op Evalulation Procedure: EGD with biopsies Date of Evaluation: Feb 13, 2018 Time of Evaluation: 09:55 IV Fluids: 0.9 NS 100 ml Blood Pressure Systolic: 112 Blood Pressure Diastolic: 58 Pulse Rate: 78 Nausea: No Vomiting: No Patient Status: awake, reacts, patent Hydration Status: adequate Given Within 1 Hr of Incision: Gail Burk CRNA Feb 13, 2018 10:05
[2018-02-13] MEDS: Metoprolol 25mg tab ORAL SCH (11:20)
[2018-02-13] MEDS: Aspirin EC 81mg tab ORAL SCH (11:21)
[2018-02-13] MEDS: traMADol 50mg tab ORAL PRN (11:21)
[2018-02-13] MEDS: Calcium Acetate 667mg Tab ORAL SCH (11:22)
[2018-02-13] MEDS: Sensipar 30mg Tab ORAL SCH (11:22)
--- NOTE | 2018-02-13 11:37 | Nephrology Progress Note ---
Assessment/Plan Problem List: (1) ESRD (end stage renal disease) on dialysis (2) Diabetes mellitus (3) CAD (coronary artery disease) (4) Gastroparesis (5) Cyclic vomiting syndrome (6) Hypertension (7) Constipation Plan HD today Discussed with RN Laxatives and enemas limit narcotics Subjective Subjective better today has diarrhea now Objective Objective Last 24 Hour Vital Signs Date Time Temp Pulse Resp B/P (MAP) Pulse Ox O2 Delivery O2 Flow Rate FiO2 02/13/18 11:20 100 163/84 02/13/18 10:25 98.0 100 18 163/84 (110) 98 98.0 02/13/18 10:18 97.8 80 15 112/58 99 Room Air 97.8 02/13/18 10:10 98.5 02/13/18 10:10 78 18 103/53 97 Room Air 02/13/18 10:05 78 02/13/18 10:00 79 20 110/57 96 Room Air 02/13/18 09:50 81 17 106/53 98 Room Air 02/13/18 09:47 98.5 77 18 108/55 98 Room Air 98.5 02/13/18 08:00 98.4 89 20 108/65 (79) 97 98.4 02/13/18 04:00 98.2 88 18 145/75 (98) 94 98.2 02/12/18 21:00 Room Air 02/12/18 20:00 97.6 98 18 138/79 (98) 96 97.6 02/12/18 17:00 98.6 87 18 142/75 (97) 96 98.6 02/12/18 16:43 99.0 02/12/18 16:13 99.0 02/12/18 16:13 169/90 02/12/18 16:00 99.0 90 20 169/90 (116) 95 99.0 02/12/18 11:51 98.9 89 20 157/88 (111) 94 98.9 02/12/18 11:46 98.7 Intake and Output 02/12/18 02/13/18 19:00 07:00 Intake Total 690 ml 120 ml Output Total 250 ml Balance 440 ml 120 ml Intake Oral 690 ml 120 ml Emesis 250 ml # Voids 3 Laboratory Tests 02/13/18 08:05: White Blood Count 5.6, Red Blood Count 2.95L, Hemoglobin 9.5L, Hematocrit 29.1L , Mean Corpuscular Volume 99, Mean Corpuscular Hemoglobin 32.1H, Mean Corpuscular Hemoglobin Concent 32.5, Red Cell Distribution Width 13.2, Platelet Count 184, Mean Platelet Volume 6.9, Neutrophils (%) (Auto) 57.4, Lymphocytes (% ) (Auto) 26.5, Monocytes (%) (Auto) 12.9H, Eosinophils (%) (Auto) 2.0, Basophils (%) (Auto) 1.2, Sodium Level 137, Potassium Level 4.7, Chloride Level 99, Carbon Dioxide Level 26, Blood Urea Nitrogen 20H, Creatinine 6.7H, Estimat Glomerular Filtration Rate 8.6, Glucose Level 82, Calcium Level 7.9L Height (Feet): 5 Height (Inches): 6.00 Weight (Pounds): 119 Cardiovascular: normal rate Respiratory/Chest: lungs clear Rick Sepulveda MD Feb 13, 2018 11:37
--- NOTE | 2018-02-13 16:50 | Internal Med Progress Note ---
Subjective Date of Service: Feb 13, 2018 Physician Name Loco Decker Attending Physician Rick Sepulveda MD Current Medications Medications (Trade) Dose Ordered Sig/Danielle Route PRN Reason Start Time Stop Time Status Last Admin Dose Admin Aspirin (Ecotrin) 81 mg DAILY ORAL 02/07/18 09:00 03/09/18 08:59 02/13/18 11:21 Atorvastatin Calcium (Lipitor) 40 mg BEDTIME ORAL 02/09/18 21:00 03/11/18 20:59 02/12/18 20:26 Calcium Acetate (Phoslo) 667 mg DAILY ORAL 02/07/18 09:00 03/09/18 08:59 02/13/18 11:22 Cinacalcet (Sensipar) 90 mg DAILY ORAL 02/07/18 09:00 03/09/18 08:59 02/13/18 11:22 Clopidogrel Bisulfate (Plavix) 75 mg DAILY ORAL 02/13/18 09:45 03/15/18 09:44 02/13/18 11:20 Dextrose (Dextrose 50%) 25 ml STAT PRN IV Hypoglycemia 02/06/18 23:00 03/08/18 22:59 Dextrose (Dextrose 50%) 50 ml STAT PRN IV Hypoglycemia 02/06/18 23:00 03/08/18 22:59 Diphenhydramine HCl (Benadryl) 25 mg Q6H PRN IVP Itching 02/11/18 18:00 03/13/18 17:59 02/13/18 04:50 Diphenhydramine HCl (Benadryl) 50 mg ONCE IVP 02/13/18 06:00 02/13/18 23:59 02/13/18 13:19 Heparin Sodium (Porcine) (Heparin 5000 units/ml) 5,000 units EVERY 12 HOURS SUBQ 02/06/18 23:00 03/08/18 22:59 02/12/18 20:31 Heparin Sodium (Porcine) (Heparin Sod 1000 units/ml 10ml) 500 unit ONCE PRN IV FOR HD USE ONLY 02/12/18 18:00 02/13/18 23:59 Hydralazine HCl (Apresoline) 50 mg Q6HR PRN ORAL For High Blood Pressure 02/07/18 00:00 03/09/18 00:00 02/12/18 16:13 Hydromorphone HCl (Dilaudid) 0.5 mg Q4H PRN IVP Severe Pain (Pain Scale 7-10) 02/11/18 19:00 02/18/18 18:59 02/13/18 16:21 Insulin Aspart (NovoLOG) BEFORE MEALS AND HS SUBQ 02/07/18 06:30 03/09/18 06:29 02/12/18 20:32 Iopamidol (Isovue-300 100ml) 100 ml NOW PRN INJ Radiology Procedure 02/11/18 00:00 Lorazepam (Ativan) 0.5 mg Q4H PRN ORAL Anxiety/agitation 02/10/18 11:15 02/17/18 11:14 Lorazepam (Ativan) 1 mg Q4H PRN ORAL Nausea & Vomiting 02/10/18 11:15 02/17/18 11:14 02/12/18 21:39 Metoclopramide HCl (Reglan) 5 mg Q6H PRN ORAL Nausea & Vomiting 02/07/18 16:30 03/09/18 16:29 02/13/18 13:14 Metoprolol Tartrate (Lopressor) 25 mg DAILY ORAL 02/07/18 09:00 03/09/18 08:59 02/13/18 11:20 Mirtazapine (Remeron) 15 mg BEDTIME ORAL 02/07/18 21:00 03/09/18 20:59 02/12/18 20:26 Ondansetron HCl (Zofran) 4 mg Q4H PRN IVP Nausea & Vomiting 02/07/18 16:30 03/09/18 16:29 02/13/18 13:42 Pantoprazole (Protonix) 40 mg DAILY ORAL 02/07/18 09:00 03/09/18 08:59 02/13/18 11:22 Polyethylene Glycol (Miralax) 17 gm EVERY 8 HOURS ORAL 02/10/18 22:00 03/12/18 21:59 02/13/18 16:28 Sodium Chloride 1,000 ml @ 500 mls/hr Q2H PRN IVLG sbp<90 during hd 02/12/18 18:00 02/13/18 23:59 Tramadol HCl (Ultram) 50 mg Q8H PRN ORAL pain 4-10 02/10/18 11:15 02/17/18 11:14 02/13/18 11:21 Allergies: Coded Allergies: No Known Allergies (Unverified , 06/11/16) ROS Limited/Unobtainable: No Constitutional: Reports: no symptoms HEENT: Reports: no symptoms Cardiovascular: Reports: no symptoms Respiratory: Reports: no symptoms Gastrointestinal/Abdominal: Reports: nausea, vomiting Genitourinary: Reports: no symptoms Neurologic/Psychiatric: Reports: no symptoms Subjective 32 YO F admitted with epigastric pain. Cover for [facility]-Dr Kyle. -S--/--P- endoscopy on 02/13/18 Objective Last Vital Signs Date Time Temp Pulse Resp B/P (MAP) Pulse Ox O2 Delivery O2 Flow Rate FiO2 02/13/18 12:00 98.2 93 18 145/75 (98) 94 98.2 02/13/18 10:18 Room Air Laboratory Tests Test 02/13/18 08:05 White Blood Count 5.6 K/UL (4.8-10.8) Red Blood Count 2.95 M/UL (4.20-5.40) L Hemoglobin 9.5 G/DL (12.0-16.0) L Hematocrit 29.1 % (37.0-47.0) L Mean Corpuscular Volume 99 FL (80-99) Mean Corpuscular Hemoglobin 32.1 PG (27.0-31.0) H Mean Corpuscular Hemoglobin Concent 32.5 G/DL (32.0-36.0) Red Cell Distribution Width 13.2 % (11.6-14.8) Platelet Count 184 K/UL (150-450) Mean Platelet Volume 6.9 FL (6.5-10.1) Neutrophils (%) (Auto) 57.4 % (45.0-75.0) Lymphocytes (%) (Auto) 26.5 % (20.0-45.0) Monocytes (%) (Auto) 12.9 % (1.0-10.0) H Eosinophils (%) (Auto) 2.0 % (0.0-3.0) Basophils (%) (Auto) 1.2 % (0.0-2.0) Sodium Level 137 MMOL/L (136-145) Potassium Level 4.7 MMOL/L (3.5-5.1) Chloride Level 99 MMOL/L (98-107) Carbon Dioxide Level 26 MMOL/L (21-32) Blood Urea Nitrogen 20 mg/dL (7-18) H Creatinine 6.7 MG/DL (0.55-1.30) H Estimat Glomerular Filtration Rate 8.6 mL/min (>60) Glucose Level 82 MG/DL (74-106) Calcium Level 7.9 MG/DL (8.5-10.1) L Intake and Output 02/12/18 02/13/18 19:00 07:00 Intake Total 690 ml 120 ml Output Total 250 ml Balance 440 ml 120 ml Intake Oral 690 ml 120 ml Emesis 250 ml # Voids 3 Objective General Appearance: WD/WN, no apparent distress, alert EENT: PERRL/EOMI, normal ENT inspection, TMs normal Neck: non-tender, normal alignment, supple, normal inspection Cardiovascular: normal peripheral pulses, normal rate, regular rhythm, no gallop/murmur, no JVD Respiratory/Chest: chest wall non-tender, lungs clear, normal breath sounds, no respiratory distress, no accessory muscle use Abdomen: normal bowel sounds, non tender, no mass, tender Extremities: normal range of motion, non-tender Neurologic: efficiency manager II-XII grossly normal, no motor/sensory deficits Assessment/Plan Problem List: (1) ESRD (end stage renal disease) on dialysis Assessment & Plan: Last Hemodialysis 02/11/18-see nephrology note (2) Esophagitis Assessment & Plan: See GI note (3) Epigastric abdominal pain Assessment & Plan: S/P endoscopy on Thrus 02/13/18 (4) CAD (coronary artery disease) (5) Hypertension Assessment & Plan: Continue lopressor (6) Asthma (7) Diabetes mellitus Assessment & Plan: Continue glipizide and novolog Status: not improved Loco Decker MD Feb 13, 2018 16:50
--- NOTE | 2018-02-13 18:49 | Cardiology Progress Note ---
Assessment/Plan Assessment/Plan (1) End stage renal disease (2) Gastroparesis (3) Cyclic vomiting syndrome (4) Coronary artery diseasemultivessel PCI ( LM, LAD, LCX, RCA (5) Diabetes mellitus asa plavix gi noted cv stable at this moment Subjective Cardiovascular: Denies: chest pain, lightheadedness, palpitations Respiratory: Denies: shortness of breath Gastrointestinal/Abdominal: Reports: nausea, vomiting; Denies: abdominal pain Genitourinary: Denies: no symptoms Objective Last 24 Hour Vital Signs Date Time Temp Pulse Resp B/P (MAP) Pulse Ox O2 Delivery O2 Flow Rate FiO2 02/13/18 16:00 98.3 87 18 145/81 (102) 97 98.3 02/13/18 12:00 98.2 93 18 145/75 (98) 94 98.2 02/13/18 11:20 100 163/84 02/13/18 10:25 98.0 100 18 163/84 (110) 98 98.0 02/13/18 10:18 97.8 80 15 112/58 99 Room Air 97.8 02/13/18 10:10 98.5 02/13/18 10:10 78 18 103/53 97 Room Air 02/13/18 10:05 78 02/13/18 10:00 79 20 110/57 96 Room Air 02/13/18 09:50 81 17 106/53 98 Room Air 02/13/18 09:47 98.5 77 18 108/55 98 Room Air 98.5 02/13/18 09:00 Room Air 02/13/18 08:00 98.4 89 20 108/65 (79) 97 98.4 02/13/18 04:00 98.2 88 18 145/75 (98) 94 98.2 02/12/18 21:00 Room Air 02/12/18 20:00 97.6 98 18 138/79 (98) 96 97.6 General Appearance: no apparent distress, alert Neck: supple Cardiovascular: normal rate, regular rhythm Respiratory/Chest: lungs clear, normal breath sounds Abdomen: normal bowel sounds, non tender, soft Extremities: no swelling Intake and Output 02/12/18 02/13/18 19:00 07:00 Intake Total 690 ml 120 ml Output Total 250 ml Balance 440 ml 120 ml Intake Oral 690 ml 120 ml Emesis 250 ml # Voids 3 Laboratory Tests Test 02/13/18 08:05 White Blood Count 5.6 K/UL (4.8-10.8) Red Blood Count 2.95 M/UL (4.20-5.40) L Hemoglobin 9.5 G/DL (12.0-16.0) L Hematocrit 29.1 % (37.0-47.0) L Mean Corpuscular Volume 99 FL (80-99) Mean Corpuscular Hemoglobin 32.1 PG (27.0-31.0) H Mean Corpuscular Hemoglobin Concent 32.5 G/DL (32.0-36.0) Red Cell Distribution Width 13.2 % (11.6-14.8) Platelet Count 184 K/UL (150-450) Mean Platelet Volume 6.9 FL (6.5-10.1) Neutrophils (%) (Auto) 57.4 % (45.0-75.0) Lymphocytes (%) (Auto) 26.5 % (20.0-45.0) Monocytes (%) (Auto) 12.9 % (1.0-10.0) H Eosinophils (%) (Auto) 2.0 % (0.0-3.0) Basophils (%) (Auto) 1.2 % (0.0-2.0) Sodium Level 137 MMOL/L (136-145) Potassium Level 4.7 MMOL/L (3.5-5.1) Chloride Level 99 MMOL/L (98-107) Carbon Dioxide Level 26 MMOL/L (21-32) Blood Urea Nitrogen 20 mg/dL (7-18) H Creatinine 6.7 MG/DL (0.55-1.30) H Estimat Glomerular Filtration Rate 8.6 mL/min (>60) Glucose Level 82 MG/DL (74-106) Calcium Level 7.9 MG/DL (8.5-10.1) L Rohit Hammonds MD Feb 13, 2018 18:49
--- NOTE | 2018-02-13 20:16 | Endoscopy Procedure Note ---
Endoscopy Procedure Note General Indication for Procedure: abd pain Procedures Performed: EGD Operative Findings/Diagnosis: normal Specimen: yes Pt Tolerated Procedure Well: Yes Estimated Blood Loss: none Anesthesia Anesthesiologist: see list Anesthesia: MAC Medications Medication Given: see anesthesia record Inserted Devices Implant(s) used?: No GI Core Measures 50 yrs or older w/o bx or poly: Not Applicable 10yrs. F/U not recommended: Not Applicable If not recommended, why?: Mary Dior MD Feb 13, 2018 20:16
--- NOTE | 2018-02-13 20:17 | Brief Operative Note ---
Immediate Post Operative Note Operative Note Chief Complaint: abd pain Pre-op Diagnosis: abd pain Procedure: esophagogastroduodenoscopy, bx Post-op Diagnosis: nl Surgeon: noemi Anesthesiologist: see report Anesthesia: moderate sedation Specimen: yes Complications: none Condition: stable Fluids: recorded Estimated Blood Loss: none Drains: none Implant(s) used?: No Mary Dior MD Feb 13, 2018 20:17
[2018-02-13] MEDS: HydrALAZINE 50mg tab ORAL PRN (20:20)
[2018-02-13] MEDS: Atorvastatin 20mg tab ORAL SCH (20:52)
[2018-02-13 22:15] LABS: BASOPHILS % (AUTO) 1.6 % (0.0-2.0); EOSINOPHILS % (AUTO) 2.1 % (0.0-3.0); HEMATOCRIT 31.2 % (37.0-47.0); HEMOGLOBIN 10.1 G/DL (12.0-16.0); LYMPHOCYTES % (AUTO) 25.1 % (20.0-45.0); MEAN CORPUSCULAR VOLUME 100 FL (80-99); MONOCYTES % (AUTO) 9.6 % (1.0-10.0); NEUTROPHILS % (AUTO) 61.6 % (45.0-75.0); PLATELET COUNT 212 K/UL (150-450); RED BLOOD COUNT 3.12 M/UL (4.20-5.40); RED CELL DISTRIBUTION WIDTH 13.2 % (11.6-14.8); WHITE BLOOD COUNT 6.3 K/UL (4.8-10.8)
[2018-02-13] MEDS: LORazepam 0.5mg tab ORAL PRN (22:20)
[2018-02-13 22:42] LABS: ALBUMIN 3.3 G/DL (3.4-5.0); ANION GAP 8 mmol/L (5-15); BLOOD UREA NITROGEN 10 mg/dL (7-18); CALCIUM 8.4 MG/DL (8.5-10.1); CARBON DIOXIDE 28 MMOL/L (21-32); CHLORIDE 102 MMOL/L (98-107); CREATININE 4.2 MG/DL (0.55-1.30); PHOSPHORUS 2.6 MG/DL (2.5-4.9); POTASSIUM 4.3 MMOL/L (3.5-5.1); SODIUM 138 MMOL/L (136-145)
--- NOTE | 2018-02-13 23:30 | Operative Note - Dictated ---
DATE OF OPERATION: 02/13/2018 PROCEDURE: Upper gastrointestinal endoscopy with biopsy. SURGEON: Mary Dior M.D. ANESTHESIA: Please see the separate anesthesiologist notes for details. PRE-ENDOSCOPIC DIAGNOSIS: Abdominal pain. POST-ENDOSCOPIC DIAGNOSIS: Normal upper endoscopy. DESCRIPTION OF PROCEDURE: The procedure, its risks, indications, alternatives, and possible complications were explained and informed consent was obtained. The endoscope was introduced through the oropharynx and advanced to the duodenum. Findings were negative and there were no abnormalities. Specifically, there were no ulcers or other lesions to explain the patient's abdominal pain. The biopsy of her antrum were sent to pathology for review. The endoscope was removed and the patient was sent to recovery in good condition. COMPLICATIONS: None. RECOMMENDATIONS: 1. Follow up biopsy results. 2. Resume oral diet. Mary Dior M.D. DR: ANTONIO JOB#: [id number] CC:
[2018-02-14] MEDS: DiphenhydrAMINE 50mg/ml Inj IVP PRN ×3 (01:47→15:23)
[2018-02-14] MEDS: HYDROmorphone 1mg/ml Carpuject IVP PRN ×3 (02:08→15:24)
[2018-02-14] MEDS: traMADol 50mg tab ORAL PRN (04:55)
[2018-02-14] MEDS: Miralax 17gm pkt ORAL SCH ×2 (05:37→13:39)
[2018-02-14] MEDS: NovoLOG Insulin Flexpen SUBQ SCH ×3 (05:37→16:30)
[2018-02-14] MEDS: LORazepam 0.5mg tab ORAL PRN (07:13)
[2018-02-14 08:50] VITALS: BP 150/82
[2018-02-14] MEDS: Aspirin EC 81mg tab ORAL SCH (09:04)
[2018-02-14] MEDS: Sensipar 30mg Tab ORAL SCH (09:06)
[2018-02-14] MEDS: Calcium Acetate 667mg Tab ORAL SCH (09:06)
[2018-02-14] MEDS: Metoprolol 25mg tab ORAL SCH (09:07)
[2018-02-14] MEDS: Heparin 5000 units/ml inj SUBQ SCH (09:08)
--- NOTE | 2018-02-14 10:11 | 48 Hour Post Anesthesia Eval ---
Post Anesthesia Evaluation Procedure: EGD with biopsies Date of Evaluation: Feb 14, 2018 Time of Evaluation: 10:09 Blood Pressure Systolic: 150 0: 82 Pulse Rate: 83 Respiratory Rate: 16 Temperature (Fahrenheit): 97.2 O2 Sat by Pulse Oximetry: 96 Airway: patent Nausea: No Vomiting: No Pain Intensity: 4 Hydration Status: adequate Cardiopulmonary Status: stable Mental Status/LOC: patient returned to baseline Follow-up Care/Observations: per monae Post-Anesthesia Complications: none Follow-up care needed: N/A Gail Fontana CRNA Feb 14, 2018 10:11
[2018-02-14] MEDS: HydrALAZINE 50mg tab ORAL PRN (11:47)
[2018-02-14 12:00] VITALS: BP 172/93
--- NOTE | 2018-02-14 12:15 | Nephrology Progress Note ---
Assessment/Plan Problem List: (1) ESRD (end stage renal disease) on dialysis (2) Diabetes mellitus (3) CAD (coronary artery disease) (4) Gastroparesis (5) Cyclic vomiting syndrome (6) Hypertension (7) Constipation Plan DC today. pt has some pain meds outside. HD tomorow as outpt Subjective Subjective still with pain Objective Objective Last 24 Hour Vital Signs Date Time Temp Pulse Resp B/P (MAP) Pulse Ox O2 Delivery O2 Flow Rate FiO2 02/14/18 12:00 98.6 86 20 172/93 (119) 93 98.6 02/14/18 11:47 172/93 02/14/18 10:11 207.0 83 16 96 02/14/18 09:07 86 150/82 02/14/18 09:00 Room Air 02/14/18 08:50 98.2 86 20 150/82 (104) 92 98.2 02/13/18 21:00 145/81 (102) 02/13/18 21:00 Room Air 02/13/18 20:20 183/93 02/13/18 20:00 97.2 89 17 183/93 (123) 93 97.2 02/13/18 16:00 98.3 87 18 145/81 (102) 97 98.3 Intake and Output 02/13/18 02/14/18 19:00 07:00 Intake Total 530 ml 480 ml Output Total 1 ml Balance 529 ml 480 ml Intake Oral 480 ml 480 ml IV Total 50 ml Output Urine Total 1 ml # Voids 1 1 # Bowel Movements 1 Laboratory Tests 02/13/18 22:00: White Blood Count 6.3, Red Blood Count 3.12L, Hemoglobin 10.1L, Hematocrit 31.2L , Mean Corpuscular Volume 100H, Mean Corpuscular Hemoglobin 32.4H, Mean Corpuscular Hemoglobin Concent 32.4, Red Cell Distribution Width 13.2, Platelet Count 212, Mean Platelet Volume 5.9L, Neutrophils (%) (Auto) 61.6, Lymphocytes ( %) (Auto) 25.1, Monocytes (%) (Auto) 9.6, Eosinophils (%) (Auto) 2.1, Basophils (%) (Auto) 1.6 02/13/18 22:08: Sodium Level 138, Potassium Level 4.3, Chloride Level 102, Carbon Dioxide Level 28, Anion Gap 8, Blood Urea Nitrogen 10, Creatinine 4.2H, Estimat Glomerular Filtration Rate 14.8, Glucose Level 111H, Calcium Level 8.4L, Phosphorus Level 2.6, Albumin 3.3L 02/14/18 10:50: Stool Occult Blood Negative Height (Feet): 5 Height (Inches): 6.00 Weight (Pounds): 119 Rick Sepulveda MD Feb 14, 2018 12:15
--- NOTE | 2018-02-14 14:26 | Internal Med Progress Note ---
Subjective Physician Name SarojDick raymond Attending Physician Rick Sepulveda MD Current Medications Medications (Trade) Dose Ordered Sig/Danielle Route PRN Reason Start Time Stop Time Status Last Admin Dose Admin Aspirin (Ecotrin) 81 mg DAILY ORAL 02/07/18 09:00 03/09/18 08:59 02/14/18 09:04 Atorvastatin Calcium (Lipitor) 40 mg BEDTIME ORAL 02/09/18 21:00 03/11/18 20:59 02/13/18 20:52 Calcium Acetate (Phoslo) 667 mg DAILY ORAL 02/07/18 09:00 03/09/18 08:59 02/14/18 09:06 Cinacalcet (Sensipar) 90 mg DAILY ORAL 02/07/18 09:00 03/09/18 08:59 02/14/18 09:06 Clopidogrel Bisulfate (Plavix) 75 mg DAILY ORAL 02/13/18 09:45 03/15/18 09:44 02/14/18 09:03 Dextrose (Dextrose 50%) 25 ml STAT PRN IV Hypoglycemia 02/06/18 23:00 03/08/18 22:59 Dextrose (Dextrose 50%) 50 ml STAT PRN IV Hypoglycemia 02/06/18 23:00 03/08/18 22:59 Diphenhydramine HCl (Benadryl) 25 mg Q6H PRN IVP Itching 02/11/18 18:00 03/13/18 17:59 02/14/18 09:07 Heparin Sodium (Porcine) (Heparin 5000 units/ml) 5,000 units EVERY 12 HOURS SUBQ 02/06/18 23:00 03/08/18 22:59 02/14/18 09:08 Hydralazine HCl (Apresoline) 50 mg Q6HR PRN ORAL For High Blood Pressure 02/07/18 00:00 03/09/18 00:00 02/14/18 11:47 Hydromorphone HCl (Dilaudid) 0.5 mg Q4H PRN IVP Severe Pain (Pain Scale 7-10) 02/11/18 19:00 02/18/18 18:59 02/14/18 10:50 Insulin Aspart (NovoLOG) BEFORE MEALS AND HS SUBQ 02/07/18 06:30 03/09/18 06:29 9/12/18 20:32 Iopamidol (Isovue-300 100ml) 100 ml NOW PRN INJ Radiology Procedure 02/11/18 00:00 Lorazepam (Ativan) 0.5 mg Q4H PRN ORAL Anxiety/agitation 02/10/18 11:15 02/17/18 11:14 02/14/18 07:13 Lorazepam (Ativan) 1 mg Q4H PRN ORAL Nausea & Vomiting 02/10/18 11:15 02/17/18 11:14 02/12/18 21:39 Metoclopramide HCl (Reglan) 5 mg Q6H PRN ORAL Nausea & Vomiting 02/07/18 16:30 03/09/18 16:29 02/14/18 13:52 Metoprolol Tartrate (Lopressor) 25 mg DAILY ORAL 02/07/18 09:00 03/09/18 08:59 02/14/18 09:07 Mirtazapine (Remeron) 15 mg BEDTIME ORAL 02/07/18 21:00 03/09/18 20:59 02/13/18 20:52 Ondansetron HCl (Zofran) 4 mg Q4H PRN IVP Nausea & Vomiting 02/07/18 16:30 03/09/18 16:29 02/14/18 10:59 Pantoprazole (Protonix) 40 mg DAILY ORAL 02/07/18 09:00 03/09/18 08:59 02/14/18 09:03 Polyethylene Glycol (Miralax) 17 gm EVERY 8 HOURS ORAL 02/10/18 22:00 03/12/18 21:59 02/13/18 16:28 Tramadol HCl (Ultram) 50 mg Q8H PRN ORAL pain 4-10 02/10/18 11:15 02/17/18 11:14 02/14/18 04:55 Allergies: Coded Allergies: No Known Allergies (Unverified , 06/11/16) Subjective awake, alert, responsive, C/O less epigastric abdominal pain , No N/V, No chest pain Objective Last Vital Signs Date Time Temp Pulse Resp B/P (MAP) Pulse Ox O2 Delivery O2 Flow Rate FiO2 02/14/18 12:00 98.6 86 20 172/93 (119) 93 98.6 02/14/18 09:00 Room Air Laboratory Tests Test 02/13/18 22:00 02/13/18 22:08 02/14/18 10:50 White Blood Count 6.3 K/UL (4.8-10.8) Red Blood Count 3.12 M/UL (4.20-5.40) L Hemoglobin 10.1 G/DL (12.0-16.0) L Hematocrit 31.2 % (37.0-47.0) L Mean Corpuscular Volume 100 FL (80-99) H Mean Corpuscular Hemoglobin 32.4 PG (27.0-31.0) H Mean Corpuscular Hemoglobin Concent 32.4 G/DL (32.0-36.0) Red Cell Distribution Width 13.2 % (11.6-14.8) Platelet Count 212 K/UL (150-450) Mean Platelet Volume 5.9 FL (6.5-10.1) L Neutrophils (%) (Auto) 61.6 % (45.0-75.0) Lymphocytes (%) (Auto) 25.1 % (20.0-45.0) Monocytes (%) (Auto) 9.6 % (1.0-10.0) Eosinophils (%) (Auto) 2.1 % (0.0-3.0) Basophils (%) (Auto) 1.6 % (0.0-2.0) Sodium Level 138 MMOL/L (136-145) Potassium Level 4.3 MMOL/L (3.5-5.1) Chloride Level 102 MMOL/L (98-107) Carbon Dioxide Level 28 MMOL/L (21-32) Anion Gap 8 mmol/L (5-15) Blood Urea Nitrogen 10 mg/dL (7-18) Creatinine 4.2 MG/DL (0.55-1.30) H Estimat Glomerular Filtration Rate 14.8 mL/min (>60) Glucose Level 111 MG/DL (74-106) H Calcium Level 8.4 MG/DL (8.5-10.1) L Phosphorus Level 2.6 MG/DL (2.5-4.9) Albumin 3.3 G/DL (3.4-5.0) L Stool Occult Blood Negative (NEGATIVE) Intake and Output 02/13/18 02/14/18 19:00 07:00 Intake Total 530 ml 480 ml Output Total 1 ml Balance 529 ml 480 ml Intake Oral 480 ml 480 ml IV Total 50 ml Output Urine Total 1 ml # Voids 1 1 # Bowel Movements 1 Objective General: No acute distress, awake and alert HEENT: NCAT, sclera anicteric, PERRL, EOMI. Neck: Supple, no significant jugular venous distention, Lungs: Good inspiratory effort,, clear to auscultation bilaterally, no Wheeze or Rales. Heart: Regular rate and rhythm, normal S1/S2, no murmurs Abdomen: soft, Epigastric tenderness, nondistended. Normoactive bowel sounds. / Rectal: Refused and deferred. Extremities: No Cyanosis , clubbing or edema. Neuro: A&O x 3, Able to move all extremities, RLE AV fistula. Skin: warm, no rashes or lesions Psych: Normal mood and affect Assessment/Plan Assessment/Plan Epigastric pain Esophagitis, coronary disease hypertension Asthma, diabetes coronary arterial disease constipation gastroparesis with cyclic vomiting syndrome ESRD on hemodialysis, Uncontrolled DM HTN, Depression Plan: F/U with Dr. Sepulveda recommendations Monitor Labs Full code Hemodialysis ambulation DC Home today Dick Kyle MD Feb 14, 2018 14:26
[2018-02-14 16:00] VITALS: BP 154/93
--- NOTE | 2018-02-14 17:18 | Cardiology Progress Note ---
Assessment/Plan Assessment/Plan (1) End stage renal disease (2) Gastroparesis (3) Cyclic vomiting syndrome (4) Coronary artery diseasemultivessel PCI ( LM, LAD, LCX, RCA (5) Diabetes mellitus asa plavix gi noted cv stable at this moment still nausea will have ekg Subjective Cardiovascular: Reports: palpitations; Denies: chest pain Respiratory: Denies: shortness of breath Gastrointestinal/Abdominal: Reports: abdominal pain Genitourinary: Denies: burning Objective Last 24 Hour Vital Signs Date Time Temp Pulse Resp B/P (MAP) Pulse Ox O2 Delivery O2 Flow Rate FiO2 02/14/18 16:00 97.8 82 21 154/93 (113) 95 97.8 02/14/18 12:00 98.6 86 20 172/93 (119) 93 98.6 02/14/18 11:47 172/93 02/14/18 10:11 207.0 83 16 96 02/14/18 09:07 86 150/82 02/14/18 09:00 Room Air 02/14/18 08:50 98.2 86 20 150/82 (104) 92 98.2 02/13/18 21:00 145/81 (102) 02/13/18 21:00 Room Air 02/13/18 20:20 183/93 02/13/18 20:00 97.2 89 17 183/93 (123) 93 97.2 General Appearance: alert Neck: supple Cardiovascular: normal rate, regular rhythm Respiratory/Chest: lungs clear Abdomen: normal bowel sounds, non tender, soft Extremities: no swelling Intake and Output 02/13/18 02/14/18 19:00 07:00 Intake Total 530 ml 480 ml Output Total 1 ml Balance 529 ml 480 ml Intake Oral 480 ml 480 ml IV Total 50 ml Output Urine Total 1 ml # Voids 1 1 # Bowel Movements 1 Laboratory Tests Test 02/13/18 22:00 02/13/18 22:08 02/14/18 10:50 White Blood Count 6.3 K/UL (4.8-10.8) Red Blood Count 3.12 M/UL (4.20-5.40) L Hemoglobin 10.1 G/DL (12.0-16.0) L Hematocrit 31.2 % (37.0-47.0) L Mean Corpuscular Volume 100 FL (80-99) H Mean Corpuscular Hemoglobin 32.4 PG (27.0-31.0) H Mean Corpuscular Hemoglobin Concent 32.4 G/DL (32.0-36.0) Red Cell Distribution Width 13.2 % (11.6-14.8) Platelet Count 212 K/UL (150-450) Mean Platelet Volume 5.9 FL (6.5-10.1) L Neutrophils (%) (Auto) 61.6 % (45.0-75.0) Lymphocytes (%) (Auto) 25.1 % (20.0-45.0) Monocytes (%) (Auto) 9.6 % (1.0-10.0) Eosinophils (%) (Auto) 2.1 % (0.0-3.0) Basophils (%) (Auto) 1.6 % (0.0-2.0) Sodium Level 138 MMOL/L (136-145) Potassium Level 4.3 MMOL/L (3.5-5.1) Chloride Level 102 MMOL/L (98-107) Carbon Dioxide Level 28 MMOL/L (21-32) Anion Gap 8 mmol/L (5-15) Blood Urea Nitrogen 10 mg/dL (7-18) Creatinine 4.2 MG/DL (0.55-1.30) H Estimat Glomerular Filtration Rate 14.8 mL/min (>60) Glucose Level 111 MG/DL (74-106) H Calcium Level 8.4 MG/DL (8.5-10.1) L Phosphorus Level 2.6 MG/DL (2.5-4.9) Albumin 3.3 G/DL (3.4-5.0) L Stool Occult Blood Negative (NEGATIVE) Rohit Hammonds MD Feb 14, 2018 17:18
--- NOTE | 2018-02-14 21:13 | General Progress Note ---
Assessment/Plan Assessment/Plan Assessment - Gastroparesis - GERD - CAD/PVD, but no celiac/SMA narrowing on CT - ESRD/HD - recurrent N/V - abd pain Recommendations - PPI - outpatient colonoscopy - Vascular surgery opinion, ? any benefit to traditional angiogram - po as tolerated - elevated HOB - PPI Subjective Allergies: Coded Allergies: No Known Allergies (Unverified , 06/11/16) Subjective some abdominal pain overnight no vomiting advised to f/u with me as outpt Objective Last 24 Hour Vital Signs Date Time Temp Pulse Resp B/P (MAP) Pulse Ox O2 Delivery O2 Flow Rate FiO2 02/14/18 16:00 97.8 82 21 154/93 (113) 95 97.8 02/14/18 12:00 98.6 86 20 172/93 (119) 93 98.6 02/14/18 11:47 172/93 02/14/18 10:11 207.0 83 16 96 02/14/18 09:07 86 150/82 02/14/18 09:00 Room Air 02/14/18 08:50 98.2 86 20 150/82 (104) 92 98.2 Intake and Output 02/13/18 02/14/18 19:00 07:00 Intake Total 530 ml 480 ml Output Total 1 ml Balance 529 ml 480 ml Intake Oral 480 ml 480 ml IV Total 50 ml Output Urine Total 1 ml # Voids 1 1 # Bowel Movements 1 Laboratory Tests 02/13/18 22:00: White Blood Count 6.3, Red Blood Count 3.12L, Hemoglobin 10.1L, Hematocrit 31.2L , Mean Corpuscular Volume 100H, Mean Corpuscular Hemoglobin 32.4H, Mean Corpuscular Hemoglobin Concent 32.4, Red Cell Distribution Width 13.2, Platelet Count 212, Mean Platelet Volume 5.9L, Neutrophils (%) (Auto) 61.6, Lymphocytes ( %) (Auto) 25.1, Monocytes (%) (Auto) 9.6, Eosinophils (%) (Auto) 2.1, Basophils (%) (Auto) 1.6 02/13/18 22:08: Sodium Level 138, Potassium Level 4.3, Chloride Level 102, Carbon Dioxide Level 28, Anion Gap 8, Blood Urea Nitrogen 10, Creatinine 4.2H, Estimat Glomerular Filtration Rate 14.8, Glucose Level 111H, Calcium Level 8.4L, Phosphorus Level 2.6, Albumin 3.3L 02/14/18 10:50: Stool Occult Blood Negative Height (Feet): 5 Height (Inches): 6.00 Weight (Pounds): 119 Objective WDWN NCAT supple CTA RRR abd soft ND NT no edema non focal Mary Dior MD Feb 14, 2018 21:13
--- NOTE | 2018-02-16 15:54 | Cardiology Report ---
APPROVED REPORT EKG Measurement Heart [id number] NC [id number] [id number] Normal sinus rhythm Prolonged QT Abnormal ECG
--- NOTE | 2018-02-16 21:00 | Consultation ---
DATE OF CONSULTATION: 02/13/2018 CONSULTING PHYSICIAN: Raimundo Blunt M.D. REFERRING PHYSICIAN: Rick Olmstead M.D. REASON FOR CONSULTATION: Rule out mesenteric arterial ischemia. HISTORY PRESENT ILLNESS: This is a 32-year-old, female, who is currently on dialysis end-stage renal failure earlier has a right groin AV graft which was placed by Dr. Jacob Fung. The patient by her report, reportedly had failed arm AV shunt placement. The patient has had recurrent nausea and vomiting and intermittent abdominal pain. Vascular Surgery is now consulted for further evaluation. She underwent a CT angiogram of her mesentry, which revealed widely patent without any ischemia, no stenosis. Gastroenterology consultation is in progress. She has no other complaints. PAST MEDICAL HISTORY: As above, history of coronary disease, coronary stent placement, prior history of DVT, pulmonary embolism, recurrent chest pain, gastroesophageal reflux disease, candidal esophagitis, failed AV shunt access, right groin AV graft. MEDICATIONS: See attached MAR. SOCIAL HISTORY: Denies history of smoking. Does use marijuana. No history of drinking. She is to same sex partner. REVIEW OF SYSTEMS: Otherwise unremarkable.CARDIOVASCULAR: No history of chest pain. Has history of HI, coronary stent. PULMONARY: No cough. No hemoptysis. GASTROINTESTINAL: No history of abdominal pain, constipation, or diarrhea. GENITOURINARY: No urinary symptoms. NEUROLOGICAL: No history of stroke or seizures. PHYSICAL EXAMINATION: VITAL SIGNS: The patient is afebrile, 97. Heart rate is 80, blood pressure 134/78, and respirations 16. The patient has palpable radial pulses. NECK: No evidence of carotid bruits. LUNGS: Clear to auscultation. EXTREMITIES: She has a left upper arm scar which is clean, dry, and intact. No evidence of edema. she has palpable femoral pulses. Right groin AV graft has a palpable thrill. Feet are warm and intact pedal Dopplers bilaterally. LABORATORY DATA: WBC 5.6, hemoglobin 9.5, platelets 184. Sodium 137, potassium 4.7, BUN 20, creatinine 6.7. IMPRESSION: 1. Recurrent abdominal pain with gastroparesis, nausea and vomiting. 2. No evidence of ischemia, no mesenteric stenosis on CT angiogram with widely patent celiac and SMA arteries. 3. End-stage renal failure, on hemodialysis through a right groin AV graft placed by Dr. Jacob Fung. 4. History of coronary disease with prior history of intervention. 5. Prior history of DVT and pulmonary embolism. PLAN AND RECOMMENDATIONS: 1. Continue GI workup for her nausea and vomiting. 2. Antiplatelet and statin therapy. 3. Right groin AV graft, followup per her surgeon, Dr. Fung. 4. DVT and decubitus precautions. 5. No current signs or symptoms of mesenteric ischemia. 6. The above discussed at length with the patient. Raimundo Blunt M.D. DR: Usha JOB#: [id number] CC: Raimundo Blunt M.D.; Fax#: [phone] RICK OLMSTEAD M.D. ; FAX#: [phone]
--- NOTE | 2018-02-17 11:43 | Discharge Summary ---
Discharge Summary Discharge Summary _ DATE OF ADMISSION: 02/06/2018 DATE OF DISCHARGE: 02/14/2018 REASON FOR ADMISSION: 32 years old female with past medical history of end-stage renal disease, on hemodialysis, coronary artery disease with multivessel PCI, hypertension, asthma , diabetes mellitus, cyclic vomiting syndrome, GERD, came to emergency room for evaluation of abdominal pain , nausea and vomiting. Patient with prior history of gastroparesis and recent hospitalization for it in [facility] and [facility]. Upon evaluation blood pressure was elevated to 218/97. No leukocytosis, stable hemoglobin and hematocrit . BUN 9 and creatinine 6.1, consistent with end-stage renal disease. Stable lipase, LFT and electrolytes. Patient admitted with diagnoses of gastroparesis , abdominal pain with nausea and vomiting, cyclic vomiting syndrome, end-stage renal disease on hemodialysis , hypertension. CONSULTANTS: purchasing officer Dr. Hammonds GI specialist Dr. Richards board of education secretary Dr. Marni Sepulveda vascular surgery [facility] COURSE: Patient admitted to medical surgical floor. GI specialist closely followed. Patient undergone upper endoscopy with biopsy which was negative. Diet resumed as tolerated . Symptomatic treatment provided with antiemetics as needed . Abdominal ultrasound on previous admission revealed questionable cholelithiasis , but no dilated ducts. Echogenic atrophic bilateral kidneys consistent with medical renal disease, no hydronephrosis. Nonobstructive right lower pole renal calcification. CTA of abdomen and pelvis was done and revealed no evidence of mesenteric ischemia. SMA and celiac artery appeared widely patent Severe multisegmental stenosis involving both renal arteries . Both kidneys appeared atrophic, probably on chronic vascular basis. Moderate atherosclerotic vascular disease. Anasarca. GI specialist closely followed. Patient was on PPI. Pain management was addressed. Bowel regimen instituted. GI specialist recommended outpatient colonoscopy. Strict reflux precautions were maintained with elevation head of the bed. Vascular surgery consult was requested for evaluation of possible mesenteric artery ischemia. According to vascular surgeon, patient had no evidence of mesenteric stenosis or ischemia on CT angiogram. Patient had widely patent celiac and SMA arteries. Patient was receiving dialysis via right groin AV graft. Renal parameters and electrolytes were closely monitored. Dialysis provided as per board of education secretary . r All medications were renally dosed. Blood sugar was managed with sliding scale of insulin. Appraisal Coordinator closely followed . DVT prophayxlis provided. Patient was on dual antiplatelet therapy with aspirin and Plavix. Blood pressure was closely monitored and managed as per purchasing officer and board of education secretary. Cardiovascular status was stable. Supplemental oxygen and pulmonary toilet provided as needed. No evidence of bronchospasm or asthma exacerbation. Psychiatry followed. Reality orientation and supportive therapy provided. Patient was on antidepressive. Supportive care provided. Patient clinically improved. Patient was stable for discharge home with outpatient follow-up with a primary care provider and outpatient hemodialysis. FINAL DIAGNOSES: Recurrent abdominal pain with nausea and vomiting Gastroparesis Cyclic vomiting syndrome GERD End-stage renal disease, on hemodialysis Hypertension Coronary artery disease with multivessel PCI Diabetes mellitus Constipation Asthma History of DVT Major depressive disorder Anxiety disorder, DISCHARGE MEDICATIONS: See Medication Reconciliation list. DISCHARGE INSTRUCTIONS: Patient was discharged home . Follow up with primary care provider in one week. Follow-up with outpatient hemodialysis as scheduled I have been assigned to dictate discharge summary for this account. I was not involved in the patient's management. Connie Birmingham NP Feb 17, 2018 11:43
== END 2018-02-14 18:21 | disposition home or self-care (01) | DRG 391 ==
LOC: EMR 18:12 → 3E 20:55 → EDBEDREQ 21:11 → 3E 02-08 15:00
PROC: 5A1D70Z Performance of Urinary Filtration, Intermittent, Less than 6 Hours Per Day (ICD-10-PCS; principal; 2018-02-08)
PROC: 0DB78ZX Excision of Stomach, Pylorus, Via Natural or Artificial Opening Endoscopic, Diagnostic (ICD-10-PCS; 2018-02-13)
DX: K31.84 Gastroparesis (principal); N18.6 End stage renal disease; I12.0 Hypertensive chronic kidney disease with stage 5 chronic kidney disease or end stage renal disease; E11.22 Type 2 diabetes mellitus with diabetic chronic kidney disease; Z99.2 Dependence on renal dialysis; G43.A0 Cyclical vomiting, in migraine, not intractable; K21.9 Gastro-esophageal reflux disease without esophagitis; I25.10 Atherosclerotic heart disease of native coronary artery without angina pectoris; Z95.5 Presence of coronary angioplasty implant and graft; K59.00 Constipation, unspecified; J45.909 Unspecified asthma, uncomplicated; Z86.718 Personal history of other venous thrombosis and embolism; F32.9 Major depressive disorder, single episode, unspecified; F41.9 Anxiety disorder, unspecified; I25.2 Old myocardial infarction; Z79.02 Long term (current) use of antithrombotics/antiplatelets; Z79.82 Long term (current) use of aspirin
CPT/HCPCS: 36415; 74175; 80048; 80053; 80069; 82270; 82962; 83605; 83690; 83735; 84100; 85025; 87081; 93005; 94003; 94150; J1815; J2405

== ENCOUNTER 2018-07-04 22:07 | Emergency (ER) | payer MEDICARE, OTHER ==
[~2018-07-04] VITALS: Ht 142.2 cm; Wt 61.2 kg
[2018-07-04] MEDS ORDERED: Promethazine 50mg/ml Inj IM ONE (22:30)
[2018-07-04] MEDS ORDERED: Morphine Sulfate 4mg/ml Inj (IV/IM USE ONLY) IM ONE (22:30)
--- NOTE | 2018-07-04 22:32 | Emergency Room Report ---
History of Present Illness General Chief Complaint: Abdominal Pain Source: Patient, Medical Record Present Illness HPI Is a 33-year-old female with a history renal failure hemodialysis. Dialysis days are Saturday, , and Saturday. She also history of gastroparesis with multiple episodes. She goes to the hospital at least monthly. She presents with chief complaint abdominal pain with nausea vomiting diarrhea. Onset today. Her pain medication home not helping. She is on OxyContin and Percocet. Vomiting is nonbloody nonbilious. Diarrhea is watery. Pain is 10 out of 10 sharp and crampy. Allergies: Coded Allergies: No Known Allergies (Unverified , 06/11/16) Patient History Past Medical History: see triage record, old chart reviewed, HTN, renal disease , dialysis Past Surgical History: other Pertinent Family History: none Social History: Denies: smoking Last Menstrual Period: 06/03/2018 Now: No Immunizations: other Reviewed Nursing Documentation: PMH: Agreed; PSxH: Agreed Nursing Documentation-PMH Past Medical History: No History, Except For Hx Cardiac Problems: Yes - 8 Stents Hx Hypertension: Yes Hx Pacemaker: No Hx Asthma: Yes Hx COPD: No Hx Diabetes: Yes Hx Cancer: No Hx Gastrointestinal Problems: Yes - gastroparesis Hx Dialysis: Yes - Sat, Sat and SAT Hx Neurological Problems: No Hx Cerebrovascular Accident: No Hx Seizures: No Review of Systems Eye: Denies: eye pain, blurred vision ENT: Denies: ear pain, nose congestion, throat swelling Respiratory: Denies: cough, shortness of breath Cardiovascular: Denies: chest pain, palpitations Gastrointestinal: Reports: abdominal pain, diarrhea, nausea, vomiting Musculoskeletal: Denies: back pain, joint pain Skin: Denies: rash Neurological: Denies: headache, numbness Endocrine: Denies: increased thirst, increased urine Hematologic/Lymphatic: Denies: easy bruising All Other Systems: negative except mentioned in HPI Physical Exam Vital Signs Date Time Temp Pulse Resp B/P (MAP) Pulse Ox O2 Delivery O2 Flow Rate FiO2 07/04/18 22:16 97.3 103 18 159/97 96 vital signs unremarkable Sp02 EP Interpretation: reviewed, normal General Appearance: well appearing, no apparent distress, alert Head: normocephalic, atraumatic Eyes: bilateral eye PERRL, bilateral eye EOMI ENT: hearing grossly normal, normal pharynx Neck: full range of motion, supple, no meningismus Respiratory: chest non-tender, lungs clear, normal breath sounds Cardiovascular #1: regular rate, rhythm, no murmur Gastrointestinal: normal bowel sounds, no mass, no organomegaly, no bruit, non- distended, tenderness - Mild, diffuse Musculoskeletal: back normal, gait/station normal, normal range of motion Psychiatric: mood/affect normal Skin: warm/dry Medical Decision Making Diagnostic Impression: Primary Impression: Gastroparesis Additional Impression: Leg edema, right ER Course She presents with abdominal pain with nausea vomiting and diarrhea. No vomiting or diarrhea. Comfortable now. She had blood work done at [facility] less than 3 days ago. Per her , the reading was at baseline. also pointed out that lower extremity was swollen. This is the same site as her dialysis graft. I do note she was negative for DVT. There is no evidence of any infection. We'll discharge home. CT/MRI/US Diagnostic Results CT/MRI/US Diagnostic Results : Imaging Test Ordered: Ultrasound right lower extremity Impression Negative for DVT per radiologist Last Vital Signs Date Time Temp Pulse Resp B/P (MAP) Pulse Ox O2 Delivery O2 Flow Rate FiO2 07/04/18 22:16 97.3 103 18 159/97 96 Status: improved Disposition: HOME, SELF-CARE Condition: Stable Patient Instructions: Abdominal Pain, Adult Additional Instructions: Take your pain medication. Follow-up with your Dr. in 2 to 3 days. Return if worse. David Vega MD Jul 04, 2018 22:32
--- NOTE | 2018-07-04 22:36 | NUR ---
ED Nurse Note: Patient present with abdominal pain x 3 10/10 and diarrhea for 3 days.
[2018-07-04 22:37] VITALS: BP 159/97
--- NOTE | 2018-07-04 23:44 | NUR ---
ED Nurse Note: Patient is resting comfortably with no s/s of acute distress. Dr informed of patient concern regarding left leg.
--- NOTE | 2018-07-05 00:29 | NUR ---
ED Nurse Note: Patient currently undergoing duplex of the right lower extremity.
--- NOTE | 2018-07-05 01:28 | NUR ---
ED Nurse Note: Patient cleared for discharge by Dr. Vega. Patient is ambulatory with steady gaitt, no s/s of acute distress and no complaints of pain. Patient is A&ox4, ID band removed, accompanied by her friend upon departure.
[2018-07-05 01:35] VITALS: BP 159/97
== END 2018-07-05 01:36 | disposition home or self-care (01) ==
LOC: EMR 22:32
DX: K31.84 Gastroparesis (principal); R60.0 Localized edema; I12.0 Hypertensive chronic kidney disease with stage 5 chronic kidney disease or end stage renal disease; E11.22 Type 2 diabetes mellitus with diabetic chronic kidney disease; N18.6 End stage renal disease; Z99.2 Dependence on renal dialysis; J45.909 Unspecified asthma, uncomplicated
CPT/HCPCS: 93971; 96372; 99284; J2270; J2550